=== PATIENT | female | born 1970 ===

== ENCOUNTER 2016-08-22 07:06 | Day surgery (SDC) | payer MEDICARE, MEDICAID ==
[2016-06-08 20:20] VITALS: BMI 19.5
[2016-08-22] MEDS ORDERED: Lactated Ringer's 500 ML IV ONE (07:55)
[2016-08-22] MEDS ORDERED: Propofol 10 mg/ml Inj (20 ML) ONE (09:42)
[2016-08-22] MEDS ORDERED: Midazolam 2 MG/2 ML VIAL ONE (09:42)
[2016-08-22] MEDS ORDERED: ePHEDrine 50 mg/ml Inj ONE (09:48)
[2016-08-22 10:17] VITALS: RESP 20
[2016-08-22 10:43] VITALS: BP 103/78; PULSE 90; TEMP 96.5; O2SAT 98
== END 2016-08-22 11:26 | disposition home or self-care (01) ==
LOC: H.ENDO 07:06
PROVIDERS: ATTEND Internal Medicine Gastroenterology
DX: Z12.11 Encounter for screening for malignant neoplasm of colon (principal); J45.909 Unspecified asthma, uncomplicated; D64.9 Anemia, unspecified; K64.9 Unspecified hemorrhoids; K74.60 Unspecified cirrhosis of liver; K31.9 Disease of stomach and duodenum, unspecified; K31.89 Other diseases of stomach and duodenum; K76.6 Portal hypertension; K20.9 Esophagitis, unspecified; K29.50 Unspecified chronic gastritis without bleeding
CPT/HCPCS: 43239; 45378; 88305; J2001; J2250; J2704; J7120

== ENCOUNTER 2016-12-06 05:25 | Observation (INO) | payer OTHER, MEDICAID ==
[2016-12-06 05:26] VITALS: BMI 19.5
--- NOTE | 2016-12-06 06:09 | ED PDOC ---
HPI: Abdomen Time Seen by Provider: 12/06/16 05:43 Chief Complaint (Nursing): Abdominal Pain Chief Complaint (Provider): Abdominal Pain History Per: Patient History/Exam Limitations: no limitations Onset/Duration Of Symptoms: Days (Two ) Outside of [place] travel?: No Current Symptoms Are (Timing): Still Present Severity: Mild Associated Symptoms: denies: Fever, Nausea, Vomiting, Diarrhea, Chest Pain Additional Complaint(s): 46 y/o female patient presenting to the ED with abdominal distention for two days. Patients past medical history includes alcohol related liver cirrhosis, GI bleed and compliant with diuretic. Patient came to the ED after referral from PMD Dr. Aguirre for an ED paracentesis. Patient reports abdominal distention with discomfort and mild shortness of breath and reports she had similar symptoms April this year and benefitted from paracentesis. Patient reports being a current smoker and former drinker. Past Medical History Reviewed: Historical Data, Nursing Documentation, Vital Signs Vital Signs: Last Vital Signs Temp 98.7 F 12/06/16 05:36 Pulse 74 12/06/16 05:36 Resp 18 12/06/16 05:36 BP 99/64 L 12/06/16 05:36 Pulse Ox 98 12/06/16 06:34 - Medical History PMH: Anemia, Asthma (LAST ATTACK 1 MONTH AGO), HTN Denies: Bronchitis, Cardia Arrhythmia, CHF, COPD, Emphysema, HIV, Hypercholesterolemia, Mitral Valve Prolapse, Peripheral Edema, Pneumonia, Pulmonary Embolism, Chronic Kidney Disease, Sickle Cell Disease, Sleep Apnea - Surgical History Surgical History: Endoscopy Denies: Appendectomy, CABG, Carotid Endarterectomy, Cholecystectomy, Coronary Stent, Pacemaker, Tonsillectomy - Family History Family History: States: No Known Family Hx - Social History Current smoker - smoking cessation education provided: Yes Alcohol: None Drugs: Denies - Home Medications Home Medications: Ambulatory Orders Medication Instructions Recorded Albuterol Sulfate 1 puff INH PRN PRN 08/16/15 rifAXIMin [Xifaxan] 550 mg PO BID 08/16/15 Spironolactone [Aldactone] 25 mg PO TID #90 tab 08/17/15 Ferrous Sulfate 325 mg PO DAILY #0 tablet 02/09/16 Carvedilol [Coreg] 3.125 mg PO DAILY 08/22/16 Furosemide [Lasix] 40 mg PO DAILY 08/22/16 - Allergies Allergies/Adverse Reactions: Allergies Allergy/AdvReac Type Severity Reaction Status Date / Time iodine Allergy SHORTNESS Verified 12/06/16 05:36 OF BREATH Review of Systems ROS Statement: Except As Marked, All Systems Reviewed And Found Negative Respiratory: Positive for: Shortness of Breath ((+)Mild ) Gastrointestinal: Positive for: Abdominal Pain ((+)Distention ) Physical Exam - Reviewed Nursing Documentation Reviewed: Yes Vital Signs Reviewed: Yes - Physical Exam Appears: Positive for: Non-toxic, No Acute Distress Head Exam: Positive for: ATRAUMATIC, NORMAL INSPECTION, NORMOCEPHALIC Skin: Positive for: Normal Color, Warm, Dry Neck: Positive for: Normal, Painless ROM, Supple Cardiovascular/Chest: Positive for: Regular Rate, Rhythm. Negative for: Murmur Respiratory: Positive for: Normal Breath Sounds. Negative for: Respiratory Distress Gastrointestinal/Abdominal: Positive for: Distended ((+)Distention of the abdomen with fluid wave, inciting known liver cirrhosis.) Extremity: Positive for: Normal ROM Neurologic/Psych: Positive for: Alert, Oriented. Negative for: Motor/Sensory Deficits - Laboratory Results Result Diagrams: 12/06/16 06:27 - ECG O2 Sat by Pulse Oximetry: 98 (RA) Pulse Ox Interpretation: Normal Medical Decision Making Medical Decision Making: Time: 542 Initial impression: Initial plan: --EKG --CMP --ED URINE DIPSTICK --URINE --EKG-ED --CBC --PTT --PROTHROMBIN TIME --BLOOD CULTURE --HEPLOCK INSERTION IV --ADMIT --URINALYSIS Consultations: --Patient will be on admit observation for same day Paracentesis as was discussed with Dr. Nel MD the resident behavioral health consultant who will communicate with the incoming day team for further treatment. Scribe Attestation: Documented by Erica Pickering, acting as a scribe for Yaniv Valle MD. Scribe Attestation: All medical record entries made by the Scribe were at my direction and personally dictated by me. I have reviewed the chart and agree that the record accurately reflects my personal performance of the history, physical exam, medical decision making, and the department course for this patient. I have also personally directed, reviewed, and agree with the discharge instructions and disposition. Disposition - Clinical Impression Clinical Impression: Cirrhosis of liver, Ascites - Patient ED Disposition Is Patient to be Admitted: Yes Discussed With : Prema Neumann - Disposition Referrals: Seamus Aguirre MD [Primary Care Provider] - Disposition Time: 05:48 Condition: FAIR - Pt Status Changed To: Hospital Disposition Of: Observation - POA Present On Arrival: None
[2016-12-06 06:32] LABS: EOS % 0.6 % (0.0-4.0); LYMPH # 0.8 K/uL (1.0-4.3); LYMPH % 17.1 % (20.0-40.0); MEAN CELL VOLUME 90.6 fl (81.0-99.0); MEAN CORPUSCULAR HEMOGLOBIN 29.8 pg (27.0-31.0); MEAN CORPUSCULAR HGB CONC 32.9 g/dL (33.0-37.0); MEAN PLATELET VOLUME 9.2 fl (7.2-11.7); MONO # 0.6 K/uL (0.0-0.8); MONO % 14.1 % (0.0-10.0); NEUT # 2.9 K/uL (1.8-7.0); NEUT % 67.2 % (50.0-75.0); NRBC % 0.1 % (0.0-0.0); RBC 3.34 Mil/uL (3.80-5.20); WHITE BLOOD COUNT 4.4 K/uL (4.8-10.8)
[2016-12-06 06:34] LABS: SQUAMOUS EPITHIAL < 1 /hpf (0-5); URINE AMORPHOUS SEDIMENT RARE /ul (<OCC); URINE BACTERIA RARE (<OCC); URINE BILIRUBIN NEGATIVE (NEGATIVE); URINE BLOOD NEGATIVE (NEGATIVE); URINE CLARITY SLIGHTY-CLOUDY (Clear); URINE COLOR YELLOW (YELLOW); URINE GLUCOSE (UA) NEG (Normal); URINE LEUKOCYTE ESTERASE NEG Leu/uL (Negative); URINE NITRATE NEGATIVE (NEGATIVE); URINE PROTEIN NEGATIVE (NEGATIVE)
[2016-12-06 06:39] LABS: ALB/GLOB RATIO 0.8 (1.0-2.1); ALBUMIN 3.6 g/dL (3.5-5.0); CALCIUM 8.8 mg/dL (8.4-10.2)
[2016-12-06 08:27] LABS: INR 1.6 (0.9-1.2); PARTIAL THROMBOPLASTIN TIME 34.6 Seconds (25.6-37.1); PROTHROMBIN TIME 16.4 Seconds (9.8-13.1)
[2016-12-06] MEDS ORDERED: Albuterol HFA 90 mcg/actuation (8 g) INH PRN (09:33)
--- NOTE | 2016-12-06 09:38 | CARD ---
APPROVED REPORT EKG Measurement Heart [id number] <Conclusion> Normal sinus rhythm Septal infarct, age undetermined Abnormal ECG
[2016-12-06 12:36] VITALS: RESP 18
[2016-12-06] MEDS ORDERED: Lidocaine 1% Inj (20ml) ONE (12:54)
--- NOTE | 2016-12-06 13:44 | CP.PCM.CON ---
<Sanjana Murray - Last Filed: 12/06/16 14:06> History of Present Illness - History of Present Illness History of Present Illness: GI Fellow PGY4 Consult Note This is a 46yF with pmhx of cirrhosis 2/2 EtOH abuse, asthma, renal insufficiency. Pt pw co of abdominal pain, nausea, vomiting and decreased appetite for weeks. Pt denies prior paracentesis and reports compliance with medications except lactulose. Pt was admitted at [facility] in May with hepatic encephalopathy and decompensated cirrhosis. Pt followed up as an outpt and had screening EGD in July which showed esophagitis, portal hypertensive gastropathy , negative H.pyloi and no varices. Pt has a colonoscopy at the time which had poor prep and was rescheduled for November 28, 2016 which pt didn't show up to because was not unable to take prep. Pt was to followup at a liver transplant but did not due to compliance and possible alcohol use at that time, pt currently denies drinking. ROS: A 12pt ROS was obtained and was negative except as above PMHx: See HPI PSHx: None documented FHx: None reported SHx: Prior heavy EtOH use denies current drinking, no tobacco use, does use marijuana Past Patient History - Past Medical History & Family History Past Medical History?: Yes - Past Social History Smoking Status: Current Some Days Smoker - CARDIAC Hx Cardiac Disorders: No Hx Hypertension: Yes - PULMONARY Hx Respiratory Disorders: No Hx Asthma: Yes - NEUROLOGICAL Hx Neurological Disorder: No - HEENT Hx HEENT Problems: No - RENAL Hx Chronic Kidney Disease: No - ENDOCRINE/METABOLIC Hx Endocrine Disorders: No - HEMATOLOGICAL/ONCOLOGICAL Hx Blood Disorders: No - INTEGUMENTARY Hx Dermatological Problems: No - MUSCULOSKELETAL/RHEUMATOLOGICAL Hx Musculoskeletal Disorders: No Hx Falls: No - GASTROINTESTINAL Hx Gastrointestinal Disorders: No - GENITOURINARY/GYNECOLOGICAL Hx Genitourinary Disorders: No - PSYCHIATRIC Hx Psychophysiologic Disorder: No Hx Substance Use: No (medicinal marijuana) - SURGICAL HISTORY Hx Appendectomy: No Hx Carotid Endarterectomy: No Hx Section: Yes (3X) Hx Cholecystectomy: No Hx Coronary Artery Bypass Graft: No Hx Coronary Stent: No Hx Tonsillectomy: No - ANESTHESIA Hx Anesthesia: Yes Hx Anesthesia Reactions: No Hx Malignant Hyperthermia: No Meds Allergies/Adverse Reactions: Allergies Allergy/AdvReac Type Severity Reaction Status Date / Time iodine Allergy SHORTNESS Verified 12/06/16 05:36 OF BREATH - Medications Medications: Current Medications Albuterol (Ventolin Hfa 90 Mcg/Actuation (8 G)) 1 puff INH RQ6 PRN PRN Reason: Shortness of Breath Carvedilol (Coreg) 3.125 mg PO DAILY BARBARA Furosemide (Lasix) 40 mg PO DAILY BARBARA Lactulose (Enulose) 20 gm PO BID BARBARA Spironolactone (Aldactone) 100 mg PO DAILY BARBARA Physical Exam - Constitutional Appears: Non-toxic, No Acute Distress - Head Exam Head Exam: ATRAUMATIC, NORMAL INSPECTION, NORMOCEPHALIC - Eye Exam Eye Exam: EOMI, PERRL Pupil Exam: PERRL - ENT Exam ENT Exam: Mucous Membranes Moist, Normal Exam - Respiratory Exam Respiratory Exam: Clear to Auscultation Bilateral, NORMAL BREATHING PATTERN - Cardiovascular Exam Cardiovascular Exam: RRR, +S1, +S2 - GI/Abdominal Exam GI & Abdominal Exam: Distended, Normal Bowel Sounds, Soft, Tenderness - Rectal Exam Rectal Exam: Deferred - Extremities Exam Extremities exam: Positive for: normal inspection - Back Exam Back exam: NORMAL INSPECTION - Neurological Exam Neurological exam: Alert, Oriented x3 - Psychiatric Exam Psychiatric exam: Anxious - Skin Skin Exam: Dry, Intact, Normal Color, Warm Results - Vital Signs Recent Vital Signs: Last Vital Signs Temp 98.2 F 12/06/16 09:00 Pulse 76 12/06/16 12:23 Resp 18 12/06/16 12:23 BP 100/68 12/06/16 09:30 Pulse Ox 98 12/06/16 09:30 - Labs Result Diagrams: 12/06/16 06:27 12/06/16 06:27 Labs: Laboratory Results - last 24 hr 12/06/16 12/06/16 12/06/16 06:27 06:27 06:27 WBC 4.4 L RBC 3.34 L Hgb 10.0 L Hct 30.3 L MCV 90.6 D MCH 29.8 MCHC 32.9 L RDW 18.0 H Plt Count 105 L D MPV 9.2 Neut % (Auto) 67.2 Lymph % (Auto) 17.1 L [place] % (Auto) 14.1 H Eos % (Auto) 0.6 Baso % (Auto) 1.0 Neut # 2.9 Lymph # 0.8 L [place] # 0.6 Eos # 0.0 Baso # 0.0 PT 16.4 H INR 1.6 H APTT 34.6 Sodium 137 Potassium 4.0 Chloride 101 Carbon Dioxide 27 Anion Gap 13 BUN 14 Creatinine 1.2 Est GFR ( Amer) 58 Est GFR (Non-Af Amer) 48 Random Glucose 118 H Calcium 8.8 Total Bilirubin 2.3 H AST 59 H ALT 26 Alkaline Phosphatase 191 H D Total Protein 8.4 H Albumin 3.6 Globulin 4.8 H Albumin/Globulin Ratio 0.8 L Urine Color Urine Clarity Urine pH Ur Specific [place] Urine Protein Urine Glucose (UA) Urine Ketones Urine Blood Urine Nitrate Urine Bilirubin Urine Urobilinogen Ur Leukocyte Esterase Urine RBC (Auto) Urine Microscopic WBC Ur Squamous Epith Cells Amorphous Sediment Urine Bacteria 12/06/16 06:27 WBC RBC Hgb Hct MCV MCH MCHC RDW Plt Count MPV Neut % (Auto) Lymph % (Auto) [place] % (Auto) Eos % (Auto) Baso % (Auto) Neut # Lymph # [place] # Eos # Baso # PT INR APTT Sodium Potassium Chloride Carbon Dioxide Anion Gap BUN Creatinine Est GFR ( Amer) Est GFR (Non-Af Amer) Random Glucose Calcium Total Bilirubin AST ALT Alkaline Phosphatase Total Protein Albumin Globulin Albumin/Globulin Ratio Urine Color Yellow Urine Clarity Slighty-cloudy Urine pH 7.0 Ur Specific [place] 1.010 Urine Protein Negative Urine Glucose (UA) Neg Urine Ketones Negative Urine Blood Negative Urine Nitrate Negative Urine Bilirubin Negative Urine Urobilinogen 2.0 H Ur Leukocyte Esterase Neg Urine RBC (Auto) 3 Urine Microscopic WBC 1 Ur Squamous Epith Cells < 1 Amorphous Sediment Rare H Urine Bacteria Rare Assessment & Plan - Assessment and Plan (Free Text) Assessment: This is a 46yF with hx of alcoholic cirrhosis pw with abdominal pain, nausea and decreased appetite. 1. Alcoholic Cirrhosis MELD 17 2. Hx Hepatic Encephalopathy 3. Ascites 4. Pancytopenia 5. Transaminitis/Hyperbilirubinemia Plan: -Order IR guided paracentesis to r/o SBP and lab work with peritoneal total protein, albumin, cell count and cx -Order stool H.Pylori antigen with given hx of abdominal pain, nausea and decreased appetite -Continue lactulose bid to titrate for 2BM daily with hx of HE -Needs outpt colonoscopy -Pancytopenia likely from chronic alcohol abuse and bone marrow suppression -Continue spironolactone, furosemide, and rifaximin -Low Sodium diet -Will continue to follow pt closely <Nestor Tabares MD - Last Filed: 12/06/16 19:29> Results - Vital Signs Recent Vital Signs: Last Vital Signs Temp 98 F 12/06/16 16:30 Pulse 60 12/06/16 16:30 Resp 18 12/06/16 16:30 BP 93/61 L 12/06/16 16:30 Pulse Ox 98 12/06/16 16:30 - Labs Result Diagrams: 12/06/16 06:27 12/06/16 06:27 Labs: Laboratory Results - last 24 hr 12/06/16 12/06/16 12/06/16 06:27 06:27 06:27 WBC 4.4 L RBC 3.34 L Hgb 10.0 L Hct 30.3 L MCV 90.6 D MCH 29.8 MCHC 32.9 L RDW 18.0 H Plt Count 105 L D MPV 9.2 Neut % (Auto) 67.2 Lymph % (Auto) 17.1 L [place] % (Auto) 14.1 H Eos % (Auto) 0.6 Baso % (Auto) 1.0 Neut # 2.9 Lymph # 0.8 L [place] # 0.6 Eos # 0.0 Baso # 0.0 PT 16.4 H INR 1.6 H APTT 34.6 Sodium 137 Potassium 4.0 Chloride 101 Carbon Dioxide 27 Anion Gap 13 BUN 14 Creatinine 1.2 Est GFR ( Amer) 58 Est GFR (Non-Af Amer) 48 Random Glucose 118 H Calcium 8.8 Total Bilirubin 2.3 H AST 59 H ALT 26 Alkaline Phosphatase 191 H D Total Protein 8.4 H Albumin 3.6 Globulin 4.8 H Albumin/Globulin Ratio 0.8 L Urine Color Urine Clarity Urine pH Ur Specific [place] Urine Protein Urine Glucose (UA) Urine Ketones Urine Blood Urine Nitrate Urine Bilirubin Urine Urobilinogen Ur Leukocyte Esterase Urine RBC (Auto) Urine Microscopic WBC Ur Squamous Epith Cells Amorphous Sediment Urine Bacteria Fluid Source Fluid Appearance Fluid WBC Fluid RBC Fluid Tot Cell Count Fluid Neutrophils Fluid Lymphocytes Fld Monocyte/Macrophag Fluid Total Protein Fluid Comment 12/06/16 12/06/16 06:27 15:27 WBC RBC Hgb Hct MCV MCH MCHC RDW Plt Count MPV Neut % (Auto) Lymph % (Auto) [place] % (Auto) Eos % (Auto) Baso % (Auto) Neut # Lymph # [place] # Eos # Baso # PT INR APTT Sodium Potassium Chloride Carbon Dioxide Anion Gap BUN Creatinine Est GFR ( Amer) Est GFR (Non-Af Amer) Random Glucose Calcium Total Bilirubin AST ALT Alkaline Phosphatase Total Protein Albumin Globulin Albumin/Globulin Ratio Urine Color Yellow Urine Clarity Slighty-cloudy Urine pH 7.0 Ur Specific [place] 1.010 Urine Protein Negative Urine Glucose (UA) Neg Urine Ketones Negative Urine Blood Negative Urine Nitrate Negative Urine Bilirubin Negative Urine Urobilinogen 2.0 H Ur Leukocyte Esterase Neg Urine RBC (Auto) 3 Urine Microscopic WBC 1 Ur Squamous Epith Cells < 1 Amorphous Sediment Rare H Urine Bacteria Rare Fluid Source Peritoneal/ascites Fluid Appearance Cloudy Fluid WBC 110.0 Fluid RBC 432.0 H Fluid Tot Cell Count 100 H Fluid Neutrophils 18.0 H Fluid Lymphocytes 29.0 H Fld Monocyte/Macrophag 53 H Fluid Total Protein 2.6 Fluid Comment Yellow Attending/Attestation - Attestation I have personally seen and examined this patient.: Yes I have fully participated in the care of the patient.: Yes I have reviewed all pertinent clinical information: Yes Notes (Text): 12/06/16 19:26 Patient seen and examined with GI fellow on rounds. This is a 46 year old F with hx of alcoholic cirrhosis presented with decompensated disease in setting of worsening ascites. IR guided therapeutic and diagnostic tap done with removal of 1.4 lts of ascitic fluid. No s/s of SBP. Can be discharged on lasix/ aldactone and lactulose with outpatient follow up with me. Low sodium, high protein diet.
--- NOTE | 2016-12-06 13:49 | PCM.SURG1 ---
Surgeon's Initial Post Op Note - Surgeon's Notes Surgeon: Mack Avendaño MD Driller And Reamer: None Type of Anesthesia: Local Pre-Operative Diagnosis: Ascites Operative Findings: Pt with moderate ascites on ultrasound. Post-Operative Diagnosis: Ascites Operation Performed: US guided paracentesis. Specimen/Specimens Removed: 1400 cc of slightly cloudy yellow fluid Estimated Blood Loss: EBL {In ML}: 0 Blood Products Given: N/A Drains Used: No Drains Post-Op Condition: Fair Date of Surgery/Procedure: 12/06/16 Time of Surgery/Procedure: 13:45
[2016-12-06 14:00] VITALS: O2SAT 98
--- NOTE | 2016-12-06 15:11 | CP.PCM.HP ---
History of Present Illness - History of Present Illness History of Present Illness: CC/HPI: Patient is a 46 yo F with a PMH significant for asthma, HTN, and liver failure who presented to the ED after being sent from the clinic yesterday as she was thought to need abdominal paracentesis. The patient noted that at first she went to another doctor office after her visit to the clinic, but the doctor was not in. She then went home for a while before presenting to the ED. The patient reports that she has had abdominal pain and shortness of breath for over a month now. She was initially able to deal with the pain until the past week when it became an 8/10. The patient describes the pain as a sharp off-and- on pain. The pain is better with sitting down and also with smoking marijuana. The pain is worse when the patient lies on her side. The pain does not radiate anywhere, but it is located on both sides of her abdomen. In addition to the pain the patient complains of experiencing shortness of breath, fatigue, decreased appetite, and nausea. The patient denied any diarrhea, vomiting, constipation, headache, or fever and noted that her last bowel movement was yesterday. The patients primary care doctor is Dr. Zarco. Patient denied any history of recent sick contacts. PMHx: Asthma, HTN, Liver Cirrhosis, HLD, Hx of ETOH abuse PSHx: C-Sections x 3 Allergies: NKDA. Medications: See Med List FHx: Hypertension (Sister). Colon Cancer ([id number] 40s). OBGYN: LMP 3 years ago. No abnormal bleeding. Social History: Lives with a friend. The patient works as a administrative director. She is currently single. Patient is not sexually active. She has never used any tobacco products. Her last ETOH use was in January of last year. She uses Marijuana occasionally to relieve her stomach pain. ROS: General: Denied Fever. Positive for Fatigue. HEENT: No vision change. CV: No chest pain or palpitations. Pulmonary: Positive for SOB. GI: Positive for abdominal pain as well as nausea. Patient denied any constipation, vomiting, and diarrhea. E.D. Course --EKG --CMP --ED URINE DIPSTICK --URINE --EKG-ED --CBC --PTT --PROTHROMBIN TIME --BLOOD CULTURE --HEPLOCK INSERTION IV --ADMIT --URINALYSIS Present on Admission - Present on Admission Any Indicators Present on Admission: No History of DVT/PE: No History of Uncontrolled Diabetes: No Urinary Catheter: No Decubitus Ulcer Present: No History Surgical Site Infection Following: None Review of Systems - Review of Systems Review of Systems: See HPI Past Patient History - Past Medical History & Family History Past Medical History?: Yes - Past Social History Smoking Status: Current Some Days Smoker - CARDIAC Hx Cardiac Disorders: No Hx Hypertension: Yes - PULMONARY Hx Respiratory Disorders: No Hx Asthma: Yes - NEUROLOGICAL Hx Neurological Disorder: No - HEENT Hx HEENT Problems: No - RENAL Hx Chronic Kidney Disease: No - ENDOCRINE/METABOLIC Hx Endocrine Disorders: No - HEMATOLOGICAL/ONCOLOGICAL Hx Blood Disorders: No - INTEGUMENTARY Hx Dermatological Problems: No - MUSCULOSKELETAL/RHEUMATOLOGICAL Hx Musculoskeletal Disorders: No Hx Falls: No - GASTROINTESTINAL Hx Gastrointestinal Disorders: No - GENITOURINARY/GYNECOLOGICAL Hx Genitourinary Disorders: No - PSYCHIATRIC Hx Psychophysiologic Disorder: No Hx Substance Use: No (medicinal marijuana) - SURGICAL HISTORY Hx Appendectomy: No Hx Carotid Endarterectomy: No Hx Section: Yes (3X) Hx Cholecystectomy: No Hx Coronary Artery Bypass Graft: No Hx Coronary Stent: No Hx Tonsillectomy: No - ANESTHESIA Hx Anesthesia: Yes Hx Anesthesia Reactions: No Hx Malignant Hyperthermia: No Meds Allergies/Adverse Reactions: Allergies Allergy/AdvReac Type Severity Reaction Status Date / Time iodine Allergy SHORTNESS Verified 12/06/16 05:36 OF BREATH Physical Exam - Constitutional Appears: Non-toxic, No Acute Distress - Eye Exam Eye Exam: Scleral icterus (Mild ) - ENT Exam ENT Exam: Mucous Membranes Moist - Neck Exam Neck exam: Positive for: Full Rom, Normal Inspection - Respiratory Exam Respiratory Exam: Clear to Auscultation Bilateral, NORMAL BREATHING PATTERN - Cardiovascular Exam Cardiovascular Exam: REGULAR RHYTHM, +S1, +S2 - GI/Abdominal Exam GI & Abdominal Exam: Distended, Hyperactive Bowel Sounds, Tenderness - Extremities Exam Extremities exam: Positive for: normal inspection, pedal pulses present - Neurological Exam Neurological exam: Alert, Oriented x3 - Psychiatric Exam Psychiatric exam: Normal Affect, Normal Mood Results - Vital Signs Recent Vital Signs: Last Vital Signs Temp 97.4 F L 12/06/16 13:59 Pulse 59 L 12/06/16 13:59 Resp 18 12/06/16 13:59 BP 96/57 L 12/06/16 13:59 Pulse Ox 98 12/06/16 13:59 - Labs Result Diagrams: 12/06/16 06:27 12/06/16 06:27 Labs: Laboratory Results - last 24 hr 12/06/16 12/06/16 12/06/16 06:27 06:27 06:27 WBC 4.4 L RBC 3.34 L Hgb 10.0 L Hct 30.3 L MCV 90.6 D MCH 29.8 MCHC 32.9 L RDW 18.0 H Plt Count 105 L D MPV 9.2 Neut % (Auto) 67.2 Lymph % (Auto) 17.[address] [place] % (Auto) 14.1 H Eos % (Auto) 0.6 Baso % (Auto) 1.0 Neut # 2.9 Lymph # 0.[address] [place] # 0.6 Eos # 0.0 Baso # 0.0 PT 16.4 H INR 1.6 H APTT 34.6 Sodium 137 Potassium 4.0 Chloride 101 Carbon Dioxide 27 Anion Gap 13 BUN 14 Creatinine 1.2 Est GFR ( Amer) 58 Est GFR (Non-Af Amer) 48 Random Glucose 118 H Calcium 8.8 Total Bilirubin 2.3 H AST 59 H ALT 26 Alkaline Phosphatase 191 H D Total Protein 8.4 H Albumin 3.6 Globulin 4.8 H Albumin/Globulin Ratio 0.8 L Urine Color Urine Clarity Urine pH Ur Specific [place] Urine Protein Urine Glucose (UA) Urine Ketones Urine Blood Urine Nitrate Urine Bilirubin Urine Urobilinogen Ur Leukocyte Esterase Urine RBC (Auto) Urine Microscopic WBC Ur Squamous Epith Cells Amorphous Sediment Urine Bacteria 12/06/16 06:27 WBC RBC Hgb Hct MCV MCH MCHC RDW Plt Count MPV Neut % (Auto) Lymph % (Auto) [place] % (Auto) Eos % (Auto) Baso % (Auto) Neut # Lymph # [place] # Eos # Baso # PT INR APTT Sodium Potassium Chloride Carbon Dioxide Anion Gap BUN Creatinine Est GFR ( Amer) Est GFR (Non-Af Amer) Random Glucose Calcium Total Bilirubin AST ALT Alkaline Phosphatase Total Protein Albumin Globulin Albumin/Globulin Ratio Urine Color Yellow Urine Clarity Slighty-cloudy Urine pH 7.0 Ur Specific [place] 1.010 Urine Protein Negative Urine Glucose (UA) Neg Urine Ketones Negative Urine Blood Negative Urine Nitrate Negative Urine Bilirubin Negative Urine Urobilinogen 2.0 H Ur Leukocyte Esterase Neg Urine RBC (Auto) 3 Urine Microscopic WBC 1 Ur Squamous Epith Cells < 1 Amorphous Sediment Rare H Urine Bacteria Rare Assessment & Plan - Assessment and Plan (Free Text) Assessment: 46 year old female with PMHx of of Liver cirrhosis secondary to ETOH abuse admitted for abdominal ascities Ascities/Abdominal pain 1- Paracentecis with IR 2- Fluid analysis-gram stain, albumin, fluid analysis, cultures 3- BCx 4- UCx Liver cirrhosis 1- GI evaluation- Dr. Tabares consult Input appreciated 2- Lasix 40mg 3- Spironolactone 50mg 4- Lactulose 20gram BID 5- Rifaxamine 550mg PO BID Portal Hypertension 1- Nadolol 20mg 2- Carvedilol 3.125mg q12 Mild intermittent asthma 1- Albuterol Inhaler PRN DVT prophylaxis 1- SCD for now Diet 1- GI/Hepatic diet
[2016-12-06 15:28] LABS: BODY FLUID TYPE PERITONEAL/ASCITES
[2016-12-06 15:47] LABS: TOTAL PROTEIN,BODY FLUID 2.6 g/dL (NONE ESTABLISHED)
[2016-12-06 16:30] VITALS: BP 93/61; PULSE 60; TEMP 98
[2016-12-06 17:23] LABS: BF GROSS APPEARANCE CLOUDY (CLEAR)
[2016-12-06 17:41] LABS: BODY FLUID MONO/MACROPHAGE 53 % (0-0); BODY FLUID TOTAL COUNT 100 (0-0)
--- NOTE | 2016-12-07 06:48 | CP.PCM.PCO ---
Physician Communication Note - Physician Communication Note Physician Communication Note: Patient left AMA overnight before being evaluated.
--- NOTE | 2016-12-07 09:15 | US ---
Date of Procedure: 12/06/2016 PROCEDURE: Ultrasound-guided paracentesis, CPT 52801 Medications: 7 cc 1% Lidocaine HISTORY: Ascites, abdominal pain TECHNIQUE: Following informed consent , the patient was placed supine on the stretcher and the site was marked. A limited abdominal ultrasound was performed that showed a small amount of intra-abdominal fluid. Procedural time out was called and the Pt's abdomen was marked and prepped and draped in the usual sterile fashion. Ultrasound-guided paracentesis performed. A total of 1.4 liters of slightly cloudy yellow colored fluid was removed without complication. IMPRESSION: Ultrasound-guided paracentesis.
== END 2016-12-06 19:02 | disposition left against medical advice (07) ==
LOC: H.ER 05:25 → H.ERHOLD 05:48 → H.MEDSURG1 09:43
PROVIDERS: ADMIT Family Medicine Geriatric Medicine; ATTEND Family Medicine Geriatric Medicine
DX: K70.31 Alcoholic cirrhosis of liver with ascites (principal); D61.818 Other pancytopenia; I10 Essential (primary) hypertension; K76.6 Portal hypertension; J45.20 Mild intermittent asthma, uncomplicated; F17.200 Nicotine dependence, unspecified, uncomplicated; Z91.041 Radiographic dye allergy status
CPT/HCPCS: 49083; 80053; 81003; 81025; 82042; 82945; 85025; 85610; 85730; 87040; 87070; 89051; 93005; 99284; C1729; G0378

== ENCOUNTER 2017-03-12 07:34 | Inpatient (IN) | payer OTHER, MEDICAID ==
[2017-03-12 07:34] VITALS: BMI 19.5
--- NOTE | 2017-03-12 08:11 | ED PDOC ---
HPI: Abdomen Time Seen by Provider: 03/12/17 07:49 Chief Complaint (Nursing): Trauma Chief Complaint (Provider): Trauma History Per: Patient History/Exam Limitations: no limitations Onset/Duration Of Symptoms: Days (x 3) Current Symptoms Are (Timing): Still Present Additional Complaint(s): Joy is a 46 year old female with a past medical history of Paracentesis ( June 2016) who presents to the Emergency Department complaining of right sided abdominal pain since last Sunday. Patient states she slip and fell 3 days ago ( Sunday, Mar 09) and hit her right side of her abdominal on a chair. Patient states she called an ambulance, but did not come to the hospital. Patient admits taking Motrin, but without relief. Denies fever, vomiting and diarrhea. PMD: No Family Provider Past Medical History Reviewed: Historical Data, Nursing Documentation, Vital Signs Vital Signs: Last Vital Signs Temp 98.4 F 03/13/17 13:53 Pulse 64 03/13/17 13:53 Resp 16 03/13/17 13:53 BP 101/66 03/13/17 13:53 Pulse Ox 98 03/13/17 13:53 - Medical History PMH: Anemia, Asthma, HTN Denies: Bronchitis, Cardia Arrhythmia, CHF, COPD, Emphysema, HIV, Hypercholesterolemia, Mitral Valve Prolapse, Peripheral Edema, Pneumonia, Pulmonary Embolism, Chronic Kidney Disease, Sickle Cell Disease, Sleep Apnea - Surgical History Surgical History: Endoscopy Denies: Appendectomy, CABG, Carotid Endarterectomy, Cholecystectomy, Coronary Stent, Pacemaker, Tonsillectomy - Family History Family History: States: Unknown Family Hx - Home Medications Home Medications: Ambulatory Orders Medication Instructions Recorded rifAXIMin [Xifaxan] 550 mg PO BID 08/16/15 Carvedilol [Coreg] 3.125 mg PO Q12H 08/22/16 Furosemide [Lasix] 40 mg PO DAILY 08/22/16 Albuterol Sulfate [Proair Hfa] 2 puff IH Q4H PRN 03/12/17 Calcium Carbonate [Calcium 1,250 mg PO DAILY 03/12/17 Carbonate] Ferrous Sulfate 325 mg PO BID 03/12/17 Folic Acid [Folic Acid] 1 mg PO DAILY 03/12/17 Lactulose [Generlac] 15 ml PO BID PRN 03/12/17 Pantoprazole Sodium [Protonix] 40 mg PO DAILY 03/12/17 Spironolactone [Aldactone] 50 mg PO BID 03/12/17 Ursodiol [Actigall] 300 mg PO BID 03/12/17 - Allergies Allergies/Adverse Reactions: Allergies Allergy/AdvReac Type Severity Reaction Status Date / Time iodine Allergy SHORTNESS Verified 03/12/17 07:46 OF BREATH Review of Systems ROS Statement: Except As Marked, All Systems Reviewed And Found Negative Constitutional: Negative for: Fever Gastrointestinal: Negative for: Vomiting, Diarrhea Physical Exam - Reviewed Nursing Documentation Reviewed: Yes Vital Signs Reviewed: Yes - Physical Exam Appears: Positive for: In Acute Distress (Minimal) Cardiovascular/Chest: Positive for: Regular Rate, Rhythm Respiratory: Positive for: Normal Breath Sounds. Negative for: Respiratory Distress Gastrointestinal/Abdominal: Positive for: Soft, Tenderness (Right-side abdominal ), Distended (Right side abdominal). Negative for: Other (Ecchymosis) Neurologic/Psych: Positive for: Alert - Laboratory Results Result Diagrams: 03/13/17 05:50 03/13/17 05:50 - ECG O2 Sat by Pulse Oximetry: 98 (RA) Pulse Ox Interpretation: Normal Medical Decision Making Medical Decision Making: Time: 08:01 Initial Impression: Abdominal Trauma Initial Plan: - CT Abdominal and Pelvis without PO or IV Contrast - CMP - CBC Time: 11:03 CT Abdominal and Pelvis without PO or IV Contrast LOWER THORAX: Unremarkable. LIVER: Cirrhotic appearing liver. GALLBLADDER AND BILE DUCTS: Cholelithiasis without CT evidence of acute cholecystitis. PANCREAS: Unremarkable. No gross lesion or ductal dilatation. SPLEEN: Unremarkable. ADRENALS: Unremarkable. No mass. KIDNEYS AND URETERS: Unremarkable. No hydronephrosis. No solid mass. VASCULATURE: Unremarkable. No aortic aneurysm. BOWEL: Unremarkable. No obstruction. No gross mural thickening. APPENDIX: Unremarkable. Normal appendix. PERITONEUM: Large volume intra-abdominal pelvic ascites. Qualitative this has increased compared to the prior study LYMPH NODES: Unremarkable. No enlarged lymph nodes. BLADDER: Unremarkable. REPRODUCTIVE: Unremarkable. BONES: No acute fracture. OTHER FINDINGS: None. IMPRESSION: No acute findings related to/accounting for the clinical presentation. Post Increasing volume of intraorbital and pelvic ascites. Cholelithiasis without CT evidence of acute cholecystitis. Scribe Attestation: Documented by Jamison Fontana, acting as a scribe for Radha Kaminski MD Provider Scribe Attestation: All medical record entries made by the Scribe were at my direction and personally dictated by me. I have reviewed the chart and agree that the record accurately reflects my personal performance of the history, physical exam, medical decision making, and the department course for this patient. I have also personally directed, reviewed, and agree with the discharge instructions and disposition. Disposition - Clinical Impression Clinical Impression: Acute renal insufficiency, Ascites - Patient ED Disposition Is Patient to be Admitted: Yes - Disposition Disposition Time: 11:30 Condition: STABLE - Pt Status Changed To: Hospital Disposition Of: Observation - POA Present On Arrival: None
[2017-03-12] MEDS ORDERED: HYDROmorphone 0.5 mg/0.5 ml ISec ONE ×2 (08:22→14:47)
[2017-03-12] MEDS ORDERED: HYDROmorphone 0.5 mg/0.5 ml ISec IVP STA (08:23)
[2017-03-12 08:51] LABS: BASO % 0.6 % (0.0-2.0); EOS # 0.1 K/uL (0.0-0.7); EOS % 1.7 % (0.0-4.0); HEMATOCRIT 32.1 % (34.0-47.0); LYMPH # 0.6 K/uL (1.0-4.3); LYMPH % 14.2 % (20.0-40.0); MEAN CELL VOLUME 93.2 fl (81.0-99.0); MEAN CORPUSCULAR HEMOGLOBIN 30.1 pg (27.0-31.0); MEAN CORPUSCULAR HGB CONC 32.3 g/dL (33.0-37.0); MEAN PLATELET VOLUME 9.8 fl (7.2-11.7); MONO # 0.8 K/uL (0.0-0.8); MONO % 19.1 % (0.0-10.0); NEUT # 2.7 K/uL (1.8-7.0); NEUT % 64.4 % (50.0-75.0); NRBC % 0.1 % (0.0-0.0); WHITE BLOOD COUNT 4.2 K/uL (4.8-10.8)
[2017-03-12 09:06] LABS: ALB/GLOB RATIO 0.7 (1.0-2.1); BILIRUBIN,TOTAL 3.9 mg/dl (0.2-1.3); CALCIUM 9.3 mg/dL (8.4-10.2); POTASSIUM 3.5 MMOL/L (3.6-5.0)
[2017-03-12] MEDS ORDERED: Potassium Chloride 20 mEq ER Tab PO STA (09:14)
--- NOTE | 2017-03-12 11:04 | CT ---
PROCEDURE: CT Abdomen and Pelvis without intravenous contrast HISTORY: Posttraumatic right-sided abdominal pain. COMPARISON: 02/07/2016 CT abdomen and pelvis. 08/10/2016 MRI abdomen TECHNIQUE: Unenhanced study. Neither oral nor intravenous contrast administered. Sensitivity and specificity for acute inflammatory processes limited by the absence of oral and intravenous contrast. Radiation dose: Total exam DLP = 302.27 mGy-cm. This CT exam was performed using one or more of the following dose reduction techniques: Automated exposure control, adjustment of the mA and/or kV according to patient size, and/or use of iterative reconstruction technique. FINDINGS: LOWER THORAX: Unremarkable. LIVER: Cirrhotic appearing liver. GALLBLADDER AND BILE DUCTS: Cholelithiasis without CT evidence of acute cholecystitis. PANCREAS: Unremarkable. No gross lesion or ductal dilatation. SPLEEN: Unremarkable. ADRENALS: Unremarkable. No mass. KIDNEYS AND URETERS: Unremarkable. No hydronephrosis. No solid mass. VASCULATURE: Unremarkable. No aortic aneurysm. BOWEL: Unremarkable. No obstruction. No gross mural thickening. APPENDIX: Unremarkable. Normal appendix. PERITONEUM: Large volume intra-abdominal pelvic ascites. Qualitative this has increased compared to the prior study LYMPH NODES: Unremarkable. No enlarged lymph nodes. BLADDER: Unremarkable. REPRODUCTIVE: Unremarkable. BONES: No acute fracture. OTHER FINDINGS: None. IMPRESSION: No acute findings related to/accounting for the clinical presentation. Post Increasing volume of intraorbital and pelvic ascites. Cholelithiasis without CT evidence of acute cholecystitis.
--- NOTE | 2017-03-12 14:38 | CP.PCM.HP ---
History of Present Illness - History of Present Illness History of Present Illness: Full code Hx taken from patient and previous records PMD: Dr Jose G Zarco Patient designates her mother Mariza Zuniga([phone]) as a person to make decisions for her in case she is not able to. 46 y/o F with PMhx of alcoholic liver cirrhosis, HTN and Asthma presents to ED c /o RUQ/Lower right chest wall pain after a fall 3 days ago. Patient "slipped" and hit her r/side abd/chest with a small chair. Pain at the beginning was severe and she couldnt even move. 911 arrived but she refused to go to hosp after their assessment. There were no skin changes but pain was worsening with deep inspiration and position changes. No syncope, head trauma, dizziness, melena, vomiting, hematochezia, constipations, diarrhea, fever, cough or SOB. Patient states that pain did not improved since then and that is why she decided to come today. She used marijuana on Sunday to see if helped her with the pain, but didn't. Denies drinking ETOH since the summer. Denies other drugs. Patient states she has been taking all her meds as prescribed and carries the list of her meds with her. ED course: CT abd and pelvis shows increased ascitis level from previous study and gallstones without cholecystitis.(Please see full report) S/P Dilaudid 0.5 mg once CBC: Pancytopenia CMP: Elevated BUN/creat, Potassium 3.5, Bili and AP elevated, albumin WNL PMHx: Asthma, HTN, Liver Cirrhosis, HLD, Hx of ETOH abuse PSHx: C-Sections x 3 Allergies: NKDA. FHx: Hypertension (Sister). Liver failure,ETOH abuse(Father) OBGYN: LMP 3 years ago. No abnormal bleeding. Social History: Lives with a friend but wants a place to live. She has never used any tobacco products. Her last ETOH use was in the summer. She uses Marijuana occasionally to relieve her stomach pain. Present on Admission - Present on Admission Any Indicators Present on Admission: No Review of Systems - Review of Systems All systems: reviewed and no additional remarkable complaints except Review of Systems: Pain R/chest wall - Gastrointestinal Gastrointestinal: Other (ascitis) Past Patient History - Past Medical History & Family History Past Medical History?: Yes - Past Social History Smoking Status: Current Some Days Smoker - CARDIAC Hx Cardia Arrhythmia: No Hx Congestive Heart Failure: No Hx Hypercholesterolemia: No Hx Hypertension: Yes Hx Mitral Valve Prolapse: No Hx Pacemaker: No Hx Peripheral Edema: No - PULMONARY Hx Asthma: Yes Hx Bronchitis: No Hx Chronic Obstructive Pulmonary Disease (COPD): No Hx Emphysema: No Hx Pneumonia: No Hx Pulmonary Embolism: No Hx Sleep Apnea: No - NEUROLOGICAL Hx Neurological Disorder: No - HEENT Hx HEENT Problems: No - RENAL Hx Chronic Kidney Disease: No - ENDOCRINE/METABOLIC Hx Endocrine Disorders: No - HEMATOLOGICAL/ONCOLOGICAL Hx Anemia: Yes Hx Human Immunodeficiency Virus (HIV): No Hx Sickle Cell Disease: No - INTEGUMENTARY Hx Dermatological Problems: No - MUSCULOSKELETAL/RHEUMATOLOGICAL Hx Musculoskeletal Disorders: No Hx Falls: No - GASTROINTESTINAL Hx Gastrointestinal Disorders: No Hx Liver Failure: Yes - GENITOURINARY/GYNECOLOGICAL Hx Genitourinary Disorders: No - PSYCHIATRIC Hx Psychophysiologic Disorder: No Hx Substance Use: No (medicinal marijuana) - SURGICAL HISTORY Hx Appendectomy: No Hx Carotid Endarterectomy: No Hx Cholecystectomy: No Hx Coronary Artery Bypass Graft: No Hx Coronary Stent: No Hx Tonsillectomy: No - ANESTHESIA Hx Anesthesia: Yes Hx Anesthesia Reactions: No Hx Malignant Hyperthermia: No Meds Allergies/Adverse Reactions: Allergies Allergy/AdvReac Type Severity Reaction Status Date / Time iodine Allergy SHORTNESS Verified 03/12/17 07:46 OF BREATH Physical Exam - Constitutional Appears: Non-toxic, Chronically Ill - Head Exam Head Exam: ATRAUMATIC - Eye Exam Eye Exam: PERRL - ENT Exam ENT Exam: Mucous Membranes Moist - Neck Exam Neck exam: Positive for: Full Rom - Respiratory Exam Respiratory Exam: Chest Wall Tenderness (R/traci-lateral chest wall), Clear to Auscultation Bilateral, NORMAL BREATHING PATTERN. absent: Rales, Wheezes - Cardiovascular Exam Cardiovascular Exam: REGULAR RHYTHM, +S1, +S2. absent: Gallop - GI/Abdominal Exam GI & Abdominal Exam: Guarding (R/abd), Hyperactive Bowel Sounds, Soft, Tenderness (R/hemiabdomen). absent: Distended, Rebound Additional comments: Increased abd girth. Increased collateral circulation. Ascitis - Extremities Exam Extremities exam: Negative for: calf tenderness, pedal edema - Back Exam Back exam: absent: CVA tenderness (L), CVA tenderness (R) - Neurological Exam Neurological exam: Alert, Oriented x3 - Psychiatric Exam Psychiatric exam: Normal Affect, Normal Mood - Skin Skin Exam: Warm Additional comments: Spider angioma chest, neck, abd, extremities. Scleral icterus Results - Vital Signs Recent Vital Signs: Last Vital Signs Temp Pulse Resp BP Pulse Ox 98 03/12/17 13:19 - Labs Result Diagrams: 03/12/17 08:43 03/12/17 08:43 Labs: Laboratory Results - last 24 hr 03/12/17 03/12/17 08:43 08:43 WBC 4.2 L RBC 3.44 L Hgb 10.4 L Hct 32.1 L MCV 93.2 D MCH 30.1 MCHC 32.3 L RDW 17.0 H Plt Count 83 L D MPV 9.8 Neut % (Auto) 64.4 Lymph % (Auto) 14.2 L [place] % (Auto) 19.1 H Eos % (Auto) 1.7 Baso % (Auto) 0.6 Neut # 2.7 Lymph # 0.6 L [place] # 0.8 Eos # 0.1 Baso # 0.0 Sodium 139 Potassium 3.5 L Chloride 99 Carbon Dioxide 28 Anion Gap 16 BUN 25 H Creatinine 2.1 H Est GFR ( Amer) 30 Est GFR (Non-Af Amer) 25 Random Glucose 109 H Calcium 9.3 Total Bilirubin 3.9 H AST 85 H ALT 42 Alkaline Phosphatase 143 H Total Protein 9.0 H Albumin 3.6 Globulin 5.3 H Albumin/Globulin Ratio 0.7 L Assessment & Plan - Assessment and Plan (Free Text) Assessment: 46 year old female with PMHx of Liver cirrhosis secondary to ETOH abuse admitted for ascitis and abd/chest wall pain. Ascitis/Abd pain -Admits to med-surg -Not likely SBP at this time(Will monitor) -Likely to liver cirrhosis decompensation -CT shows increased ascitis from previous study(please see full report) -GI consulted Dr Castro. Will F/U recs -C/W home meds(Lasix, Aldactone, Lactulose, Rifaximin) -Tylenol 650 mg(max 2g/day) Q8h PRN for moderate pain -Dilaudid 0.25 mg PRN q6h for severe pain -Will consider IR consults for paracentesis pending GI recs. Alcoholic Liver Cirrhosis -C/W home meds -Hepatic modified diet (2g Na) -F/U GI recs Chest wall pain -Acute -S/P fall -R/O Rib Fx -F/U CXR Acute Kidney injury -Creatinine 2.1 -CT: Kidney and bladder unremarkable -R/O HRS -F/U UA and repeat BMP AM -No recent Hx of nephrotoxic drugs use Pancytopenia -Chronic -Possible due to bone marrow suppression due to ETOH abuse -Stable -Will monitor: F/U CBC AM HTN, chronic -Controlled -C/W Carvedilol 3.125mg q12h Mild intermittent asthma -Controlled -Albuterol Inhaler PRN DVT prophylaxis -SCD for now
[2017-03-12] MEDS ORDERED: Potassium Chloride 20 mEq ER Tab PO ONE (14:45)
[2017-03-12] MEDS: HYDROmorphone 0.5 mg/0.5 ml ISec IVP PRN (14:52)
[2017-03-12 17:51] LABS: RBC URINE 1 /hpf (0-3); URINE BILIRUBIN NEGATIVE (NEGATIVE); URINE BLOOD NEGATIVE (NEGATIVE); URINE COLOR YELLOW (YELLOW); URINE GLUCOSE (UA) NEG (Normal); URINE KETONE NEGATIVE (NEGATIVE); URINE LEUKOCYTE ESTERASE NEG Leu/uL (Negative); URINE PROTEIN NEGATIVE (NEGATIVE); URINE UROBILINOGEN 0.2-1.0 mg/dL (0.2-1.0); WBC URINE 1 /hpf (0-5)
[2017-03-12] MEDS ORDERED: Influenza Vaccine 18yr & older 0.5 ML/45 MCG SYR IM ONE (19:14)
[2017-03-13] MEDS: Potassium Chloride 40 MEQ in Sodium Chloride 0.9% 500 ML IV SCH ×2 (00:19→04:21)
[2017-03-13] MEDS: HYDROmorphone 0.5 mg/0.5 ml ISec IVP PRN ×3 (00:23→17:12)
[2017-03-13 06:39] LABS: ALB/GLOB RATIO 0.7 (1.0-2.1); BILIRUBIN,TOTAL 4.1 mg/dl (0.2-1.3); CALCIUM 8.7 mg/dL (8.4-10.2); POTASSIUM 4.2 MMOL/L (3.6-5.0); TOTAL PROTEIN 8.4 G/DL (6.3-8.2)
[2017-03-13 06:54] LABS: BASO # 0.1 K/uL (0.0-0.2); BASO % 1.1 % (0.0-2.0); EOS # 0.1 K/uL (0.0-0.7); EOS % 1.8 % (0.0-4.0); HEMATOCRIT 30.6 % (34.0-47.0); LYMPH % 21.5 % (20.0-40.0); MEAN CELL VOLUME 92.3 fl (81.0-99.0); MEAN CORPUSCULAR HEMOGLOBIN 30.6 pg (27.0-31.0); MEAN CORPUSCULAR HGB CONC 33.1 g/dL (33.0-37.0); MEAN PLATELET VOLUME 9.9 fl (7.2-11.7); MONO % 22.1 % (0.0-10.0); NEUT # 2.4 K/uL (1.8-7.0); NEUT % 53.5 % (50.0-75.0); NRBC % 0.1 % (0.0-0.0); PLATELET COUNT 92 K/uL (130-400); RED CELL DISTRIBUTION WIDTH 17.2 % (11.5-14.5); WHITE BLOOD COUNT 4.6 K/uL (4.8-10.8)
[2017-03-13 07:28] LABS: PARTIAL THROMBOPLASTIN TIME 36.8 Seconds (25.6-37.1)
--- NOTE | 2017-03-13 08:48 | CP.PCM.PN ---
Subjective - Date & Time of Evaluation Date of Evaluation: 03/13/17 Time of Evaluation: 08:10 - Subjective Subjective: 46 y/o seen at bedside this morning. No acute events overnight. Still c/o R/ side abd and Chest wall pain. Denies vomiting, nausea, constipation, melena, hematochezia, dizziness. Afebrile. Patient had nausea last night and 2 episodes of vomiting after dinner, NBNB. She is not nauseated this morning but states she has lack of appetite. Objective - Vital Signs/Intake and Output Vital Signs (last 24 hours): Temp Pulse Resp BP Pulse Ox 97.8 F 66 18 97/60 L 98 03/13/17 08:35 03/13/17 08:35 03/13/17 08:35 03/13/17 08:35 03/13/17 08:35 - Medications Medications: Current Medications Acetaminophen (Tylenol 325mg Tab) 650 mg PO Q8H PRN PRN Reason: Pain, moderate (4-7) Last Admin: 03/12/17 19:18 Dose: 650 mg Carvedilol (Coreg) 3.125 mg PO Q12H [facility] Last Admin: 03/13/17 02:20 Dose: Not Given Ferrous Sulfate (Feosol) 325 mg PO BID [facility] Last Admin: 03/12/17 23:15 Dose: 325 mg Folic Acid (Folic Acid) 1 mg PO DAILY [facility] Furosemide (Lasix) 40 mg PO DAILY [facility] Hydromorphone HCl (Dilaudid) 0.5 mg IVP Q6H PRN PRN Reason: Pain, severe (8-10) Pantoprazole Sodium (Protonix Ec Tab) 40 mg PO DAILY [facility] Rifaximin (Xifaxan) 550 mg PO BID [facility] PRN Reason: Protocol Last Admin: 03/12/17 23:15 Dose: 550 mg Spironolactone (Aldactone) 50 mg PO BID [facility] Last Admin: 03/12/17 23:15 Dose: 50 mg Ursodiol (Actigall) 300 mg PO BID [facility] Last Admin: 03/12/17 23:15 Dose: 300 mg - Labs Labs: 03/13/17 05:50 03/13/17 05:50 PT 17.1 Seconds (9.8-13.1) H 03/13/17 05:50 INR 1.5 (0.9-1.2) H 03/13/17 05:50 APTT 36.8 Seconds (25.6-37.1) 03/13/17 05:50 - Constitutional Appears: Non-toxic - Eye Exam Eye Exam: EOMI - ENT Exam ENT Exam: Mucous Membranes Moist - Respiratory Exam Respiratory Exam: Clear to Ausculation Bilateral, NORMAL BREATHING PATTERN. absent: Rales, Wheezes - Cardiovascular Exam Cardiovascular Exam: REGULAR RHYTHM, +S1, +S2. absent: Gallop - GI/Abdominal Exam GI & Abdominal Exam: Guarding, Soft, Tenderness (R/hemiabdomen), Normal Bowel Sounds. absent: Distended, Rebound Additional comments: Collateral circulation, ascitis - Extremities Exam Extremities Exam: Normal Capillary Refill. absent: Calf Tenderness, Joint Swelling - Neurological Exam Neurological Exam: Alert, Awake, Oriented x3 - Skin Skin Exam: Warm - Additional Findings Additional findings: Multiple spider angioma lesions spread out through out her body. Assessment and Plan - Assessment and Plan (Free Text) Assessment: 46 year old female with PMHx of Liver cirrhosis secondary to ETOH abuse admitted for ascitis and abd/chest wall pain. Ascitis/Abd pain -Likely to liver cirrhosis decompensation vs Trauma -CT shows increased ascitis from previous study(please see full report) -GI consult Dr Castro appreciated -C/W home meds(Lasix, Aldactone, Lactulose, Rifaximin) -Tylenol 650 mg(max 2g/day) Q8h PRN for moderate pain -Dilaudid 0.25 mg PRN q6h for severe pain -For diagnostic paracentesis today as per GI recs. Alcoholic Liver Cirrhosis -Chronic, worsening?(elevated bili, INR) -MELD Score 22 points (19.6% Estimated 3-Month Mortality) -C/W home meds -Hepatic modified diet (2g Na) -F/U peritoneal fluid analysis Chest wall pain -Stable -S/P fall -R/O Rib Fx -F/U CXR and ribs Xray Acute Kidney injury -Creatinine 2.1---> 1.8 Today -CT: Kidney and bladder unremarkable -R/O HRS -F/U Urine toxicologic panel -No recent Hx of nephrotoxic drugs use -UA unremarkable Pancytopenia -Chronic -Possible due to bone marrow suppression due to ETOH abuse -Stable HTN, chronic -Controlled -C/W Carvedilol 3.125mg q12h Mild intermittent asthma -Controlled -Albuterol Inhaler PRN DVT prophylaxis -SCD for now
[2017-03-13] MEDS: Pantoprazole 40 mg EC Tab PO SCH (09:13)
[2017-03-13] MEDS ORDERED: Albuterol 0.083% Inhal Sol (2.5 mg/3 mL) UD INH PRN (10:05)
[2017-03-13 11:17] LABS: NEUTROPHIL 64 % (42-75); TOTAL CELLS COUNTED 100
[2017-03-13 11:18] LABS: LARGE PLATELETS PRESENT
--- NOTE | 2017-03-13 11:29 | RAD ---
HISTORY: COMPARISON: 2106 TECHNIQUE: Chest PA and lateral FINDINGS: LINES AND TUBES: None. LUNG AND PLEURA: The lungs are well inflated and clear. HEART AND MEDIASTINUM: The heart is not enlarged. The hilar and mediastinal contours are within normal limits. SKELETAL STRUCTURES: The bony structures are within normal limits for the patient's age. VISUALIZED UPPER ABDOMEN: Normal. OTHER FINDINGS: None. IMPRESSION: No acute findings.
--- NOTE | 2017-03-13 11:50 | RAD ---
PROCEDURE: Radiographs of the chest and bilateral ribs HISTORY: Ribs pain s/p fall COMPARISON: Chest radiograph 06/09/2016. TECHNIQUE: Frontal radiograph of the chest and multiple oblique radiographs of the bilateral ribs were obtained. FINDINGS: RIGHT RIBS: No fracture or focal lesion visualized. LEFT RIBS: No fracture or focal lesion visualized. LUNGS: Clear. PLEURA: No pneumothorax or pleural fluid. CARDIOVASCULAR: Normal sized heart. No pulmonary vascular congestion. OTHER FINDINGS: Prior right center venous catheter is been removed. Calcifications at the right upper quadrant suggest cholelithiasis. IMPRESSION: Unremarkable radiographs of the chest and bilateral ribs. No rib fracture.
[2017-03-13 14:00] LABS: BODY FLUID TYPE PERITONEAL/ASCITES
--- NOTE | 2017-03-13 14:20 | PCM.SURG1 ---
Surgeon's Initial Post Op Note - Surgeon's Notes Surgeon: Clark Hernandez MD Call Center Professional: None Type of Anesthesia: Local Pre-Operative Diagnosis: ascites Operative Findings: moderate volume ascites Post-Operative Diagnosis: same Operation Performed: US guided paracentesis Specimen/Specimens Removed: 3.1 L straw colored fluid removed. 60 cc sample submitted. Estimated Blood Loss: EBL {In ML}: 0 Post-Op Condition: Good Date of Surgery/Procedure: 03/13/17 Time of Surgery/Procedure: 13:30
--- NOTE | 2017-03-13 14:43 | US ---
PROCEDURE: ULTRASOUND-GUIDED PARACENTESIS CLINICAL HISTORY: 46-year-old female with recurrent symptomatic ascites is referred to Interventional Radiology for ultrasound-guided paracentesis. COMPARISON: Ultrasound-guided paracentesis performed 12/06/2016. PROCEDURE: 1. Ultrasound-guided paracentesis. PRE-PROCEDURE FINDINGS: 1. Moderate volume ascites. POST-PROCEDURE FINDINGS: 1. No evidence of post-procedural complication. INTERVENTIONAL RADIOLOGIST: Clark Hernandez M.D. (the attending was present for the entire procedure.) ANESTHESIA: None. MEDICATION: Lidocaine 1% for local subcutaneous analgesia. COMPLICATIONS: None. PROCEDURE DESCRIPTION AND FINDINGS: The risks, benefits, alternatives and possible complications of the procedure were fully discussed; all questions were answered and informed consent was obtained. The patient was brought into the interventional suite and a pre-procedure 'time-out' was performed. The patient was placed on the fluoroscopy table in the supine position. Preliminary ultrasound images of the right lower quadrant demonstrate a moderate amount of ascites. The right lower quadrant was prepped and draped in the usual sterile fashion. Maximum sterile barrier precautions were maintained throughout the entire procedure. Following subcutaneous infiltration of lidocaine 1% for local analgesia, under real-time ultrasound guidance, a 6 [place] centesis catheter was advanced into the right lower quadrant with real-time visualization of needle entry. The ultrasound images were permanently recorded and submitted to the PACS. The inner stylet was removed and the catheter was attached to gentle vacuum suction. A total of 3.1 liters of straw-colored fluid were aspirated. A sample was sent to the laboratory for analysis. The drainage catheter was then removed. A sterile adhesive bandage was placed over the puncture site. The patient tolerated the procedure well without immediate post-procedure complications and was transferred back to the floor in stable condition. IMPRESSION: SUCCESSFUL ULTRASOUND-GUIDED DIAGNOSTIC AND THERAPEUTIC PARACENTESIS.
[2017-03-13 15:14] LABS: BF GROSS APPEARANCE CLEAR (CLEAR)
--- NOTE | 2017-03-13 16:26 | CP.PCM.PN ---
Subjective - Date & Time of Evaluation Date of Evaluation: 03/13/17 Time of Evaluation: 13:05 - Subjective Subjective: pain still there Objective - Vital Signs/Intake and Output Vital Signs (last 24 hours): Temp Pulse Resp BP Pulse Ox 98.4 F 70 18 91/59 L 96 03/13/17 16:04 03/13/17 16:04 03/13/17 16:04 03/13/17 16:04 03/13/17 16:04 - Medications Medications: Current Medications Acetaminophen (Tylenol 325mg Tab) 650 mg PO Q8H PRN PRN Reason: Pain, moderate (4-7) Last Admin: 03/12/17 19:18 Dose: 650 mg Albuterol Sulfate (Albuterol 0.083% Inhal [place] (2.5 Mg/3 Ml) Ud) 2.5 mg INH RQ6 PRN PRN Reason: Shortness of Breath Carvedilol (Coreg) 3.125 mg PO Q12H [facility] Last Admin: 03/13/17 02:20 Dose: Not Given Ferrous Sulfate (Feosol) 325 mg PO BID [facility] Last Admin: 03/13/17 09:13 Dose: 325 mg Folic Acid (Folic Acid) 1 mg PO DAILY [facility] Last Admin: 03/13/17 09:13 Dose: 1 mg Furosemide (Lasix) 40 mg PO DAILY [facility] Hydromorphone HCl (Dilaudid) 0.5 mg IVP Q6H PRN PRN Reason: Pain, severe (8-10) Last Admin: 03/13/17 09:36 Dose: 0.5 mg Pantoprazole Sodium (Protonix Ec Tab) 40 mg PO DAILY [facility] Last Admin: 03/13/17 09:13 Dose: 40 mg Rifaximin (Xifaxan) 550 mg PO BID [facility] PRN Reason: Protocol Last Admin: 03/13/17 09:14 Dose: 550 mg Spironolactone (Aldactone) 50 mg PO BID [facility] Last Admin: 03/13/17 09:12 Dose: 50 mg Ursodiol (Actigall) 300 mg PO BID [facility] Last Admin: 03/13/17 09:12 Dose: 300 mg - Labs Labs: 03/13/17 05:50 03/13/17 05:50 PT 17.1 Seconds (9.8-13.1) H 03/13/17 05:50 INR 1.5 (0.9-1.2) H 03/13/17 05:50 APTT 36.8 Seconds (25.6-37.1) 03/13/17 05:50 - Neck Exam Neck Exam: Normal Inspection - Respiratory Exam Respiratory Exam: NORMAL BREATHING PATTERN Assessment and Plan - Assessment and Plan (Free Text) Assessment: 46 yo female with decompensated cirrhosis for paracentesis today
[2017-03-14 06:42] LABS: BASO % 0.5 % (0.0-2.0); EOS # 0.1 K/uL (0.0-0.7); EOS % 1.8 % (0.0-4.0); HEMATOCRIT 29.9 % (34.0-47.0); LYMPH # 0.5 K/uL (1.0-4.3); LYMPH % 14.5 % (20.0-40.0); MEAN CELL VOLUME 91.7 fl (81.0-99.0); MEAN CORPUSCULAR HEMOGLOBIN 30.7 pg (27.0-31.0); MEAN CORPUSCULAR HGB CONC 33.5 g/dL (33.0-37.0); MEAN PLATELET VOLUME 9.6 fl (7.2-11.7); MONO # 0.8 K/uL (0.0-0.8); MONO % 22.1 % (0.0-10.0); NEUT # 2.3 K/uL (1.8-7.0); NEUT % 61.1 % (50.0-75.0); NRBC % 0.3 % (0.0-0.0); RED CELL DISTRIBUTION WIDTH 16.9 % (11.5-14.5); WHITE BLOOD COUNT 3.7 K/uL (4.8-10.8)
[2017-03-14 07:28] LABS: ALB/GLOB RATIO 0.7 (1.0-2.1); ALKALINE PHOSPHATASE 114 U/L (38-126); ALT/SGPT 36 U/L (9-52); AST/SGOT 72 U/L (14-36); BILIRUBIN,TOTAL 3.4 mg/dl (0.2-1.3); BLOOD UREA NITROGEN 25 mg/dl (7-17); CALCIUM 8.4 mg/dL (8.4-10.2); CARBON DIOXIDE 27 mmol/L (22-30); CHLORIDE 102 mmol/L (98-107); GFR AFRICAN-AMERICAN > 60; GLUCOSE,RANDOM 96 mg/dL (65-105); POTASSIUM 4.6 MMOL/L (3.6-5.0); SODIUM 138 mmol/l (132-148)
[2017-03-14 07:51] VITALS: RESP 18; O2SAT 99
[2017-03-14] MEDS: Pantoprazole 40 mg EC Tab PO SCH (09:18)
[2017-03-14] MEDS ORDERED: Lidocaine 5% Patch TD SCH (10:45)
--- NOTE | 2017-03-14 13:48 | CP.PCM.PN ---
Subjective - Date & Time of Evaluation Date of Evaluation: 03/14/17 Time of Evaluation: 08:50 - Subjective Subjective: 46 y/o F seen at bedside in not acute distress. Still c/o r/side chest wall pain. Abd pain resolved. Denies vomiting, nausea but admits lack of appetite. Denies CP, palpitations, SOB, melena or hematochezia. Afebrile Objective - Vital Signs/Intake and Output Vital Signs (last 24 hours): Temp Pulse Resp BP Pulse Ox 98.4 F 71 18 107/67 99 03/14/17 07:50 03/14/17 07:50 03/14/17 07:50 03/14/17 09:17 03/14/17 07:50 - Medications Medications: Current Medications Acetaminophen (Tylenol 325mg Tab) 650 mg PO Q8H PRN PRN Reason: Pain, moderate (4-7) Last Admin: 03/12/17 19:18 Dose: 650 mg Albuterol Sulfate (Albuterol 0.083% Inhal Salena (2.5 Mg/3 Ml) Ud) 2.5 mg INH RQ6 PRN PRN Reason: Shortness of Breath Carvedilol (Coreg) 3.125 mg PO Q12H ON LICENSE OF [facility] Last Admin: 03/14/17 02:12 Dose: Not Given Ferrous Sulfate (Feosol) 325 mg PO BID ON LICENSE OF [facility] Last Admin: 03/14/17 09:16 Dose: 325 mg Folic Acid (Folic Acid) 1 mg PO DAILY ON LICENSE OF [facility] Last Admin: 03/14/17 09:17 Dose: 1 mg Furosemide (Lasix) 40 mg PO DAILY ON LICENSE OF [facility] Last Admin: 03/14/17 09:17 Dose: 40 mg Hydromorphone HCl (Dilaudid) 0.5 mg IVP Q6H PRN PRN Reason: Pain, severe (8-10) Last Admin: 03/14/17 00:18 Dose: 0.5 mg Lidocaine (Lidoderm) 1 ea TD DAILY ON LICENSE OF [facility] Pantoprazole Sodium (Protonix Ec Tab) 40 mg PO DAILY ON LICENSE OF [facility] Last Admin: 03/14/17 09:18 Dose: 40 mg Rifaximin (Xifaxan) 550 mg PO BID BARBARA PRN Reason: Protocol Last Admin: 03/14/17 09:18 Dose: 550 mg Spironolactone (Aldactone) 50 mg PO BID ON LICENSE OF [facility] Last Admin: 03/14/17 09:16 Dose: 50 mg Ursodiol (Actigall) 300 mg PO BID BARBARA Last Admin: 03/14/17 09:15 Dose: 300 mg - Labs Labs: 03/14/17 06:20 03/14/17 06:20 PT 17.1 Seconds (9.8-13.1) H 03/13/17 05:50 INR 1.5 (0.9-1.2) H 03/13/17 05:50 APTT 36.8 Seconds (25.6-37.1) 03/13/17 05:50 - Constitutional Appears: Non-toxic, Chronically Ill - Head Exam Head Exam: ATRAUMATIC - Eye Exam Eye Exam: EOMI, PERRL - ENT Exam ENT Exam: Mucous Membranes Moist - Respiratory Exam Respiratory Exam: Chest Wall Tenderness, Clear to Ausculation Bilateral, NORMAL BREATHING PATTERN. absent: Rales, Wheezes - Cardiovascular Exam Cardiovascular Exam: REGULAR RHYTHM, +S1, +S2. absent: Gallop - GI/Abdominal Exam GI & Abdominal Exam: Soft, Normal Bowel Sounds. absent: Guarding, Tenderness, Rebound - Extremities Exam Extremities Exam: Normal Capillary Refill. absent: Calf Tenderness, Pedal Edema - Neurological Exam Neurological Exam: Alert, Awake, Oriented x3 - Psychiatric Exam Psychiatric exam: Normal Affect, Normal Mood - Skin Skin Exam: Normal Color, Warm Assessment and Plan - Assessment and Plan (Free Text) Assessment: 46 year old female with PMHx of Liver cirrhosis secondary to ETOH abuse admitted for ascitis and abd/chest wall pain. Alcoholic liver cirrhosis decompensation -Abd pain resolved -S/P Paracentesis Yesterday -GI consult Dr Castro appreciated -C/W home meds(Lasix, Aldactone, Lactulose, Rifaximin) -Chronic, worsening?(elevated bili, INR) -MELD Score 22 points (19.6% Estimated 3-Month Mortality) -Hepatic modified diet (2g Na) -F/U peritoneal fluid analysis Chest wall pain -Stable -S/P fall -CXR and ribs Xray WNL -Tylenol 650 mg(max 2g/day) Q8h PRN for moderate pain -Dilaudid 0.25 mg PRN q6h for severe pain -Lidoderm patch TD Acute Kidney injury -Resolved -CT: Kidney and bladder unremarkable -F/U Urine toxicologic panel -No recent Hx of nephrotoxic drugs use -UA unremarkable Pancytopenia -Chronic -Possible due to bone marrow suppression due to ETOH abuse -Stable HTN, chronic -Controlled -C/W Carvedilol 3.125mg q12h Mild intermittent asthma -Controlled -Albuterol Inhaler PRN DVT prophylaxis -SCD for now
--- NOTE | 2017-03-14 15:38 | CP.PCM.DIS ---
Provider - Provider Date of Admission: 03/13/17 15:34 Attending physician: Lisbeth Orozco MD Primary care physician: Dr Jose G Zarco Consults: GI Dr Castro Time Spent in preparation of Discharge (in minutes): 30 Diagnosis - Discharge Diagnosis (1) Ascites Status: Chronic Comment: Improved after paracentesis. abd pain resolved (2) Cirrhosis of liver Status: Chronic Comment: Decompensated. Stable at the time of DC. Needs f/u as outpatient (3) Acute renal insufficiency Status: Resolved Comment: Resolved while admitted. Likely due to cirrhosis decompensation Hospital Course - Lab Results Lab Results: Micro Results 03/13/17 13:30 Ascitic Fluid Gram Stain - Final 03/13/17 13:30 Ascitic Fluid Body Fluid Culture - Preliminary NO GROWTH AFTER 24 HOURS Most Recent Lab Values WBC 3.7 K/uL (4.8-10.8) L 03/14/17 06:20 RBC 3.26 Mil/uL (3.80-5.20) L 03/14/17 06:20 Hgb 10.0 g/dL (12.0-16.0) L 03/14/17 06:20 Hct 29.9 % (34.0-47.0) L 03/14/17 06:20 MCV 91.7 fl (81.0-99.0) 03/14/17 06:20 MCH 30.7 pg (27.0-31.0) 03/14/17 06:20 MCHC 33.5 g/dL (33.0-37.0) 03/14/17 06:20 RDW 16.9 % (11.5-14.5) H 03/14/17 06:20 Plt Count 85 K/uL (130-400) L 03/14/17 06:20 MPV 9.6 fl (7.2-11.7) 03/14/17 06:20 Neut % (Auto) 61.1 % (50.0-75.0) 03/14/17 06:20 Lymph % (Auto) 14.5 % (20.0-40.0) L 03/14/17 06:20 [place] % (Auto) 22.1 % (0.0-10.0) H 03/14/17 06:20 Eos % (Auto) 1.8 % (0.0-4.0) 03/14/17 06:20 Baso % (Auto) 0.5 % (0.0-2.0) 03/14/17 06:20 Neut # 2.3 K/uL (1.8-7.0) 03/14/17 06:20 Lymph # 0.5 K/uL (1.0-4.3) L 03/14/17 06:20 [place] # 0.8 K/uL (0.0-0.8) 03/14/17 06:20 Eos # 0.1 K/uL (0.0-0.7) 03/14/17 06:20 Baso # 0.0 K/uL (0.0-0.2) 03/14/17 06:20 Neutrophils % (Manual) 64 % (42-75) 03/13/17 05:50 Lymphocytes % (Manual) 14 % (20-50) L 03/13/17 05:50 Monocytes % (Manual) 22 % (0-10) H 03/13/17 05:50 Platelet Estimate Decreased (NORMAL) L 03/13/17 05:50 Large Platelets Present 03/13/17 05:50 Hypochromasia (manual) Slight 03/13/17 05:50 Anisocytosis (manual) Slight 03/13/17 05:50 PT 17.1 Seconds (9.8-13.1) H 03/13/17 05:50 INR 1.5 (0.9-1.2) H 03/13/17 05:50 APTT 36.8 Seconds (25.6-37.1) 03/13/17 05:50 Sodium 138 mmol/l (132-148) 03/14/17 06:20 Potassium 4.6 MMOL/L (3.6-5.0) 03/14/17 06:20 Chloride 102 mmol/L (98-107) 03/14/17 06:20 Carbon Dioxide 27 mmol/L (22-30) 03/14/17 06:20 Anion Gap 14 (10-20) 03/14/17 06:20 BUN 25 mg/dl (7-17) H 03/14/17 06:20 Creatinine 1.1 mg/dl (0.7-1.2) 03/14/17 06:20 Est GFR ( Amer) > 60 03/14/17 06:20 Est GFR (Non-Af Amer) 53 03/14/17 06:20 Random Glucose 96 mg/dL (65-105) 03/14/17 06:20 Calcium 8.4 mg/dL (8.4-10.2) 03/14/17 06:20 Total Bilirubin 3.4 mg/dl (0.2-1.3) H 03/14/17 06:20 AST 72 U/L (14-36) H 03/14/17 06:20 ALT 36 U/L (9-52) 03/14/17 06:20 Alkaline Phosphatase 114 U/L (38-126) 03/14/17 06:20 Total Protein 8.0 G/DL (6.3-8.2) 03/14/17 06:20 Albumin 3.2 g/dL (3.5-5.0) L 03/14/17 06:20 Globulin 4.8 gm/dL (2.2-3.9) H 03/14/17 06:20 Albumin/Globulin Ratio 0.7 (1.0-2.1) L 03/14/17 06:20 Urine Color Yellow (YELLOW) 03/12/17 17:33 Urine Clarity Clear (Clear) 03/12/17 17:33 Urine pH 7.0 (5.0-8.0) 03/12/17 17:33 Ur Specific [place] 1.008 (1.003-1.030) 03/12/17 17:33 Urine Protein Negative mg/dL (NEGATIVE) 03/12/17 17:33 Urine Glucose (UA) Neg mg/dL (Normal) 03/12/17 17:33 Urine Ketones Negative mg/dL (NEGATIVE) 03/12/17 17:33 Urine Blood Negative (NEGATIVE) 03/12/17 17:33 Urine Nitrate Negative (NEGATIVE) 03/12/17 17:33 Urine Bilirubin Negative (NEGATIVE) 03/12/17 17: Urine Urobilinogen 0.2-1.0 mg/dL (0.2-1.0) 03/12/17 17:33 Ur Leukocyte Esterase Neg Fredy/uL (Negative) 03/12/17 17:33 Urine RBC (Auto) 1 /hpf (0-3) 03/12/17 17:33 Urine Microscopic WBC 1 /hpf (0-5) 03/12/17 17:33 Hyaline Casts 3-5 /hpf (0-2) H 03/12/17 17:33 U Random Total Protein 15 mg/L 03/12/17 17:33 Fluid Source Peritoneal/ascites 03/13/17 13:30 Fluid Appearance Clear (CLEAR) 03/13/17 13:30 Fluid WBC 24.0 /mm3 (0.0-300.0) 03/13/17 13:30 Fluid RBC 12.0 /mm3 (0.0-0.0) H 03/13/17 13:30 Fluid Tot Cell Count TEST NOT PERFORMED 03/13/17 13:30 Fluid Neutrophils 4.0 % (0-0) H 03/13/17 13:30 Fluid Lymphocytes 28.0 % (0-0) H 03/13/17 13:30 Fld Monocyte/Macrophag 18 % (0-0) H 03/13/17 13:30 Fluid Comment Yellow 03/13/17 13:30 - Hospital Course Hospital Course: 46 y/o F with Hx of alcoholic liver cirrhosis presented to ED c/o abd and chest wall pain after falling. CXR, Ribs XR ruled out Fx. CT of the abd showed increased ascitis from previous study. Patient underwent paracentesis, which cellularity was unremarkable for patient status and Cx of peritoneal fluid were neg after 24h. INNA at the time of admission resolved Today and she is decided to be DC home after evalauted by GI and clinical improvement. Patient states she will go to a friends house. Home meds: rifAXIMin [Xifaxan] 550 mg PO BID Carvedilol [Coreg] 3.125 mg PO Q12H Furosemide [Lasix] 40 mg PO DAILY Albuterol Sulfate [Proair Hfa] 2 puff IH Q4H PRN Calcium Carbonate [Calcium 1,250 mg PO DAILY Carbonate] Ferrous Sulfate 325 mg PO BID Folic Acid [Folic Acid] 1 mg PO DAILY Lactulose [Generlac] 15 ml PO BID PRN Pantoprazole Sodium [Protonix] 40 mg PO DAILY Spironolactone [Aldactone] 50 mg PO BID Ursodiol [Actigall] 300 mg PO BID Discharge Exam - Head Exam Head Exam: ATRAUMATIC - Eye Exam Eye Exam: EOMI, PERRL, Scleral icterus - Respiratory Exam Respiratory Exam: Chest Wall Tenderness, Clear to PA & Lateral, NORMAL BREATHING PATTERN, UNREMARKABLE - Cardiovascular Exam Cardiovascular Exam: REGULAR RHYTHM, +S1, +S2. absent: Gallop - GI/Abdominal Exam GI & Abdominal Exam: Normal Bowel Sounds, Soft. absent: Guarding, Tenderness - Extremities Exam Extremities exam: normal capillary refill - Neurological Exam Neurological exam: Alert, Oriented x3 - Psychiatric Exam Psychiatric exam: Normal Affect, Normal Mood - Skin Skin Exam: Warm Discharge Plan - Follow Up Plan Condition: STABLE Disposition: HOME/ ROUTINE Instructions: Ascites (DC), Fall Prevention (DC) Additional Instructions: F/U with Dr Castro as outpatient in 1-2 weeks Do not drink ETOH Do not take any meds not prescribed by Physician F/U with PMD(Dr Zarco) in 1-2 weeks Referrals: [facility] [Outside] Glenn Castro MD, PhD [Staff Provider] -
[2017-03-14 16:19] VITALS: TEMP 98.3
[2017-03-14 16:54] VITALS: BP 108/72; PULSE 68
[2017-03-18 18:21] LABS: ACETONE None Detected; ETHANOL None Detected; METHANOL None Detected
== END 2017-03-14 19:30 | disposition home or self-care (01) | DRG 433 ==
LOC: H.ER 07:34 → H.ERHOLD 11:30 → H.MEDSURG1 17:25 → OBSVTOIN 03-13 15:34
PROVIDERS: ADMIT Family Medicine Geriatric Medicine; ATTEND Family Medicine Geriatric Medicine
PROC: 0W9G3ZZ Drainage of Peritoneal Cavity, Percutaneous Approach (ICD-10-PCS; principal; 2017-03-13)
PROC: 3E0234Z Introduction of Serum, Toxoid and Vaccine into Muscle, Percutaneous Approach (ICD-10-PCS; 2017-03-13)
DX: K70.31 Alcoholic cirrhosis of liver with ascites (principal); N17.9 Acute kidney failure, unspecified; D61.818 Other pancytopenia; J45.20 Mild intermittent asthma, uncomplicated; E78.5 Hyperlipidemia, unspecified; F17.200 Nicotine dependence, unspecified, uncomplicated; I10 Essential (primary) hypertension; K80.20 Calculus of gallbladder without cholecystitis without obstruction; R07.89 Other chest pain; F10.10 Alcohol abuse, uncomplicated; Y90.0 Blood alcohol level of less than 20 mg/100 ml; Z91.041 Radiographic dye allergy status; Z23 Encounter for immunization; D64.9 Anemia, unspecified

== ENCOUNTER 2017-08-28 09:12 | Inpatient (IN) | payer MEDICARE, MEDICAID ==
[2017-08-28 09:23] VITALS: BMI 18.5
[2017-08-28] MEDS ORDERED: Sodium Chloride 0.9% 1,000 ML IV STA ×2 (09:23→11:43)
[2017-08-28 09:47] LABS: BASO % 0.4 % (0.0-2.0); EOS # 0.4 K/uL (0.0-0.7); EOS % 7.2 % (0.0-4.0); HEMOGLOBIN 10.9 g/dL (12.0-16.0); LYMPH # 0.8 K/uL (1.0-4.3); LYMPH % 16.4 % (20.0-40.0); MEAN CELL VOLUME 93.6 fl (81.0-99.0); MEAN CORPUSCULAR HGB CONC 33.1 g/dL (33.0-37.0); MEAN PLATELET VOLUME 11.2 fl (7.2-11.7); MONO # 0.5 K/uL (0.0-0.8); MONO % 10.9 % (0.0-10.0); NEUT # 3.3 K/uL (1.8-7.0); NEUT % 65.1 % (50.0-75.0); NRBC % 0.2 % (0.0-0.0); RBC 3.53 Mil/uL (3.80-5.20); RED CELL DISTRIBUTION WIDTH 17.4 % (11.5-14.5)
[2017-08-28] MEDS ORDERED: Pantoprazole 40 MG in Sodium Chloride 0.9% 100 ML IVPB STA (09:54)
--- NOTE | 2017-08-28 09:58 | ED PDOC ---
HPI: Abdomen Time Seen by Provider: 08/28/17 09:17 Chief Complaint (Nursing): Abdominal Pain Chief Complaint (Provider): Vomiting blood History Per: Patient, Family History/Exam Limitations: no limitations Additional Complaint(s): Pt reports multiple episodes of vomiting bright red blood since yesterday associated with abdominal pain, h/o cirrhosis, no alcohol use. Denies fever, CP , SOB. Past Medical History Reviewed: Nursing Documentation, Vital Signs Vital Signs: Last Vital Signs Temp Pulse Resp BP Pulse Ox 98 08/28/17 11:21 - Medical History PMH: Anemia, Asthma, HTN Denies: Chronic Kidney Disease, Sickle Cell Disease, Sleep Apnea - Surgical History Surgical History: Endoscopy, - Family History Family History: States: Unknown Family Hx - Social History Current smoker - smoking cessation education provided: No Alcohol: None - Home Medications Home Medications: Ambulatory Orders Medication Instructions Recorded rifAXIMin [Xifaxan] 550 mg PO BID 08/16/15 Carvedilol [Coreg] 3.125 mg PO Q12H 08/22/16 Furosemide [Lasix] 40 mg PO DAILY 08/22/16 Albuterol Sulfate [Proair Hfa] 2 puff IH Q4H PRN 03/12/17 Calcium Carbonate 1,250 mg PO DAILY 03/12/17 Ferrous Sulfate 325 mg PO BID 03/12/17 Folic Acid 1 mg PO DAILY 03/12/17 Lactulose [Generlac] 15 ml PO BID PRN 03/12/17 Pantoprazole Sodium [Protonix] 40 mg PO DAILY 03/12/17 Spironolactone [Aldactone] 50 mg PO BID 03/12/17 Ursodiol [Actigall] 300 mg PO BID 03/12/17 - Allergies Allergies/Adverse Reactions: Allergies Allergy/AdvReac Type Severity Reaction Status Date / Time iodine Allergy SHORTNESS Verified 08/28/17 09:24 OF BREATH Review of Systems Constitutional: Negative for: Fever, Chills Cardiovascular: Negative for: Chest Pain, Palpitations Respiratory: Negative for: Cough, Shortness of Breath Gastrointestinal: Positive for: Nausea, Vomiting, Abdominal Pain, Hematemesis. Negative for: Diarrhea, Hematochezia Skin: Negative for: Rash, Lesions Neurological: Negative for: Headache Physical Exam - Reviewed Nursing Documentation Reviewed: Yes Vital Signs Reviewed: Yes - Physical Exam Appears: Positive for: Uncomfortable Head Exam: Positive for: ATRAUMATIC, NORMAL INSPECTION Skin: Positive for: Jaundice Eye Exam: Positive for: Normal appearance, EOMI, PERRL, Scleral icterus Cardiovascular/Chest: Positive for: Tachycardia. Negative for: Irregularly Irregular Respiratory: Positive for: Normal Breath Sounds Gastrointestinal/Abdominal: Positive for: Bowel Sounds, Soft, Distended, Asicites. Negative for: Tenderness, Guarding, Rebound Extremity: Positive for: Normal ROM Neurologic/Psych: Positive for: Alert, Oriented - Laboratory Results Result Diagrams: 08/28/17 09:35 08/28/17 09:35 - ECG O2 Sat by Pulse Oximetry: 98 Pulse Ox Interpretation: Normal - Physician Consult Information Time Consulting Physican Contacted: 09:52 Physician Contacted: Jose G Bautista Outcome Of Conversation: Recommends Octreotide 50 mcg bolus then 50 mcg/hr and Protonix 8 mg/hr, admit to ICU. - Critical Care Total Time (In Min): 60 Documented Critical Care: Time excludes all time spent performint seperately billable procedures Medical Decision Making Medical Decision Makin yo female with h/o cirrhosis presents with hematemesis. - labs - EKG - CXR - IVF - Protonix - Octreotide 11:15 -Spoke to Dr. Houston after patient had x2 more episodes of hematemesis. He will send secretary to the vice president to evaluate patient now. Disposition - Disposition Condition: FAIR
[2017-08-28 10:02] LABS: INR 1.6 (0.9-1.2); PARTIAL THROMBOPLASTIN TIME 30.7 Seconds (25.6-37.1); PROTHROMBIN TIME 18.1 Seconds (9.8-13.1)
--- NOTE | 2017-08-28 10:13 | RAD ---
HISTORY: Hematemesis COMPARISON: Chest radiograph dated 03/12/2017. FINDINGS: LUNGS: No active pulmonary disease. PLEURA: No significant pleural effusion identified, no pneumothorax apparent. CARDIOVASCULAR: Normal. OSSEOUS STRUCTURES: No significant abnormalities. VISUALIZED UPPER ABDOMEN: Spine cholelithiasis. OTHER FINDINGS: None. IMPRESSION: No active disease.
[2017-08-28 10:32] LABS: ALB/GLOB RATIO 0.6 (1.0-2.1); ALBUMIN 3.1 g/dL (3.5-5.0); ALT/SGPT 30 U/L (9-52); AST/SGOT 79 U/L (14-36); BLOOD UREA NITROGEN 27 mg/dl (7-17); CALCIUM 8.3 mg/dL (8.4-10.2); GFR AFRICAN-AMERICAN 58; GFR NON-AFRICAN AMERICAN 48; LIPASE 120 U/L (23-300)
--- NOTE | 2017-08-28 11:59 | CP.PCM.CON ---
History of Present Illness - History of Present Illness History of Present Illness: GI Consult note for Dr. Tabares 46F with PMH of cirrhosis 2/2 EtOH abuse, asthma, renal insufficiency. Patient presents with hematemesis, abdominal pain, nausea, vomiting and decreased appetite for the past 6 days. She states the pain has been getting worse and nothing has helped her. She states she has not been able to eat since last Sunday. She admits to heart burn, chest pain, and body pain. She admits to feeling fevers and also admits to chills. She denies any change in bowel function. While in the ED, patient has vomited approximately 900cc of dark blood. She states she does not remember the last time she consumed alcohol, but denies recent use. Patient has had screening EGD in July which showed esophagitis, portal hypertensive gastropathy, negative H.pyloi and no varices. PMH: cirrhosis 2/2 EtOH abuse, asthma, renal insufficiency PSH: *3 Social: prior heavy alcohol use, denies current use, denies illicit drug use Allergies: Iodine Past Patient History - Past Medical History & Family History Past Medical History?: Yes - Past Social History Alcohol: None - CARDIAC Hx Hypertension: Yes - PULMONARY Hx Asthma: Yes Hx Sleep Apnea: No - NEUROLOGICAL Hx Neurological Disorder: No - HEENT Hx HEENT Problems: No - RENAL Hx Chronic Kidney Disease: No - ENDOCRINE/METABOLIC Hx Endocrine Disorders: No - HEMATOLOGICAL/ONCOLOGICAL Hx Anemia: Yes Hx Sickle Cell Disease: No - INTEGUMENTARY Hx Dermatological Problems: No - MUSCULOSKELETAL/RHEUMATOLOGICAL Hx Musculoskeletal Disorders: No Hx Falls: Yes - GASTROINTESTINAL Hx Gastrointestinal Disorders: Yes Hx Liver Failure: Yes - GENITOURINARY/GYNECOLOGICAL Hx Genitourinary Disorders: No - PSYCHIATRIC Hx Psychophysiologic Disorder: No Hx Substance Use: Yes (marijuana) - SURGICAL HISTORY Hx Section: Yes Hx Tubal Ligation: Yes Other/Comment: endoscopy, - ANESTHESIA Hx Anesthesia: Yes Hx Anesthesia Reactions: No Hx Malignant Hyperthermia: No Meds Allergies/Adverse Reactions: Allergies Allergy/AdvReac Type Severity Reaction Status Date / Time iodine Allergy SHORTNESS Verified 08/28/17 09:24 OF BREATH - Medications Medications: Current Medications Octreotide Acetate 1,250 mcg/ (Sodium Chloride) 252.5 mls @ 10.1 mls/hr IV .Q24H BARBARA; 50 MCG/HR PRN Reason: Protocol Last Admin: 08/28/17 11:18 Dose: 10.1 mls/hr Pantoprazole Sodium 40 mg/ (Sodium Chloride) 100 mls @ 20 mls/hr IVPB STAT STA PRN Reason: 8 MG/HR Stop: 08/28/17 14:53 Last Admin: 08/28/17 11:00 Dose: 20 mls/hr Sodium Chloride (Sodium Chloride 0.9%) 1,000 mls @ 1,000 mls/hr IV .Q1H STA Stop: 08/28/17 12:42 Physical Exam - Constitutional Appears: In Acute Distress, Unkempt, Other (very uncomfortable due to nausea) - Head Exam Head Exam: ATRAUMATIC - Eye Exam Eye Exam: EOMI, PERRL, Scleral icterus - ENT Exam ENT Exam: Mucous Membranes Dry - Respiratory Exam Respiratory Exam: Clear to Auscultation Bilateral, NORMAL BREATHING PATTERN - Cardiovascular Exam Cardiovascular Exam: REGULAR RHYTHM, +S1, +S2 - GI/Abdominal Exam GI & Abdominal Exam: Soft, Tenderness. absent: Distended, Firm, Guarding, Rebound, Rigid - Extremities Exam Extremities exam: Negative for: pedal edema, tenderness - Neurological Exam Neurological exam: Alert, Oriented x3 - Psychiatric Exam Psychiatric exam: Normal Affect, Normal Mood - Skin Skin Exam: Dry, Intact, Warm Additional comments: Jaundice Results - Vital Signs Recent Vital Signs: Last Vital Signs Temp Pulse 114 H 08/28/17 11:40 Resp 20 08/28/17 11:40 BP 113/77 08/28/17 11:40 Pulse Ox 100 08/28/17 11:40 - Labs Result Diagrams: 08/28/17 09:35 08/28/17 09:35 Labs: Laboratory Results - last 24 hr 08/28/17 08/28/17 08/28/17 09:35 09:35 09:35 WBC 5.0 RBC 3.53 L Hgb 10.9 L Hct 33.0 L MCV 93.6 MCH 31.0 MCHC 33.1 RDW 17.4 H Plt Count 116 L D MPV 11.2 Neut % (Auto) 65.1 Lymph % (Auto) 16.4 L Day % (Auto) 10.9 H Eos % (Auto) 7.2 H Baso % (Auto) 0.4 Neut # (Auto) 3.3 Lymph # (Auto) 0.8 L Day # (Auto) 0.5 Eos # (Auto) 0.4 Baso # (Auto) 0.0 PT INR APTT Sodium 140 Potassium 4.3 Chloride 103 Carbon Dioxide 23 Anion Gap 18 BUN 27 H Creatinine 1.2 Est GFR ( Amer) 58 Est GFR (Non-Af Amer) 48 Random Glucose 138 H Calcium 8.3 L Total Bilirubin 4.6 H AST 79 H ALT 30 Alkaline Phosphatase 133 H Ammonia Total Protein 8.0 Albumin 3.1 L Globulin 4.9 H Albumin/Globulin Ratio 0.6 L Lipase 120 Blood Type Cancelled Antibody Screen Cancelled BBK History Checked Cancelled 08/28/17 08/28/17 08/28/17 09:35 09:35 10:10 WBC RBC Hgb Hct MCV MCH MCHC RDW Plt Count MPV Neut % (Auto) Lymph % (Auto) Day % (Auto) Eos % (Auto) Baso % (Auto) Neut # (Auto) Lymph # (Auto) Day # (Auto) Eos # (Auto) Baso # (Auto) PT 18.1 H INR 1.6 H APTT 30.7 Sodium Potassium Chloride Carbon Dioxide Anion Gap BUN Creatinine Est GFR ( Amer) Est GFR (Non-Af Amer) Random Glucose Calcium Total Bilirubin AST ALT Alkaline Phosphatase Ammonia 63 H D Total Protein Albumin Globulin Albumin/Globulin Ratio Lipase Blood Type Cancelled Antibody Screen Cancelled BBK History Checked Cancelled 08/28/17 10:51 WBC RBC Hgb Hct MCV MCH MCHC RDW Plt Count MPV Neut % (Auto) Lymph % (Auto) Day % (Auto) Eos % (Auto) Baso % (Auto) Neut # (Auto) Lymph # (Auto) Day # (Auto) Eos # (Auto) Baso # (Auto) PT INR APTT Sodium Potassium Chloride Carbon Dioxide Anion Gap BUN Creatinine Est GFR ( Amer) Est GFR (Non-Af Amer) Random Glucose Calcium Total Bilirubin AST ALT Alkaline Phosphatase Ammonia Total Protein Albumin Globulin Albumin/Globulin Ratio Lipase Blood Type A POSITIVE Antibody Screen Negative BBK History Checked Patient has bt Assessment & Plan - Assessment and Plan (Free Text) Assessment: 47F with hx of alcohol induced liver cirrhosis, presents with hematemesis Plan: - NPO, IVF - Pain control, Nausea control, PPI - Patient to be admitted to ICU - Patient to undergo emergent EGD Further rec as per Dr. Rayshawn Dumont, PGY2
[2017-08-28] MEDS ORDERED: Sodium Chloride 0.9% 1,000 ML IV SCH ×2 (12:00→21:30)
--- NOTE | 2017-08-28 12:01 | CP.PCM.CON ---
<Brien Cabello - Last Filed: 08/28/17 14:04> History of Present Illness - History of Present Illness History of Present Illness: PGY5 GI Fellow Consult Note Patient is a 47yo female with PMHx significant for decompensated EtOH cirrhosis c/b ascites and hepatic encephalopathy, asthma who presented to the ED with abdominal pain and hematemesis. At bedside, patient is actively vomiting with multiple episodes of bright red hematemesis and blood clots. She states that Sunday evening she developed crushing epigastric abdominal pain which continued in to morning. When she went to take her morning medications she became nauseated and vomited multiple times, initially with bilious emesis. After multiple days with pain, vomiting she began developing specks of blood and now is uncontrollably vomiting multiple episodes of bright red blood. She admit to dizziness, lightheadedness, chest and abdominal pain at the moment. Admits to dark black stool for the last two days. Denies any recent EtOH intake. Patient underwent EGD/Colonoscopy in July 2016 which showed LA Class B esophagitis, erosive gastropathy and portal hypertensive gastropathy. She did not have esophageal varices previously. Per outpatient documentation, patient stopped drinking EtOh in September 2015 and was being evaluated for transplant at [facility] but was nonadherent with follow up due to difficulty getting to the hospital. 12 system ROS performed and negative except where stated. PMHx: See HPI PSHx: x3 FHx: Discussed with patient and no prior family history Social: Prior heavy EtOH use, no tobacco or illicit drug use Past Patient History - Past Medical History & Family History Past Medical History?: Yes - Past Social History Alcohol: None - CARDIAC Hx Hypertension: Yes - PULMONARY Hx Asthma: Yes Hx Sleep Apnea: No - NEUROLOGICAL Hx Neurological Disorder: No - HEENT Hx HEENT Problems: No - RENAL Hx Chronic Kidney Disease: No - ENDOCRINE/METABOLIC Hx Endocrine Disorders: No - HEMATOLOGICAL/ONCOLOGICAL Hx Anemia: Yes Hx Sickle Cell Disease: No - INTEGUMENTARY Hx Dermatological Problems: No - MUSCULOSKELETAL/RHEUMATOLOGICAL Hx Musculoskeletal Disorders: No Hx Falls: Yes - GASTROINTESTINAL Hx Gastrointestinal Disorders: Yes Hx Liver Failure: Yes - GENITOURINARY/GYNECOLOGICAL Hx Genitourinary Disorders: No - PSYCHIATRIC Hx Psychophysiologic Disorder: No Hx Substance Use: Yes (marijuana) - SURGICAL HISTORY Hx Section: Yes Hx Tubal Ligation: Yes Other/Comment: endoscopy, - ANESTHESIA Hx Anesthesia: Yes Hx Anesthesia Reactions: No Hx Malignant Hyperthermia: No Meds Allergies/Adverse Reactions: Allergies Allergy/AdvReac Type Severity Reaction Status Date / Time iodine Allergy SHORTNESS Verified 08/28/17 09:24 OF BREATH - Medications Medications: Current Medications Octreotide Acetate 1,250 mcg/ (Sodium Chloride) 252.5 mls @ 10.1 mls/hr IV .Q24H BARBARA; 50 MCG/HR PRN Reason: Protocol Last Admin: 08/28/17 11:18 Dose: 10.1 mls/hr Pantoprazole Sodium 40 mg/ (Sodium Chloride) 100 mls @ 20 mls/hr IVPB STAT STA PRN Reason: 8 MG/HR Stop: 08/28/17 14:53 Last Admin: 08/28/17 11:00 Dose: 20 mls/hr Sodium Chloride (Sodium Chloride 0.9%) 1,000 mls @ 1,000 mls/hr IV .Q1H STA Stop: 08/28/17 12:42 Sodium Chloride (Sodium Chloride 0.9%) 1,000 mls @ 1,000 mls/hr IV .Q1H BARBARA Stop: 08/29/17 11:53 Physical Exam - Constitutional Appears: In Acute Distress Additional comments: actively vomiting - Eye Exam Eye Exam: EOMI, PERRL, Scleral icterus - ENT Exam ENT Exam: Mucous Membranes Dry - Respiratory Exam Respiratory Exam: Clear to Auscultation Bilateral. absent: Rales, Rhonchi, Wheezes - Cardiovascular Exam Cardiovascular Exam: Tachycardia, REGULAR RHYTHM, +S1, +S2 - GI/Abdominal Exam GI & Abdominal Exam: Normal Bowel Sounds, Soft, Tenderness (epigastric, RUQ). absent: Distended, Firm, Guarding, Organomegaly, Rigid - Extremities Exam Extremities exam: Positive for: normal inspection. Negative for: pedal edema - Neurological Exam Neurological exam: Alert, Oriented x3 - Psychiatric Exam Psychiatric exam: Normal Affect, Normal Mood - Skin Skin Exam: Dry, Warm Additional comments: jaundice Results - Vital Signs Recent Vital Signs: Last Vital Signs Temp Pulse 114 H 08/28/17 11:40 Resp 20 08/28/17 11:40 BP 113/77 08/28/17 11:40 Pulse Ox 100 08/28/17 11:40 - Labs Result Diagrams: 08/28/17 09:35 08/28/17 09:35 Labs: Laboratory Results - last 24 hr 08/28/17 08/28/17 08/28/17 09:35 09:35 09:35 WBC 5.0 RBC 3.53 L Hgb 10.9 L Hct 33.0 L MCV 93.6 MCH 31.0 MCHC 33.1 RDW 17.4 H Plt Count 116 L D MPV 11.2 Neut % (Auto) 65.1 Lymph % (Auto) 16.4 L [place] % (Auto) 10.9 H Eos % (Auto) 7.2 H Baso % (Auto) 0.4 Neut # (Auto) 3.3 Lymph # (Auto) 0.8 L [place] # (Auto) 0.5 Eos # (Auto) 0.4 Baso # (Auto) 0.0 PT INR APTT Sodium 140 Potassium 4.3 Chloride 103 Carbon Dioxide 23 Anion Gap 18 BUN 27 H Creatinine 1.2 Est GFR ( Amer) 58 Est GFR (Non-Af Amer) 48 Random Glucose 138 H Calcium 8.3 L Total Bilirubin 4.6 H AST 79 H ALT 30 Alkaline Phosphatase 133 H Ammonia Total Protein 8.0 Albumin 3.1 L Globulin 4.9 H Albumin/Globulin Ratio 0.6 L Lipase 120 Blood Type Cancelled Antibody Screen Cancelled BBK History Checked Cancelled 08/28/17 08/28/17 08/28/17 09:35 09:35 10:10 WBC RBC Hgb Hct MCV MCH MCHC RDW Plt Count MPV Neut % (Auto) Lymph % (Auto) [place] % (Auto) Eos % (Auto) Baso % (Auto) Neut # (Auto) Lymph # (Auto) [place] # (Auto) Eos # (Auto) Baso # (Auto) PT 18.1 H INR 1.6 H APTT 30.7 Sodium Potassium Chloride Carbon Dioxide Anion Gap BUN Creatinine Est GFR ( Amer) Est GFR (Non-Af Amer) Random Glucose Calcium Total Bilirubin AST ALT Alkaline Phosphatase Ammonia 63 H D Total Protein Albumin Globulin Albumin/Globulin Ratio Lipase Blood Type Cancelled Antibody Screen Cancelled BBK History Checked Cancelled 08/28/17 10:51 WBC RBC Hgb Hct MCV MCH MCHC RDW Plt Count MPV Neut % (Auto) Lymph % (Auto) [place] % (Auto) Eos % (Auto) Baso % (Auto) Neut # (Auto) Lymph # (Auto) [place] # (Auto) Eos # (Auto) Baso # (Auto) PT INR APTT Sodium Potassium Chloride Carbon Dioxide Anion Gap BUN Creatinine Est GFR ( Amer) Est GFR (Non-Af Amer) Random Glucose Calcium Total Bilirubin AST ALT Alkaline Phosphatase Ammonia Total Protein Albumin Globulin Albumin/Globulin Ratio Lipase Blood Type A POSITIVE Antibody Screen Negative BBK History Checked Patient has bt Assessment & Plan - Assessment and Plan (Free Text) Assessment: Patient is a 47yo female with PMHx significant for decompensated EtOH cirrhosis c/b ascites and hepatic encephalopathy, asthma who presented to the ED with abdominal pain and hematemesis -Hematemesis -Decompensated EtOH cirrhosis with history of ascites/HE Plan: -Patient has two IV lines -IVF NS@1000cc/hr running -Stat blood transfusion, 1 unit PRBC given ongoing blood losses -In cirrhotic patient with known portal HTN: goal HBG 7-8, will avoid overtransfusion which can potentiate bleeding -NPO -Emergent endoscopy planned -On Octreotide and protonix gtt -Stat Reglan 10mg IVP now -Plan per findings *MELD-Na: 19 *MDF (if patient actively drinking): 32.9 - consider steroid use if patient EtOH level elevated and/or admits to recent EtOH use - Date & Time Date: 08/28/17 Time: 12:00 <Jose G Bautista - Last Filed: 08/28/17 20:11> Meds - Medications Medications: Current Medications Albuterol/Ipratropium (Duoneb 3 Mg/0.5 Mg (3 Ml) Ud) 3 ml INH RQ6 PRN PRN Reason: Shortness of Breath Last Admin: 08/28/17 18:13 Dose: 3 ml Sodium Chloride (Sodium Chloride 0.9%) 1,000 mls @ 1,000 mls/hr IV .Q1H BARBARA Stop: 08/29/17 11:53 Ceftriaxone Sodium 1 gm/ (Sodium Chloride) 100 mls @ 100 mls/hr IVPB DAILY BARBARA PRN Reason: Protocol Last Admin: 08/28/17 18:00 Dose: 100 mls/hr Results - Vital Signs Recent Vital Signs: Last Vital Signs Temp Pulse 80 08/28/17 18:13 Resp 22 08/28/17 16:24 BP 133/89 08/28/17 16:24 Pulse Ox 100 08/28/17 12:22 - Labs Result Diagrams: 08/28/17 09:35 08/28/17 09:35 Labs: Laboratory Results - last 24 hr 08/28/17 08/28/17 08/28/17 09:35 09:35 09:35 WBC 5.0 RBC 3.53 L Hgb 10.9 L Hct 33.0 L MCV 93.6 MCH 31.0 MCHC 33.1 RDW 17.4 H Plt Count 116 L D MPV 11.2 Neut % (Auto) 65.1 Lymph % (Auto) 16.4 L [place] % (Auto) 10.9 H Eos % (Auto) 7.2 H Baso % (Auto) 0.4 Neut # (Auto) 3.3 Lymph # (Auto) 0.8 L [place] # (Auto) 0.5 Eos # (Auto) 0.4 Baso # (Auto) 0.0 PT INR APTT Sodium 140 Potassium 4.3 Chloride 103 Carbon Dioxide 23 Anion Gap 18 BUN 27 H Creatinine 1.2 Est GFR ( Amer) 58 Est GFR (Non-Af Amer) 48 Random Glucose 138 H Calcium 8.3 L Total Bilirubin 4.6 H AST 79 H ALT 30 Alkaline Phosphatase 133 H Ammonia Troponin I < 0.0120 Total Protein 8.0 Albumin 3.1 L Globulin 4.9 H Albumin/Globulin Ratio 0.6 L Lipase 120 Blood Type Cancelled Antibody Screen Cancelled Crossmatch BBK History Checked Cancelled 08/28/17 08/28/17 08/28/17 09:35 09:35 10:10 WBC RBC Hgb Hct MCV MCH MCHC RDW Plt Count MPV Neut % (Auto) Lymph % (Auto) [place] % (Auto) Eos % (Auto) Baso % (Auto) Neut # (Auto) Lymph # (Auto) [place] # (Auto) Eos # (Auto) Baso # (Auto) PT 18.1 H INR 1.6 H APTT 30.7 Sodium Potassium Chloride Carbon Dioxide Anion Gap BUN Creatinine Est GFR ( Amer) Est GFR (Non-Af Amer) Random Glucose Calcium Total Bilirubin AST ALT Alkaline Phosphatase Ammonia 63 H D Troponin I Total Protein Albumin Globulin Albumin/Globulin Ratio Lipase Blood Type Cancelled Antibody Screen Cancelled Crossmatch BBK History Checked Cancelled 08/28/17 10:51 WBC RBC Hgb Hct MCV MCH MCHC RDW Plt Count MPV Neut % (Auto) Lymph % (Auto) [place] % (Auto) Eos % (Auto) Baso % (Auto) Neut # (Auto) Lymph # (Auto) [place] # (Auto) Eos # (Auto) Baso # (Auto) PT INR APTT Sodium Potassium Chloride Carbon Dioxide Anion Gap BUN Creatinine Est GFR ( Amer) Est GFR (Non-Af Amer) Random Glucose Calcium Total Bilirubin AST ALT Alkaline Phosphatase Ammonia Troponin I Total Protein Albumin Globulin Albumin/Globulin Ratio Lipase Blood Type A POSITIVE Antibody Screen Negative Crossmatch See Detail BBK History Checked Patient has bt Assessment & Plan - Assessment and Plan (Free Text) Plan: Agree with above plan. Patient seen and examined by me.
[2017-08-28] MEDS ORDERED: EPINEPHrine 1 mg/ml (1:1000) Inj ONE (12:15)
[2017-08-28] MEDS ORDERED: Etomidate 20 mg/10ml Inj IV ONE (13:03)
[2017-08-28] MEDS ORDERED: Succinylcholine 200 mg/10 ml Inj IV ONE (13:04)
[2017-08-28] MEDS ORDERED: ePHEDrine 50 mg/ml Inj ONE (13:08)
[2017-08-28] MEDS ORDERED: Phytonadione 10 mg/ml Inj (Adult) IVPB ONE (13:30)
[2017-08-28] MEDS ORDERED: Phytonadione 5 MG in Sodium Chloride 0.9% 50 ML IV ONE (13:45)
[2017-08-28] MEDS ORDERED: Esmolol 100 mg/10ml Inj IV ONE (14:07)
--- NOTE | 2017-08-28 14:53 | CP.PCM.HP ---
History of Present Illness - History of Present Illness History of Present Illness: Full code Hx taken from patient and previous records PMD: Dr Jose G Zarco Patient designates her mother Mariza Zuniga([phone]) as a person to make decisions for her in case she is not able to. 47 y/o F with PMhx of decompensated alcoholic liver cirrhosis,ascites, HTN and asthma presents to ED c/o abdminal pain and vomiting for 6 days. Pt reports she started to vomit along with epigastric pain since last Sunday. Pt reports her abdominal pain and non-bloody vomiting continues with some bile in vomiting until yesterday when she started to have blood in vomit, sometimes with clots of blood. Today, pt has had multiple episodes of bright red blood in her emesis. Associated symptoms are dizziness, lightheadedness, abdominal pain and melena x 2 days. Denies any recent EtOH intake. Patient underwent Upper GI series in July 2016 which did not show any esophageal varices. She has hx of multiple admissions for hepatic encephalopathy Denies other drugs. Patient states she has been taking all her meds as prescribed. PMHx: Asthma, HTN, Liver Cirrhosis, ascites, HLD, Hx of ETOH use disorder PSHx: C-Sections x 3 Medications: unable to recall names. Allergies: iodine FHx: Hypertension (Sister). Liver failure,ETOH abuse(Father) OBGYN: LMP 3 years ago. No abnormal bleeding. Social History: She has never used any tobacco products. Her last ETOH use was in 09/2015. She uses Marijuana occasionally to relieve her stomach pain. ED COURSE: Initial VS: BP 113/77, HR 114, RR 20, pulse ox 98% on RA Labs: CBC: 5>10.9/33<116 CMP: 140/4.3, 103/23, 27/1.2<138, AST 79, ALT 30, ALP 133 AMMONIA 63, TROPONIN: WNL, lipase 120, PT18.1, INR 1.6, APTT 30.7 CXR: no active disease EKG: nsr @78 GI was consulted: Dr. Bautista, recommended octreotide 50 mcg bolus then 50 mcg /hr and protonix 8 mg/hr, admit to ICU. Present on Admission - Present on Admission Any Indicators Present on Admission: Yes Review of Systems - Constitutional Constitutional: Chills, Weakness. absent: Fever - EENT Eyes: absent: Change in Vision - Cardiovascular Cardiovascular: absent: Edema, Palpitations - Respiratory Respiratory: absent: Cough, Hemoptysis - Gastrointestinal Gastrointestinal: Abdominal Pain, Melena, Nausea, Vomiting - Genitourinary Genitourinary: absent: Dysuria, Hematuria - Musculoskeletal Musculoskeletal: absent: Numbness, Tingling - Integumentary Integumentary: absent: Rash - Neurological Neurological: Dizziness, Headaches Past Patient History - Past Medical History & Family History Past Medical History?: Yes - Past Social History Alcohol: None - CARDIAC Hx Hypertension: Yes - PULMONARY Hx Asthma: Yes Hx Sleep Apnea: No - NEUROLOGICAL Hx Neurological Disorder: No - HEENT Hx HEENT Problems: No - RENAL Hx Chronic Kidney Disease: No - ENDOCRINE/METABOLIC Hx Endocrine Disorders: No - HEMATOLOGICAL/ONCOLOGICAL Hx Anemia: Yes Hx Sickle Cell Disease: No - INTEGUMENTARY Hx Dermatological Problems: No - MUSCULOSKELETAL/RHEUMATOLOGICAL Hx Musculoskeletal Disorders: No Hx Falls: Yes - GASTROINTESTINAL Hx Gastrointestinal Disorders: Yes Hx Liver Failure: Yes - GENITOURINARY/GYNECOLOGICAL Hx Genitourinary Disorders: No - PSYCHIATRIC Hx Psychophysiologic Disorder: No Hx Substance Use: Yes (marijuana) - SURGICAL HISTORY Hx Section: Yes Hx Tubal Ligation: Yes Other/Comment: endoscopy, - ANESTHESIA Hx Anesthesia: Yes Hx Anesthesia Reactions: No Hx Malignant Hyperthermia: No Meds Allergies/Adverse Reactions: Allergies Allergy/AdvReac Type Severity Reaction Status Date / Time iodine Allergy SHORTNESS Verified 08/28/17 09:24 OF BREATH Physical Exam - Constitutional Appears: Non-toxic Additional comments: Thin appearing - Head Exam Head Exam: NORMAL INSPECTION - Eye Exam Eye Exam: EOMI, Scleral icterus - ENT Exam ENT Exam: Mucous Membranes Moist - Neck Exam Neck exam: Positive for: Normal Inspection - Respiratory Exam Respiratory Exam: Wheezes, NORMAL BREATHING PATTERN. absent: Respiratory Distress Additional comments: Mild expiratory wheezing B/L - Cardiovascular Exam Cardiovascular Exam: REGULAR RHYTHM, RRR, +S1, +S2 - GI/Abdominal Exam GI & Abdominal Exam: Normal Bowel Sounds, Soft. absent: Distended, Guarding, Rebound Additional comments: Mild epigastric tenderness. - Extremities Exam Extremities exam: Positive for: normal inspection, pedal pulses present. Negative for: calf tenderness, pedal edema - Neurological Exam Neurological exam: Alert, Oriented x3 - Psychiatric Exam Psychiatric exam: Anxious Results - Vital Signs Recent Vital Signs: Last Vital Signs Temp Pulse 115 H 08/28/17 12:22 Resp 22 08/28/17 12:22 BP 133/89 08/28/17 12:22 Pulse Ox 100 08/28/17 12:22 - Labs Result Diagrams: 08/28/17 09:35 08/28/17 09:35 Labs: Laboratory Results - last 24 hr 08/28/17 08/28/17 08/28/17 09:35 09:35 09:35 WBC 5.0 RBC 3.53 L Hgb 10.9 L Hct 33.0 L MCV 93.6 MCH 31.0 MCHC 33.1 RDW 17.4 H Plt Count 116 L D MPV 11.2 Neut % (Auto) 65.1 Lymph % (Auto) 16.4 L [place] % (Auto) 10.9 H Eos % (Auto) 7.2 H Baso % (Auto) 0.4 Neut # (Auto) 3.3 Lymph # (Auto) 0.8 L [place] # (Auto) 0.5 Eos # (Auto) 0.4 Baso # (Auto) 0.0 PT INR APTT Sodium 140 Potassium 4.3 Chloride 103 Carbon Dioxide 23 Anion Gap 18 BUN 27 H Creatinine 1.2 Est GFR ( Amer) 58 Est GFR (Non-Af Amer) 48 Random Glucose 138 H Calcium 8.3 L Total Bilirubin 4.6 H AST 79 H ALT 30 Alkaline Phosphatase 133 H Ammonia Troponin I < 0.0120 Total Protein 8.0 Albumin 3.1 L Globulin 4.9 H Albumin/Globulin Ratio 0.6 L Lipase 120 Blood Type Cancelled Antibody Screen Cancelled Crossmatch BBK History Checked Cancelled 08/28/17 08/28/17 08/28/17 09:35 09:35 10:10 WBC RBC Hgb Hct MCV MCH MCHC RDW Plt Count MPV Neut % (Auto) Lymph % (Auto) [place] % (Auto) Eos % (Auto) Baso % (Auto) Neut # (Auto) Lymph # (Auto) [place] # (Auto) Eos # (Auto) Baso # (Auto) PT 18.1 H INR 1.6 H APTT 30.7 Sodium Potassium Chloride Carbon Dioxide Anion Gap BUN Creatinine Est GFR ( Amer) Est GFR (Non-Af Amer) Random Glucose Calcium Total Bilirubin AST ALT Alkaline Phosphatase Ammonia 63 H D Troponin I Total Protein Albumin Globulin Albumin/Globulin Ratio Lipase Blood Type Cancelled Antibody Screen Cancelled Crossmatch BBK History Checked Cancelled 08/28/17 10:51 WBC RBC Hgb Hct MCV MCH MCHC RDW Plt Count MPV Neut % (Auto) Lymph % (Auto) [place] % (Auto) Eos % (Auto) Baso % (Auto) Neut # (Auto) Lymph # (Auto) [place] # (Auto) Eos # (Auto) Baso # (Auto) PT INR APTT Sodium Potassium Chloride Carbon Dioxide Anion Gap BUN Creatinine Est GFR ( Amer) Est GFR (Non-Af Amer) Random Glucose Calcium Total Bilirubin AST ALT Alkaline Phosphatase Ammonia Troponin I Total Protein Albumin Globulin Albumin/Globulin Ratio Lipase Blood Type A POSITIVE Antibody Screen Negative Crossmatch See Detail BBK History Checked Patient has bt Assessment & Plan - Assessment and Plan (Free Text) Assessment: 47 year old female with PMHx of of decompensated iver cirrhosis secondary to ETOH use disorder admitted for upper GI bleeding. Upper GI bleeding: -Pt admitted to ICU -GI evaluation appreciated- Dr. Bautista and GI Fellow Dr. Cabello on the case. -Received 1 unit of PRBC. -Emergency endoscopy to be done today. -Will manage per GI recommendation. Asthma unspecified severity -DuoNeb q6hr prn DVT prophylaxis -SCD for now Diet -Clear liquid diet
[2017-08-28] MEDS ORDERED: Lactated Ringer's 500 ML IV ONE (14:54)
--- NOTE | 2017-08-28 15:59 | CP.PCM.CON ---
<Lloyd Greenberg - Last Filed: 08/28/17 16:16> History of Present Illness - History of Present Illness History of Present Illness: Critical Care Consult Note 47 yo female with PMHx significant for decompensated alcoholic liver cirrhosis, ascites, asthma (unspecified severity) who presented to the ED with abdominal pain and vomiting for 4 days and now hemataemesis for 1 day. She states that Sunday of last week she started feeling epigastric abdominal pain which continued in to morning. When she went to take her morning medications on , she became nauseated and vomited multiple times, initially NB but bilious. After multiple days with pain and NBB vomiting she began developing scant amounts of blood. Today she has had multiple episodes of bright red blood in her emesis. Associated symptoms are dizziness, lightheadedness, chest and abdominal pain, melena x 2 days. Denies any recent EtOH intake. Patient underwent Upper GI series in July 2016 which did not show any esophageal varices. She has hx of multiple admissions for hepatic encephalopathy, ROS: 12 systems reviewed, as stated in HPI, all other systems negative. PMD: NHC PMHx: Alcoholic Liver Cirrhosis PSHx: x3 FHx: denies family hx Social: Prior heavy EtOH use, no tobacco or illicit drug use LMP: >3 years ago PE: GEN: Uncomfortable Neck: FROM, no cervical adenopathy, normal carotid pulse LUNGS: good air entry b/l, scant wheezing, No RR CVS: Tachycardic, RRR, S1S2+, no MRG ABD:+BS, soft, epigastric tenderness, nondistended/no guarding rigidity. SKIN: jaundice EXT: no pedal edema Pulses: 2+ radial Neuro: AAOX4 Assessment: 47 y/o female, with history of alcoholic liver cirrhosis, ascites, hepatic encephalopathy and asthma admitted for acute upper GI bleed. Plan: 1) Acute Upper GI Bleed -uncertain source, pt had upper GI series done in July, showing esophagitis, erosive gastropathy and portal hypertensive gastropathy. She did not have esophageal varices. -GI on board, emergent Upper GI series -2 units PRBCs -FFP -Trend H/H Q6Hx3 -Reglan 10mg IV -Zofran for nausea -Hemoglobin 10.9 (suspected hemoconcentration) -BUN/Cr: 27/1.2 -Lipase: WNL -fluid rescucitation, s/p NS x3L -Octreotide 50mcg -Protonix Drip -Vitamin K IVP 5mg -NPO status -monitor vitals 2) Liver Failure secondary to Alcoholic Liver Cirrhosis -GI on board -MELD score: 19 -AFP pending 3) Ascites -1gm Rocephin -monitor for SBP 4) Hyperammoniemia: -63 -AAOX4 -monitor -f/u, consider lactulose/enema if AMS develops 5) Transaminemia -AST/ALT: 79/30 -monitor with daily CMPs 6) Asthma (unspecified severity) -Duo-Nebs Q6H PRN -monitor vitals/POX 7) Diet -NPO 8) Prophylaxis -active hemorrhage -SCDs 9) Code Status -Full Code Past Patient History - Past Medical History & Family History Past Medical History?: Yes - Past Social History Alcohol: None - CARDIAC Hx Hypertension: Yes - PULMONARY Hx Asthma: Yes Hx Sleep Apnea: No - NEUROLOGICAL Hx Neurological Disorder: No - HEENT Hx HEENT Problems: No - RENAL Hx Chronic Kidney Disease: No - ENDOCRINE/METABOLIC Hx Endocrine Disorders: No - HEMATOLOGICAL/ONCOLOGICAL Hx Anemia: Yes Hx Sickle Cell Disease: No - INTEGUMENTARY Hx Dermatological Problems: No - MUSCULOSKELETAL/RHEUMATOLOGICAL Hx Musculoskeletal Disorders: No Hx Falls: Yes - GASTROINTESTINAL Hx Gastrointestinal Disorders: Yes Hx Liver Failure: Yes - GENITOURINARY/GYNECOLOGICAL Hx Genitourinary Disorders: No - PSYCHIATRIC Hx Psychophysiologic Disorder: No Hx Substance Use: Yes (marijuana) - SURGICAL HISTORY Hx Section: Yes Hx Tubal Ligation: Yes Other/Comment: endoscopy, - ANESTHESIA Hx Anesthesia: Yes Hx Anesthesia Reactions: No Hx Malignant Hyperthermia: No Meds Allergies/Adverse Reactions: Allergies Allergy/AdvReac Type Severity Reaction Status Date / Time iodine Allergy SHORTNESS Verified 08/28/17 09:24 OF BREATH - Medications Medications: Current Medications Albuterol/Ipratropium (Duoneb 3 Mg/0.5 Mg (3 Ml) Ud) 3 ml INH RQ6 PRN PRN Reason: Shortness of Breath Octreotide Acetate 1,250 mcg/ (Sodium Chloride) 252.5 mls @ 10.1 mls/hr IV .Q24H BARBARA; 50 MCG/HR PRN Reason: Protocol Last Admin: 08/28/17 11:18 Dose: 10.1 mls/hr Sodium Chloride (Sodium Chloride 0.9%) 1,000 mls @ 1,000 mls/hr IV .Q1H BARBARA Stop: 08/29/17 11:53 Ceftriaxone Sodium 1 gm/ (Sodium Chloride) 100 mls @ 100 mls/hr IVPB DAILY BARBARA PRN Reason: Protocol Results - Vital Signs Recent Vital Signs: Last Vital Signs Temp Pulse 115 H 08/28/17 12:22 Resp 22 08/28/17 12:22 BP 133/89 08/28/17 12:22 Pulse Ox 100 08/28/17 12:22 - Labs Result Diagrams: 08/28/17 09:35 08/28/17 09:35 Labs: Laboratory Results - last 24 hr 08/28/17 08/28/17 08/28/17 09:35 09:35 09:35 WBC 5.0 RBC 3.53 L Hgb 10.9 L Hct 33.0 L MCV 93.6 MCH 31.0 MCHC 33.1 RDW 17.4 H Plt Count 116 L D MPV 11.2 Neut % (Auto) 65.1 Lymph % (Auto) 16.4 L [place] % (Auto) 10.9 H Eos % (Auto) 7.2 H Baso % (Auto) 0.4 Neut # (Auto) 3.3 Lymph # (Auto) 0.8 L [place] # (Auto) 0.5 Eos # (Auto) 0.4 Baso # (Auto) 0.0 PT INR APTT Sodium 140 Potassium 4.3 Chloride 103 Carbon Dioxide 23 Anion Gap 18 BUN 27 H Creatinine 1.2 Est GFR ( Amer) 58 Est GFR (Non-Af Amer) 48 Random Glucose 138 H Calcium 8.3 L Total Bilirubin 4.6 H AST 79 H ALT 30 Alkaline Phosphatase 133 H Ammonia Troponin I < 0.0120 Total Protein 8.0 Albumin 3.1 L Globulin 4.9 H Albumin/Globulin Ratio 0.6 L Lipase 120 Blood Type Cancelled Antibody Screen Cancelled Crossmatch BBK History Checked Cancelled 08/28/17 08/28/17 08/28/17 09:35 09:35 10:10 WBC RBC Hgb Hct MCV MCH MCHC RDW Plt Count MPV Neut % (Auto) Lymph % (Auto) [place] % (Auto) Eos % (Auto) Baso % (Auto) Neut # (Auto) Lymph # (Auto) [place] # (Auto) Eos # (Auto) Baso # (Auto) PT 18.1 H INR 1.6 H APTT 30.7 Sodium Potassium Chloride Carbon Dioxide Anion Gap BUN Creatinine Est GFR ( Amer) Est GFR (Non-Af Amer) Random Glucose Calcium Total Bilirubin AST ALT Alkaline Phosphatase Ammonia 63 H D Troponin I Total Protein Albumin Globulin Albumin/Globulin Ratio Lipase Blood Type Cancelled Antibody Screen Cancelled Crossmatch BBK History Checked Cancelled 08/28/17 10:51 WBC RBC Hgb Hct MCV MCH MCHC RDW Plt Count MPV Neut % (Auto) Lymph % (Auto) [place] % (Auto) Eos % (Auto) Baso % (Auto) Neut # (Auto) Lymph # (Auto) [place] # (Auto) Eos # (Auto) Baso # (Auto) PT INR APTT Sodium Potassium Chloride Carbon Dioxide Anion Gap BUN Creatinine Est GFR ( Amer) Est GFR (Non-Af Amer) Random Glucose Calcium Total Bilirubin AST ALT Alkaline Phosphatase Ammonia Troponin I Total Protein Albumin Globulin Albumin/Globulin Ratio Lipase Blood Type A POSITIVE Antibody Screen Negative Crossmatch See Detail BBK History Checked Patient has bt <Brain Gonzalez M - Last Filed: 08/28/17 17:49> Meds - Medications Medications: Current Medications Albuterol/Ipratropium (Duoneb 3 Mg/0.5 Mg (3 Ml) Ud) 3 ml INH RQ6 PRN PRN Reason: Shortness of Breath Sodium Chloride (Sodium Chloride 0.9%) 1,000 mls @ 1,000 mls/hr IV .Q1H BARBARA Stop: 08/29/17 11:53 Ceftriaxone Sodium 1 gm/ (Sodium Chloride) 100 mls @ 100 mls/hr IVPB DAILY BARBARA PRN Reason: Protocol Results - Vital Signs Recent Vital Signs: Last Vital Signs Temp Pulse 115 H 08/28/17 16:24 Resp 22 08/28/17 16:24 BP 133/89 08/28/17 16:24 Pulse Ox 100 08/28/17 12:22 - Labs Result Diagrams: 08/28/17 09:35 08/28/17 09:35 Labs: Laboratory Results - last 24 hr 05/01/18 05/01/18 05/01/18 09:35 09:35 09:35 WBC 5.0 RBC 3.53 L Hgb 10.9 L Hct 33.0 L MCV 93.6 MCH 31.0 MCHC 33.1 RDW 17.4 H Plt Count 116 L D MPV 11.2 Neut % (Auto) 65.1 Lymph % (Auto) 16.4 L [place] % (Auto) 10.9 H Eos % (Auto) 7.2 H Baso % (Auto) 0.4 Neut # (Auto) 3.3 Lymph # (Auto) 0.8 L [place] # (Auto) 0.5 Eos # (Auto) 0.4 Baso # (Auto) 0.0 PT INR APTT Sodium 140 Potassium 4.3 Chloride 103 Carbon Dioxide 23 Anion Gap 18 BUN 27 H Creatinine 1.2 Est GFR ( Amer) 58 Est GFR (Non-Af Amer) 48 Random Glucose 138 H Calcium 8.3 L Total Bilirubin 4.6 H AST 79 H ALT 30 Alkaline Phosphatase 133 H Ammonia Troponin I < 0.0120 Total Protein 8.0 Albumin 3.1 L Globulin 4.9 H Albumin/Globulin Ratio 0.6 L Lipase 120 Blood Type Cancelled Antibody Screen Cancelled Crossmatch BBK History Checked Cancelled 08/28/17 08/28/17 08/28/17 09:35 09:35 10:10 WBC RBC Hgb Hct MCV MCH MCHC RDW Plt Count MPV Neut % (Auto) Lymph % (Auto) [place] % (Auto) Eos % (Auto) Baso % (Auto) Neut # (Auto) Lymph # (Auto) [place] # (Auto) Eos # (Auto) Baso # (Auto) PT 18.1 H INR 1.6 H APTT 30.7 Sodium Potassium Chloride Carbon Dioxide Anion Gap BUN Creatinine Est GFR ( Amer) Est GFR (Non-Af Amer) Random Glucose Calcium Total Bilirubin AST ALT Alkaline Phosphatase Ammonia 63 H D Troponin I Total Protein Albumin Globulin Albumin/Globulin Ratio Lipase Blood Type Cancelled Antibody Screen Cancelled Crossmatch BBK History Checked Cancelled 08/28/17 10:51 WBC RBC Hgb Hct MCV MCH MCHC RDW Plt Count MPV Neut % (Auto) Lymph % (Auto) [place] % (Auto) Eos % (Auto) Baso % (Auto) Neut # (Auto) Lymph # (Auto) [place] # (Auto) Eos # (Auto) Baso # (Auto) PT INR APTT Sodium Potassium Chloride Carbon Dioxide Anion Gap BUN Creatinine Est GFR ( Amer) Est GFR (Non-Af Amer) Random Glucose Calcium Total Bilirubin AST ALT Alkaline Phosphatase Ammonia Troponin I Total Protein Albumin Globulin Albumin/Globulin Ratio Lipase Blood Type A POSITIVE Antibody Screen Negative Crossmatch See Detail BBK History Checked Patient has bt Attending/Attestation - Attestation I have personally seen and examined this patient.: Yes I have fully participated in the care of the patient.: Yes I have reviewed all pertinent clinical information: Yes Notes (Text): 08/28/17 17:49 Today: Monday, August 28, 2017 The patient was Seen/interviewed and examined by me at the bedside, Medical records reviewed and Management issues were discussed and formulated with the house staff. Events reviewed I have reviewed all the relevant clinical, laboratory, hemodynamic, radiographic data and medications Pain issues, skin care, head of the bed elevation, glycemic control were addressed. I concur with resident's assessment and plan of care as transcribed in Dr. Greenberg note.
[2017-08-28] MEDS: Albuterol-Ipratrop 3 mg / 0.5 (3 ml) UD INH PRN (18:13)
--- NOTE | 2017-08-28 18:38 | CARD ---
APPROVED REPORT EKG Measurement Heart [id number] <Conclusion> Normal sinus rhythm Normal ECG
[2017-08-28] MEDS ORDERED: Sodium Chloride 0.9% 500 ML IV SCH (21:45)
[2017-08-28] MEDS: Pantoprazole 40 MG in Sodium Chloride 0.9% 100 ML IVPB SCH (22:33)
[2017-08-29] MEDS: Pantoprazole 40 MG in Sodium Chloride 0.9% 100 ML IVPB SCH ×2 (04:24→09:58)
[2017-08-29] MEDS ORDERED: Sodium Chloride 0.9% 500 ML IV ONE (04:51)
[2017-08-29] MEDS ORDERED: Sodium Chloride 0.9% 1,000 ML IV SCH ×2 (05:00→10:29)
[2017-08-29 05:52] LABS: INR 1.8 (0.9-1.2); PROTHROMBIN TIME 20.1 Seconds (9.8-13.1)
[2017-08-29 06:15] LABS: ALB/GLOB RATIO 0.6 (1.0-2.1); ALBUMIN 2.3 g/dL (3.5-5.0); CALCIUM 6.9 mg/dL (8.4-10.2)
--- NOTE | 2017-08-29 07:22 | CP.PCM.PN ---
Subjective - Date & Time of Evaluation Date of Evaluation: 08/29/17 Time of Evaluation: 07:21 - Subjective Subjective: 47 y/o F evaluated and examined by bedside. Pt reports feeling OK, afebrile, reports NO nausea or vomiting last night and today. No bowel movement yesterday. Pt had endoscopy yesterday. Pt tolerating clear liquid diet. Pt denies CP, SOB, calf pain or rash. Objective - Vital Signs/Intake and Output Vital Signs (last 24 hours): Temp Pulse Resp BP Pulse Ox 98.5 F 93 H 16 110/63 98 08/29/17 04:00 08/29/17 06:19 08/29/17 06:19 08/29/17 06:19 08/29/17 06:19 Intake and Output: 08/29/17 08/29/17 06:59 18:59 Intake Total 1950 Balance 1950 - Medications Medications: Current Medications Albuterol/Ipratropium (Duoneb 3 Mg/0.5 Mg (3 Ml) Ud) 3 ml INH RQ6 PRN PRN Reason: Shortness of Breath Last Admin: 08/28/17 18:13 Dose: 3 ml Sodium Chloride (Sodium Chloride 0.9%) 1,000 mls @ 1,000 mls/hr IV .Q1H BARBARA Stop: 08/29/17 11:53 Ceftriaxone Sodium 1 gm/ (Sodium Chloride) 100 mls @ 100 mls/hr IVPB DAILY BARBARA PRN Reason: Protocol Last Admin: 08/28/17 18:00 Dose: 100 mls/hr Pantoprazole Sodium 40 mg/ (Sodium Chloride) 100 mls @ 20 mls/hr IVPB Q5H BARBARA PRN Reason: 8 MG/HR Stop: 08/29/17 21:31 Last Admin: 08/29/17 04:24 Dose: 20 mls/hr Sodium Chloride (Sodium Chloride 0.9%) 1,000 mls @ 125 mls/hr IV .Q8H BARBARA Stop: 08/30/17 04:54 Last Admin: 08/29/17 07:03 Dose: 125 mls/hr - Labs Labs: 08/28/17 09:35 08/29/17 04:30 PT 20.1 Seconds (9.8-13.1) H 08/29/17 04:30 INR 1.8 (0.9-1.2) H 08/29/17 04:30 APTT 30.7 Seconds (25.6-37.1) 08/28/17 09:35 - Constitutional Appears: No Acute Distress - Head Exam Head Exam: ATRAUMATIC - Eye Exam Eye Exam: EOMI - ENT Exam ENT Exam: Mucous Membranes Dry - Neck Exam Neck Exam: Full ROM - Respiratory Exam Respiratory Exam: Clear to Ausculation Bilateral, NORMAL BREATHING PATTERN - Cardiovascular Exam Cardiovascular Exam: REGULAR RHYTHM, +S1, +S2 - GI/Abdominal Exam GI & Abdominal Exam: Soft, Tenderness (over epigastric area.), Normal Bowel Sounds. absent: Guarding, Rigid - Neurological Exam Neurological Exam: Alert, Awake, Oriented x3 Assessment and Plan - Assessment and Plan (Free Text) Assessment: 47 year old female with PMHx of of decompensated liver cirrhosis secondary to ETOH use disorder admitted for upper GI bleeding. Plan: Upper GI bleeding 2/2 liver cirrhosis complication -Endoscopy showed non-hemorrhaging Nupur Chiu Tear, nonbleeding Grade I Esophageal varices. No banding/sclertherapy performed. -Gastroenterology, Dr Bautista, on board. Recommendations appreciated. Pt will ultimately benefit from Liver transplant. -Has received 1 unit of PRBC. -Will transfuse 2 unit of PRBC's and platelets today. -PO Protonix as per GI. -US abdomen as per GI Liver failure 2/2 Alcoholic Cirrhosis -MELD score: 23 -AFP 1.5 WNL on 08/29 -AST/ALT: 72/33 -Vitamin K administered Asthma unspecified severity -DuoNeb q6hr prn DVT prophylaxis -SCD for now Diet -Clear liquid diet Health Maintenance -Pneumo vaccine administered today.
[2017-08-29 08:23] LABS: HEMOGLOBIN 7.7 g/dL (12.0-16.0); MEAN CELL VOLUME 93.9 fl (81.0-99.0); MEAN CORPUSCULAR HEMOGLOBIN 31.5 pg (27.0-31.0); MEAN CORPUSCULAR HGB CONC 33.5 g/dL (33.0-37.0); RBC 2.46 Mil/uL (3.80-5.20); RED CELL DISTRIBUTION WIDTH 17.3 % (11.5-14.5); WHITE BLOOD COUNT 5.3 K/uL (4.8-10.8)
[2017-08-29] MEDS ORDERED: Phytonadione 10 mg/ml Inj (Adult) IVPB ONE (08:43)
[2017-08-29] MEDS ORDERED: Phytonadione 10 MG in Sodium Chloride 0.9% 50 ML IV ONE (09:00)
--- NOTE | 2017-08-29 09:44 | CP.CCUPN ---
<Lloyd Greenberg - Last Filed: 08/29/17 11:55> CCU Subjective - Physician Review Subjective (Free Text): 08/29/17 09:40 pt seen and examined at bedside this morning. Labs/nursing notes/overnight events reviewed. S/P emergent endoscopy on 08/28. Pt tolerated procedure well w/ o complications. Pt sitting up at bedside, comfortable, NAD. Jaundice remains. Tolerated CLD. Afebrile overnight. Remains on NS @ 125mls/hr and protonix drip. No complaints. CCU Objective - Vital Signs / Intake & Output Vital Signs (Last 4 hours): Vital Signs Temp Pulse Resp BP Pulse Ox 08/29/17 08:00 98.3 F 94 H 13 95/62 L 98 08/29/17 06:19 93 H 16 110/63 98 Intake and Output (Last 8hrs): Intake & Output 08/28/17 08/29/17 08/29/17 22:59 06:59 14:59 Intake Total 1950 Balance 1950 Intake: IV 1750 Intake, Piggyback 200 Other: # Voids Urine, Voided 1 - Physical Exam Head: Positive for: Atraumatic, Normocephalic, Ecchymosis Pupils: Positive for: PERRL Extroacular Muscles: Positive for: EOMI Conjunctiva: Positive for: Normal Mouth: Positive for: Moist Mucous Membranes Neck: Positive for: Normal Range of Motion Respiratory/Chest: Positive for: Clear to Auscultation, Good Air Exchange. Negative for: Respiratory Distress, Accessory Muscle Use, Wheezes, Retracting, Rhonchi Cardiovascular: Positive for: Regular Rate and Rhythm, Normal S1, S2, Peripheal Pulses Present. Negative for: Murmurs, Tachycardic, Bradycardic Abdomen: Positive for: Tenderness (mild epigastric ), Normal Bowel Sounds. Negative for: Distention, Peritoneal Signs, Guarding, Feeding Tubes, Ostomy Tubes Back: Positive for: Paraspinal Tenderness Upper Extremity: Positive for: Capillary Refill < 2s. Negative for: Cyanosis, Edema Lower Extremity: Positive for: Normal Inspection, Capillary Refill < 2 s. Negative for: Edema, CALF TENDERNESS Neurological: Positive for: GCS=15, CN II-XII Intact, Speech Normal, Motor Func Grossly Intact Skin: Positive for: Warm, Dry, Other (jaundice ). Negative for: Rashes, Normal Color Psychiatric: Positive for: Alert, Oriented x 3, Normal Insight, Normal Concentration - Medications Active Medications: Active Medications Generic Name Dose Route Start Last Admin Trade Name Freq PRN Reason Stop Dose Admin Albuterol/Ipratropium 3 ml 08/28/17 15:48 08/28/17 18:13 Duoneb 3 Mg/0.5 Mg (3 Ml) Ud INH 3 ml RQ6 PRN Administration Shortness of Breath Sodium Chloride 1,000 mls @ 1,000 mls/hr 08/28/17 12:00 Sodium Chloride 0.9% IV 08/29/17 11:53 .Q1H BARBARA Ceftriaxone Sodium 1 gm/ 100 mls @ 100 mls/hr 08/28/17 13:30 08/28/17 18:00 Sodium Chloride IVPB 100 mls/hr DAILY BARBARA Administration Protocol Pantoprazole Sodium 40 mg/ 100 mls @ 20 mls/hr 08/28/17 21:30 08/29/17 04:24 Sodium Chloride IVPB 08/29/17 21:31 20 mls/hr Q5H BARBARA Administration 8 MG/HR Sodium Chloride 1,000 mls @ 125 mls/hr 08/29/17 05:00 08/29/17 07:03 Sodium Chloride 0.9% IV 08/30/17 04:54 125 mls/hr .Q8H BARBARA Administration - Patient Studies Lab Studies: Lab Studies 08/29/17 08/29/17 08/29/17 Range/Units 07:00 04:30 04:30 WBC 5.3 (4.8-10.8) K/uL RBC 2.46 L (3.80-5.20) Mil/uL Hgb 7.7 L D (12.0-16.0) g/dL Hct 23.1 L (34.0-47.0) % MCV 93.9 (81.0-99.0) fl MCH 31.5 H (27.0-31.0) pg MCHC 33.5 (33.0-37.0) g/dL RDW 17.3 H (11.5-14.5) % Plt Count 50 L D (130-400) K/uL MPV (7.2-11.7) fl Neut % (Auto) (50.0-75.0) % Lymph % (Auto) (20.0-40.0) % [place] % (Auto) (0.0-10.0) % Eos % (Auto) (0.0-4.0) % Baso % (Auto) (0.0-2.0) % Neut # (Auto) (1.8-7.0) K/uL Lymph # (Auto) (1.0-4.3) K/uL [place] # (Auto) (0.0-0.8) K/uL Eos # (Auto) (0.0-0.7) K/uL Baso # (Auto) (0.0-0.2) K/uL PT (9.8-13.1) Seconds INR (0.9-1.2) APTT (25.6-37.1) Seconds Sodium 136 (132-148) mmol/l Potassium 4.3 (3.6-5.0) MMOL/L Chloride 104 (98-107) mmol/L Carbon Dioxide 21 L (22-30) mmol/L Anion Gap 15 (10-20) BUN 31 H (7-17) mg/dl Creatinine 1.2 (0.7-1.2) mg/dl Est GFR ( Amer) 58 Est GFR (Non-Af Amer) 48 Random Glucose 106 H (65-105) mg/dL Calcium 6.9 L (8.4-10.2) mg/dL Total Bilirubin 5.0 H (0.2-1.3) mg/dl AST 72 H (14-36) U/L ALT 33 (9-52) U/L Alkaline Phosphatase 93 (38-126) U/L Ammonia (11-51) umo/L Troponin I (0.00-0.120) ng/mL Total Protein 6.1 L (6.3-8.2) G/DL Albumin 2.3 L D (3.5-5.0) g/dL Globulin 3.8 (2.2-3.9) gm/dL Albumin/Globulin Ratio 0.6 L (1.0-2.1) Lipase (23-300) U/L Alpha Fetoprotein 1.5 (0.0-7.22) IU/mL Blood Type Antibody Screen Crossmatch BBK History Checked 08/29/17 08/28/1708/28/18 Range/Units 04:30 10:51 10:10 WBC (4.8-10.8) K/uL RBC (3.80-5.20) Mil/uL Hgb (12.0-16.0) g/dL Hct (34.0-47.0) % MCV (81.0-99.0) fl MCH (27.0-31.0) pg MCHC (33.0-37.0) g/dL RDW (11.5-14.5) % Plt Count (130-400) K/uL MPV (7.2-11.7) fl Neut % (Auto) (50.0-75.0) % Lymph % (Auto) (20.0-40.0) % [place] % (Auto) (0.0-10.0) % Eos % (Auto) (0.0-4.0) % Baso % (Auto) (0.0-2.0) % Neut # (Auto) (1.8-7.0) K/uL Lymph # (Auto) (1.0-4.3) K/uL [place] # (Auto) (0.0-0.8) K/uL Eos # (Auto) (0.0-0.7) K/uL Baso # (Auto) (0.0-0.2) K/uL PT 20.1 H (9.8-13.1) Seconds INR 1.8 H (0.9-1.2) APTT (25.6-37.1) Seconds Sodium (132-148) mmol/l Potassium (3.6-5.0) MMOL/L Chloride (98-107) mmol/L Carbon Dioxide (22-30) mmol/L Anion Gap (10-20) BUN (7-17) mg/dl Creatinine (0.7-1.2) mg/dl Est GFR ( Amer) Est GFR (Non-Af Amer) Random Glucose (65-105) mg/dL Calcium (8.4-10.2) mg/dL Total Bilirubin (0.2-1.3) mg/dl AST (14-36) U/L ALT (9-52) U/L Alkaline Phosphatase (38-126) U/L Ammonia (11-51) umo/L Troponin I (0.00-0.120) ng/mL Total Protein (6.3-8.2) G/DL Albumin (3.5-5.0) g/dL Globulin (2.2-3.9) gm/dL Albumin/Globulin Ratio (1.0-2.1) Lipase (23-300) U/L Alpha Fetoprotein (0.0-7.22) IU/mL Blood Type A POSITIVE Cancelled Antibody Screen Negative Cancelled Crossmatch See Detail BBK History Checked Patient has bt Cancelled 08/28/17 08/28/17 08/28/17 Range/Units 09:35 09:35 09:35 WBC (4.8-10.8) K/uL RBC (3.80-5.20) Mil/uL Hgb (12.0-16.0) g/dL Hct (34.0-47.0) % MCV (81.0-99.0) fl MCH (27.0-31.0) pg MCHC (33.0-37.0) g/dL RDW (11.5-14.5) % Plt Count (130-400) K/uL MPV (7.2-11.7) fl Neut % (Auto) (50.0-75.0) % Lymph % (Auto) (20.0-40.0) % [place] % (Auto) (0.0-10.0) % Eos % (Auto) (0.0-4.0) % Baso % (Auto) (0.0-2.0) % Neut # (Auto) (1.8-7.0) K/uL Lymph # (Auto) (1.0-4.3) K/uL [place] # (Auto) (0.0-0.8) K/uL Eos # (Auto) (0.0-0.7) K/uL Baso # (Auto) (0.0-0.2) K/uL PT 18.1 H (9.8-13.1) Seconds INR 1.6 H (0.9-1.2) APTT 30.7 (25.6-37.1) Seconds Sodium 140 (132-148) mmol/l Potassium 4.3 (3.6-5.0) MMOL/L Chloride 103 (98-107) mmol/L Carbon Dioxide 23 (22-30) mmol/L Anion Gap 18 (10-20) BUN 27 H (7-17) mg/dl Creatinine 1.2 (0.7-1.2) mg/dl Est GFR ( Amer) 58 Est GFR (Non-Af Amer) 48 Random Glucose 138 H (65-105) mg/dL Calcium 8.3 L (8.4-10.2) mg/dL Total Bilirubin 4.6 H (0.2-1.3) mg/dl AST 79 H (14-36) U/L ALT 30 (9-52) U/L Alkaline Phosphatase 133 H (38-126) U/L Ammonia 63 H D (11-51) umo/L Troponin I < 0.0120 (0.00-0.120) ng/mL Total Protein 8.0 (6.3-8.2) G/DL Albumin 3.1 L (3.5-5.0) g/dL Globulin 4.9 H (2.2-3.9) gm/dL Albumin/Globulin Ratio 0.6 L (1.0-2.1) Lipase 120 (23-300) U/L Alpha Fetoprotein (0.0-7.22) IU/mL Blood Type Antibody Screen Crossmatch BBK History Checked 08/28/17 08/28/17 Range/Units 09:35 09:35 WBC 5.0 (4.8-10.8) K/uL RBC 3.53 L (3.80-5.20) Mil/uL Hgb 10.9 L (12.0-16.0) g/dL Hct 33.0 L (34.0-47.0) % MCV 93.6 (81.0-99.0) fl MCH 31.0 (27.0-31.0) pg MCHC 33.1 (33.0-37.0) g/dL RDW 17.4 H (11.5-14.5) % Plt Count 116 L D (130-400) K/uL MPV 11.2 (7.2-11.7) fl Neut % (Auto) 65.1 (50.0-75.0) % Lymph % (Auto) 16.4 L (20.0-40.0) % [place] % (Auto) 10.9 H (0.0-10.0) % Eos % (Auto) 7.2 H (0.0-4.0) % Baso % (Auto) 0.4 (0.0-2.0) % Neut # (Auto) 3.3 (1.8-7.0) K/uL Lymph # (Auto) 0.8 L (1.0-4.3) K/uL [place] # (Auto) 0.5 (0.0-0.8) K/uL Eos # (Auto) 0.4 (0.0-0.7) K/uL Baso # (Auto) 0.0 (0.0-0.2) K/uL PT (9.8-13.1) Seconds INR (0.9-1.2) APTT (25.6-37.1) Seconds Sodium (132-148) mmol/l Potassium (3.6-5.0) MMOL/L Chloride (98-107) mmol/L Carbon Dioxide (22-30) mmol/L Anion Gap (10-20) BUN (7-17) mg/dl Creatinine (0.7-1.2) mg/dl Est GFR ( Amer) Est GFR (Non-Af Amer) Random Glucose (65-105) mg/dL Calcium (8.4-10.2) mg/dL Total Bilirubin (0.2-1.3) mg/dl AST (14-36) U/L ALT (9-52) U/L Alkaline Phosphatase (38-126) U/L Ammonia (11-51) umo/L Troponin I (0.00-0.120) ng/mL Total Protein (6.3-8.2) G/DL Albumin (3.5-5.0) g/dL Globulin (2.2-3.9) gm/dL Albumin/Globulin Ratio (1.0-2.1) Lipase (23-300) U/L Alpha Fetoprotein (0.0-7.22) IU/mL Blood Type Cancelled Antibody Screen Cancelled Crossmatch BBK History Checked Cancelled Laboratory Results - last 24 hr 08/28/17 08/28/17 08/28/17 09:35 09:35 09:35 WBC 5.0 RBC 3.53 L Hgb 10.9 L Hct 33.0 L MCV 93.6 MCH 31.0 MCHC 33.1 RDW 17.4 H Plt Count 116 L D MPV 11.2 Neut % (Auto) 65.1 Lymph % (Auto) 16.4 L [place] % (Auto) 10.9 H Eos % (Auto) 7.2 H Baso % (Auto) 0.4 Neut # (Auto) 3.3 Lymph # (Auto) 0.8 L [place] # (Auto) 0.5 Eos # (Auto) 0.4 Baso # (Auto) 0.0 PT INR APTT Sodium 140 Potassium 4.3 Chloride 103 Carbon Dioxide 23 Anion Gap 18 BUN 27 H Creatinine 1.2 Est GFR ( Amer) 58 Est GFR (Non-Af Amer) 48 Random Glucose 138 H Calcium 8.3 L Total Bilirubin 4.6 H AST 79 H ALT 30 Alkaline Phosphatase 133 H Ammonia Troponin I < 0.0120 Total Protein 8.0 Albumin 3.1 L Globulin 4.9 H Albumin/Globulin Ratio 0.6 L Lipase 120 Alpha Fetoprotein Blood Type Cancelled Antibody Screen Cancelled Crossmatch BBK History Checked Cancelled 08/28/17 08/28/17 08/28/17 09:35 09:35 10:10 WBC RBC Hgb Hct MCV MCH MCHC RDW Plt Count MPV Neut % (Auto) Lymph % (Auto) [place] % (Auto) Eos % (Auto) Baso % (Auto) Neut # (Auto) Lymph # (Auto) [place] # (Auto) Eos # (Auto) Baso # (Auto) PT 18.1 H INR 1.6 H APTT 30.7 Sodium Potassium Chloride Carbon Dioxide Anion Gap BUN Creatinine Est GFR ( Amer) Est GFR (Non-Af Amer) Random Glucose Calcium Total Bilirubin AST ALT Alkaline Phosphatase Ammonia 63 H D Troponin I Total Protein Albumin Globulin Albumin/Globulin Ratio Lipase Alpha Fetoprotein Blood Type Cancelled Antibody Screen Cancelled Crossmatch BBK History Checked Cancelled 08/28/17 08/29/17 08/29/17 10:51 04:30 04:30 WBC RBC Hgb Hct MCV MCH MCHC RDW Plt Count MPV Neut % (Auto) Lymph % (Auto) [place] % (Auto) Eos % (Auto) Baso % (Auto) Neut # (Auto) Lymph # (Auto) [place] # (Auto) Eos # (Auto) Baso # (Auto) PT 20.1 H INR 1.8 H APTT Sodium 136 Potassium 4.3 Chloride 104 Carbon Dioxide 21 L Anion Gap 15 BUN 31 H Creatinine 1.2 Est GFR ( Amer) 58 Est GFR (Non-Af Amer) 48 Random Glucose 106 H Calcium 6.9 L Total Bilirubin 5.0 H AST 72 H ALT 33 Alkaline Phosphatase 93 Ammonia Troponin I Total Protein 6.1 L Albumin 2.3 L D Globulin 3.8 Albumin/Globulin Ratio 0.6 L Lipase Alpha Fetoprotein Blood Type A POSITIVE Antibody Screen Negative Crossmatch See Detail BBK History Checked Patient has bt 08/29/17 08/29/17 04:30 07:00 WBC 5.3 RBC 2.46 L Hgb 7.7 L D Hct 23.1 L MCV 93.9 MCH 31.5 H MCHC 33.5 RDW 17.3 H Plt Count 50 L D MPV Neut % (Auto) Lymph % (Auto) [place] % (Auto) Eos % (Auto) Baso % (Auto) Neut # (Auto) Lymph # (Auto) [place] # (Auto) Eos # (Auto) Baso # (Auto) PT INR APTT Sodium Potassium Chloride Carbon Dioxide Anion Gap BUN Creatinine Est GFR ( Amer) Est GFR (Non-Af Amer) Random Glucose Calcium Total Bilirubin AST ALT Alkaline Phosphatase Ammonia Troponin I Total Protein Albumin Globulin Albumin/Globulin Ratio Lipase Alpha Fetoprotein 1.5 Blood Type Antibody Screen Crossmatch BBK History Checked EKG/Cardiology Studies: Cardiology / EKG Studies 08/28/17 09:23 EKG [ELECTROCARDIOGRAM] Stat Comment: Mode Of Transportation: PORTABLE Reason For Exam: SOB Review of Systems - EENT Eyes: UNREMARKABLE Ears: UNREMARKABLE Nose/Mouth/Throat: UNREMARKABLE - Breasts Breasts: UNREMARKABLE - Cardiovascular Cardiovascular: UNREMARKABLE - Respiratory Respiratory: UNREMARKABLE - Gastrointestinal Gastrointestinal: Abdominal Pain, Melena. absent: Diarrhea, Hematemesis, Hematochezia - Genitourinary Genitourinary: UNREMARKABLE Critical Care Progress Note - Ventilator Checklist Head of Bed 30 Degrees: Yes Daily Sedation Vacation: No Daily Assessment of Readiness to Wean: No Daily Spontaneous Breathing Trial: No PUD Prophalyxis: Yes (PPI drip) DVT Prophylaxis: No (active hemorrhage/thrombocytopenia ) - Extremities/Vascular Does the Patient have a Central Venous Catheter?: No Does the Patient have a Tang Catheter?: No Does the Patient need a Tang Catheter?: No - Prophylaxis GI Prophylaxis GI: PPI - Prophylaxis DVT Prophylaxis DVT: Not Indicated - Nutrition Nutrition: Nutrition Category Date Time Status Liquid Diet [DIET] Diets 08/28/17 Dinner Active Assessment/Plan - Assessment and Plan (Free Text) Assessment: 47 y/o female, with history of alcoholic liver cirrhosis, ascites, hepatic encephalopathy and asthma admitted for acute upper GI bleed secondary to Nupur Chiu Tear. Plan: 1) Nupur Chiu Tear with Upper GI Bleed -s/p emergent endoscopy. Imaging revealed Nupur Chiu Tear, likely cause of hemorrhage. Tear was no longer hemorrhaging during examination. Pt also had nonbleeding Grade I Esophageal varices identified. No banding/sclertherapy performed. -s/p 1 unit PRBCs -Zofran for nausea -H/H: 7.7/23.1 -BUN/Cr: 31/1.2 -NS @ 125mls/hr -Protonix 40mg BID -Vitamin K IVP 10mg -1 more unit PRBCs -f/u H/H s/p transfusion -monitor vitals -f/u GI for further recommendations 2) Liver Failure secondary to Alcoholic Liver Cirrhosis -GI on board -MELD score: 23 -AFP: 1.5 -as per GI 3) Acute Post Hemorrhagic Anemia -H/H: 7.7/23.1 today -2 units PRBCs -f/u CBC 4) Mod-Severe Thrombocytopenia -Platelets ~50 today, drop from 116 -Vitamin K 10mg IVP -platelet transfusion -monitor for bleeding 5) Ascites -1gm Rocephin Q24H -GI recommends abd u/s -monitor for SBP 6) Hyperammoniemia: -63 -AAOX4 -monitor -f/u, consider lactulose/enema if AMS develops 7) Transaminemia -stable -AST/ALT: 72/33 -monitor with daily CMPs 8) Asthma (unspecified severity) -stable -Duo-Nebs Q6H PRN -monitor vitals/POX 9) Diet -CLD 10) Prophylaxis -thrombocytopenia (50) -SCDs 11) Code Status -Full Code <PowellHugh Hanane - Last Filed: 08/30/17 15:17> CCU Subjective - Physician Review Subjective (Free Text): Attestation: Patient seen and examined at the bedside with Resident Dr. Linnette Greenberg; and I agree with his outline of plans and management documented below as discussed on AM rounds reflecting my review of all applicable clinical data, and participation in the care of the patient throughout the day in ICU; today, August. Critical Care Progress Note - Nutrition Nutrition: Nutrition Category Date Time Status Liquid Diet [DIET] Diets 08/28/17 Dinner Active
--- NOTE | 2017-08-29 10:26 | CP.PCM.PN ---
Subjective - Date & Time of Evaluation Date of Evaluation: 08/29/17 Time of Evaluation: 09:30 - Subjective Subjective: PGY5 GI Fellow Progress Note Patient seen and examined bedside this morning. The patient states she is feeling much better today. No episodes of nausea, vomiting, hematemesis overnight. No episodes of melena, hematochezia per patient. She was dizzy/ lightheaded overnight and had hypotension per vitals. This morning, symptoms are improved. No other events overnight. 12 system ROS performed and negative except where stated. Objective - Vital Signs/Intake and Output Vital Signs (last 24 hours): Temp Pulse Resp BP Pulse Ox 98.3 F 94 H 13 95/62 L 98 08/29/17 08:00 08/29/17 08:00 08/29/17 08:00 08/29/17 08:00 08/29/17 08:00 Intake and Output: 08/29/17 08/29/17 06:59 18:59 Intake Total 1950 Balance 1950 - Medications Medications: Current Medications Albuterol/Ipratropium (Duoneb 3 Mg/0.5 Mg (3 Ml) Ud) 3 ml INH RQ6 PRN PRN Reason: Shortness of Breath Last Admin: 08/28/17 18:13 Dose: 3 ml Sodium Chloride (Sodium Chloride 0.9%) 1,000 mls @ 1,000 mls/hr IV .Q1H BARBARA Stop: 08/29/17 11:53 Ceftriaxone Sodium 1 gm/ (Sodium Chloride) 100 mls @ 100 mls/hr IVPB DAILY BARBARA PRN Reason: Protocol Last Admin: 08/29/17 10:14 Dose: 100 mls/hr Pantoprazole Sodium 40 mg/ (Sodium Chloride) 100 mls @ 20 mls/hr IVPB Q5H BARBARA PRN Reason: 8 MG/HR Stop: 08/29/17 21:31 Last Admin: 08/29/17 09:58 Dose: 20 mls/hr Sodium Chloride (Sodium Chloride 0.9%) 1,000 mls @ 125 mls/hr IV .Q8H BARBARA Stop: 08/30/17 04:54 Last Admin: 08/29/17 07:03 Dose: 125 mls/hr - Labs Labs: 08/29/17 07:00 08/29/17 04:30 PT 20.1 Seconds (9.8-13.1) H 08/29/17 04:30 INR 1.8 (0.9-1.2) H 08/29/17 04:30 APTT 30.7 Seconds (25.6-37.1) 08/28/17 09:35 - Constitutional Appears: No Acute Distress, Chronically Ill - Eye Exam Eye Exam: EOMI, PERRL, Scleral icterus - ENT Exam ENT Exam: Mucous Membranes Moist - Respiratory Exam Respiratory Exam: Clear to Ausculation Bilateral. absent: Rales, Rhonchi, Wheezes - Cardiovascular Exam Cardiovascular Exam: Tachycardia, REGULAR RHYTHM, +S1, +S2 - GI/Abdominal Exam GI & Abdominal Exam: Distended, Soft, Normal Bowel Sounds. absent: Firm, Guarding, Rigid, Tenderness, Organomegaly - Extremities Exam Extremities Exam: Normal Inspection. absent: Pedal Edema - Neurological Exam Neurological Exam: Alert, Awake, Oriented x3 - Psychiatric Exam Psychiatric exam: Normal Affect, Normal Mood - Skin Skin Exam: Dry, Warm Assessment and Plan - Assessment and Plan (Free Text) Assessment: Patient is a 47yo female with PMHx significant for decompensated EtOH cirrhosis c/b ascites and hepatic encephalopathy, asthma who presented to the ED with abdominal pain and hematemesis -Hematemesis -Decompensated EtOH cirrhosis with history of ascites/HE Plan: -Patient to receive another unit of PRBCs this morning -In cirrhotic patient with known portal HTN: goal HBG 7-8, will avoid overtransfusion which can potentiate bleeding -Switch IV protonix gtt to 40mg PO BID -Increase IVF to 200cc/hr per discussion with Dr Bautista -Consider U/S abdomen given distention, to evaluate for presence of ascites -Patient will ultimately benefit from liver transplant evaluation - recommended outpatient follow up at [facility] -Patient vehemently denies any EtOH intake - level not drawn on admission -Recommend UDS -AFP WNL *MELD-Na: [address] Bautista
[2017-08-29] MEDS ORDERED: Pneumococcal 23-Valent Vaccine IM ONE (10:49)
[2017-08-29] MEDS: Pantoprazole 40 mg EC Tab PO SCH ×2 (16:12→16:14)
[2017-08-30] MEDS: Albuterol-Ipratrop 3 mg / 0.5 (3 ml) UD INH PRN (05:17)
[2017-08-30 05:31] LABS: HEMOGLOBIN 10.2 g/dL (12.0-16.0); MEAN CELL VOLUME 91.1 fl (81.0-99.0); RBC 3.29 Mil/uL (3.80-5.20); RED CELL DISTRIBUTION WIDTH 17.1 % (11.5-14.5); WHITE BLOOD COUNT 5.6 K/uL (4.8-10.8)
[2017-08-30 05:38] LABS: ALB/GLOB RATIO 0.6 (1.0-2.1); ALBUMIN 2.6 g/dL (3.5-5.0); ALT/SGPT 45 U/L (9-52); AST/SGOT 100 U/L (14-36); BLOOD UREA NITROGEN 20 mg/dl (7-17); CALCIUM 7.4 mg/dL (8.4-10.2); GFR AFRICAN-AMERICAN > 60; GFR NON-AFRICAN AMERICAN > 60
[2017-08-30 05:55] LABS: INR 1.6 (0.9-1.2); PROTHROMBIN TIME 17.4 Seconds (9.8-13.1)
--- NOTE | 2017-08-30 07:02 | CP.PCM.PN ---
Subjective - Date & Time of Evaluation Date of Evaluation: 08/30/17 Time of Evaluation: 07:00 - Subjective Subjective: PGY5 GI Fellow Progress Note Patient seen and examined bedside this morning. She refused PPI therapy last night as she was nervous she would vomit. Tray of liquids at bedside is empty, tolerated by patient without issue. No events overnight. No further episodes of hematemesis. No BM since admission. 12 system ROS performed and negative except where stated. Objective - Vital Signs/Intake and Output Vital Signs (last 24 hours): Temp Pulse Resp BP Pulse Ox 98.3 F 78 98 H 109/60 96 08/30/17 06:00 08/30/17 04:00 08/30/17 06:00 08/30/17 06:00 08/30/17 06:00 Intake and Output: 08/30/17 08/30/17 06:59 18:59 Output Total 625 Balance -625 - Medications Medications: Current Medications Albuterol/Ipratropium (Duoneb 3 Mg/0.5 Mg (3 Ml) Ud) 3 ml INH RQ6 PRN PRN Reason: Shortness of Breath Last Admin: 08/30/17 05:17 Dose: 3 ml Pantoprazole Sodium (Protonix Ec Tab) 40 mg PO BID BARBARA Last Admin: 08/29/17 16:14 Dose: Not Given - Labs Labs: 08/30/17 04:40 08/30/17 04:40 PT 17.4 Seconds (9.8-13.1) H 08/30/17 04:40 INR 1.6 (0.9-1.2) H 08/30/17 04:40 APTT 30.7 Seconds (25.6-37.1) 08/28/17 09:35 Assessment and Plan - Assessment and Plan (Free Text) Assessment: Patient is a 47yo female with PMHx significant for decompensated EtOH cirrhosis c/b ascites and hepatic encephalopathy, asthma who presented to the ED with abdominal pain and hematemesis -Hematemesis, resolved -Acute blood loss anemia 2/2 above, improved -Nupur-Chiu tear in distal esophagus -Decompensated EtOH cirrhosis with history of ascites/HE Plan: -S/P 2 units PRBCs, HGB now 10.2 - would avoid further transfusion at this point in the absence of ongoing overt blood loss -Patient refused PPI therapy last night, recommend 40mg PO BID -Recommend abd flat plate -Consider U/S, R/O ascites -Patient will ultimately benefit from liver transplant evaluation - recommended outpatient follow up at [facility] -AFP WNL *MELD-Na: [address] Bautista
[2017-08-30] MEDS: Pantoprazole 40 mg EC Tab PO SCH ×2 (08:57→16:04)
--- NOTE | 2017-08-30 09:39 | CP.CCUPN ---
<MagdisrikanthLloyd - Last Filed: 08/30/17 11:05> CCU Subjective - Physician Review Subjective (Free Text): pt seen and examined at bedside this morning. Labs/nursing notes/overnight events reviewed. Mild abdominal discomfort today. No nausea/vomiting overnight. Tolerating CLD without any difficulty. No BM yet. Afebrile. Refused PPI last night due to fear of "throwing up". No other complaints/concerns. CCU Objective - Vital Signs / Intake & Output Vital Signs (Last 4 hours): Vital Signs Temp Resp BP Pulse Ox 08/30/17 08:00 97.9 F 08/30/17 06:00 98.3 F 98 H 109/60 96 Intake and Output (Last 8hrs): Intake & Output 08/29/17 08/30/17 08/30/17 22:59 06:59 14:59 Intake Total 740 Output Total 625 Balance 115 Intake: Oral 240 Blood Product 500 Output: Urine 625 Urine, Voided 625 Stool 0 - Physical Exam Head: Positive for: Atraumatic, Normocephalic, Ecchymosis Pupils: Positive for: PERRL Extroacular Muscles: Positive for: EOMI Conjunctiva: Positive for: Normal Mouth: Positive for: Moist Mucous Membranes Neck: Positive for: Normal Range of Motion Respiratory/Chest: Positive for: Clear to Auscultation, Good Air Exchange. Negative for: Respiratory Distress, Accessory Muscle Use, Wheezes, Retracting, Rhonchi Cardiovascular: Positive for: Regular Rate and Rhythm, Normal S1, S2, Peripheal Pulses Present. Negative for: Murmurs, Tachycardic, Bradycardic Abdomen: Positive for: Tenderness (mild epigastric ), Normal Bowel Sounds. Negative for: Distention, Peritoneal Signs, Guarding, Feeding Tubes, Ostomy Tubes Back: Positive for: Paraspinal Tenderness Upper Extremity: Positive for: Capillary Refill < 2s. Negative for: Cyanosis, Edema Lower Extremity: Positive for: Normal Inspection, Capillary Refill < 2 s. Negative for: Edema, CALF TENDERNESS Neurological: Positive for: GCS=15, CN II-XII Intact, Speech Normal, Motor Func Grossly Intact Skin: Positive for: Warm, Dry, Other (jaundice ). Negative for: Rashes, Normal Color Psychiatric: Positive for: Alert, Oriented x 3, Normal Insight, Normal Concentration - Medications Active Medications: Active Medications Generic Name Dose Route Start Last Admin Trade Name Freq PRN Reason Stop Dose Admin Albuterol/Ipratropium 3 ml 08/28/17 15:48 08/30/17 05:17 Duoneb 3 Mg/0.5 Mg (3 Ml) Ud INH 3 ml RQ6 PRN Administration Shortness of Breath Pantoprazole Sodium 40 mg 08/29/17 17:00 08/30/17 08:57 Protonix Ec Tab PO 40 mg BID BARBARA Administration - Patient Studies Lab Studies: Lab Studies 08/30/17 08/30/17 08/30/17 Range/Units 04:40 04:40 04:40 WBC 5.6 (4.8-10.8) K/uL RBC 3.29 L (3.80-5.20) Mil/uL Hgb 10.2 L D (12.0-16.0) g/dL Hct 30.0 L (34.0-47.0) % MCV 91.1 D (81.0-99.0) fl MCH 31.0 (27.0-31.0) pg MCHC 34.0 (33.0-37.0) g/dL RDW 17.1 H (11.5-14.5) % Plt Count 73 L D (130-400) K/uL PT 17.4 H (9.8-13.1) Seconds INR 1.6 H (0.9-1.2) Sodium 140 (132-148) mmol/l Potassium 3.6 (3.6-5.0) MMOL/L Chloride 108 H (98-107) mmol/L Carbon Dioxide 20 L (22-30) mmol/L Anion Gap 16 (10-20) BUN 20 H (7-17) mg/dl Creatinine 0.8 (0.7-1.2) mg/dl Est GFR ( Amer) > 60 Est GFR (Non-Af Amer) > 60 Random Glucose 82 (65-105) mg/dL Calcium 7.4 L (8.4-10.2) mg/dL Total Bilirubin 4.2 H (0.2-1.3) mg/dl AST 100 H D (14-36) U/L ALT 45 (9-52) U/L Alkaline Phosphatase 99 (38-126) U/L Total Protein 6.8 (6.3-8.2) G/DL Albumin 2.6 L (3.5-5.0) g/dL Globulin 4.2 H (2.2-3.9) gm/dL Albumin/Globulin Ratio 0.6 L (1.0-2.1) Blood Type Antibody Screen Crossmatch BBK History Checked 08/28/17 Range/Units 10:51 WBC (4.8-10.8) K/uL RBC (3.80-5.20) Mil/uL Hgb (12.0-16.0) g/dL Hct (34.0-47.0) % MCV (81.0-99.0) fl MCH (27.0-31.0) pg MCHC (33.0-37.0) g/dL RDW (11.5-14.5) % Plt Count (130-400) K/uL PT (9.8-13.1) Seconds INR (0.9-1.2) Sodium (132-148) mmol/l Potassium (3.6-5.0) MMOL/L Chloride (98-107) mmol/L Carbon Dioxide (22-30) mmol/L Anion Gap (10-20) BUN (7-17) mg/dl Creatinine (0.7-1.2) mg/dl Est GFR ( Amer) Est GFR (Non-Af Amer) Random Glucose (65-105) mg/dL Calcium (8.4-10.2) mg/dL Total Bilirubin (0.2-1.3) mg/dl AST (14-36) U/L ALT (9-52) U/L Alkaline Phosphatase (38-126) U/L Total Protein (6.3-8.2) G/DL Albumin (3.5-5.0) g/dL Globulin (2.2-3.9) gm/dL Albumin/Globulin Ratio (1.0-2.1) Blood Type A POSITIVE Antibody Screen Negative Crossmatch See Detail BBK History Checked Patient has bt Laboratory Results - last 24 hr 08/28/17 08/30/17 08/30/17 10:51 04:40 04:40 WBC 5.6 RBC 3.29 L Hgb 10.2 L D Hct 30.0 L MCV 91.1 D MCH 31.0 MCHC 34.0 RDW 17.1 H Plt Count 73 L D PT INR Sodium 140 Potassium 3.6 Chloride 108 H Carbon Dioxide 20 L Anion Gap 16 BUN 20 H Creatinine 0.8 Est GFR ( Amer) > 60 Est GFR (Non-Af Amer) > 60 Random Glucose 82 Calcium 7.4 L Total Bilirubin 4.2 H AST 100 H D ALT 45 Alkaline Phosphatase 99 Total Protein 6.8 Albumin 2.6 L Globulin 4.2 H Albumin/Globulin Ratio 0.6 L Blood Type A POSITIVE Antibody Screen Negative Crossmatch See Detail BBK History Checked Patient has bt 08/30/17 04:40 WBC RBC Hgb Hct MCV MCH MCHC RDW Plt Count PT 17.4 H INR 1.6 H Sodium Potassium Chloride Carbon Dioxide Anion Gap BUN Creatinine Est GFR ( Amer) Est GFR (Non-Af Amer) Random Glucose Calcium Total Bilirubin AST ALT Alkaline Phosphatase Total Protein Albumin Globulin Albumin/Globulin Ratio Blood Type Antibody Screen Crossmatch BBK History Checked Review of Systems - EENT Eyes: UNREMARKABLE Ears: UNREMARKABLE Nose/Mouth/Throat: UNREMARKABLE - Breasts Breasts: UNREMARKABLE - Cardiovascular Cardiovascular: UNREMARKABLE - Respiratory Respiratory: UNREMARKABLE - Gastrointestinal Gastrointestinal: Abdominal Pain. absent: Belching, Bloating, Diarrhea, Early Satiety, Excessive Flatus, Hematemesis, Hematochezia, Melena, Nausea, Vomiting - Genitourinary Genitourinary: UNREMARKABLE Critical Care Progress Note - Nutrition Nutrition: Nutrition Category Date Time Status Liquid Diet [DIET] Diets 08/28/17 Dinner Active Assessment/Plan - Assessment and Plan (Free Text) Assessment: 47 y/o female with hx of decompensated Liver failure secondary to ETOH abuse admitted for acute GI bleed secondary to nupur chiu tear. Plan: 1) Nupur Chiu Tear with Upper GI Bleed -s/p emergent endoscopy. Imaging revealed Nupur Chiu Tear, likely cause of hemorrhage. Tear was no longer hemorrhaging during examination. Pt also had nonbleeding Grade I Esophageal varices identified. No banding/sclertherapy performed. 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 -improved -s/p 3 units PRBCs todal, 1 unit platelets -H/H: 10.2/30.0 4) Mod-Severe Thrombocytopenia -Platelets ~73 -s/p 1 platelet transfusion 5) Ascites -1gm Rocephin Q24H -large ascites on abd flat plae -u/s completed, results pending -monitor for SBP 6) Hyperammoniemia: -63 -AAOX4 -monitor -f/u, consider lactulose/enema if AMS develops 7) Transaminemia -stable -AST/ALT: 100/45 -monitor with daily CMPs 8) Asthma (unspecified severity) -stable -Duo-Nebs Q6H PRN -monitor vitals/POX 9) Diet -CLD 10) Prophylaxis -thrombocytopenia (73) -SCDs 11) Code Status -Full Code <Hugh Powell - Last Filed: 08/30/17 15:18> CCU Subjective - Physician Review Subjective (Free Text): Attestation: Patient seen and examined at the bedside with Resident Dr. Linnette Greenberg; and I agree with his outline of plans and management documented below as discussed on AM rounds reflecting my review of all applicable clinical data, and participation in the care of the patient throughout the day in ICU; today, August.
[2017-08-30] MEDS ORDERED: Lidocaine 5% Patch TD SCH (10:15)
--- NOTE | 2017-08-30 10:58 | RAD ---
HISTORY: Abdominal distention COMPARISON: No prior. FINDINGS: BOWEL: Diffuse hazy appearance of the abdomen consistent with a large amount of ascites with secondary centralization of loops of small bowel. No evidence of acute mechanical bowel obstruction BONES: Normal. OTHER FINDINGS: Several small calcifications right upper quadrant of the abdomen consistent cholelithiasis. IMPRESSION: Findings consistent with large amount of abdominal ascites. . Cholelithiasis.
[2017-08-30 11:24] LABS: SQUAMOUS EPITHIAL 12 /hpf (0-5); URINE BACTERIA RARE (<OCC); URINE BILIRUBIN NEGATIVE (NEGATIVE); URINE BLOOD NEGATIVE (NEGATIVE); URINE CLARITY SLIGHTY-CLOUDY (Clear); URINE COLOR YELLOW (YELLOW); URINE GLUCOSE (UA) NEG (Normal); URINE LEUKOCYTE ESTERASE TRACE Leu/uL (Negative); URINE PROTEIN NEGATIVE (NEGATIVE)
--- NOTE | 2017-08-30 11:50 | US ---
HISTORY: Ascites COMPARISON: Comparison made with prior CT scan abdomen pelvis 11/09/2016 and abdominal ultrasound 06/09/2016. TECHNIQUE: Sonographic evaluation of the abdomen. FINDINGS: LIVER: Liver measures approximately 12.7 cm in CC dimension. Liver demonstrates nodular contour and increased echogenicity consistent with this patient's history of cirrhosis. . . No obvious masses or collections seen on images presented. No significant intrahepatic bile duct dilatation. Small calcification right lobe liver not appreciated on this exam. Large amount of abdominal ascites present No flow seen in the portal vein. GALLBLADDER: Multiple intraluminal gallbladder calculi. COMMON BILE DUCT: Measures 6.1 mm. Cholelithiasis. No sonographic Muñoz sign elicited during exam as per technologist notation PANCREAS: Pancreas incompletely visualized due to body habitus bowel gas and ascites. RIGHT KIDNEY: Measures 8.8 x 5.0 x 4.8cm. Normal echogenicity. No calculus, mass, or hydronephrosis. LEFT KIDNEY: Measures 9.4 x 5.7 x this exam 3 .8cm. Normal echogenicity. No calculus, mass, or hydronephrosis. SPLEEN: Normal in size and contour. No mass. AORTA: No aneurysmal dilatation. IVC: Unremarkable. OTHER FINDINGS: None. IMPRESSION: Cirrhotic appearing liver. No flow seen in the portal vein. Ascites. . Cholelithiasis.
--- NOTE | 2017-08-30 13:18 | CP.PCM.PN ---
Subjective - Date & Time of Evaluation Date of Evaluation: 08/30/17 Time of Evaluation: 07:25 - Subjective Subjective: 47 y/o F evaluated and examined by bedside. Pt reports abdominal pain that is intermittent and predominantly affects upper regions of abdomen. Pain not present at moment of examination. Pt reports declinig taking her PO medications last night as she felt very nauseous and most likely would have vomited medications. Pt afebrile, tolerating PO liquid diet. Pt able to ambulate, denies chest pain, SOB, nausea, calf tenderness or dysuria. -Pt able to take PO Pepcid this morning. Objective - Vital Signs/Intake and Output Vital Signs (last 24 hours): Temp Pulse Resp BP Pulse Ox 97.8 F 65 11 L 151/86 H 97 08/30/17 12:00 08/30/17 12:00 08/30/17 12:00 08/30/17 12:00 08/30/17 12:00 Intake and Output: 08/30/17 08/30/17 06:59 18:59 Output Total 625 Balance -625 - Medications Medications: Current Medications Albuterol/Ipratropium (Duoneb 3 Mg/0.5 Mg (3 Ml) Ud) 3 ml INH RQ6 PRN PRN Reason: Shortness of Breath Last Admin: 08/30/17 05:17 Dose: 3 ml Pantoprazole Sodium (Protonix Ec Tab) 40 mg PO BID [facility] Last Admin: 08/30/17 08:57 Dose: 40 mg - Labs Labs: 08/30/17 04:40 08/30/17 04:40 PT 17.4 Seconds (9.8-13.1) H 08/30/17 04:40 INR 1.6 (0.9-1.2) H 08/30/17 04:40 APTT 30.7 Seconds (25.6-37.1) 08/28/17 09:35 - Constitutional Appears: Well, Non-toxic - Head Exam Head Exam: ATRAUMATIC - Eye Exam Eye Exam: EOMI, Normal appearance - ENT Exam ENT Exam: Mucous Membranes Moist - Neck Exam Neck Exam: Full ROM, Normal Inspection - Respiratory Exam Respiratory Exam: Clear to Ausculation Bilateral, NORMAL BREATHING PATTERN - Cardiovascular Exam Cardiovascular Exam: REGULAR RHYTHM, +S1, +S2 - GI/Abdominal Exam GI & Abdominal Exam: Distended, Soft, Tenderness (On epigastric, RUQ and LUQ.), Normal Bowel Sounds. absent: Guarding, Pulsatile Mass - Extremities Exam Extremities Exam: Full ROM. absent: Calf Tenderness - Neurological Exam Neurological Exam: Alert, Awake, Oriented x3 Assessment and Plan - Assessment and Plan (Free Text) Assessment: 47 year old female with PMHx of of decompensated liver cirrhosis secondary to ETOH use disorder admitted for upper GI bleeding. Plan: Upper GI bleeding 2/2 liver cirrhosis complication -Endoscopy showed non-hemorrhaging Nupur Chiu Tear, nonbleeding Grade I Esophageal varices. No banding/sclertherapy performed. -Gastroenterology, Dr Bautista, on board. -As per GI, recommend outpatient follow up at [facility] liver clinic. Pt will ultimately benefit from Liver transplant. -Has received 1 unit of PRBC 2 days ago, and 2 units of PRBC's and platelets yesterday. -PO Protonix as per GI. -US abdomen and XR Abdomen showed large aamount of ascites. -Considering Abdominal paracentesis and evaluation for SBP. -Will transfer pt to Telemetry. -Ceftriaxone 1gr daily for SBP prophylaxis -Awaiting GI further recommendations. Liver failure 2/2 Alcoholic Cirrhosis -MELD score: 19 -AFP 1.5 WNL on 08/29 -AST/ALT: 100/45. AST elevating -Vitamin K administered Asthma unspecified severity -DuoNeb q6hr prn DVT prophylaxis -SCD for now Diet -Clear liquid diet Health Maintenance -Pneumo vaccine administered yesterday.
[2017-08-30 16:43] VITALS: O2SAT 97
[2017-08-31 07:00] LABS: BASO % 0.5 % (0.0-2.0); EOS # 0.1 K/uL (0.0-0.7); HEMOGLOBIN 10.3 g/dL (12.0-16.0); LYMPH # 0.8 K/uL (1.0-4.3); MEAN CELL VOLUME 91.8 fl (81.0-99.0); MEAN CORPUSCULAR HEMOGLOBIN 31.3 pg (27.0-31.0); MEAN CORPUSCULAR HGB CONC 34.1 g/dL (33.0-37.0); MONO # 0.7 K/uL (0.0-0.8); MONO % 15.7 % (0.0-10.0); NEUT # 2.9 K/uL (1.8-7.0); NEUT % 63.8 % (50.0-75.0); RBC 3.31 Mil/uL (3.80-5.20); RED CELL DISTRIBUTION WIDTH 17.2 % (11.5-14.5); WHITE BLOOD COUNT 4.5 K/uL (4.8-10.8)
[2017-08-31 07:01] LABS: ALB/GLOB RATIO 0.6 (1.0-2.1); ALBUMIN 2.6 g/dL (3.5-5.0); ALT/SGPT 45 U/L (9-52); AST/SGOT 102 U/L (14-36); BLOOD UREA NITROGEN 11 mg/dl (7-17); CALCIUM 7.8 mg/dL (8.4-10.2); GFR AFRICAN-AMERICAN > 60; GFR NON-AFRICAN AMERICAN > 60
[2017-08-31 07:59] VITALS: RESP 18
--- NOTE | 2017-08-31 09:06 | CP.PCM.PN ---
Subjective - Date & Time of Evaluation Date of Evaluation: 08/31/17 Time of Evaluation: 09:06 Objective - Vital Signs/Intake and Output Vital Signs (last 24 hours): Temp Pulse Resp BP Pulse Ox 98.1 F 77 18 106/70 97 08/31/17 07:58 08/31/17 07:58 08/31/17 07:58 08/31/17 07:58 08/31/17 07:58 - Medications Medications: Current Medications Albuterol/Ipratropium (Duoneb 3 Mg/0.5 Mg (3 Ml) Ud) 3 ml INH RQ6 PRN PRN Reason: Shortness of Breath Last Admin: 08/30/17 05:17 Dose: 3 ml Ceftriaxone Sodium 1 gm/ (Sodium Chloride) 100 mls @ 100 mls/hr IVPB DAILY BARBARA PRN Reason: Protocol Last Admin: 08/30/17 15:27 Dose: 100 mls/hr Pantoprazole Sodium (Protonix Ec Tab) 40 mg PO BID BARBARA Last Admin: 08/30/17 16:04 Dose: 40 mg - Labs Labs: 08/31/17 05:38 08/31/17 05:38 PT 17.4 Seconds (9.8-13.1) H 08/30/17 04:40 INR 1.6 (0.9-1.2) H 08/30/17 04:40 APTT 30.7 Seconds (25.6-37.1) 08/28/17 09:35 Assessment and Plan - Assessment and Plan (Free Text) Assessment: 47 year old female with PMHx of of decompensated liver cirrhosis secondary to ETOH use disorder admitted for upper GI bleeding. Plan: Upper GI bleeding 2/2 liver cirrhosis complication -Endoscopy showed non-hemorrhaging Nupur Chiu Tear, nonbleeding Grade I Esophageal varices. No banding/sclertherapy performed. -Gastroenterology, Dr Bautista, on board. -As per GI, recommend outpatient follow up at [facility] liver clinic. Pt will ultimately benefit from Liver transplant. -Has received 1 unit of PRBC 2 days ago, and 2 units of PRBC's and platelets yesterday. -PO Protonix as per GI. -US abdomen and XR Abdomen showed large aamount of ascites. -Considering Abdominal paracentesis and evaluation for SBP. -Will transfer pt to Telemetry. -Ceftriaxone 1gr daily for SBP prophylaxis -Awaiting GI further recommendations. Liver failure 2/2 Alcoholic Cirrhosis -MELD score: 19 -AFP 1.5 WNL on 08/29 -AST/ALT: 100/45. AST elevating -Vitamin K administered Asthma unspecified severity -DuoNeb q6hr prn DVT prophylaxis -SCD for now Diet -Clear liquid diet Health Maintenance -Pneumo vaccine administered yesterday.
[2017-08-31] MEDS: Pantoprazole 40 mg EC Tab PO SCH ×2 (09:30→16:31)
--- NOTE | 2017-08-31 14:00 | CP.PCM.DIS ---
Provider - Provider Date of Admission: 08/28/17 10:58 Attending physician: Lisbeth Orozco MD Primary care physician: Dr Jose G Zarco Consults: GI: Dr Bautista Critical Care: Dr Powell Time Spent in preparation of Discharge (in minutes): 25 Diagnosis - Discharge Diagnosis (1) UGIB (upper gastrointestinal bleed) Status: Acute Comment: -Asymptomatic now. -Pt instructed to follow a healthy diet. (2) Cirrhosis of liver Status: Chronic Comment: -Continue with home med except for Lasix which should be taken 3x week. -Ciprofloxacin 500mg BID for 7 days. Hospital Course - Lab Results Lab Results: Most Recent Lab Values WBC 4.5 K/uL (4.8-10.8) L 08/31/17 05:38 RBC 3.31 Mil/uL (3.80-5.20) L 08/31/17 05:38 Hgb 10.3 g/dL (12.0-16.0) L 08/31/17 05:38 Hct 30.4 % (34.0-47.0) L 08/31/17 05:38 MCV 91.8 fl (81.0-99.0) 08/31/17 05:38 MCH 31.3 pg (27.0-31.0) H 08/31/17 05:38 MCHC 34.1 g/dL (33.0-37.0) 08/31/17 05:38 RDW 17.2 % (11.5-14.5) H 08/31/17 05:38 Plt Count 73 K/uL (130-400) L 08/31/17 05:38 MPV 9.0 fl (7.2-11.7) 08/31/17 05:38 Neut % (Auto) 63.8 % (50.0-75.0) 08/31/17 05:38 Lymph % (Auto) 18.0 % (20.0-40.0) L 08/31/17 05:38 Brown % (Auto) 15.7 % (0.0-10.0) H 08/31/17 05:38 Eos % (Auto) 2.0 % (0.0-4.0) 08/31/17 05:38 Baso % (Auto) 0.5 % (0.0-2.0) 08/31/17 05:38 Neut # (Auto) 2.9 K/uL (1.8-7.0) 08/31/17 05:38 Lymph # (Auto) 0.8 K/uL (1.0-4.3) L 08/31/17 05:38 Brown # (Auto) 0.7 K/uL (0.0-0.8) 08/31/17 05:38 Eos # (Auto) 0.1 K/uL (0.0-0.7) 08/31/17 05:38 Baso # (Auto) 0.0 K/uL (0.0-0.2) 08/31/17 05:38 PT 17.4 Seconds (9.8-13.1) H 08/30/17 04:40 INR 1.6 (0.9-1.2) H 08/30/17 04:40 APTT 30.7 Seconds (25.6-37.1) 08/28/17 09:35 Sodium 140 mmol/l (132-148) 08/31/17 05:38 Potassium 3.9 MMOL/L (3.6-5.0) 08/31/17 05:38 Chloride 107 mmol/L (98-107) 08/31/17 05:38 Carbon Dioxide 23 mmol/L (22-30) 08/31/17 05:38 Anion Gap 14 (10-20) 08/31/17 05:38 BUN 11 mg/dl (7-17) 08/31/17 05:38 Creatinine 0.7 mg/dl (0.7-1.2) 08/31/17 05:38 Est GFR ( Amer) > 60 08/31/17 05:38 Est GFR (Non-Af Amer) > 60 08/31/17 05:38 Random Glucose 81 mg/dL (65-105) 08/31/17 05:38 Calcium 7.8 mg/dL (8.4-10.2) L 08/31/17 05:38 Total Bilirubin 3.3 mg/dl (0.2-1.3) H 08/31/17 05:38 AST 102 U/L (14-36) H 08/31/17 05:38 ALT 45 U/L (9-52) 08/31/17 05:38 Alkaline Phosphatase 108 U/L (38-126) 08/31/17 05:38 Ammonia 63 umo/L (11-51) H D 08/28/17 09:35 Troponin I < 0.0120 ng/mL (0.00-0.120) 08/28/17 09:35 Total Protein 6.8 G/DL (6.3-8.2) 08/31/17 05:38 Albumin 2.6 g/dL (3.5-5.0) L 08/31/17 05:38 Globulin 4.2 gm/dL (2.2-3.9) H 08/31/17 05:38 Albumin/Globulin Ratio 0.6 (1.0-2.1) L 08/31/17 05:38 Lipase 120 U/L (23-300) 08/28/17 09:35 Alpha Fetoprotein 1.5 IU/mL (0.0-7.22) 08/29/17 04:30 Urine Color Yellow (YELLOW) 08/30/17 11:18 Urine Clarity Slighty-cloudy (Clear) 08/30/17 11:18 Urine pH 7.0 (5.0-8.0) 08/30/17 11:18 Ur Specific [place] 1.015 (1.003-1.030) 08/30/17 11:18 Urine Protein Negative mg/dL (NEGATIVE) 08/30/17 11:18 Urine Glucose (UA) Neg mg/dL (Normal) 08/30/17 11:18 Urine Ketones Trace mg/dL (NEGATIVE) 08/30/17 11:18 Urine Blood Negative (NEGATIVE) 08/30/17 11:18 Urine Nitrate Negative (NEGATIVE) 08/30/17 11:18 Urine Bilirubin Negative (NEGATIVE) 08/30/17 11:18 Urine Urobilinogen 4.0 mg/dL (0.2-1.0) H 08/30/17 11:18 Ur Leukocyte Esterase Trace Fredy/uL (Negative) 08/30/17 11:18 Urine RBC (Auto) < 1 /hpf (0-3) 08/30/17 11:18 Urine Microscopic WBC 4 /hpf (0-5) 08/30/17 11:18 Ur Squamous Epith Cells 12 /hpf (0-5) H 08/30/17 11:18 Urine Bacteria Rare (<OCC) 08/30/17 11:18 Blood Type A POSITIVE 08/28/17 10:51 Antibody Screen Negative 08/28/17 10:51 Crossmatch See Detail 08/28/17 10:51 BBK History Checked Patient has bt 08/28/17 10:51 - Hospital Course Hospital Course: 47 y/o F with a PMHx of alcoholic liver cirrhosis,ascites, HTN and asthma was admitted for evaluation and management of upper GI bleeding. Endoscopy performed showing a Nupur Chiu Tear no longer hemorrhaging. No banding or sclerotherapy was needed. Abdominal X-ray and US showed ascitic fluid and cholelithiasis. NO paracentesis was recommended by GI specialist. Pt remained stable, afebrile, tolerated PO. Pt will be discharged on Ciprofloxacin 500mg PO BID x 7 days as per SBP prophylaxis and Protonix 40mg PO daily. Pt was also instructed to take Lasix 3 times per week. - Date & Time of H&P Date of H&P: 08/28/17 Time of H&P: 14:52 Discharge Exam - Head Exam Head Exam: ATRAUMATIC - Eye Exam Eye Exam: EOMI - ENT Exam ENT Exam: Mucous Membranes Moist - Neck Exam Neck exam: Full Rom - Respiratory Exam Respiratory Exam: Clear to PA & Lateral, UNREMARKABLE - Cardiovascular Exam Cardiovascular Exam: REGULAR RHYTHM, +S1, +S2 - GI/Abdominal Exam GI & Abdominal Exam: Normal Bowel Sounds, Soft, Unremarkable - Neurological Exam Neurological exam: Alert, Oriented x3 Discharge Plan - Discharge Medications Prescriptions: Ciprofloxacin [Cipro] 500 mg PO Q12 7 Days #14 tab Pantoprazole [Protonix EC Tab] 40 mg PO DAILY #14 ect - Follow Up Plan Condition: FAIR Disposition: HOME/ ROUTINE Instructions: Gastrointestinal Bleeding (DC), Cirrhosis (DC) Additional Instructions: -F/U on 09/17/17 with PMD, Jose G Guillory. -Keep a healthy low fat diet, avoid caffeine, spicy food and alcoholic drinks.
[2017-08-31 15:53] VITALS: BP 108/71; PULSE 82; TEMP 97.9
== END 2017-08-31 17:48 | disposition home or self-care (01) | DRG 369 ==
LOC: H.ER 09:12 → H.ERHOLD 10:58 → H.ICU/CCU 13:13 → H.MEDSURG1 08-30 16:20
PROVIDERS: ADMIT Family Medicine Geriatric Medicine; ATTEND Family Medicine Geriatric Medicine
PROC: 0DB38ZX Excision of Lower Esophagus, Via Natural or Artificial Opening Endoscopic, Diagnostic (ICD-10-PCS; 2017-08-28)
PROC: 0DB48ZX Excision of Esophagogastric Junction, Via Natural or Artificial Opening Endoscopic, Diagnostic (ICD-10-PCS; 2017-08-28)
PROC: 30233N1 Transfusion of Nonautologous Red Blood Cells into Peripheral Vein, Percutaneous Approach (ICD-10-PCS; 2017-08-28)
PROC: 0DB98ZX Excision of Duodenum, Via Natural or Artificial Opening Endoscopic, Diagnostic (ICD-10-PCS; principal; 2017-08-28 15:30)
DX: K22.6 Gastro-esophageal laceration-hemorrhage syndrome (principal); K76.6 Portal hypertension; D62 Acute posthemorrhagic anemia; E72.20 Disorder of urea cycle metabolism, unspecified; I85.10 Secondary esophageal varices without bleeding; K70.31 Alcoholic cirrhosis of liver with ascites; K70.40 Alcoholic hepatic failure without coma; F10.10 Alcohol abuse, uncomplicated; D69.59 Other secondary thrombocytopenia; K20.8 Other esophagitis; K31.89 Other diseases of stomach and duodenum; F12.90 Cannabis use, unspecified, uncomplicated; I10 Essential (primary) hypertension; J45.909 Unspecified asthma, uncomplicated; E78.5 Hyperlipidemia, unspecified; Z91.041 Radiographic dye allergy status; Z87.19 Personal history of other diseases of the digestive system

== ENCOUNTER 2017-11-01 16:50 | Inpatient (IN) | payer MEDICARE, MEDICAID ==
[2017-11-01 16:50] VITALS: BMI 18.5
--- NOTE | 2017-11-01 17:49 | ED PDOC ---
HPI: Abdomen History Per: Patient Onset/Duration Of Symptoms: Days, Worse Since Outside of [place] travel?: No Current Symptoms Are (Timing): Still Present Severity: Moderate Location Of Pain/Discomfort: Diffuse Associated Symptoms: Other (dyspnea) Alleviating Factors: None Last Bowel Movement: Today <Isabel Villanueva - Last Filed: 11/01/17 18:17> <Say Tarango - Last Filed: 11/01/17 18:59> Time Seen by Provider: 11/01/17 17:31 Chief Complaint (Nursing): Abdominal Pain Additional Complaint(s): CC: abdominal pain HPI: 47 YO Female with PMH of HTN, cirrhosis, ascites, HLD presents to [facility] ED for abdominal pain. Pt was seen in [facility] for a follow up and was sent to ER from clinic for worsening abdominal and dyspnea. Pt states that the pain started about 2 weeks ago, diffuse all over the abdomen and has worsened since onset. Additionally, pt has noticed that for the past few days she has become more short of breath. Pt denies any fever, chills, changes in BM, nausea, diarrhea, no symptoms. Last BM this AM, normal. PMD: Dr. Zarco, [facility] PMHx: Asthma, HTN, Liver Cirrhosis, ascites, HLD PSHx: C-Sections x 3 FHx: HTN sibling and Liver failure father Social History: Denies smoking, hx of ETOH use quit; Marijuana oil use occasionally to relieve her stomach pain. Allergies: iodine--dyspnea Meds: namadol, carvidilol, furosoomide, ursodiol, spirnalactone, rifaximin, metroproclopamide (Isabel Villanueva) Supervising Attending Note <Isabel Villanueva - Last Filed: 11/01/17 18:17> - Supervising Attending Note The Documented history was done by the: Physician Teletype Clerk The documented physical exam was done by the: Physician Teletype Clerk The documented procedures were done by the: Physician Teletype Clerk - Attestation: I have personally seen and examined this patient.: Yes I have fully participated in the care of the patient.: Yes I have reviewed all pertinent clinical information: Yes <Say Tarango - Last Filed: 11/01/17 18:59> - Notes: Notes:: Pt. with abd pain and ascites that is worsening. Sent from clinic for admit and further eval for it. Feels mild dyspnea from increased abd ascites, similar to previous when increased fluids in abd. (Say Tarango) Past Medical History - Medical History PMH: Anemia, Asthma, HTN Denies: Chronic Kidney Disease, Sickle Cell Disease, Sleep Apnea - Surgical History Surgical History: Endoscopy, - Family History Family History: States: Unknown Family Hx <RichIsabel henriquez - Last Filed: 11/01/17 18:17> <Say Tarango - Last Filed: 11/01/17 18:59> Vital Signs: Last Vital Signs Temp 97.9 F 11/01/17 17:02 Pulse 58 L 11/01/17 17:02 Resp 20 11/01/17 17:02 BP Pulse Ox 98 11/01/17 18:25 - Home Medications Home Medications: Ambulatory Orders Medication Instructions Recorded Albuterol Sulfate [Proair Hfa] 2 puff IH Q6 PRN 11/01/17 Calcium Carbonate [Calcium 1 tab PO DAILY 11/01/17 Carbonate] Carvedilol [Coreg] 3.125 mg PO Q12 11/01/17 Ferrous Sulfate [Feosol] 325 mg PO BID 11/01/17 Folic Acid [Folic Acid] 1 mg PO DAILY 11/01/17 Lactulose [Generlac] 15 ml PO BID PRN 11/01/17 Metoclopramide [Reglan] 10 mg PO Q8 PRN 11/01/17 Pantoprazole Sodium [Protonix] 40 mg PO DAILY 11/01/17 Spironolactone [Aldactone] 50 mg PO BID 11/01/17 Ursodiol [Actigall] 300 mg PO Q12 11/01/17 rifAXIMin [Xifaxan] 550 mg PO Q12 11/01/17 - Allergies Allergies/Adverse Reactions: Allergies Allergy/AdvReac Type Severity Reaction Status Date / Time iodine Allergy SHORTNESS Verified 11/01/17 17:02 OF BREATH Review of Systems Constitutional: Negative for: Fever, Chills, Sweats Cardiovascular: Negative for: Chest Pain, Palpitations Respiratory: Positive for: Shortness of Breath. Negative for: Cough Gastrointestinal: Positive for: Abdominal Pain (diffuse). Negative for: Nausea , Vomiting, Diarrhea, Constipation Genitourinary Female: Negative for: Dysuria, Frequency, Hematuria Neurological: Negative for: Weakness, Numbness <Isabel Villanueva - Last Filed: 11/01/17 18:17> Physical Exam - Physical Exam Appears: Positive for: No Acute Distress Skin: Positive for: Jaundice (throughout ) Eye Exam: Positive for: EOMI, Scleral icterus Neck: Positive for: Painless ROM Cardiovascular/Chest: Positive for: Regular Rate, Rhythm. Negative for: Murmur Respiratory: Positive for: Normal Breath Sounds. Negative for: Crackles, Rales Gastrointestinal/Abdominal: Positive for: Bowel Sounds, Soft, Tenderness ( diffuse tenderness ), Distended, Guarding, Asicites Back: Positive for: Normal Inspection. Negative for: L CVA Tenderness, R CVA Tenderness Extremity: Positive for: Normal ROM. Negative for: Tenderness, Pedal Edema Neurologic/Psych: Positive for: Alert, Oriented <Isabel Villanueva - Last Filed: 11/01/17 18:17> - Physical Exam Cardiovascular/Chest: Positive for: Regular Rate, Rhythm Respiratory: Positive for: Normal Breath Sounds Gastrointestinal/Abdominal: Positive for: Tenderness (mild), Distended <Say Tarango - Last Filed: 11/01/17 18:59> - ECG O2 Sat by Pulse Oximetry: 98 <RichIsabel - Last Filed: 11/01/17 18:17> - Laboratory Results Result Diagrams: 11/01/17 18:18 <Say Tarango - Last Filed: 11/01/17 18:59> - Progress ED Course And Treament: 46 YO female with cirrhosis and ascites with abdominal pain and worsening ascites. VS stable with mild bradycardia, asymptomatic, afebrile -cbc, cmp, coags, trops -EKG -GI consult Pt endorsed to admitting resident, Dr. Coronado, GI fellow Dr. Rendon aware. ( Isabel Villanueva) 1830: [facility] resident aware. Will admit. Aware to fu with labs and manage further as needed. (Say Tarango) Disposition - Patient ED Disposition Is Patient to be Admitted: Yes - Disposition Disposition Time: 18:23 <Isabel Villanueva - Last Filed: 11/01/17 18:17> - Patient ED Disposition Is Patient to be Admitted: Yes Counseled Patient/Family Regarding: Studies Performed, Diagnosis - Pt Status Changed To: Hospital Disposition Of: Observation - POA Present On Arrival: None <Say Tarango - Last Filed: 11/01/17 18:59> - Clinical Impression Clinical Impression: Abdominal pain, Ascites - Disposition Condition: FAIR
[2017-11-01 18:27] LABS: BASO % 0.3 % (0.0-2.0); EOS % 0.1 % (0.0-4.0); HEMOGLOBIN 10.8 g/dL (12.0-16.0); LYMPH # 0.5 K/uL (1.0-4.3); MEAN CELL VOLUME 99.3 fl (81.0-99.0); MEAN CORPUSCULAR HEMOGLOBIN 33.3 pg (27.0-31.0); MEAN CORPUSCULAR HGB CONC 33.6 g/dL (33.0-37.0); MEAN PLATELET VOLUME 11.8 fl (7.2-11.7); MONO # 0.9 K/uL (0.0-0.8); MONO % 14.5 % (0.0-10.0); NEUT # 4.8 K/uL (1.8-7.0); NEUT % 77.1 % (50.0-75.0); NRBC % 0.1 % (0.0-0.0); PLATELET COUNT 75 K/uL (130-400); RBC 3.25 Mil/uL (3.80-5.20); RED CELL DISTRIBUTION WIDTH 17.5 % (11.5-14.5); WHITE BLOOD COUNT 6.3 K/uL (4.8-10.8)
[2017-11-01 18:42] LABS: INR 1.9 (0.9-1.2); PARTIAL THROMBOPLASTIN TIME 35.4 Seconds (25.6-37.1)
[2017-11-01 19:07] LABS: ALB/GLOB RATIO 0.6 (1.0-2.1); ALBUMIN 3.7 g/dL (3.5-5.0); ALT/SGPT 46 U/L (9-52); AST/SGOT 135 U/L (14-36); BLOOD UREA NITROGEN 41 mg/dl (7-17); CALCIUM 9.3 mg/dL (8.4-10.2); GFR AFRICAN-AMERICAN 41; GFR NON-AFRICAN AMERICAN 34; LIPASE 167 U/L (23-300)
[2017-11-01 19:54] LABS: LYMPHOCYTE 8 % (20-50); MONOCYTE 9 % (0-10); NEUTROPHIL 83 % (42-75); PLATELET ESTIMATE DECREASED (NORMAL); TOTAL CELLS COUNTED 100
[2017-11-01 19:55] LABS: ANISOCYTOSIS SLIGHT; HYPOCHROMIC SLIGHT; OVALOCYTES MODERATE
[2017-11-01 19:56] LABS: LARGE PLATELETS PRESENT; TEARDROP CELLS SLIGHT
[2017-11-01] MEDS ORDERED: Lactulose 10 gm/15 ml Syrup PO PRN (20:36)
[2017-11-01] MEDS ORDERED: Albuterol HFA 90 mcg/actuation (8 g) IH PRN (20:36)
--- NOTE | 2017-11-01 21:06 | CP.PCM.HP ---
History of Present Illness - History of Present Illness History of Present Illness: 47 y/o F with PMHx of HTN, Asthma, Alcoholic Liver cirrhosis with Ascites, Portal Hypertensive gastropathy presents to ED sent by PMD due to increase in abdominal girth, associated with pain, and dyspnea. Patient states that for the last 2 weeks her abdominal girth has been increasing in size, associated with diffuse abdominal pain, however she states her pain is mainly located in her abdomen sides ( right and left), denies any desiree-umbilical/epigastric pain, no radiating, no alleviating factors, worsening with self-touch, associated with nausea, had one NBNB vomit yesterday poor appetite, and feeling SOB ( similar symptoms that she has had before due to increase in ascites fluid). Denies fevers, chills, cough, wheezing, dizziness, diarrheas, hematemesis, melena, hematochezia or other complains. Last BM today and normal (light-yellow). PMD: Dr. Zarco PMHx: HTN, Asthma, Alcoholic Liver cirrhosis with Ascites, Portal Hypertensive gastropathy PSHx: C-Sections x 3 FHx: Hypertensions, sibling and Liver failure father Social History: Denies smoking, hx of ETOH use/stooped 10 years ago, Marijuana oil use occasionally to relieve her stomach pain. Allergies: iodine--dyspnea Meds: namadol, carvidilol, furosemide, ursodiol, spirnalactone, rifaximin, metroproclopamide Next of kin: Mother: Mariza Zuniga: [phone], Daughter: Loli: ED course: VS: significant x BP: 98/17 Alert , awake, and oriented x 3 PE: CV: RRR, normal S1, S2 resp: No respiratory distress noted. CTA bilateral , no wheezes, rales or rhonchi abd: Decreased BS, distended, diffuse tender to palpation, no guarding or rigidity noted. Noted fluid wave on exam. ext: no edema Labs: CBC, CMP, coag panel, lipase done in ER and reviewed GI consulted Present on Admission - Present on Admission Any Indicators Present on Admission: No History of DVT/PE: No History of Uncontrolled Diabetes: No Urinary Catheter: No Decubitus Ulcer Present: No Review of Systems - Review of Systems All systems: reviewed and no additional remarkable complaints except (as per HPI ) Past Patient History - Past Medical History & Family History Past Medical History?: Yes - Past Social History Smoking Status: Never Smoked - CARDIAC Hx Hypertension: Yes - PULMONARY Hx Asthma: Yes Hx Sleep Apnea: No - NEUROLOGICAL Hx Neurological Disorder: No - HEENT Hx HEENT Problems: No - RENAL Hx Chronic Kidney Disease: No - ENDOCRINE/METABOLIC Hx Endocrine Disorders: No - HEMATOLOGICAL/ONCOLOGICAL Hx Anemia: Yes Hx Sickle Cell Disease: No - INTEGUMENTARY Hx Dermatological Problems: No - MUSCULOSKELETAL/RHEUMATOLOGICAL Hx Musculoskeletal Disorders: No Hx Falls: Yes - GASTROINTESTINAL Hx Gastrointestinal Disorders: Yes Hx Liver Failure: Yes - GENITOURINARY/GYNECOLOGICAL Hx Genitourinary Disorders: No - PSYCHIATRIC Hx Psychophysiologic Disorder: No Hx Substance Use: Yes (marijuana) - ANESTHESIA Hx Anesthesia: Yes Hx Anesthesia Reactions: No Hx Malignant Hyperthermia: No Meds Allergies/Adverse Reactions: Allergies Allergy/AdvReac Type Severity Reaction Status Date / Time iodine Allergy SHORTNESS Verified 11/01/17 17:02 OF BREATH Physical Exam - Constitutional Appears: Non-toxic, No Acute Distress - Head Exam Head Exam: ATRAUMATIC, NORMOCEPHALIC - Eye Exam Eye Exam: EOMI, PERRL, Scleral icterus - ENT Exam ENT Exam: Mucous Membranes Dry - Respiratory Exam Respiratory Exam: Clear to Auscultation Bilateral, NORMAL BREATHING PATTERN. absent: Accessory Muscle Use, Decreased Breath Sounds, Prolonged Expiratory Phase, Rales, Rhonchi, Wheezes, Respiratory Distress, Stridor - Cardiovascular Exam Cardiovascular Exam: REGULAR RHYTHM, +S1, +S2 - GI/Abdominal Exam GI & Abdominal Exam: Diminished Bowel Sounds, Soft, Tenderness (diffuse, mainly in left and right abdomen). absent: Guarding, Rebound, Rigid - Extremities Exam Extremities exam: Positive for: normal inspection. Negative for: calf tenderness, pedal edema - Back Exam Back exam: NORMAL INSPECTION. absent: CVA tenderness (L), CVA tenderness (R) - Neurological Exam Neurological exam: Alert, Oriented x3 - Psychiatric Exam Psychiatric exam: Normal Affect, Normal Mood - Skin Skin Exam: Dry, Intact, Warm Additional comments: mild icteric skin Results - Vital Signs Recent Vital Signs: Last Vital Signs Temp 97.9 F 11/01/17 17:02 Pulse 58 L 11/01/17 17:02 Resp 20 07/05/18 17:02 BP Pulse Ox 98 11/01/17 18:25 - Labs Result Diagrams: 11/01/17 18:18 11/01/17 18:18 Labs: Laboratory Results - last 24 hr 11/01/17 11/01/17 11/01/17 18:18 18:18 18:18 WBC 6.3 RBC 3.25 L Hgb 10.8 L Hct 32.3 L MCV 99.3 H D MCH 33.3 H MCHC 33.6 RDW 17.5 H Plt Count 75 L MPV 11.8 H Neut % (Auto) 77.1 H Lymph % (Auto) 8.0 L Bowie % (Auto) 14.5 H Eos % (Auto) 0.1 Baso % (Auto) 0.3 Neut # (Auto) 4.8 Lymph # (Auto) 0.5 L Bowie # (Auto) 0.9 H Eos # (Auto) 0.0 Baso # (Auto) 0.0 Neutrophils % (Manual) 83 H Lymphocytes % (Manual) 8 L Monocytes % (Manual) 9 Platelet Estimate Decreased L Large Platelets Present Hypochromasia (manual) Slight Anisocytosis (manual) Slight Macrocytosis (manual) Slight Tear Drop Cells Slight Ovalocytes Moderate PT 21.0 H INR 1.9 H APTT 35.4 Sodium 135 Potassium 5.0 Chloride 94 L Carbon Dioxide 26 Anion Gap 20 BUN 41 H Creatinine 1.6 H Est GFR ( Amer) 41 Est GFR (Non-Af Amer) 34 Random Glucose 164 H Calcium 9.3 Total Bilirubin 6.1 H AST 135 H D ALT 46 Alkaline Phosphatase 167 H D Troponin I < 0.0120 Total Protein 9.6 H Albumin 3.7 Globulin 5.9 H Albumin/Globulin Ratio 0.6 L Lipase 167 Assessment & Plan - Assessment and Plan (Free Text) Assessment: 47 y/o F with PMHx of HTN, Asthma, Alcoholic Liver cirrhosis with Ascites, Portal Hypertensive gastropathy admitted with abdominal pain, worsening ascites , and acute renal injury. Plan: Abdominal Pain -MedSurg unit -possible 2/2 worsening ascites 2/2 H/O Liver cirrhosis with end stage liver disease -afebrile -Start Albumin 12.5 gm (5 bags) as per GI recommendations to improve renal blood flow -start Ceftriaxone 1 gm IV daily for SBP prophylaxis -Hold Diuretics : Furosemide and spirinolactone for now due to worsening Creatinine and concern for HRS at this time -PT/PTT -platelets level -f/u CBC, BMP in AM -IR consult for paracentesis ( therapeutic, and diagnostic) -GI on consult, Recommendations are appreciated. Spoke and discussed case with Dr. Rendon, GI fellow covering for Dr. Tabares Liver Cirrhosis with ascites -h/o alcohol abuse -Start Albumin 12.5 gm (5 bags) as per GI recommendations to improve renal blood flow -will start Ceftriaxone 1 gm IV daily for SBP prophylaxis, even though patient is afebrile, and no leukocytosis, but reports abd pain/tender at PExam. -IR consult for possible paracentesis -Abdominal CT w/o contrast done on 03/12/17 reported Cirrhotic appearing liver , and Large volume of intra-abdominal pelvic ascites. -EGD done on 08/28/17 reported Portal Hypertensive gastropathy. With recs of repeat upper endoscopy in 1 month for band ligation. -GI on consult, Recommendations are appreciated Acute Kidney Injury -most likely 2/2 suspected HRS and Poor PO intake -Start Albumin 12.5 gm (5 bags) as per GI recommendations to improve renal blood flow -Hold Diuretics : Furosemide and spirinolactone for now due to worsening Creatinine and concern for HRS at this time -BUN/Cr on admission : 41/1.6 -normal GFR, and BUN/Cr on prior test Thrombocytopenia -most likely 2/2 Liver Cirrhosis, h/o etoh abuse -no evidence of active bleeding at this time -H/H stable compared with prior test -consider platelets transfusion prior to paracentesis as per IR recs -f/u CBC in am Elevated INR -1.9 on admission -2/2 liver failure -consider 2 units of FFP transfusion prior to Paracentesis HTN -hold home med Coreg for now -BP low levels -f/u BP Asthma -controlled -albuterol inh PRN DVT prophylaxis -SCDs -thrombocytopenia 75 on admission Diet Hepatic diet NPO after midnight for possible Paracentesis tomorrow by IR - Date & Time Date: 11/01/17 Time: 18:30
[2017-11-01] MEDS ORDERED: Albumin Human 25% (12.5 gm/50 ml) IV ONE (22:00)
[2017-11-02 06:37] LABS: BASO % 0.3 % (0.0-2.0); EOS % 0.1 % (0.0-4.0); HEMOGLOBIN 8.3 g/dL (12.0-16.0); LYMPH # 0.4 K/uL (1.0-4.3); LYMPH % 10.1 % (20.0-40.0); MEAN CELL VOLUME 98.6 fl (81.0-99.0); MEAN CORPUSCULAR HEMOGLOBIN 33.7 pg (27.0-31.0); MEAN CORPUSCULAR HGB CONC 34.2 g/dL (33.0-37.0); MEAN PLATELET VOLUME 11.2 fl (7.2-11.7); MONO # 0.8 K/uL (0.0-0.8); MONO % 19.1 % (0.0-10.0); NEUT # 3.1 K/uL (1.8-7.0); NEUT % 70.4 % (50.0-75.0); RBC 2.48 Mil/uL (3.80-5.20); RED CELL DISTRIBUTION WIDTH 17.4 % (11.5-14.5); WHITE BLOOD COUNT 4.4 K/uL (4.8-10.8)
[2017-11-02 08:00] LABS: CALCIUM 8.7 mg/dL (8.4-10.2)
[2017-11-02 08:44] LABS: ALB/GLOB RATIO 0.9 (1.0-2.1); ALBUMIN 3.8 g/dL (3.5-5.0)
[2017-11-02] MEDS: Pantoprazole 40 mg EC Tab PO SCH (09:04)
[2017-11-02] MEDS: Lactulose 10 gm/15 ml Syrup PO SCH (09:04)
--- NOTE | 2017-11-02 09:06 | CP.PCM.CON ---
<Gamal Rendon - Last Filed: 11/02/17 14:54> History of Present Illness - History of Present Illness History of Present Illness: PGY5 GI Fellow Consult Note Joy Ta is a 47yo female with PMHx significant for decompensated EtOH cirrhosis c/b ascites and hepatic encephalopathy, asthma who was refered to the ED by [facility] for abd pain, increased girth, and rise in creatinine. She notes that she has been complaint on all meds prescribed including spironolactone, lasix. She went to the Clinic for a routine follow-up. She noted that she has been having abd pain for the past 3-4 days. She states that the pain is located in the lower quadrants B/L and radiating to the back. She also noticed increased girth of abd. She notes that she often gets abd pain when she has a tense abdomen. Denies any fever, chills or diaphoresis. She does have a increase in her baseline cr from 0.7 to 1.6. She was recently admitted to [facility] for hematemsis. Am EGD did not reveal an obvious source of bleeding and she was found to have non-bandable grade 1 varices. Denies any recent EtOH intake. Patient underwent EGD/Colonoscopy in July 2016 which showed LA Class B esophagitis, erosive gastropathy and portal hypertensive gastropathy. She did not have esophageal varices previously. Per outpatient documentation, patient stopped drinking EtOh in September 2015 and was being evaluated for transplant at [facility] but was nonadherent with follow up due to difficulty getting to the hospital. 12 system ROS performed and negative except where stated. PMHx: See HPI PSHx: x3 FHx: Discussed with patient and no prior family history Social: Prior heavy EtOH use, no tobacco or illicit drug use Past Patient History - Past Medical History & Family History Past Medical History?: Yes - Past Social History Smoking Status: Never Smoked - CARDIAC Hx Hypertension: Yes - PULMONARY Hx Asthma: Yes Hx Sleep Apnea: No - NEUROLOGICAL Hx Neurological Disorder: No - HEENT Hx HEENT Problems: No - RENAL Hx Chronic Kidney Disease: No - ENDOCRINE/METABOLIC Hx Endocrine Disorders: No - HEMATOLOGICAL/ONCOLOGICAL Hx Anemia: Yes Hx Sickle Cell Disease: No - INTEGUMENTARY Hx Dermatological Problems: No - MUSCULOSKELETAL/RHEUMATOLOGICAL Hx Musculoskeletal Disorders: No Hx Falls: Yes - GASTROINTESTINAL Hx Gastrointestinal Disorders: Yes Hx Liver Failure: Yes - GENITOURINARY/GYNECOLOGICAL Hx Genitourinary Disorders: No - PSYCHIATRIC Hx Psychophysiologic Disorder: No Hx Substance Use: Yes (marijuana) - ANESTHESIA Hx Anesthesia: Yes Hx Anesthesia Reactions: No Hx Malignant Hyperthermia: No Meds Allergies/Adverse Reactions: Allergies Allergy/AdvReac Type Severity Reaction Status Date / Time iodine Allergy SHORTNESS Verified 11/01/17 17:02 OF BREATH - Medications Medications: Current Medications Acetaminophen (Tylenol 325mg Tab) 650 mg PO Q6 PRN PRN Reason: Pain, moderate (4-7) Last Admin: 11/02/17 00:43 Dose: 650 mg Albuterol (Ventolin Hfa 90 Mcg/Actuation (8 G)) 2 puff IH Q6 PRN PRN Reason: Shortness of Breath Ceftriaxone Sodium 1 gm/ (Sodium Chloride) 100 mls @ 100 mls/hr IVPB DAILY [facility] PRN Reason: Protocol Lactulose (Enulose) 10 gm PO BID [facility] Ondansetron HCl (Zofran Inj) 4 mg IVP Q6 PRN PRN Reason: Nausea/Vomiting Pantoprazole Sodium (Protonix Ec Tab) 40 mg PO DAILY [facility] Rifaximin (Xifaxan) 550 mg PO Q12 [facility] PRN Reason: Protocol Last Admin: 11/01/17 21:18 Dose: 550 mg Physical Exam - Constitutional Appears: Well, No Acute Distress - Head Exam Head Exam: ATRAUMATIC, NORMOCEPHALIC - Eye Exam Eye Exam: Normal appearance - ENT Exam ENT Exam: Mucous Membranes Moist, Normal Exam - Neck Exam Neck exam: Positive for: Normal Inspection - Respiratory Exam Respiratory Exam: Clear to Auscultation Bilateral, NORMAL BREATHING PATTERN. absent: Rales, Rhonchi, Wheezes, Respiratory Distress - Cardiovascular Exam Cardiovascular Exam: REGULAR RHYTHM, +S1, +S2 - GI/Abdominal Exam GI & Abdominal Exam: Distended, Normal Bowel Sounds, Soft, Tenderness (diffuse) . absent: Diminished Bowel Sounds, Firm, Guarding, Hernia, Organomegaly, Rebound, Rigid Additional comments: shifting dullness - Extremities Exam Extremities exam: Negative for: joint swelling, pedal edema - Neurological Exam Neurological exam: Alert, Oriented x3 - Psychiatric Exam Psychiatric exam: Normal Affect, Normal Mood - Skin Skin Exam: Dry, Intact, Normal Color, Warm Results - Vital Signs Recent Vital Signs: Last Vital Signs Temp 98.1 F 11/02/17 08:03 Pulse 64 11/02/17 08:55 Resp 20 11/02/17 08:03 BP 91/51 L 11/02/17 08:55 Pulse Ox 98 11/02/17 08:03 - Labs Result Diagrams: 11/02/17 06:10 11/02/17 06:10 Labs: Laboratory Results - last 24 hr 11/01/17 11/01/17 11/01/17 18:18 18:18 18:18 WBC 6.3 RBC 3.25 L Hgb 10.8 L Hct 32.3 L MCV 99.3 H D MCH 33.3 H MCHC 33.6 RDW 17.5 H Plt Count 75 L MPV 11.8 H Neut % (Auto) 77.1 H Lymph % (Auto) 8.0 L Smith % (Auto) 14.5 H Eos % (Auto) 0.1 Baso % (Auto) 0.3 Neut # (Auto) 4.8 Lymph # (Auto) 0.5 L Smith # (Auto) 0.9 H Eos # (Auto) 0.0 Baso # (Auto) 0.0 Neutrophils % (Manual) 83 H Lymphocytes % (Manual) 8 L Monocytes % (Manual) 9 Platelet Estimate Decreased L Large Platelets Present Hypochromasia (manual) Slight Anisocytosis (manual) Slight Macrocytosis (manual) Slight Tear Drop Cells Slight Ovalocytes Moderate PT 21.0 H INR 1.9 H APTT 35.4 Sodium 135 Potassium 5.0 Chloride 94 L Carbon Dioxide 26 Anion Gap 20 BUN 41 H Creatinine 1.6 H Est GFR ( Amer) 41 Est GFR (Non-Af Amer) 34 Random Glucose 164 H Calcium 9.3 Total Bilirubin 6.1 H AST 135 H D ALT 46 Alkaline Phosphatase 167 H D Troponin I < 0.0120 Total Protein 9.6 H Albumin 3.7 Globulin 5.9 H Albumin/Globulin Ratio 0.6 L Lipase 167 11/02/17 11/02/17 06:10 06:10 WBC 4.4 L RBC 2.48 L Hgb 8.3 L D Hct 24.4 L MCV 98.6 MCH 33.7 H MCHC 34.2 RDW 17.4 H Plt Count 59 L MPV 11.2 Neut % (Auto) 70.4 Lymph % (Auto) 10.1 L Smith % (Auto) 19.1 H Eos % (Auto) 0.1 Baso % (Auto) 0.3 Neut # (Auto) 3.1 Lymph # (Auto) 0.4 L Smith # (Auto) 0.8 Eos # (Auto) 0.0 Baso # (Auto) 0.0 Neutrophils % (Manual) Lymphocytes % (Manual) Monocytes % (Manual) Platelet Estimate Large Platelets Hypochromasia (manual) Anisocytosis (manual) Macrocytosis (manual) Tear Drop Cells Ovalocytes PT INR APTT Sodium 139 Potassium 3.9 Chloride 96 L Carbon Dioxide 27 Anion Gap 20 BUN 40 H Creatinine 1.7 H Est GFR ( Amer) 39 Est GFR (Non-Af Amer) 32 Random Glucose 95 Calcium 8.7 Total Bilirubin 4.8 H AST 96 H D ALT 36 Alkaline Phosphatase 89 Troponin I Total Protein 8.0 Albumin 3.8 Globulin 4.2 H Albumin/Globulin Ratio 0.9 L Lipase Assessment & Plan - Assessment and Plan (Free Text) Assessment: Patient is a 47yo female with PMHx significant for decompensated EtOH cirrhosis c/b ascites and hepatic encephalopathy, asthma who presented to the ED with abdominal pain -Abd Ascities -Abd pain, r/o SBP -renal dysfunction 2/2 SBP? vs Pre-renal? vs HRS? -Decompensated EtOH cirrhosis with history of ascites/HE Plan: -Patient has two IV lines -started ceftriaxone for empiric SBP coverage -will go for INR today for possible abd paracentesis -recommend fluid analysis for SAAG. cell diff, total protein, and gram stain. -s/p albumun 62.5g -will reeval Cr in the AM -if improvement in renal function, recommend Albumin 50g day 3 -if no improvement in renal function, consider starting HRS protocol of albumin , octreotide and midodrine -needs GI follow-up -continue lactulose -hold diuretics -blood cultures -will eventually need Liver triple phase as an oupt -alcohol avoidance -MELD: 26 Will D/w Dr. Tabares <Nestor Tabares - Last Filed: 11/02/17 15:52> Meds - Medications Medications: Current Medications Acetaminophen (Tylenol 325mg Tab) 650 mg PO Q6 PRN PRN Reason: Pain, moderate (4-7) Last Admin: 11/02/17 00:43 Dose: 650 mg Albuterol (Ventolin Hfa 90 Mcg/Actuation (8 G)) 2 puff IH Q6 PRN PRN Reason: Shortness of Breath Ceftriaxone Sodium 1 gm/ (Sodium Chloride) 100 mls @ 100 mls/hr IVPB DAILY [facility] PRN Reason: Protocol Octreotide Acetate 1,250 mcg/ (Sodium Chloride) 252.5 mls @ 10 mls/hr IV .Q24H [facility] PRN Reason: Protocol Lactulose (Enulose) 10 gm PO BID [facility] Last Admin: 11/02/17 09:04 Dose: 10 gm Midodrine (Proamatine) 10 mg PO TID [facility] Last Admin: 11/02/17 13:07 Dose: 10 mg Ondansetron HCl (Zofran Inj) 4 mg IVP Q6 PRN PRN Reason: Nausea/Vomiting Pantoprazole Sodium (Protonix Ec Tab) 40 mg PO DAILY [facility] Last Admin: 11/02/17 09:04 Dose: 40 mg Rifaximin (Xifaxan) 550 mg PO Q12 [facility] PRN Reason: Protocol Last Admin: 11/02/17 09:04 Dose: 550 mg Results - Vital Signs Recent Vital Signs: Last Vital Signs Temp 97.6 F 11/02/17 14:53 Pulse 59 L 11/02/17 14:53 Resp 18 11/02/17 14:53 BP 113/69 11/02/17 14:53 Pulse Ox 98 11/02/17 14:53 - Labs Result Diagrams: 11/02/17 06:10 11/02/17 06:10 Labs: Laboratory Results - last 24 hr 11/01/17 11/01/17 11/01/17 18:18 18:18 18:18 WBC 6.3 RBC 3.25 L Hgb 10.8 L Hct 32.3 L MCV 99.3 H D MCH 33.3 H MCHC 33.6 RDW 17.5 H Plt Count 75 L MPV 11.8 H Neut % (Auto) 77.1 H Lymph % (Auto) 8.0 L Smith % (Auto) 14.5 H Eos % (Auto) 0.1 Baso % (Auto) 0.3 Neut # (Auto) 4.8 Lymph # (Auto) 0.5 L Smith # (Auto) 0.9 H Eos # (Auto) 0.0 Baso # (Auto) 0.0 Neutrophils % (Manual) 83 H Lymphocytes % (Manual) 8 L Monocytes % (Manual) 9 Platelet Estimate Decreased L Large Platelets Present Hypochromasia (manual) Slight Anisocytosis (manual) Slight Macrocytosis (manual) Slight Tear Drop Cells Slight Ovalocytes Moderate PT 21.0 H INR 1.9 H APTT 35.4 Sodium 135 Potassium 5.0 Chloride 94 L Carbon Dioxide 26 Anion Gap 20 BUN 41 H Creatinine 1.6 H Est GFR ( Amer) 41 Est GFR (Non-Af Amer) 34 Random Glucose 164 H Calcium 9.3 Total Bilirubin 6.1 H AST 135 H D ALT 46 Alkaline Phosphatase 167 H D Troponin I < 0.0120 Total Protein 9.6 H Albumin 3.7 Globulin 5.9 H Albumin/Globulin Ratio 0.6 L Lipase 167 Blood Type Antibody Screen Crossmatch BBK History Checked 11/02/17 11/02/17 11/02/17 06:10 06:10 09:48 WBC 4.4 L RBC 2.48 L Hgb 8.3 L D Hct 24.4 L MCV 98.6 MCH 33.7 H MCHC 34.2 RDW 17.4 H Plt Count 59 L MPV 11.2 Neut % (Auto) 70.4 Lymph % (Auto) 10.1 L Smith % (Auto) 19.1 H Eos % (Auto) 0.1 Baso % (Auto) 0.3 Neut # (Auto) 3.1 Lymph # (Auto) 0.4 L Smith # (Auto) 0.8 Eos # (Auto) 0.0 Baso # (Auto) 0.0 Neutrophils % (Manual) Lymphocytes % (Manual) Monocytes % (Manual) Platelet Estimate Large Platelets Hypochromasia (manual) Anisocytosis (manual) Macrocytosis (manual) Tear Drop Cells Ovalocytes PT INR APTT Sodium 139 Potassium 3.9 Chloride 96 L Carbon Dioxide 27 Anion Gap 20 BUN 40 H Creatinine 1.7 H Est GFR ( Amer) 39 Est GFR (Non-Af Amer) 32 Random Glucose 95 Calcium 8.7 Total Bilirubin 4.8 H AST 96 H D ALT 36 Alkaline Phosphatase 89 Troponin I Total Protein 8.0 Albumin 3.8 Globulin 4.2 H Albumin/Globulin Ratio 0.9 L Lipase Blood Type A POSITIVE Antibody Screen Negative Crossmatch See Detail BBK History Checked Patient has bt Attending/Attestation - Attestation I have personally seen and examined this patient.: Yes I have fully participated in the care of the patient.: Yes I have reviewed all pertinent clinical information: Yes Notes (Text): 11/02/17 15:50 Patient seen this am on GI rounds. This is a 47 year old female with PMHx significant for decompensated EtOH cirrhosis c/b ascites and hepatic encephalopathy, asthma who presented to the ED with abdominal pain and increasing girth. She is s/p abdominal paracentesis of 2.2 lts with uptrending Cr and pending cytology for SBP. Azotemia could be due to SBP or diuretics from pre renal effect. Will start albumin at 1 gm/kg for 72 hours. Strict I/O. No IV fluids necessary with albumin infusion. MELD 26. Needs triple phase CT to rule out HCC and abdominal doppler to rule out portal vein thrombosis.
[2017-11-02] MEDS ORDERED: Lidocaine 1% Inj (20ml) ONE (14:13)
--- NOTE | 2017-11-02 14:48 | PCM.SURG1 ---
Surgeon's Initial Post Op Note - Surgeon's Notes Surgeon: Mack Toro MD Technical Associate: NONE Type of Anesthesia: Local Pre-Operative Diagnosis: Ascites Operative Findings: US showed moderate ascites Post-Operative Diagnosis: Ascites Operation Performed: US guided paracentesis Specimen/Specimens Removed: 2.4 liters of straw colored fluid Estimated Blood Loss: EBL {In ML}: 0 Blood Products Given: N/A Drains Used: No Drains Post-Op Condition: Fair Date of Surgery/Procedure: 11/02/17 Time of Surgery/Procedure: 13:45
--- NOTE | 2017-11-02 15:41 | CP.PCM.PN ---
Subjective - Date & Time of Evaluation Date of Evaluation: 11/02/17 Time of Evaluation: 08:25 - Subjective Subjective: Patient seen and examined today, in NAD, c/o abdominal pain mostly when her abdomen is distended, states that today she only feels pain when she tries to get OOB, denies N/V/D, chills, fever, SERRATO or SOB. Objective - Vital Signs/Intake and Output Vital Signs (last 24 hours): Temp Pulse Resp BP Pulse Ox 97.6 F 59 L 18 113/69 98 11/02/17 14:53 11/02/17 14:53 11/02/17 14:53 11/02/17 14:53 11/02/17 14:53 - Medications Medications: Current Medications Acetaminophen (Tylenol 325mg Tab) 650 mg PO Q6 PRN PRN Reason: Pain, moderate (4-7) Last Admin: 11/02/17 00:43 Dose: 650 mg Albuterol (Ventolin Hfa 90 Mcg/Actuation (8 G)) 2 puff IH Q6 PRN PRN Reason: Shortness of Breath Ceftriaxone Sodium 1 gm/ (Sodium Chloride) 100 mls @ 100 mls/hr IVPB DAILY [facility] PRN Reason: Protocol Octreotide Acetate 1,250 mcg/ (Sodium Chloride) 252.5 mls @ 10 mls/hr IV .Q24H [facility] PRN Reason: Protocol Lactulose (Enulose) 10 gm PO BID [facility] Last Admin: 11/02/17 09:04 Dose: 10 gm Midodrine (Proamatine) 10 mg PO TID [facility] Last Admin: 11/02/17 13:07 Dose: 10 mg Ondansetron HCl (Zofran Inj) 4 mg IVP Q6 PRN PRN Reason: Nausea/Vomiting Pantoprazole Sodium (Protonix Ec Tab) 40 mg PO DAILY [facility] Last Admin: 11/02/17 09:04 Dose: 40 mg Rifaximin (Xifaxan) 550 mg PO Q12 [facility] PRN Reason: Protocol Last Admin: 11/02/17 09:04 Dose: 550 mg - Labs Labs: 11/02/17 06:10 11/02/17 06:10 PT 21.0 Seconds (9.8-13.1) H 11/01/17 18:18 INR 1.9 (0.9-1.2) H 11/01/17 18:18 APTT 35.4 Seconds (25.6-37.1) 11/01/17 18:18 - Constitutional Appears: No Acute Distress - Head Exam Head Exam: ATRAUMATIC, NORMOCEPHALIC - Eye Exam Eye Exam: EOMI, PERRL - ENT Exam ENT Exam: Mucous Membranes Moist - Neck Exam Neck Exam: Full ROM - Respiratory Exam Respiratory Exam: Clear to Ausculation Bilateral. absent: Rales, Rhonchi, Wheezes - Cardiovascular Exam Cardiovascular Exam: REGULAR RHYTHM, +S1, +S2 - GI/Abdominal Exam GI & Abdominal Exam: Distended, Tenderness (diffuse tenderness to palpation), Hypoactive Bowel Sounds - Extremities Exam Extremities Exam: absent: Pedal Edema - Neurological Exam Neurological Exam: Alert, Awake, Oriented x3 - Psychiatric Exam Psychiatric exam: Normal Affect, Normal Mood - Skin Skin Exam: Pallor, Warm Assessment and Plan - Assessment and Plan (Free Text) Assessment: 47 y/o Female with PMHx of HTN, Asthma, Alcoholic Liver cirrhosis with Ascites, Portal Hypertensive admitted yesterday with abdominal pain, worsening ascites, and acute renal injury Plan: Abdominal Pain -MedSurg unit -Likekly 2/2 worsening ascites 2/2 H/O Liver cirrhosis with end stage liver disease -Afebrile -Ceftriaxone 1 gm IV daily for SBP prophylaxis -Hold Diuretics : Furosemide and spirinolactone for now due to worsening Creatinine and concern for HRS at this time -Paracentesis done(therapeutic, and diagnostic), obtained 2.4 L of ascitic fluid -GI consult on board. Liver Cirrhosis with ascites -Avoid Alcohol, patient instructed to avoid alcohol -Albumin 62.5.5 gm given -Ceftriaxone 1 gm IV daily for SBP prophylaxis. -Paracentesis done (therapeutic, and diagnostic), obtained 2.4 L of ascitic fluid -EGD done on 08/28/17 reported Portal Hypertensive gastropathy. -GI consult on board -Ascitic fluid workup: protein, WBC, albumin, SAAG Acute Kidney Injury -most likely 2/2 suspected HRS vs Pre-renal vs SBP? -Albumin 62.5gm given to improve third space ascites and improve renal function -Hold Diuretics for now: Furosemide and spirinolactone due to worsening Creatinine and concern for HRS at this time -Cr 1.7 BUN 40 today Thrombocytopenia -most likely 2/2 Liver Cirrhosis -no evidence of active bleeding at this time -2 U FFP given prior to paracentesis -f/u CBC in am Elevated INR -1.9 on admission -2/2 liver failure -f/u PT/PTT -2 units of FFP transfusion given prior to Paracentesis HTN -hold home med Coreg for now -BP low levels -f/u BP Asthma -controlled -albuterol inh PRN DVT prophylaxis -SCDs -thrombocytopenia 75 on admission -will f/u plt, today 59 Diet -Advence to Hepatic diet
--- NOTE | 2017-11-02 15:54 | CT ---
PROCEDURE: CT Abdomen and Pelvis without intravenous contrast HISTORY: ascities COMPARISON: CT scan of the abdomen pelvis dated 03/12/2017. TECHNIQUE: Contiguous images were obtained from the domes of the diaphragms to the upper thighs without the administration of intravenous contrast. Oral contrast was not administered. Radiation dose: Total exam DLP = 207.5 mGy-cm. This CT exam was performed using one or more of the following dose reduction techniques: Automated exposure control, adjustment of the mA and/or kV according to patient size, and/or use of iterative reconstruction technique. FINDINGS: LOWER THORAX: Unremarkable. LIVER: Nodular contour. No gross lesion or ductal dilatation. GALLBLADDER AND BILE DUCTS: Calcified cholelithiasis. PANCREAS: Unremarkable. No gross lesion or ductal dilatation. SPLEEN: Mild splenomegaly. ADRENALS: Unremarkable. No mass. KIDNEYS AND URETERS: Unremarkable. No hydronephrosis. No solid mass. VASCULATURE: Unremarkable. No aortic aneurysm. BOWEL: Unremarkable. No obstruction. No gross mural thickening. APPENDIX: No findings to suggest acute appendicitis. PERITONEUM: Unremarkable. Small volume ascites. Trace tiny foci of air in the region the falciform ligament, likely iatrogenic. LYMPH NODES: Unremarkable. No enlarged lymph nodes. BLADDER: Unremarkable. REPRODUCTIVE: Unremarkable. BONES: Old right 8th and 9th rib fractures. No acute fracture. OTHER FINDINGS: None. IMPRESSION: Small volume residual ascites post paracentesis. . Cholelithiasis without CT evidence for acute cholecystitis. Additional stable findings as above.
--- NOTE | 2017-11-02 16:52 | US ---
HISTORY: r/p portal, hepatic, renal thrombosis COMPARISON: None. TECHNIQUE: Sonographic evaluation of the abdomen. FINDINGS: LIVER: Measures 12.3 cm. Increased echogenicity of the liver parenchyma. Nodular contour. No mass. No intrahepatic bile duct dilatation. Hepatofugal flow of the portal venous system. Hepatic veins and hepatic arteries patent with normal directional flow. GALLBLADDER: Calcified cholelithiasis, relatively contracted gallbladder. COMMON BILE DUCT: Measures 3 mm. No stones. No dilatation. PANCREAS: Unremarkable as visualized. No mass. No ductal dilatation. RIGHT KIDNEY: Measures 9.9 x 4.2 x 4.3cm. Normal echogenicity. No calculus, mass, or hydronephrosis. LEFT KIDNEY: Measures 9.6 x 3.4 x 5.0cm. Normal echogenicity. No calculus, mass, or hydronephrosis. SPLEEN: Normal in size and contour. No mass. AORTA: No aneurysmal dilatation. IVC: Unremarkable. OTHER FINDINGS: Small volume ascites. IMPRESSION: Hepatic cirrhosis with reversal of portal venous flow and small volume ascites. Cholelithiasis without sonographic evidence for acute cholecystitis.
[2017-11-02 17:04] LABS: BODY FLUID TYPE PERITONEAL/ASCITES
[2017-11-02 17:45] LABS: TOTAL PROTEIN,BODY FLUID 2.5 g/dL (NONE ESTABLISHED)
[2017-11-02 21:10] LABS: BF GROSS APPEARANCE CLOUDY (CLEAR)
[2017-11-02 21:12] LABS: BODY FLUID MONO/MACROPHAGE 20 % (0-0); BODY FLUID TOTAL COUNT 100 (0-0)
--- NOTE | 2017-11-03 07:33 | CP.PCM.PN ---
Subjective - Date & Time of Evaluation Date of Evaluation: 11/03/17 Time of Evaluation: 07:33 - Subjective Subjective: pt seen and examined at bedside this morning. S/P paracentesis on 11/02 with 2.4 L removed. Tolerated procedure well. Pt reports noticable improvement in abdominal pain and SOB symptoms. Tolerated diet yesterday but still reports less than normal appetite. OOB/ambulating w/o dizziness. No other complaints. Afebrile. Objective - Vital Signs/Intake and Output Vital Signs (last 24 hours): Temp Pulse Resp BP Pulse Ox 98.2 F 58 L 19 93/41 L 97 11/03/17 00:10 11/03/17 00:10 11/03/17 00:10 11/03/17 00:10 11/03/17 00:10 - Medications Medications: Current Medications Acetaminophen (Tylenol 325mg Tab) 650 mg PO Q6 PRN PRN Reason: Pain, moderate (4-7) Last Admin: 11/02/17 21:36 Dose: 650 mg Albuterol (Ventolin Hfa 90 Mcg/Actuation (8 G)) 2 puff IH Q6 PRN PRN Reason: Shortness of Breath Ceftriaxone Sodium 1 gm/ (Sodium Chloride) 100 mls @ 100 mls/hr IVPB DAILY [facility] PRN Reason: Protocol Last Admin: 11/02/17 16:35 Dose: 100 mls/hr Octreotide Acetate 1,250 mcg/ (Sodium Chloride) 252.5 mls @ 10 mls/hr IV .Q24H [facility] PRN Reason: Protocol Last Admin: 11/02/17 16:43 Dose: 10 mls/hr Lactulose (Enulose) 10 gm PO BID [facility] Last Admin: 11/02/17 09:04 Dose: 10 gm Midodrine (Proamatine) 10 mg PO TID [facility] Last Admin: 11/02/17 16:40 Dose: 10 mg Ondansetron HCl (Zofran Inj) 4 mg IVP Q6 PRN PRN Reason: Nausea/Vomiting Last Admin: 11/02/17 20:52 Dose: 4 mg Pantoprazole Sodium (Protonix Ec Tab) 40 mg PO DAILY [facility] Last Admin: 11/02/17 09:04 Dose: 40 mg - Labs Labs: 11/02/17 06:10 11/02/17 06:10 PT 21.0 Seconds (9.8-13.1) H 11/01/17 18:18 INR 1.9 (0.9-1.2) H 11/01/17 18:18 APTT 35.4 Seconds (25.6-37.1) 11/01/17 18:18 - Constitutional Appears: Non-toxic, No Acute Distress, Chronically Ill - Eye Exam Eye Exam: EOMI, Scleral icterus Pupil Exam: PERRL - ENT Exam ENT Exam: Mucous Membranes Moist - Neck Exam Neck Exam: Full ROM - Respiratory Exam Respiratory Exam: Clear to Ausculation Bilateral, NORMAL BREATHING PATTERN. absent: Accessory Muscle Use, Rales, Rhonchi, Wheezes - Cardiovascular Exam Cardiovascular Exam: REGULAR RHYTHM, RRR, +S1, +S2. absent: Tachycardia, JVD, Rubs, Murmur - GI/Abdominal Exam GI & Abdominal Exam: Distended (mild distention 2/2 to ascites, improved compared to 11/02), Soft, Tenderness (diffuse mild tenderness), Normal Bowel Sounds. absent: Firm, Guarding, Rigid Additional comments: incision site in RLQ, bandage C/D/I - Neurological Exam Neurological Exam: Alert, Awake, Normal Gait, Oriented x3 - Psychiatric Exam Psychiatric exam: Normal Affect, Normal Mood - Skin Additional comments: jaundice, various telengactasias. Assessment and Plan - Assessment and Plan (Free Text) Assessment: 47 y/o female with PMHx remarkable for asthma, decompensated Liver failure secondary to ETOH abuse admitted for worsening abdominal pain/SOB secondary to increase in ascitic fluid as well as worsening renal function. Plan: Abdominal Pain -rule out SBP -Albumin 62.5.5 gm given -Ceftriaxone 1 gm IV daily for SBP prophylaxis. -Paracentesis done (therapeutic, and diagnostic), obtained 2.4 L of ascitic fluid -GI consult on board -Ascitic fluid workup: within normal limits Acute Kidney Injury -suspect HRS -HRS protocol as per GI -Albumin 62.5gm given to improve third space ascites and improve renal function -Hold Diuretics for now: Furosemide and spirinolactone due to worsening Creatinine and concern for HRS at this time -BUN/Cr: 36/1.3 Thrombocytopenia -2/2 ETOH abuse/liver dysfunction -no evidence of active bleeding at this time Elevated INR -1.9 on admission -2/2 liver failure -2 units of FFP transfusion given prior to Paracentesis Essential Hypertension -BP has been running in the 90s/50s, but asymptomatic -hold home med Coreg for now -monitor vitals Asthma (unspecified severity) -controlled -albuterol inh PRN DVT prophylaxis -SCDs -thrombocytopenia 75 on admission Diet -Advence to Hepatic diet Code Status -full code
[2017-11-03 07:40] LABS: HEMOGLOBIN 9.7 g/dL (12.0-16.0); MEAN CELL VOLUME 98.9 fl (81.0-99.0); MEAN CORPUSCULAR HGB CONC 34.3 g/dL (33.0-37.0); RBC 2.86 Mil/uL (3.80-5.20); RED CELL DISTRIBUTION WIDTH 17.3 % (11.5-14.5); WHITE BLOOD COUNT 4.8 K/uL (4.8-10.8)
[2017-11-03 07:48] LABS: ALB/GLOB RATIO 0.8 (1.0-2.1); ALBUMIN 3.6 g/dL (3.5-5.0); CALCIUM 8.9 mg/dL (8.4-10.2)
[2017-11-03 08:21] LABS: INR 1.9 (0.9-1.2)
[2017-11-03] MEDS: Lactulose 10 gm/15 ml Syrup PO SCH ×3 (09:46→16:52)
[2017-11-03] MEDS: Pantoprazole 40 mg EC Tab PO SCH (09:47)
--- NOTE | 2017-11-03 11:37 | RAD ---
HISTORY: cough COMPARISON: Chest radiograph dated 08/28/2017 FINDINGS: LUNGS: No active pulmonary disease. PLEURA: No significant pleural effusion identified, no pneumothorax apparent. CARDIOVASCULAR: Normal. OSSEOUS STRUCTURES: No significant abnormalities. VISUALIZED UPPER ABDOMEN: Calcified cholelithiasis. OTHER FINDINGS: None. IMPRESSION: No active disease.
[2017-11-03] MEDS ORDERED: Albumin Human 25% (12.5 gm/50 ml) IV ONE (13:24)
--- NOTE | 2017-11-03 15:06 | CP.PCM.DIS ---
Provider - Provider Date of Admission: 11/02/17 14:51 Attending physician: Lisbeth Orozco MD Time Spent in preparation of Discharge (in minutes): 35 Diagnosis - Discharge Diagnosis (1) Ascites Status: Chronic Hospital Course - Lab Results Lab Results: Micro Results 11/02/17 14:20 Peritoneal Fluid Gram Stain - Final Most Recent Lab Values WBC 4.8 K/uL (4.8-10.8) 11/03/17 06:30 RBC 2.86 Mil/uL (3.80-5.20) L 11/03/17 06:30 Hgb 9.7 g/dL (12.0-16.0) L 11/03/17 06:30 Hct 28.3 % (34.0-47.0) L 11/03/17 06:30 MCV 98.9 fl (81.0-99.0) 11/03/17 06:30 MCH 34.0 pg (27.0-31.0) H 11/03/17 06:30 MCHC 34.3 g/dL (33.0-37.0) 11/03/17 06:30 RDW 17.3 % (11.5-14.5) H 11/03/17 06:30 Plt Count 60 K/uL (130-400) L 11/03/17 06:30 MPV 11.2 fl (7.2-11.7) 11/02/17 06:10 Neut % (Auto) 70.4 % (50.0-75.0) 11/02/17 06:10 Lymph % (Auto) 10.1 % (20.0-40.0) L 11/02/17 06:10 [place] % (Auto) 19.1 % (0.0-10.0) H 11/02/17 06:10 Eos % (Auto) 0.1 % (0.0-4.0) 11/02/17 06:10 Baso % (Auto) 0.3 % (0.0-2.0) 11/02/17 06:10 Neut # (Auto) 3.1 K/uL (1.8-7.0) 11/02/17 06:10 Lymph # (Auto) 0.4 K/uL (1.0-4.3) L 11/02/17 06:10 [place] # (Auto) 0.8 K/uL (0.0-0.8) 11/02/17 06:10 Eos # (Auto) 0.0 K/uL (0.0-0.7) 11/02/17 06:10 Baso # (Auto) 0.0 K/uL (0.0-0.2) 11/02/17 06:10 Neutrophils % (Manual) 83 % (42-75) H 11/01/17 18:18 Lymphocytes % (Manual) 8 % (20-50) L 11/01/17 18:18 Monocytes % (Manual) 9 % (0-10) 11/01/17 18:18 Platelet Estimate Decreased (NORMAL) L 11/01/17 18:18 Large Platelets Present 11/01/17 18:18 Hypochromasia (manual) Slight 11/01/17 18:18 Anisocytosis (manual) Slight 11/01/17 18:18 Macrocytosis (manual) Slight 11/01/17 18:18 Tear Drop Cells Slight 11/01/17 18:18 Ovalocytes Moderate 11/01/17 18:18 PT 21.0 Seconds (9.8-13.1) H 11/03/17 06:30 INR 1.9 (0.9-1.2) H 11/03/17 06:30 APTT 35.4 Seconds (25.6-37.1) 11/01/17 18:18 Sodium 139 mmol/l (132-148) 11/03/17 06:30 Potassium 4.5 MMOL/L (3.6-5.0) 11/03/17 06:30 Chloride 96 mmol/L (98-107) L 11/03/17 06:30 Carbon Dioxide 30 mmol/L (22-30) 11/03/17 06:30 Anion Gap 18 (10-20) 11/03/17 06:30 BUN 36 mg/dl (7-17) H 11/03/17 06:30 Creatinine 1.3 mg/dl (0.7-1.2) H 11/03/17 06:30 Est GFR ( Amer) 53 11/03/17 06:30 Est GFR (Non-Af Amer) 44 11/03/17 06:30 Random Glucose 112 mg/dL (65-105) H 11/03/17 06:30 Calcium 8.9 mg/dL (8.4-10.2) 11/03/17 06:30 Total Bilirubin 6.5 mg/dl (0.2-1.3) H 11/03/17 06:30 AST 132 U/L (14-36) H D 11/03/17 06:30 ALT 51 U/L (9-52) 11/03/17 06:30 Alkaline Phosphatase 73 U/L (38-126) 11/03/17 06:30 Troponin I < 0.0120 ng/mL (0.00-0.120) 11/01/17 18:18 Total Protein 8.1 G/DL (6.3-8.2) 11/03/17 06:30 Albumin 3.6 g/dL (3.5-5.0) 11/03/17 06:30 Globulin 4.5 gm/dL (2.2-3.9) H 11/03/17 06:30 Albumin/Globulin Ratio 0.8 (1.0-2.1) L 11/03/17 06:30 Lipase 167 U/L (23-300) 11/01/17 18:18 Ur Random Creatinine 114.1 mg/dL 11/02/17 14:04 Ur Random Sodium 59 meq/L 11/02/17 14:04 Ur Random Potassium 25.1 mmol/L 11/02/17 14:04 Fluid Source Peritoneal/ascites 11/02/17 14:20 Fluid Appearance Cloudy (CLEAR) 11/02/17 14:20 Fluid WBC 38.0 /mm3 (0.0-300.0) 11/02/17 14:20 Fluid RBC 26.0 /mm3 (0.0-0.0) H 11/02/17 14:20 Fluid Tot Cell Count 100 (0-0) H 11/02/17 14:20 Fluid Neutrophils 0.0 % (0-0) 11/02/17 14:20 Fluid Lymphocytes 80.0 % (0-0) H 11/02/17 14:20 Fld Monocyte/Macrophag 20 % (0-0) H 11/02/17 14:20 Fluid Total Protein 2.5 g/dL (NONE ESTABLISHED) 11/02/17 14:20 Fluid Comment Yellow 11/02/17 14:20 Blood Type A POSITIVE 11/02/17 09:48 Antibody Screen Negative 11/02/17 09:48 Crossmatch See Detail 11/02/17 09:48 BBK History Checked Patient has bt 11/02/17 09:48 - Hospital Course Hospital Course: Patient is a 47yo female with PMHx significant for decompensated EtOH cirrhosis c/b ascites and hepatic encephalopathy was admitted for evaluation of worsening abdominal pain/SOB secondary to increased ascitic fluid and worsening renal function. During her stay, she was found to have an elevated INR, she was treated with 2 units FFP and 62gm of albumin. She was started on SBP ppx as well. Paracentesis withdrew approx 2.4L of abdominal fluid. Symptoms improved. Diuretics have been discontinued. Renal function improved after HRS protocol. Lab studies of ascitic fluid were otherwise unremarkable. After an uneventful hospital stay, the patient was discharged in stable condition. Plan: stopped all diuretics (lasix/aldactone) c/w lactulose daily Ciprofloxacin 500mg for 5 more days held BP meds due to hypotension alcohol abstinence follow up with GI clinic in 2 weeks Discharge Exam - Head Exam Head Exam: ATRAUMATIC, NORMOCEPHALIC - Eye Exam Eye Exam: EOMI, PERRL, Scleral icterus. absent: Normal appearance - ENT Exam ENT Exam: Mucous Membranes Moist - Respiratory Exam Respiratory Exam: Clear to PA & Lateral, NORMAL BREATHING PATTERN, UNREMARKABLE - Cardiovascular Exam Cardiovascular Exam: REGULAR RHYTHM, RRR, +S1, +S2. absent: JVD - GI/Abdominal Exam GI & Abdominal Exam: Normal Bowel Sounds, Soft. absent: Distended, Firm, Guarding, Mass, Pulsatile Mass, Rebound, Rigid, Tenderness Additional comments: decreased distention s/p paracentiesis - Extremities Exam Extremities exam: normal capillary refill, pedal pulses present - Neurological Exam Neurological exam: Alert, CN II-XII Intact, Normal Gait, Oriented x3, Reflexes Normal - Psychiatric Exam Psychiatric exam: Normal Affect, Normal Mood - Skin Skin Exam: Dry, Warm Additional comments: jaundiced Discharge Plan - Follow Up Plan Condition: FAIR Disposition: HOME/ ROUTINE Instructions: Abdominal Paracentesis, Fluid in the Belly (Ascites) Additional Instructions: follow up with primary doctor in 2-3 days do not drink alcohol take medications as prescibed follow up with Dr. Tabares Referrals: [facility] [Outside] Nestor Tabares MD [Medical Doctor] -
--- NOTE | 2017-11-03 15:27 | CP.PCM.PN ---
<Gamal Rendon - Last Filed: 11/03/17 15:28> Subjective - Date & Time of Evaluation Date of Evaluation: 11/03/17 Time of Evaluation: 08:00 - Subjective Subjective: PGY5 GI Follow-up Pt seen and examined bedside Denies any abd pain s/p IR paracentesis Denies any fever, chills or diaphoresis ROS: 12 point ROS conducted, neg other than above Objective - Vital Signs/Intake and Output Vital Signs (last 24 hours): Temp Pulse Resp BP Pulse Ox 97.8 F 55 L 18 94/57 L 98 11/03/17 08:06 11/03/17 08:06 11/03/17 08:06 11/03/17 08:06 11/03/17 08:06 - Medications Medications: Current Medications Acetaminophen (Tylenol 325mg Tab) 650 mg PO Q6 PRN PRN Reason: Pain, moderate (4-7) Last Admin: 11/02/17 21:36 Dose: 650 mg Albuterol (Ventolin Hfa 90 Mcg/Actuation (8 G)) 2 puff IH Q6 PRN PRN Reason: Shortness of Breath Ceftriaxone Sodium 1 gm/ (Sodium Chloride) 100 mls @ 100 mls/hr IVPB DAILY BARBARA PRN Reason: Protocol Last Admin: 11/03/17 09:47 Dose: 100 mls/hr Octreotide Acetate 1,250 mcg/ (Sodium Chloride) 252.5 mls @ 10 mls/hr IV .Q24H BARBARA PRN Reason: Protocol Last Admin: 11/02/17 16:43 Dose: 10 mls/hr Lactulose (Enulose) 10 gm PO BID [facility] Last Admin: 11/03/17 09:47 Dose: 10 gm Midodrine (Proamatine) 10 mg PO TID [facility] Last Admin: 11/03/17 13:41 Dose: 10 mg Ondansetron HCl (Zofran Inj) 4 mg IVP Q6 PRN PRN Reason: Nausea/Vomiting Last Admin: 11/03/17 09:51 Dose: 4 mg Pantoprazole Sodium (Protonix Ec Tab) 40 mg PO DAILY [facility] Last Admin: 11/03/17 09:47 Dose: 40 mg - Labs Labs: 11/03/17 06:30 11/03/17 06:30 PT 21.0 Seconds (9.8-13.1) H 11/03/17 06:30 INR 1.9 (0.9-1.2) H 11/03/17 06:30 APTT 35.4 Seconds (25.6-37.1) 11/01/17 18:18 - Constitutional Appears: Well, No Acute Distress - Head Exam Head Exam: ATRAUMATIC, NORMOCEPHALIC - Eye Exam Eye Exam: Scleral icterus - ENT Exam ENT Exam: Mucous Membranes Moist, Normal Exam - Neck Exam Neck Exam: Normal Inspection - Respiratory Exam Respiratory Exam: Clear to Ausculation Bilateral, NORMAL BREATHING PATTERN. absent: Prolonged Expiratory Phase, Rales, Rhonchi, Wheezes, Respiratory Distress - Cardiovascular Exam Cardiovascular Exam: REGULAR RHYTHM, +S1, +S2 - GI/Abdominal Exam GI & Abdominal Exam: Soft, Normal Bowel Sounds. absent: Firm, Guarding, Rigid, Tenderness, Organomegaly, Rebound Additional comments: decreased abd girth - Extremities Exam Extremities Exam: absent: Joint Swelling, Pedal Edema - Neurological Exam Neurological Exam: Alert, Awake, Oriented x3 - Psychiatric Exam Psychiatric exam: Normal Affect, Normal Mood - Skin Skin Exam: Dry, Intact, Normal Color, Warm Assessment and Plan - Assessment and Plan (Free Text) Assessment: Patient is a 47yo female with PMHx significant for decompensated EtOH cirrhosis c/b ascites and hepatic encephalopathy, asthma who presented to the ED with abdominal pain -Abd Ascities, s/p paracentesis 2.5L -Abd pain -renal dysfunction 2/2 SBP? vs Pre-renal? vs HRS? -Decompensated EtOH cirrhosis with history of ascites/HE Plan: MELD continue Lactulose hold diuretics as an oupt give an additional 1g/kg albumn before discharge Cr improving abd paracentesis <250 pmn, unlikely SBP nonetheless, finish a 5 day course of ciprofloxacon 500mg BID for 5 days can s/d home as per GI, follow-up in GI clinic within 2-4 weeks advised alcohol abstinence D/W Dr. Tabares <Nestor Tabares - Last Filed: 11/03/17 16:38> Objective - Vital Signs/Intake and Output Vital Signs (last 24 hours): Temp Pulse Resp BP Pulse Ox 97.9 F 56 L 19 125/74 99 11/03/17 15:45 11/03/17 15:45 11/03/17 15:45 11/03/17 15:45 11/03/17 15:45 - Medications Medications: Current Medications Acetaminophen (Tylenol 325mg Tab) 650 mg PO Q6 PRN PRN Reason: Pain, moderate (4-7) Last Admin: 11/02/17 21:36 Dose: 650 mg Albuterol (Ventolin Hfa 90 Mcg/Actuation (8 G)) 2 puff IH Q6 PRN PRN Reason: Shortness of Breath Ceftriaxone Sodium 1 gm/ (Sodium Chloride) 100 mls @ 100 mls/hr IVPB DAILY BARBARA PRN Reason: Protocol Last Admin: 11/03/17 09:47 Dose: 100 mls/hr Octreotide Acetate 1,250 mcg/ (Sodium Chloride) 252.5 mls @ 10 mls/hr IV .Q24H BARBARA PRN Reason: Protocol Last Admin: 11/02/17 16:43 Dose: 10 mls/hr Lactulose (Enulose) 10 gm PO BID [facility] Last Admin: 11/03/17 09:47 Dose: 10 gm Midodrine (Proamatine) 10 mg PO TID [facility] Last Admin: 11/03/17 13:41 Dose: 10 mg Ondansetron HCl (Zofran Inj) 4 mg IVP Q6 PRN PRN Reason: Nausea/Vomiting Last Admin: 11/03/17 09:51 Dose: 4 mg Pantoprazole Sodium (Protonix Ec Tab) 40 mg PO DAILY [facility] Last Admin: 11/03/17 09:47 Dose: 40 mg - Labs Labs: 11/03/17 06:30 11/03/17 06:30 PT 21.0 Seconds (9.8-13.1) H 11/03/17 06:30 INR 1.9 (0.9-1.2) H 11/03/17 06:30 APTT 35.4 Seconds (25.6-37.1) 11/01/17 18:18 Attending/Attestation - Attestation I have personally seen and examined this patient.: Yes I have fully participated in the care of the patient.: Yes I have reviewed all pertinent clinical information, including history, physical exam and plan: Yes Notes (Text): 11/03/17 16:36 Patient seen this am on GI rounds. This is a 47 year old female with PMHx significant for decompensated EtOH cirrhosis c/b ascites and hepatic encephalopathy, asthma who presented to the ED with abdominal pain and increasing girth. She is s/p abdominal paracentesis of 2.2 lts with uptrending Cr. Azotemia resolved with albumin. Abdominal doppler with no portal vein thrombosis. Low salt diet. Follow [facility].
[2017-11-03 15:46] VITALS: BP 125/74; PULSE 56; RESP 19; TEMP 97.9; O2SAT 99
--- NOTE | 2017-11-05 21:30 | CARD ---
APPROVED REPORT EKG Measurement Heart [id number] <Conclusion> Sinus bradycardia Otherwise normal ECG
== END 2017-11-03 17:55 | disposition home or self-care (01) | DRG 433 ==
LOC: H.ER 16:50 → H.ERHOLD 17:57 → H.MEDSURG1 22:45 → OBSVTOIN 11-02 14:51
PROVIDERS: ADMIT Family Medicine Geriatric Medicine; ATTEND Family Medicine Geriatric Medicine
PROC: 0W9G3ZZ Drainage of Peritoneal Cavity, Percutaneous Approach (ICD-10-PCS; principal; 2017-11-01)
PROC: 30233K1 Transfusion of Nonautologous Frozen Plasma into Peripheral Vein, Percutaneous Approach (ICD-10-PCS; 2017-11-02)
DX: K70.31 Alcoholic cirrhosis of liver with ascites (principal); K76.6 Portal hypertension; N17.9 Acute kidney failure, unspecified; K70.40 Alcoholic hepatic failure without coma; D69.59 Other secondary thrombocytopenia; R79.1 Abnormal coagulation profile; K20.8 Other esophagitis; I10 Essential (primary) hypertension; E78.5 Hyperlipidemia, unspecified; D63.8 Anemia in other chronic diseases classified elsewhere; K31.89 Other diseases of stomach and duodenum; J45.909 Unspecified asthma, uncomplicated; F12.90 Cannabis use, unspecified, uncomplicated; Z91.041 Radiographic dye allergy status

== ENCOUNTER 2018-01-06 18:25 | Inpatient (IN) | payer MEDICARE, MEDICAID ==
[2018-01-06] MEDS ORDERED: Sodium Chloride 0.9% 1,000 ML IV STA ×2 (18:43→23:18)
--- NOTE | 2018-01-06 18:46 | ED PDOC ---
HPI: Abdomen Time Seen by Provider: 01/06/18 18:32 Chief Complaint (Nursing): Abdominal Pain Chief Complaint (Provider): Back pain History Per: Patient History/Exam Limitations: no limitations Onset/Duration Of Symptoms: Days (1 month) Outside of [place] travel?: No Additional Complaint(s): Pt. with back pain R and abd pain diffuse for 1 month. Also nausea, vomit, nonbloody. No diarrhea. No weakness, numbness, tingles, incontinence, constipation. No chest pain, dyspnea. No fever, cough. No injury. Seen by Dr. Zarco Sunday and advised to go to the ER. Has liver cirrhosis. Past Medical History Reviewed: Nursing Documentation, Vital Signs Vital Signs: Last Vital Signs Temp 98.5 F 01/06/18 18:34 Pulse 83 01/06/18 18:34 Resp 18 01/06/18 18:34 BP 92/60 L 01/06/18 18:34 Pulse Ox 100 01/06/18 21:34 - Medical History PMH: Anemia, Asthma, HTN Denies: Chronic Kidney Disease, Sickle Cell Disease, Sleep Apnea Other PMH: Liver failure - Surgical History Surgical History: Endoscopy, - Family History Family History: States: Unknown Family Hx - Living Arrangements Living Arrangements: With Family - Home Medications Home Medications: Ambulatory Orders Medication Instructions Recorded Albuterol Sulfate [Proair Hfa] 2 puff IH Q6 PRN 11/01/17 Ferrous Sulfate [Feosol] 325 mg PO BID 11/01/17 Folic Acid 1 mg PO DAILY 11/01/17 Lactulose [Generlac] 15 ml PO BID PRN 11/01/17 Ursodiol [Actigall] 300 mg PO Q12 11/01/17 rifAXIMin [Xifaxan] 550 mg PO Q12 11/01/17 - Allergies Allergies/Adverse Reactions: Allergies Allergy/AdvReac Type Severity Reaction Status Date / Time iodine Allergy SHORTNESS Verified 11/01/17 17:02 OF BREATH Review of Systems ROS Statement: Except As Marked, All Systems Reviewed And Found Negative Gastrointestinal: Positive for: Nausea, Vomiting, Abdominal Pain Musculoskeletal: Positive for: Back Pain Physical Exam - Reviewed Nursing Documentation Reviewed: Yes Vital Signs Reviewed: Yes - Physical Exam Appears: Positive for: Uncomfortable Head Exam: Positive for: ATRAUMATIC, NORMAL INSPECTION, NORMOCEPHALIC Skin: Positive for: Normal Color, Warm, DRY Eye Exam: Positive for: EOMI, Normal appearance, PERRL ENT: Positive for: Normal ENT Inspection Neck: Positive for: Normal, Painless ROM Cardiovascular/Chest: Positive for: Regular Rate, Rhythm Respiratory: Positive for: CNT, Normal Breath Sounds Gastrointestinal/Abdominal: Positive for: Normal Exam, Soft, Tenderness (diffuse ). Negative for: Distended Back: Positive for: R CVA Tenderness. Negative for: L CVA Tenderness Extremity: Positive for: Normal ROM. Negative for: Tenderness Neurologic/Psych: Positive for: Alert, Oriented - Laboratory Results Result Diagrams: 01/06/18 19:11 01/06/18 19:11 Interpretation Of Abn Labs: 6.7 hg; 5.3 k, bun/cr elevation; urine wbc - ECG ECG: Positive for: Interpreted By Me, Viewed By Me ECG Rhythm: Positive for: Normal QRS, Normal ST Segment, Sinus Rhythm O2 Sat by Pulse Oximetry: 100 Pulse Ox Interpretation: Normal - Progress ED Course And Treament: 800pm: Stable. Continue fluids. 900pm: Spoke with [facility] resident who will admit. 1000pm: Continue blood transfusion. Per notes, pt. bp usually low in 80-90 systolic. - Critical Care Total Time (In Min): 30 Documented Critical Care: Time excludes all time spent performint seperately billable procedures Disposition - Clinical Impression Clinical Impression: Hyperkalemia, Anemia, UTI (urinary tract infection), Abdominal pain - Patient ED Disposition Is Patient to be Admitted: No Counseled Patient/Family Regarding: Studies Performed, Diagnosis - Disposition Disposition Time: 23:26 Condition: FAIR - Pt Status Changed To: Hospital Disposition Of: Inpatient - Admit Certification Admit to Inpatient:: After my assessment, the patient will require hospitalization for at least two midnights. This is because of the severity of symptoms shown, intensity of services needed, and/or the medical risk in this patient being treated as an outpatient. - POA Present On Arrival: None
[2018-01-06 19:21] LABS: INR 1.9; PROTHROMBIN TIME 21.2 Seconds (9.8-13.1)
[2018-01-06 19:23] LABS: PARTIAL THROMBOPLASTIN TIME 33.7 Seconds (25.6-37.1)
[2018-01-06 19:26] LABS: ALB/GLOB RATIO 0.6 (1.0-2.1); ALBUMIN 2.7 g/dL (3.5-5.0); CALCIUM 8.3 mg/dL (8.4-10.2)
[2018-01-06] MEDS ORDERED: Sod Polystyrene Sulf 15 gm/60 ml Susp PO STA (19:35)
[2018-01-06 19:36] LABS: BASO % 0.7 % (0.0-2.0); EOS % 0.2 % (0.0-4.0); LYMPH # 0.8 K/uL (1.0-4.3); LYMPH % 18.9 % (20.0-40.0); MEAN CELL VOLUME 106.3 fl (81.0-99.0); MEAN CORPUSCULAR HEMOGLOBIN 36.5 pg (27.0-31.0); MEAN CORPUSCULAR HGB CONC 34.3 g/dL (33.0-37.0); MEAN PLATELET VOLUME 9.2 fl (7.2-11.7); MONO # 0.9 K/uL (0.0-0.8); MONO % 22.1 % (0.0-10.0); NEUT # 2.5 K/uL (1.8-7.0); NEUT % 58.1 % (50.0-75.0); NRBC % 0.3 % (0.0-0.0); PLATELET COUNT 81 K/uL (130-400); RBC 1.85 Mil/uL (3.80-5.20); RED CELL DISTRIBUTION WIDTH 15.4 % (11.5-14.5); WHITE BLOOD COUNT 4.2 K/uL (4.8-10.8)
[2018-01-06] MEDS ORDERED: Sod Polystyrene Sulf 15 gm/60 ml Susp ONE (19:43)
[2018-01-06 19:49] LABS: HEMOGLOBIN 6.7 g/dL (12.0-16.0)
[2018-01-06 19:52] LABS: URINE COLOR YELLOW (YELLOW)
[2018-01-06 19:54] LABS: URINE CLARITY CLOUDY (Clear); URINE GLUCOSE (UA) NEGATIVE (Normal)
[2018-01-06 19:55] LABS: URINE BILIRUBIN NEGATIVE (NEGATIVE); URINE BLOOD NEGATIVE (NEGATIVE); URINE PROTEIN 30 mg/dL (NEGATIVE)
[2018-01-06 19:56] LABS: SQUAMOUS EPITHIAL 1 /hpf (0-5); URINE LEUKOCYTE ESTERASE LARGE Leu/uL (Negative); URINE UROBILINOGEN 0.2-1.0 mg/dL (0.2-1.0)
[2018-01-06 19:57] LABS: URINE BACTERIA MANY (<OCC)
[2018-01-06 21:07] LABS: ANISOCYTOSIS SLIGHT; LYMPHOCYTE 19 % (20-50); MONOCYTE 19 % (0-10); NEUTROPHIL 62 % (42-75); PLATELET ESTIMATE DECREASED (NORMAL); POIKILOCYTOSIS SLIGHT; TOTAL CELLS COUNTED 100
[2018-01-06] MEDS ORDERED: cefTRIAXone (Rocephin) 1 gm Inj IV ONE (21:31)
[2018-01-06] MEDS ORDERED: cefTRIAXone (Rocephin) 1 gm Inj ONE (21:44)
--- NOTE | 2018-01-06 22:57 | CP.PCM.HP ---
Addendum entered and electronically signed by Isabel Villanueva MD 01/07/18 02:58: BP remains low after 2L of IVF Will start PRBC transfusion, pt AAOx 3, NAD Manual BP systolic 78 Will admit pt to ICU Original Note: <Isabel Villanueva - Last Filed: 01/07/18 00:25> History of Present Illness - History of Present Illness History of Present Illness: CC: abdominal pain HPI: 47 YO female with PMHx of Cirrhosis, HTN and asthma presents to [facility] ED for abdominal pain. Pt states that her abdominal pain started about 2 wks ago, with worsening pain. Pain located all over the abdomen worse in the R side ( upper and lower), associated with nausea and vomiting. Last emesis was two days ago, normal food (previously had 1x of blood in her vomit). Emesis and nausea resolved after pt was prescribed reglan (Sunday). Last BM yesterday evening, normal BM, brownish/greenish in color, no blood noted. Additionally, pt states that she has been experiencing R sided weakness for the past two weeks, endorsing balance problems and having trouble ambulating. Pt was last seen in clinic on Sunday. Last paracentesis was , 2.4L PMD: Dr. Zarco PMHx: HTN, Asthma, Alcoholic Liver cirrhosis with Ascites, hx of Anemia (with blood transfusion in the past) PSHx: C-Sections x 3 FHx: Hypertensions in sibling and Liver failure in father Social History: Denies smoking, hx of ETOH use last use was 1+ yr ago, and denies illicit use Allergies: iodine--dyspnea Meds: namadol, carvidilol, furosemide, ursodiol, spirnalactone, rifaximin, metroproclopamide Next of kin: Daughter: Loli: [phone] ED course: VS: Stable, afebrile with BP of 92/60 Blood work: 4.2>6.7/19.6<81, INR 1.9 131/5.3, 99/24, 25/1.7, 109 T ilir 3.7, Alk phos 136, Lipase 572 UA +large leukes Meds: kayaxlate, Rocephin, Protonix, toradol, morphine, IVF x 2, Zofran Present on Admission - Present on Admission Any Indicators Present on Admission: No Review of Systems - Constitutional Constitutional: Fatigue, Malaise. absent: Chills, Fever - Cardiovascular Cardiovascular: absent: Chest Pain, Dyspnea, Palpitations - Respiratory Respiratory: absent: Cough, Dyspnea - Gastrointestinal Gastrointestinal: Abdominal Pain. absent: Constipation, Diarrhea, Nausea, Vomiting - Genitourinary Genitourinary: absent: Difficulty Urinating, Dysuria, Hematuria - Musculoskeletal Musculoskeletal: Other (R sided weakness) - Neurological Neurological: Dizziness, Focal Weakness (R sided ) Past Patient History - Past Medical History & Family History Past Medical History?: Yes - Past Social History Smoking Status: Never Smoked Alcohol: None Drugs: Denies Home Situation {Lives}: Friends - CARDIAC Hx Hypertension: Yes - PULMONARY Hx Asthma: Yes Hx Sleep Apnea: No - NEUROLOGICAL Hx Neurological Disorder: No - HEENT Hx HEENT Problems: No - RENAL Hx Chronic Kidney Disease: No - ENDOCRINE/METABOLIC Hx Endocrine Disorders: No - HEMATOLOGICAL/ONCOLOGICAL Hx Anemia: Yes Hx Sickle Cell Disease: No - INTEGUMENTARY Hx Dermatological Problems: No - MUSCULOSKELETAL/RHEUMATOLOGICAL Hx Musculoskeletal Disorders: No Hx Falls: Yes - GASTROINTESTINAL Hx Gastrointestinal Disorders: Yes Hx Liver Failure: Yes - GENITOURINARY/GYNECOLOGICAL Hx Genitourinary Disorders: No - PSYCHIATRIC Hx Psychophysiologic Disorder: No Hx Substance Use: Yes (marijuana) - ANESTHESIA Hx Anesthesia: Yes Hx Anesthesia Reactions: No Hx Malignant Hyperthermia: No Meds Allergies/Adverse Reactions: Allergies Allergy/AdvReac Type Severity Reaction Status Date / Time iodine Allergy SHORTNESS Verified 11/01/17 17:02 OF BREATH Physical Exam - Constitutional Appears: No Acute Distress, Cachectic, Other (mild jaundice ) - Eye Exam Eye Exam: EOMI, Scleral icterus - ENT Exam ENT Exam: Mucous Membranes Moist - Respiratory Exam Respiratory Exam: Clear to Auscultation Bilateral, NORMAL BREATHING PATTERN. absent: Wheezes - Cardiovascular Exam Cardiovascular Exam: REGULAR RHYTHM, +S1, +S2 - GI/Abdominal Exam GI & Abdominal Exam: Distended (mild), Hyperactive Bowel Sounds, Normal Bowel Sounds, Tenderness (generalized ). absent: Rebound - Extremities Exam Extremities exam: Positive for: normal inspection. Negative for: calf tenderness, pedal edema - Back Exam Back exam: NORMAL INSPECTION. absent: CVA tenderness (L), CVA tenderness (R) - Neurological Exam Neurological exam: Alert, Motor Sensory Deficit (decrease sensation in the R side upper and low ext), Oriented x3 Additional comments: + pronator drift Decrease strength in the R (when compared to L) - Skin Skin Exam: Pallor Additional comments: Spider Angioma in the chest Results - Vital Signs Recent Vital Signs: Last Vital Signs Temp 98.5 F 01/06/18 18:34 Pulse 83 01/06/18 18:34 Resp 18 01/06/18 18:34 BP 92/60 L 01/06/18 18:34 Pulse Ox 100 01/06/18 21:34 - Labs Result Diagrams: 01/06/18 19:11 01/06/18 19:11 Labs: Laboratory Results - last 24 hr 01/06/18 01/06/18 01/06/18 19:11 19:11 19:11 WBC 4.2 L RBC 1.85 L Hgb 6.7 L D Hct 19.6 L MCV 106.3 H D MCH 36.5 H MCHC 34.3 RDW 15.4 H Plt Count 81 L D MPV 9.2 Neut % (Auto) 58.1 Lymph % (Auto) 18.9 L [place] % (Auto) 22.1 H Eos % (Auto) 0.2 Baso % (Auto) 0.7 Neut # (Auto) 2.5 Lymph # (Auto) 0.8 L [place] # (Auto) 0.9 H Eos # (Auto) 0.0 Baso # (Auto) 0.0 Neutrophils % (Manual) 62 Lymphocytes % (Manual) 19 L Monocytes % (Manual) 19 H Platelet Estimate Decreased L Poikilocytosis (manual Slight Anisocytosis (manual) Slight Macrocytosis (manual) Moderate PT 21.2 H INR 1.9 APTT 33.7 Sodium 131 L Potassium 5.3 H Chloride 99 Carbon Dioxide 24 Anion Gap 13 BUN 25 H Creatinine 1.7 H Est GFR ( Amer) 39 Est GFR (Non-Af Amer) 32 Random Glucose 109 H Calcium 8.3 L Total Bilirubin 3.7 H AST 35 ALT 31 Alkaline Phosphatase 136 H D Total Protein 7.1 Albumin 2.7 L D Globulin 4.3 H Albumin/Globulin Ratio 0.6 L Lipase 572 H Urine Color Urine Clarity Urine pH Ur Specific [place] Urine Protein Urine Glucose (UA) Urine Ketones Urine Blood Urine Nitrate Urine Bilirubin Urine Urobilinogen Ur Leukocyte Esterase Urine RBC (Auto) Urine Microscopic WBC Ur Squamous Epith Cells Urine Bacteria 01/06/18 19:18 WBC RBC Hgb Hct MCV MCH MCHC RDW Plt Count MPV Neut % (Auto) Lymph % (Auto) [place] % (Auto) Eos % (Auto) Baso % (Auto) Neut # (Auto) Lymph # (Auto) [place] # (Auto) Eos # (Auto) Baso # (Auto) Neutrophils % (Manual) Lymphocytes % (Manual) Monocytes % (Manual) Platelet Estimate Poikilocytosis (manual Anisocytosis (manual) Macrocytosis (manual) PT INR APTT Sodium Potassium Chloride Carbon Dioxide Anion Gap BUN Creatinine Est GFR ( Amer) Est GFR (Non-Af Amer) Random Glucose Calcium Total Bilirubin AST ALT Alkaline Phosphatase Total Protein Albumin Globulin Albumin/Globulin Ratio Lipase Urine Color Yellow Urine Clarity Cloudy Urine pH 6.0 Ur Specific [place] 1.014 Urine Protein 30 Urine Glucose (UA) Negative Urine Ketones Negative Urine Blood Negative Urine Nitrate Negative Urine Bilirubin Negative Urine Urobilinogen 0.2-1.0 Ur Leukocyte Esterase Large Urine RBC (Auto) 3 Urine Microscopic WBC 145 H Ur Squamous Epith Cells 1 Urine Bacteria Many H - Impressions Impression: EXAM: CT Abdomen and Pelvis Without Intravenous Contrast IMPRESSION: 1. Large volume of ascites in the abdomen or pelvis. 2. Cholelithiasis. 3. Peritoneal thickening and some nodularity anteriorly may represent lymph nodes versus vessels Assessment & Plan - Assessment and Plan (Free Text) Assessment: Assessment/Plan: 47 YO female with PMHx of Cirrhosis, HTN and asthma is admitted for symptomatic anemia, hyperkalemia, UTI and right sided weakness. Symptomatic Macrocytic Anemia -hb/hct 6.7/19.6 -2 units of PRBC ordered -f/u post transfusion h/h -B12 and folate ordered -FOBT pending -follow up Generalize/Focal weakness -generalized fatigue with prominent R sided weakness x 2 wks -2/2 to anemia, r/o CVA -CT head w/o contrast ordered -follow up -neuro if needed -follow up blood work Abd pain -acute on chronic -elevated lipase, with cholelithiasis on CT -r/o pancreatitis, vs acute cholecystitis -abd u/s pending -NPO for now, IVFs -surgery consulted; follow up recs -follow up repeat lipase in AM -PRN Pain meds Ascites -CT abd and pelvis sig for large ascites -likely 2/2 to cirrhosis -cont SBP prophylaxis -likely need paracentesis by IR in AM -fluid analysis and cultures -consult GI if needed, follow by Dr. Bautista, Per clinic note -c/w protonix -follow up ammonia level, start lactulose as needed UTI -asymptomatic -+leukes on UA -Ucx pending -c/w abx Hyperkalemia -K 5.3 -EKG No acute ST and T waves changes noted, rate of 71. -s/p Katexalate 30mg -Repeat AM labs Cirrhosis -Chronic -cont home meds -Child-burch 12pts, class C -MELD score 27; 19.6% 3 month mortality Pancytopenia -likely 2/2 to cirrhosis -cont to monitor -replace as needed Hepatorenal syndrome/CKD -GFR 32, CKD stage 3B -IV fluids -follow up AM labs -cont to monitor HTN -BP low -will hold home meds for now -IVF and PRBC transfusion -cont to monitor Asthma -controlled -will cont home meds DVT pphx -SCDs for now -low h/h with thrombocytopenia, INR 1.9 -likely IR intervention in AM <Stevie Childress - Last Filed: 01/07/18 20:41> Results - Vital Signs Recent Vital Signs: Last Vital Signs Temp 97.8 F 01/07/18 20:00 Pulse 77 01/07/18 20:00 Resp 12 01/07/18 20:00 BP 84/55 L 01/07/18 20:00 Pulse Ox 97 01/07/18 20:00 - Labs Result Diagrams: 01/07/18 19:35 01/07/18 05:40 Labs: Laboratory Results - last 24 hr 01/06/18 01/06/18 01/07/18 19:11 22:30 02:23 WBC RBC Hgb Hct MCV MCH MCHC RDW Plt Count MPV Neut % (Auto) Lymph % (Auto) [place] % (Auto) Eos % (Auto) Baso % (Auto) Neut # (Auto) Lymph # (Auto) [place] # (Auto) Eos # (Auto) Baso # (Auto) Neutrophils % (Manual) 62 Lymphocytes % (Manual) 19 L Monocytes % (Manual) 19 H Platelet Estimate Decreased L Poikilocytosis (manual Slight Anisocytosis (manual) Slight Macrocytosis (manual) Moderate Sodium Potassium Chloride Carbon Dioxide Anion Gap BUN Creatinine Est GFR ( Amer) Est GFR (Non-Af Amer) Random Glucose Calcium Phosphorus Magnesium Total Bilirubin AST ALT Alkaline Phosphatase Ammonia Total Protein Albumin Globulin Albumin/Globulin Ratio Lipase Vitamin B12 Stool Occult Blood Negative Blood Type A POSITIVE Antibody Screen Negative Crossmatch See Detail BBK History Checked Patient has bt 01/07/18 01/07/18 01/07/18 05:40 05:40 11:21 WBC 3.3 L RBC 2.40 L Hgb 8.4 L Hct 23.3 L MCV 97.2 D MCH 34.8 H MCHC 35.8 RDW 17.7 H Plt Count 55 L D MPV 9.1 Neut % (Auto) 60.8 Lymph % (Auto) 21.2 [place] % (Auto) 17.2 H Eos % (Auto) 0.1 Baso % (Auto) 0.7 Neut # (Auto) 2.0 Lymph # (Auto) 0.7 L [place] # (Auto) 0.6 Eos # (Auto) 0.0 Baso # (Auto) 0.0 Neutrophils % (Manual) Lymphocytes % (Manual) Monocytes % (Manual) Platelet Estimate Poikilocytosis (manual Anisocytosis (manual) Macrocytosis (manual) Sodium 134 Potassium 4.6 Chloride 104 Carbon Dioxide 23 Anion Gap 12 BUN 26 H Creatinine 1.7 H Est GFR ( Amer) 39 Est GFR (Non-Af Amer) 32 Random Glucose 111 H Calcium 7.6 L Phosphorus 4.3 Magnesium 1.8 Total Bilirubin 3.2 H AST 31 ALT 29 Alkaline Phosphatase 118 Ammonia 90 H* D Total Protein 6.3 Albumin 2.3 L Globulin 4.0 H Albumin/Globulin Ratio 0.6 L Lipase 289 Vitamin B12 926 Stool Occult Blood Blood Type Antibody Screen Crossmatch BBK History Checked 01/07/18 01/07/18 14:12 19:35 WBC 3.2 L RBC 2.23 L Hgb 7.6 L Hct 21.9 L MCV 97.9 MCH 33.9 H MCHC 34.6 RDW 18.3 H Plt Count 45 L MPV Neut % (Auto) Lymph % (Auto) [place] % (Auto) Eos % (Auto) Baso % (Auto) Neut # (Auto) Lymph # (Auto) [place] # (Auto) Eos # (Auto) Baso # (Auto) Neutrophils % (Manual) Lymphocytes % (Manual) Monocytes % (Manual) Platelet Estimate Poikilocytosis (manual Anisocytosis (manual) Macrocytosis (manual) Sodium Potassium Chloride Carbon Dioxide Anion Gap BUN Creatinine Est GFR ( Amer) Est GFR (Non-Af Amer) Random Glucose Calcium Phosphorus Magnesium Total Bilirubin AST ALT Alkaline Phosphatase Ammonia 104 H* Total Protein Albumin Globulin Albumin/Globulin Ratio Lipase Vitamin B12 Stool Occult Blood Blood Type Antibody Screen Crossmatch BBK History Checked Assessment & Plan - Assessment and Plan (Free Text) Plan: Pt is seen and examined alongside the resident who saw patient for symptomatic anemia and abdominal pain. Pt was upgraded to ICU after she persisted to have hypotension and UTI. Pt in essence had septic shock and possible SBP and/or UTI and despite 2 units PRBC continued to be hypotensive. PT also with hyperammonemia at 90 and possible hepatorenal syndrome. High MELD and child burch score. Agree with assessment as per resident and treatment plan.
[2018-01-07] MEDS ORDERED: Albuterol-Ipratrop 3 mg / 0.5 (3 ml) UD INH PRN (00:16)
[2018-01-07] MEDS ORDERED: Hydrogen Peroxide 3% Soln (480ml) TP ONE ×2 (01:29→01:30)
[2018-01-07 06:05] LABS: ALB/GLOB RATIO 0.6 (1.0-2.1); ALBUMIN 2.3 g/dL (3.5-5.0); ALT/SGPT 29 U/L (9-52); AST/SGOT 31 U/L (14-36); BLOOD UREA NITROGEN 26 mg/dl (7-17); CALCIUM 7.6 mg/dL (8.4-10.2); GFR NON-AFRICAN AMERICAN 32; LIPASE 289 U/L (23-300)
[2018-01-07] MEDS ORDERED: Chlorhexidine Gluconate 1 APPL/PKT TP ONE (06:20)
--- NOTE | 2018-01-07 07:03 | CARD ---
APPROVED REPORT Date of service: 01/06/2018 EKG Measurement Heart [id number] <Conclusion> Normal sinus rhythm Normal ECG
[2018-01-07] MEDS ORDERED: Albumin Human 25% (12.5 gm/50 ml) IV STA (07:45)
[2018-01-07] MEDS ORDERED: Phytonadione 10 mg/ml Inj (Adult) SC ONE (08:00)
--- NOTE | 2018-01-07 08:03 | CP.CCUPN ---
CCU Subjective - Physician Review Events Since Last Encounter (Free Text): 01/07/18 17:24 The patient was Seen/interviewed and examined by me at the bedside during ICU round, Medical records reviewed and Management issues were discussed and formulated with the house staff. Events reviewed 47 Years old Female with PMHx of HTN, Asthma, Ascites and Alcoholic Liver cirrhosis Who presented to Emergency department with abdominal pain of 2 weeks duration associated with nausea and vomiting. + Coffee ground vomiting Today she more Awake, Alert, follow commands BP boarderline, Started on dopamine drip Comfortable, NAD Complaint of weakness, denies any chest pain or SOB Abd pain better. CCU Objective - Vital Signs / Intake & Output Vital Signs (Last 4 hours): Vital Signs Temp Pulse Resp BP 01/07/18 07:30 97.6 F 56 L 12 70/44 L 01/07/18 06:45 95 F L 53 L 10 L 68/34 L 01/07/18 06:28 92.9 F L 57 L 14 62/40 L Intake and Output (Last 8hrs): Intake & Output 01/06/18 01/07/18 01/07/18 22:59 06:59 14:59 Intake Total 1000 0 Output Total 250 Balance 1000 -250 Weight 85 lb 85 lb Intake: IV 1000 0 Intravenous #1 1000 Blood Product 0 Red Blood Cells Cpd As1 0 Lr Unit [id number] Red Blood Cells Cpd As1 0 Lr Unit [id number] Output: Urine 250 Urine, Voided 250 - Physical Exam Physical Exam Limitations: Positive for: Altered Mental Status Head: Positive for: Atraumatic, Normocephalic Pupils: Positive for: PERRL Extroacular Muscles: Positive for: EOMI Conjunctiva: Positive for: Icteric. Negative for: Injected Ears: Positive for: Normal Pharnyx: Positive for: Normal. Negative for: ERYTHEMA Neck: Positive for: Normal Range of Motion, Trachea Midline. Negative for: Meningeal Signs, MIDLINE TENDERNESS, Paraspinal Tenderness, JVD, Lymphadenopathy , Bruit, Other Respiratory/Chest: Positive for: Good Air Exchange, Decreased Breath Sounds. Negative for: Respiratory Distress, Accessory Muscle Use, Rhonchi Cardiovascular: Positive for: Regular Rate and Rhythm, Normal S1, S2, Peripheal Pulses Present. Negative for: Murmurs Abdomen: Positive for: Distention, Normal Bowel Sounds. Negative for: Tenderness, Rebound Upper Extremity: Positive for: Normal Inspection. Negative for: Cyanosis, Edema Lower Extremity: Positive for: Normal Inspection. Negative for: Edema, CALF TENDERNESS Neurological: Positive for: GCS=15, CN II-XII Intact, Speech Normal Psychiatric: Positive for: Alert, Oriented x 3. Negative for: Anxious, Agitated - Medications Active Medications: Active Medications Generic Name Dose Route Start Last Admin Trade Name Freq PRN Reason Stop Dose Admin Acetaminophen 650 mg 01/07/18 00:22 Tylenol 325mg Tab PO Q6 PRN Pain, Mild (1-3) Albuterol/Ipratropium 3 ml 01/07/18 00:16 Duoneb 3 Mg/0.5 Mg (3 Ml) Ud INH RQ6 PRN Shortness of Breath Piperacillin Sod/Tazobactam 100 mls @ 100 mls/hr 01/07/18 09:00 Sod 2.25 gm/ Sodium Chloride IVPB Q8 BARBARA Protocol Vancomycin HCl 1 gm/ Sodium 250 mls @ 166.667 mls/hr 01/07/18 09:00 Chloride IVPB Q12 BARBARA Protocol Lactulose 20 gm 01/07/18 09:00 Enulose PO TID BARBARA Morphine Sulfate 1 mg 01/07/18 00:23 Morphine IVP Q6 PRN Pain, moderate (4-7) Morphine Sulfate 2 mg 01/07/18 00:23 01/07/18 04:29 Morphine IVP 2 mg Q6 PRN Administration Pain, severe (8-10) Pantoprazole Sodium 40 mg 01/07/18 09:00 Protonix Inj IVP DAILY BARBARA - Patient Studies Lab Studies: Lab Studies 01/07/18 01/07/18 01/07/18 Range/Units 05:40 05:40 02:23 WBC (4.8-10.8) K/uL RBC (3.80-5.20) Mil/uL Hgb (12.0-16.0) g/dL Hct (34.0-47.0) % MCV (81.0-99.0) fl MCH (27.0-31.0) pg MCHC (33.0-37.0) g/dL RDW (11.5-14.5) % Plt Count (130-400) K/uL MPV (7.2-11.7) fl Neut % (Auto) (50.0-75.0) % Lymph % (Auto) (20.0-40.0) % Bennett % (Auto) (0.0-10.0) % Eos % (Auto) (0.0-4.0) % Baso % (Auto) (0.0-2.0) % Neut # (Auto) (1.8-7.0) K/uL Lymph # (Auto) (1.0-4.3) K/uL Bennett # (Auto) (0.0-0.8) K/uL Eos # (Auto) (0.0-0.7) K/uL Baso # (Auto) (0.0-0.2) K/uL Neutrophils % (Manual) (42-75) % Lymphocytes % (Manual) (20-50) % Monocytes % (Manual) (0-10) % Platelet Estimate (NORMAL) Poikilocytosis (manual Anisocytosis (manual) Macrocytosis (manual) PT (9.8-13.1) Seconds INR APTT (25.6-37.1) Seconds Sodium 134 (132-148) mmol/l Potassium 4.6 (3.6-5.0) MMOL/L Chloride 104 (98-107) mmol/L Carbon Dioxide 23 (22-30) mmol/L Anion Gap 12 (10-20) BUN 26 H (7-17) mg/dl Creatinine 1.7 H (0.7-1.2) mg/dl Est GFR ( Amer) 39 Est GFR (Non-Af Amer) 32 Random Glucose 111 H (65-105) mg/dL Calcium 7.6 L (8.4-10.2) mg/dL Phosphorus 4.3 (2.5-4.5) mg/dl Magnesium 1.8 (1.6-2.3) MG/DL Total Bilirubin 3.2 H (0.2-1.3) mg/dl AST 31 (14-36) U/L ALT 29 (9-52) U/L Alkaline Phosphatase 118 (38-126) U/L Ammonia 90 H* D (11-51) umo/L Total Protein 6.3 (6.3-8.2) G/DL Albumin 2.3 L (3.5-5.0) g/dL Globulin 4.0 H (2.2-3.9) gm/dL Albumin/Globulin Ratio 0.6 L (1.0-2.1) Lipase 289 (23-300) U/L Vitamin B12 926 (239-931) pg/mL Urine Color (YELLOW) Urine Clarity (Clear) Urine pH (5.0-8.0) Ur Specific [place] (1.003-1.030) Urine Protein (NEGATIVE) mg/dL Urine Glucose (UA) (Normal) mg/dL Urine Ketones (NEGATIVE) mg/dL Urine Blood (NEGATIVE) Urine Nitrate (NEGATIVE) Urine Bilirubin (NEGATIVE) Urine Urobilinogen (0.2-1.0) mg/dL Ur Leukocyte Esterase (Negative) Fredy/uL Urine RBC (Auto) (0-3) /hpf Urine Microscopic WBC (0-5) /hpf Ur Squamous Epith Cells (0-5) /hpf Urine Bacteria (<OCC) Stool Occult Blood Negative (NEGATIVE) Blood Type Antibody Screen Crossmatch BBK History Checked 01/06/18 01/06/18 01/06/18 Range/Units 22:30 19:18 19:11 WBC (4.8-10.8) K/uL RBC (3.80-5.20) Mil/uL Hgb (12.0-16.0) g/dL Hct (34.0-47.0) % MCV (81.0-99.0) fl MCH (27.0-31.0) pg MCHC (33.0-37.0) g/dL RDW (11.5-14.5) % Plt Count (130-400) K/uL MPV (7.2-11.7) fl Neut % (Auto) (50.0-75.0) % Lymph % (Auto) (20.0-40.0) % Bennett % (Auto) (0.0-10.0) % Eos % (Auto) (0.0-4.0) % Baso % (Auto) (0.0-2.0) % Neut # (Auto) (1.8-7.0) K/uL Lymph # (Auto) (1.0-4.3) K/uL Bennett # (Auto) (0.0-0.8) K/uL Eos # (Auto) (0.0-0.7) K/uL Baso # (Auto) (0.0-0.2) K/uL Neutrophils % (Manual) (42-75) % Lymphocytes % (Manual) (20-50) % Monocytes % (Manual) (0-10) % Platelet Estimate (NORMAL) Poikilocytosis (manual Anisocytosis (manual) Macrocytosis (manual) PT 21.2 H (9.8-13.1) Seconds INR 1.9 APTT 33.7 (25.6-37.1) Seconds Sodium (132-148) mmol/l Potassium (3.6-5.0) MMOL/L Chloride (98-107) mmol/L Carbon Dioxide (22-30) mmol/L Anion Gap (10-20) BUN (7-17) mg/dl Creatinine (0.7-1.2) mg/dl Est GFR ( Amer) Est GFR (Non-Af Amer) Random Glucose (65-105) mg/dL Calcium (8.4-10.2) mg/dL Phosphorus (2.5-4.5) mg/dl Magnesium (1.6-2.3) MG/DL Total Bilirubin (0.2-1.3) mg/dl AST (14-36) U/L ALT (9-52) U/L Alkaline Phosphatase (38-126) U/L Ammonia (11-51) umo/L Total Protein (6.3-8.2) G/DL Albumin (3.5-5.0) g/dL Globulin (2.2-3.9) gm/dL Albumin/Globulin Ratio (1.0-2.1) Lipase (23-300) U/L Vitamin B12 (239-931) pg/mL Urine Color Yellow (YELLOW) Urine Clarity Cloudy (Clear) Urine pH 6.0 (5.0-8.0) Ur Specific [place] 1.014 (1.003-1.030) Urine Protein 30 (NEGATIVE) mg/dL Urine Glucose (UA) Negative (Normal) mg/dL Urine Ketones Negative (NEGATIVE) mg/dL Urine Blood Negative (NEGATIVE) Urine Nitrate Negative (NEGATIVE) Urine Bilirubin Negative (NEGATIVE) Urine Urobilinogen 0.2-1.0 (0.2-1.0) mg/dL Ur Leukocyte Esterase Large (Negative) Fredy/uL Urine RBC (Auto) 3 (0-3) /hpf Urine Microscopic WBC 145 H (0-5) /hpf Ur Squamous Epith Cells 1 (0-5) /hpf Urine Bacteria Many H (<OCC) Stool Occult Blood (NEGATIVE) Blood Type A POSITIVE Antibody Screen Negative Crossmatch See Detail BBK History Checked Patient has bt 01/06/18 01/06/18 Range/Units 19:11 19:11 WBC 4.2 L (4.8-10.8) K/uL RBC 1.85 L (3.80-5.20) Mil/uL Hgb 6.7 L D (12.0-16.0) g/dL Hct 19.6 L (34.0-47.0) % MCV 106.3 H D (81.0-99.0) fl MCH 36.5 H (27.0-31.0) pg MCHC 34.3 (33.0-37.0) g/dL RDW 15.4 H (11.5-14.5) % Plt Count 81 L D (130-400) K/uL MPV 9.2 (7.2-11.7) fl Neut % (Auto) 58.1 (50.0-75.0) % Lymph % (Auto) 18.9 L (20.0-40.0) % Bennett % (Auto) 22.1 H (0.0-10.0) % Eos % (Auto) 0.2 (0.0-4.0) % Baso % (Auto) 0.7 (0.0-2.0) % Neut # (Auto) 2.5 (1.8-7.0) K/uL Lymph # (Auto) 0.8 L (1.0-4.3) K/uL Bennett # (Auto) 0.9 H (0.0-0.8) K/uL Eos # (Auto) 0.0 (0.0-0.7) K/uL Baso # (Auto) 0.0 (0.0-0.2) K/uL Neutrophils % (Manual) 62 (42-75) % Lymphocytes % (Manual) 19 L (20-50) % Monocytes % (Manual) 19 H (0-10) % Platelet Estimate Decreased L (NORMAL) Poikilocytosis (manual Slight Anisocytosis (manual) Slight Macrocytosis (manual) Moderate PT (9.8-13.1) Seconds INR APTT (25.6-37.1) Seconds Sodium 131 L (132-148) mmol/l Potassium 5.3 H (3.6-5.0) MMOL/L Chloride 99 (98-107) mmol/L Carbon Dioxide 24 (22-30) mmol/L Anion Gap 13 (10-20) BUN 25 H (7-17) mg/dl Creatinine 1.7 H (0.7-1.2) mg/dl Est GFR ( Amer) 39 Est GFR (Non-Af Amer) 32 Random Glucose 109 H (65-105) mg/dL Calcium 8.3 L (8.4-10.2) mg/dL Phosphorus (2.5-4.5) mg/dl Magnesium (1.6-2.3) MG/DL Total Bilirubin 3.7 H (0.2-1.3) mg/dl AST 35 (14-36) U/L ALT 31 (9-52) U/L Alkaline Phosphatase 136 H D (38-126) U/L Ammonia (11-51) umo/L Total Protein 7.1 (6.3-8.2) G/DL Albumin 2.7 L D (3.5-5.0) g/dL Globulin 4.3 H (2.2-3.9) gm/dL Albumin/Globulin Ratio 0.6 L (1.0-2.1) Lipase 572 H (23-300) U/L Vitamin B12 (239-931) pg/mL Urine Color (YELLOW) Urine Clarity (Clear) Urine pH (5.0-8.0) Ur Specific [place] (1.003-1.030) Urine Protein (NEGATIVE) mg/dL Urine Glucose (UA) (Normal) mg/dL Urine Ketones (NEGATIVE) mg/dL Urine Blood (NEGATIVE) Urine Nitrate (NEGATIVE) Urine Bilirubin (NEGATIVE) Urine Urobilinogen (0.2-1.0) mg/dL Ur Leukocyte Esterase (Negative) Fredy/uL Urine RBC (Auto) (0-3) /hpf Urine Microscopic WBC (0-5) /hpf Ur Squamous Epith Cells (0-5) /hpf Urine Bacteria (<OCC) Stool Occult Blood (NEGATIVE) Blood Type Antibody Screen Crossmatch BBK History Checked Laboratory Results - last 24 hr 01/06/18 01/06/18 01/06/18 19:11 19:11 19:11 WBC 4.2 L RBC 1.85 L Hgb 6.7 L D Hct 19.6 L MCV 106.3 H D MCH 36.5 H MCHC 34.3 RDW 15.4 H Plt Count 81 L D MPV 9.2 Neut % (Auto) 58.1 Lymph % (Auto) 18.9 L Bennett % (Auto) 22.1 H Eos % (Auto) 0.2 Baso % (Auto) 0.7 Neut # (Auto) 2.5 Lymph # (Auto) 0.8 L Bennett # (Auto) 0.9 H Eos # (Auto) 0.0 Baso # (Auto) 0.0 Neutrophils % (Manual) 62 Lymphocytes % (Manual) 19 L Monocytes % (Manual) 19 H Platelet Estimate Decreased L Poikilocytosis (manual Slight Anisocytosis (manual) Slight Macrocytosis (manual) Moderate PT 21.2 H INR 1.9 APTT 33.7 Sodium 131 L Potassium 5.3 H Chloride 99 Carbon Dioxide 24 Anion Gap 13 BUN 25 H Creatinine 1.7 H Est GFR ( Amer) 39 Est GFR (Non-Af Amer) 32 Random Glucose 109 H Calcium 8.3 L Phosphorus Magnesium Total Bilirubin 3.7 H AST 35 ALT 31 Alkaline Phosphatase 136 H D Ammonia Total Protein 7.1 Albumin 2.7 L D Globulin 4.3 H Albumin/Globulin Ratio 0.6 L Lipase 572 H Vitamin B12 Urine Color Urine Clarity Urine pH Ur Specific [place] Urine Protein Urine Glucose (UA) Urine Ketones Urine Blood Urine Nitrate Urine Bilirubin Urine Urobilinogen Ur Leukocyte Esterase Urine RBC (Auto) Urine Microscopic WBC Ur Squamous Epith Cells Urine Bacteria Stool Occult Blood Blood Type Antibody Screen Crossmatch BBK History Checked 01/06/18 01/06/18 01/07/18 19:18 22:30 02:23 WBC RBC Hgb Hct MCV MCH MCHC RDW Plt Count MPV Neut % (Auto) Lymph % (Auto) Bennett % (Auto) Eos % (Auto) Baso % (Auto) Neut # (Auto) Lymph # (Auto) Bennett # (Auto) Eos # (Auto) Baso # (Auto) Neutrophils % (Manual) Lymphocytes % (Manual) Monocytes % (Manual) Platelet Estimate Poikilocytosis (manual Anisocytosis (manual) Macrocytosis (manual) PT INR APTT Sodium Potassium Chloride Carbon Dioxide Anion Gap BUN Creatinine Est GFR ( Amer) Est GFR (Non-Af Amer) Random Glucose Calcium Phosphorus Magnesium Total Bilirubin AST ALT Alkaline Phosphatase Ammonia Total Protein Albumin Globulin Albumin/Globulin Ratio Lipase Vitamin B12 Urine Color Yellow Urine Clarity Cloudy Urine pH 6.0 Ur Specific [place] 1.014 Urine Protein 30 Urine Glucose (UA) Negative Urine Ketones Negative Urine Blood Negative Urine Nitrate Negative Urine Bilirubin Negative Urine Urobilinogen 0.2-1.0 Ur Leukocyte Esterase Large Urine RBC (Auto) 3 Urine Microscopic WBC 145 H Ur Squamous Epith Cells 1 Urine Bacteria Many H Stool Occult Blood Negative Blood Type A POSITIVE Antibody Screen Negative Crossmatch See Detail BBK History Checked Patient has bt 01/07/18 01/07/18 05:40 05:40 WBC RBC Hgb Hct MCV MCH MCHC RDW Plt Count MPV Neut % (Auto) Lymph % (Auto) Bennett % (Auto) Eos % (Auto) Baso % (Auto) Neut # (Auto) Lymph # (Auto) Bennett # (Auto) Eos # (Auto) Baso # (Auto) Neutrophils % (Manual) Lymphocytes % (Manual) Monocytes % (Manual) Platelet Estimate Poikilocytosis (manual Anisocytosis (manual) Macrocytosis (manual) PT INR APTT Sodium 134 Potassium 4.6 Chloride 104 Carbon Dioxide 23 Anion Gap 12 BUN 26 H Creatinine 1.7 H Est GFR ( Amer) 39 Est GFR (Non-Af Amer) 32 Random Glucose 111 H Calcium 7.6 L Phosphorus 4.3 Magnesium 1.8 Total Bilirubin 3.2 H AST 31 ALT 29 Alkaline Phosphatase 118 Ammonia 90 H* D Total Protein 6.3 Albumin 2.3 L Globulin 4.0 H Albumin/Globulin Ratio 0.6 L Lipase 289 Vitamin B12 926 Urine Color Urine Clarity Urine pH Ur Specific [place] Urine Protein Urine Glucose (UA) Urine Ketones Urine Blood Urine Nitrate Urine Bilirubin Urine Urobilinogen Ur Leukocyte Esterase Urine RBC (Auto) Urine Microscopic WBC Ur Squamous Epith Cells Urine Bacteria Stool Occult Blood Blood Type Antibody Screen Crossmatch BBK History Checked EKG/Cardiology Studies: Cardiology / EKG Studies 01/06/18 18:43 ELECTROCARDIOGRAM Stat Comment: Mode Of Transportation: Reason For Exam: needed Review of Systems - Constitutional Constitutional: Weakness, Malaise. absent: Fever, Chills, Sweats - Cardiovascular Cardiovascular: absent: Acrocyanosis, Chest Pain, Chest Pain at Rest, Chest Pain with Activity, Claudication, Diaphoresis - Respiratory Respiratory: absent: Cough, Dyspnea, Hemoptysis, Dyspnea on Exertion, Wheezing, Snoring - Gastrointestinal Gastrointestinal: Abdominal Pain Critical Care Progress Note - Extremities/Vascular Does the Patient have a Central Venous Catheter?: No Does the Patient need a Central Venous Catheter?: No Does the Patient have a Tang Catheter?: No Does the Patient need a Tang Catheter?: No - Nutrition Nutrition: Nutrition Category Date Time Status NPO Diet [DIET] Diets 01/07/18 Breakfast Active Assessment/Plan (1) Severe sepsis Current Visit: Yes Status: Acute Priority: High Comment: Likely sec to UTI, R/O SBP IV Vanco, and Zosyn Follow up cultures, abdominal US to R/O acute cholecystitis (2) Hepatic encephalopathy Current Visit: No Status: Acute Comment: Improved mental Status. Continue Lactulose Consider adding Rifaximin (3) Altered mental status Current Visit: No Status: Acute Comment: Secondary to hypoglycemia, Uremenia and Hepatic encephalopathy Improved Frequent neuro check Neuro consult Head CT scan w/o contrast no evidence of acute findings (4) Abdominal pain Current Visit: Yes Status: Acute (5) Acute renal failure (ARF) Current Visit: No Status: Acute (6) History of cirrhosis of liver Current Visit: No Status: Acute (7) Hypoglycemia Current Visit: No Status: Acute (8) Symptomatic anemia Current Visit: No Status: Acute
[2018-01-07] MEDS ORDERED: DOPamine 400mg/250ml D5W 400 MG/250 ML BAG IV ONE (08:28)
[2018-01-07] MEDS ORDERED: [UNRECOGNIZED DRUG - OTHER] IV ONE (08:57)
[2018-01-07] MEDS ORDERED: DOPAMINE 800 MG/250 ML IV ONE (08:57)
--- NOTE | 2018-01-07 09:05 | CP.PCM.PN ---
<BishnuevaDayana - Last Filed: 01/07/18 11:01> Subjective - Date & Time of Evaluation Date of Evaluation: 01/07/18 Time of Evaluation: 08:00 - Subjective Subjective: Patient was seen,and examined in ICU unit this morning. Patient seen alert, awake, and Oriented x 3. Reporting generalized weakness sensation, but mainly in her right sided upper/lower extremities. Reports she has also had a numbness sensation in her right sided of the body for one month, tingling sensation in her hands x one month. Also states intermittent tongue numbness sensation x 1 month. Reports abdominal pain for 2 weeks, worsening for the last few days. Denies fevers, chills, chest pain, SOB. Had an episode of hematemesis 2 days ago , denies blood in urine or stools, denies melena. Having regular bowel movements , twice a day with lactulose PO twice a day. Objective - Vital Signs/Intake and Output Vital Signs (last 24 hours): Temp Pulse Resp BP Pulse Ox 97.6 F 59 L 13 82/52 L 100 01/07/18 08:46 01/07/18 08:46 01/07/18 08:46 01/07/18 08:46 01/07/18 08:00 Intake and Output: 01/07/18 01/07/18 06:59 18:59 Intake Total 1000 670 Output Total 250 Balance 750 670 - Medications Medications: Current Medications Acetaminophen (Tylenol 325mg Tab) 650 mg PO Q6 PRN PRN Reason: Pain, Mild (1-3) Albuterol/Ipratropium (Duoneb 3 Mg/0.5 Mg (3 Ml) Ud) 3 ml INH RQ6 PRN PRN Reason: Shortness of Breath Piperacillin Sod/Tazobactam (Sod 2.25 gm/ Sodium Chloride) 100 mls @ 100 mls/ hr IVPB Q8 SEDA PRN Reason: Protocol Vancomycin HCl 1 gm/ Sodium (Chloride) 250 mls @ 166.667 mls/hr IVPB Q12 SEDA PRN Reason: Protocol Lactulose (Enulose) 20 gm PO TID [facility] Last Admin: 01/07/18 08:42 Dose: 20 gm Morphine Sulfate (Morphine) 1 mg IVP Q6 PRN PRN Reason: Pain, moderate (4-7) Pantoprazole Sodium (Protonix Inj) 40 mg IVP DAILY SEDA Last Admin: 01/07/18 08:35 Dose: 40 mg - Labs Labs: 01/06/18 19:11 01/07/18 05:40 PT 21.2 Seconds (9.8-13.1) H 01/06/18 19:11 INR 1.9 01/06/18 19:11 APTT 33.7 Seconds (25.6-37.1) 01/06/18 19:11 - Skin Additional comments: Constitutional Appears: No Acute Distress, Cachectic, Other (mild jaundice ) - Eye Exam Eye Exam: EOMI, Scleral icterus - ENT Exam ENT Exam: Mucous Membranes Moist - Respiratory Exam Respiratory Exam: Clear to Auscultation Bilateral, NORMAL BREATHING PATTERN. absent: Wheezes - Cardiovascular Exam Cardiovascular Exam: REGULAR RHYTHM, +S1, +S2 - GI/Abdominal Exam GI & Abdominal Exam: Distended (mild), Hyperactive Bowel Sounds, Normal Bowel Sounds, Tenderness (generalized ). absent: Rebound - Extremities Exam Extremities exam: Positive for: normal inspection. Negative for: calf tenderness, pedal edema - Back Exam Back exam: NORMAL INSPECTION. absent: CVA tenderness (L), CVA tenderness (R) - Neurological Exam Neurological exam: Alert, Motor Sensory Deficit (decrease sensation in the R side upper and low ext), Oriented x3 Additional comments: + pronator drift Decrease strength in the R (when compared to L) - Skin Skin Exam: Pallor Additional comments: Spider Angioma in the face/chest Assessment and Plan - Assessment and Plan (Free Text) Assessment: 47 YO female with PMHx of Cirrhosis, HTN and asthma is admitted for symptomatic anemia, hyperkalemia, UTI, Hepato-Renal failure, suspected SBP, and with right sided weakness to r/o CVA. Plan: Hypotension -could 2/2 Hepato-Renal failure -s/p 2 L of NS in ER -will give Albumin 50 gm IV once -started on Dopamine IV by ICU attending -monitor BP Symptomatic Macrocytic Anemia -could be 2/2 mixed anemia -no evidence of active bleeding at this time -hgb/hct 6.7/19.6, elevated MCV on admission -s/p 2 units of PRBC -f/u repeat CBC post-transfusion -Pending Folate -Vitamin B12 WNL -FOBT negative on admission -GI consult , recommendations are appreciated Generalized/Focal weakness -generalized weakness with prominent R sided weakness, associated with paresthesias -R/O CVA -CT head w/o contrast preliminary report : no evidence of acute findings. Pending official report -Brain MRI ordered, f/u results -Neurology consult, recommendations are appreciated Abdominal pain -associated with ascitis 2/2 liver cirrhosis -suspected SBP, vs acute Cholecystitis -NPO -ON Vanco, and Zosyn day #1 -Mildly levated lipase on admission, repeat lipase WNL -CT scan reported cholelithiasis, and Pancreas -Pending abdominal US to r/o acute cholecystitis -Pain control, Avoid NSAIDs -GI consult , recommendations are appreciated Liver Cirrhosis with Ascites -CT abd and pelvis sig for large ascites on admission -suspected SBP -may benefit from paracentesis by IR, but noted elevated INR, and low platelets. Will consider once pt is more hemodinamicaly stable -fluid analysis and cultures if paracentesis -elevated ammonia level -c/w with lactulose PO seda, switch to RI if AMS -Child-burch 12pts, class C -MELD score 27; 19.6% 3 month mortality -GI consult , recommendations are appreciated UTI -UA on admission positive for leukocyte est, WBC, and many bact -F/U urine Culture -c/w abx Chronic Kidney disease -CKD stage 3 -monitor renal function Hyperkalemia -resolved, 4.6 this morning -K 5.3 on admission -EKG No acute ST and T waves changes noted, rate of 71 on admission. -s/p Katexalate 30mg Pancytopenia -likely 2/2 to cirrhosis -cont to monitor -replace as needed H/O Asthma -controlled, no on exacerbation -will cont home meds DVT prophylaxis -SCDs -low h/h with thrombocytopenia, INR 1.9 <Gina Jimenez - Last Filed: 01/07/18 13:57> Objective - Vital Signs/Intake and Output Vital Signs (last 24 hours): Temp Pulse Resp BP Pulse Ox 97.7 F 80 14 85/52 L 97 01/07/18 12:00 01/07/18 13:00 01/07/18 13:00 01/07/18 13:00 01/07/18 13:00 Intake and Output: 01/07/18 01/07/18 06:59 18:59 Intake Total 1000 1220 Output Total 250 Balance 750 1220 - Medications Medications: Current Medications Acetaminophen (Tylenol 325mg Tab) 650 mg PO Q6 PRN PRN Reason: Pain, Mild (1-3) Albuterol/Ipratropium (Duoneb 3 Mg/0.5 Mg (3 Ml) Ud) 3 ml INH RQ6 PRN PRN Reason: Shortness of Breath Piperacillin Sod/Tazobactam (Sod 2.25 gm/ Sodium Chloride) 100 mls @ 100 mls/ hr IVPB Q8 SEDA PRN Reason: Protocol Last Admin: 01/07/18 11:48 Dose: 100 mls/hr Vancomycin HCl 1 gm/ Sodium (Chloride) 250 mls @ 166.667 mls/hr IVPB Q12 SEDA PRN Reason: Protocol Last Admin: 01/07/18 12:59 Dose: 166.667 mls/hr Lactulose (Enulose) 20 gm PO TID [facility] Last Admin: 01/07/18 13:02 Dose: 20 gm Morphine Sulfate (Morphine) 1 mg IVP Q6 PRN PRN Reason: Pain, moderate (4-7) Pantoprazole Sodium (Protonix Inj) 40 mg IVP DAILY [facility] Last Admin: 01/07/18 08:35 Dose: 40 mg - Labs Labs: 01/07/18 11:21 01/07/18 05:40 PT 21.2 Seconds (9.8-13.1) H 01/06/18 19:11 INR 1.9 01/06/18 19:11 APTT 33.7 Seconds (25.6-37.1) 01/06/18 19:11 Attending/Attestation - Attestation I have personally seen and examined this patient.: Yes I have fully participated in the care of the patient.: Yes I have reviewed all pertinent clinical information, including history, physical exam and plan: Yes Notes (Text): Sepsis sec to UTI r/o SBP ( present on admission) - Pt is hypotensive, hypothermic - started on Dopamine drip -cont IV vanco and Zosyn - panculture
--- NOTE | 2018-01-07 09:36 | RAD ---
Date of service: 01/07/2018 PROCEDURE: CHEST RADIOGRAPH, 1 VIEW HISTORY: R/O [place] COMPARISON: Chest radiographs 11/03/2017. FINDINGS: LUNGS: Mildly diminished inspiratory volume noted. No acute infiltrate bilaterally. PLEURA: No pneumothorax or pleural fluid seen. CARDIOVASCULAR: Normal. OSSEOUS STRUCTURES: No significant abnormalities. VISUALIZED UPPER ABDOMEN: Normal. OTHER FINDINGS: None. IMPRESSION: Mildly diminished history volume. However, no acute infiltrate bilaterally, pleural effusion or pneumothorax. No acute cardiovascular changes.
--- NOTE | 2018-01-07 09:58 | CT ---
Date of service: 01/06/2018 PROCEDURE: CT Abdomen and Pelvis without intravenous contrast HISTORY: R/O stone COMPARISON: None. TECHNIQUE: Helical CT of the abdomen and pelvis was performed without oral or intravenous contrast as per referring physician request. Contrast dose: None Radiation dose: Total exam DLP = 194.55 mGy-cm. This CT exam was performed using one or more of the following dose reduction techniques: Automated exposure control, adjustment of the mA and/or kV according to patient size, and/or use of iterative reconstruction technique. FINDINGS: LOWER THORAX: Unremarkable. LIVER: Somewhat nodular hepatic contour is reiterated with liver stable in size. 102 hepatic granulomata are seen the right lobe liver once again. GALLBLADDER AND BILE DUCTS: Cholelithiasis identified within a mildly distended gallbladder. PANCREAS: Unremarkable. No gross lesion or ductal dilatation. SPLEEN: Unremarkable. ADRENALS: Unremarkable. No mass. KIDNEYS AND URETERS: Unremarkable. No hydronephrosis. No solid mass. VASCULATURE: Retro aortic left renal vein again identified. . No aortic aneurysm. BOWEL: Evaluation of the gastrointestinal tract is limited due the lack of oral contrast administration. No obstruction. No gross mural thickening. APPENDIX: Unremarkable. Normal appendix. PERITONEUM: Moderate ascites, increased in the interval versus recurrent. No free intraperitoneal gas. LYMPH NODES: Limited peritoneal lymphadenopathy is difficult exclude versus potential biopsies in the anterior mesentery. BLADDER: Urinary bladder appears distended. REPRODUCTIVE: Unremarkable. BONES: Old healed right 9th and 8th rib fractures reiterated. OTHER FINDINGS: None. IMPRESSION: 1. Cirrhotic liver again identified with potential varices versus mild lymphadenopathy in the anterior Mesentery. Right lobe hepatic granulomata reiterated. Cholelithiasis reiterated as well. The spleen is not appear significantly enlarged at this time however. 2. Moderate recurrent or increased ascites. Discordant preliminary report from [employer], 01/06/2018.
--- NOTE | 2018-01-07 10:32 | CT ---
Date of service: 01/07/2018 PROCEDURE: CT HEAD WITHOUT CONTRAST. HISTORY: right arm and leg numbness, weakness COMPARISON: Noncontrast head CT performed 07/02/17 TECHNIQUE: Axial computed tomography images were obtained through the head/brain without intravenous contrast. Radiation dose: Total exam DLP = 802.53 mGy-cm. This CT exam was performed using one or more of the following dose reduction techniques: Automated exposure control, adjustment of the mA and/or kV according to patient size, and/or use of iterative reconstruction technique. FINDINGS: HEMORRHAGE: No intracranial hemorrhage. BRAIN: No mass effect or edema. Scattered periventricular and subcortical white matter hypodensities, which are nonspecific, but often seen with chronic microvascular ischemic disease. Stable small calcification re-identified involving the right sided duke. Please note that MRI with diffusion imaging is more sensitive in the detection of acute ischemic event. VENTRICLES: No hydrocephalus. CALVARIUM: Unremarkable. PARANASAL SINUSES: Unremarkable as visualized. No significant inflammatory changes. MASTOID AIR CELLS: Unremarkable as visualized. No inflammatory changes. OTHER FINDINGS: None. IMPRESSION: Nonspecific white matter changes as above. Punctate calcification re-identified within the right-sided duke. Please note that MRI with diffusion imaging is more sensitive in the detection of acute ischemic event. Preliminary impression was provided by virtual radiologic. Findings discussed with MICHAELA Dey on 01/07/18 at 10:28 a.m..
[2018-01-07 11:34] LABS: BASO % 0.7 % (0.0-2.0); EOS % 0.1 % (0.0-4.0); HEMOGLOBIN 8.4 g/dL (12.0-16.0); LYMPH # 0.7 K/uL (1.0-4.3); LYMPH % 21.2 % (20.0-40.0); MEAN CELL VOLUME 97.2 fl (81.0-99.0); MEAN CORPUSCULAR HEMOGLOBIN 34.8 pg (27.0-31.0); MEAN CORPUSCULAR HGB CONC 35.8 g/dL (33.0-37.0); MEAN PLATELET VOLUME 9.1 fl (7.2-11.7); MONO # 0.6 K/uL (0.0-0.8); MONO % 17.2 % (0.0-10.0); NEUT % 60.8 % (50.0-75.0); NRBC % 0.3 % (0.0-0.0); RBC 2.4 Mil/uL (3.80-5.20); RED CELL DISTRIBUTION WIDTH 17.7 % (11.5-14.5); WHITE BLOOD COUNT 3.3 K/uL (4.8-10.8)
[2018-01-07] MEDS ORDERED: Albumin Human 25% (12.5 gm/50 ml) IV ONE (15:31)
[2018-01-07] MEDS ORDERED: Dextrose 5%/0.9% NS 1,000 ML IV SCH (15:45)
[2018-01-07 19:49] LABS: HEMOGLOBIN 7.6 g/dL (12.0-16.0); MEAN CELL VOLUME 97.9 fl (81.0-99.0); MEAN CORPUSCULAR HEMOGLOBIN 33.9 pg (27.0-31.0); MEAN CORPUSCULAR HGB CONC 34.6 g/dL (33.0-37.0); RBC 2.23 Mil/uL (3.80-5.20); RED CELL DISTRIBUTION WIDTH 18.3 % (11.5-14.5); WHITE BLOOD COUNT 3.2 K/uL (4.8-10.8)
[2018-01-07 21:49] LABS: FOLATE > 20.0 ng/mL
[2018-01-08] MEDS ORDERED: [UNRECOGNIZED DRUG - OTHER] IV ONE ×2 (01:12→08:38)
[2018-01-08] MEDS ORDERED: DOPAMINE 800 MG/250 ML IV ONE ×2 (01:12→08:38)
[2018-01-08 02:30] VITALS: BMI 16.6
[2018-01-08 05:28] LABS: BASO % 0.5 % (0.0-2.0); EOS % 0.1 % (0.0-4.0); HEMOGLOBIN 8.4 g/dL (12.0-16.0); LYMPH # 0.3 K/uL (1.0-4.3); LYMPH % 8.5 % (20.0-40.0); MEAN CELL VOLUME 98.5 fl (81.0-99.0); MEAN CORPUSCULAR HEMOGLOBIN 34.1 pg (27.0-31.0); MEAN CORPUSCULAR HGB CONC 34.6 g/dL (33.0-37.0); MONO # 0.6 K/uL (0.0-0.8); MONO % 14.7 % (0.0-10.0); NEUT # 3.1 K/uL (1.8-7.0); NEUT % 76.2 % (50.0-75.0); NRBC % 0.1 % (0.0-0.0); RBC 2.46 Mil/uL (3.80-5.20); RED CELL DISTRIBUTION WIDTH 18.5 % (11.5-14.5); WHITE BLOOD COUNT 4.1 K/uL (4.8-10.8)
[2018-01-08 05:31] LABS: CALCIUM 8.4 mg/dL (8.4-10.2)
[2018-01-08] MEDS ORDERED: Potassium Chloride 20 mEq ER Tab PO ONE (07:51)
--- NOTE | 2018-01-08 08:09 | CP.CCUPN ---
<Fariha Lion - Last Filed: 01/08/18 12:25> CCU Subjective - Physician Review Subjective (Free Text): 47 yo old female with hx alcoholic liver cirrhosis, HTN, asthma who presented to ED with abdominal pain x 2 weeks 2 days ago. Found to have sepsis, anemia and neurological changes (R sided weakness); admitted to ICU. Pt seen at bedside this morning, appears awake and alert, no acute distress. Abdominal pain improved, less pain now, still feels weak. BP remains borderline ; still on dopamine. Yesterday she received IV antibiotics (zosyn, vancomycin), and albumin. CCU Objective - Vital Signs / Intake & Output Vital Signs (Last 4 hours): Vital Signs Temp Pulse Resp BP Pulse Ox 01/08/18 07:57 68 18 95/52 L 100 01/08/18 06:54 65 18 96/59 L 100 01/08/18 06:00 67 12 96/59 L 100 01/08/18 05:00 98.5 F 63 21 98/50 L 100 Intake and Output (Last 8hrs): Intake & Output 01/07/18 01/08/18 01/08/18 22:59 06:59 14:59 Intake Total 822 736 140 Output Total 450 450 Balance 372 286 140 Weight 85 lb Intake: IV 292 633 140 Intake, Piggyback 450 103 Oral 80 0 Output: Urine 450 450 Urethral (Tang) 450 Urine, Voided 450 Other: # Bowel Movements 0 1 - Physical Exam Head: Positive for: Atraumatic, Normocephalic Pupils: Positive for: PERRL Extroacular Muscles: Positive for: EOMI Conjunctiva: Positive for: Icteric. Negative for: Injected Ears: Positive for: Normal Pharnyx: Negative for: ERYTHEMA Neck: Positive for: Normal Range of Motion. Negative for: Meningeal Signs, MIDLINE TENDERNESS Respiratory/Chest: Positive for: Good Air Exchange, Decreased Breath Sounds. Negative for: Respiratory Distress, Accessory Muscle Use, Rhonchi Cardiovascular: Positive for: Regular Rate and Rhythm, Normal S1, S2, Peripheal Pulses Present. Negative for: Murmurs Abdomen: Positive for: Distention, Normal Bowel Sounds. Negative for: Tenderness, Rebound, Guarding Upper Extremity: Positive for: Normal Inspection. Negative for: Cyanosis, Edema Lower Extremity: Positive for: Normal Inspection. Negative for: Edema, CALF TENDERNESS Neurological: Positive for: GCS=15, CN II-XII Intact, Speech Normal Psychiatric: Positive for: Alert, Oriented x 3. Negative for: Anxious, Agitated - Medications Active Medications: Active Medications Generic Name Dose Route Start Last Admin Trade Name Freq PRN Reason Stop Dose Admin Acetaminophen 650 mg 01/07/18 00:22 Tylenol 325mg Tab PO Q6 PRN Pain, Mild (1-3) Albuterol/Ipratropium 3 ml 01/07/18 00:16 Duoneb 3 Mg/0.5 Mg (3 Ml) Ud INH RQ6 PRN Shortness of Breath Piperacillin Sod/Tazobactam 100 mls @ 100 mls/hr 01/07/18 09:00 01/08/18 00: 15 Sod 2.25 gm/ Sodium Chloride IVPB 100 mls/hr Q8 BARBARA Administration Protocol Vancomycin HCl 1 gm/ Sodium 250 mls @ 166.667 mls/hr 01/07/18 09:00 01/07/18 20:35 Chloride IVPB 166.667 mls/hr Q12 BARBARA Administration Protocol Dextrose/Sodium Chloride 1,000 mls @ 70 mls/hr 01/07/18 15:45 01/07/18 19:22 Dextrose 5%/0.9% Ns 1000 Ml IV 01/08/18 15:33 70 mls/hr .[id number] BARBARA Administration Lactulose 20 gm 01/07/18 17:00 01/08/18 05:16 Enulose PO 20 gm Q4 BARBARA Administration Morphine Sulfate 1 mg 01/07/18 00:23 Morphine IVP Q6 PRN Pain, moderate (4-7) Ondansetron HCl 4 mg 01/08/18 01:11 01/08/18 01:21 Zofran Inj IVP 4 mg Q6 PRN Administration Nausea/Vomiting Pantoprazole Sodium 40 mg 01/07/18 09:00 01/07/18 08:35 Protonix Inj IVP 40 mg DAILY BARBARA Administration - Patient Studies Lab Studies: Microbiology Studies 01/06/18 23:45 Blood Culture - Preliminary Blood-Venous NO GROWTH AFTER 24 HOURS Lab Studies 01/08/18 01/08/18 01/08/18 Range/Units 04:18 04:18 04:10 WBC (4.8-10.8) K/uL RBC (3.80-5.20) Mil/uL Hgb (12.0-16.0) g/dL Hct (34.0-47.0) % MCV (81.0-99.0) fl MCH (27.0-31.0) pg MCHC (33.0-37.0) g/dL RDW (11.5-14.5) % Plt Count (130-400) K/uL MPV (7.2-11.7) fl Neut % (Auto) (50.0-75.0) % Lymph % (Auto) (20.0-40.0) % Mcminn % (Auto) (0.0-10.0) % Eos % (Auto) (0.0-4.0) % Baso % (Auto) (0.0-2.0) % Neut # (Auto) (1.8-7.0) K/uL Lymph # (Auto) (1.0-4.3) K/uL Mcminn # (Auto) (0.0-0.8) K/uL Eos # (Auto) (0.0-0.7) K/uL Baso # (Auto) (0.0-0.2) K/uL Sodium 142 (132-148) mmol/l Potassium 3.4 L (3.6-5.0) MMOL/L Chloride 108 H (98-107) mmol/L Carbon Dioxide 20 L (22-30) mmol/L Anion Gap 17 (10-20) BUN 22 H (7-17) mg/dl Creatinine 1.4 H (0.7-1.2) mg/dl Est GFR ( Amer) 48 Est GFR (Non-Af Amer) 40 Random Glucose 133 H (65-105) mg/dL Lactic Acid 1.6 (0.7-2.1) MMOL/L Calcium 8.4 (8.4-10.2) mg/dL Ammonia 96 H* (11-51) umo/L Folate ng/mL Crossmatch 01/08/18 01/07/18 01/07/18 Range/Units 04:10 19:35 14:12 WBC 4.1 L 3.2 L (4.8-10.8) K/uL RBC 2.46 L 2.23 L (3.80-5.20) Mil/uL Hgb 8.4 L 7.6 L (12.0-16.0) g/dL Hct 24.3 L 21.9 L (34.0-47.0) % MCV 98.5 97.9 (81.0-99.0) fl MCH 34.1 H 33.9 H (27.0-31.0) pg MCHC 34.6 34.6 (33.0-37.0) g/dL RDW 18.5 H 18.3 H (11.5-14.5) % Plt Count 46 L 45 L (130-400) K/uL MPV 9.0 (7.2-11.7) fl Neut % (Auto) 76.2 H (50.0-75.0) % Lymph % (Auto) 8.5 L (20.0-40.0) % Mcminn % (Auto) 14.7 H (0.0-10.0) % Eos % (Auto) 0.1 (0.0-4.0) % Baso % (Auto) 0.5 (0.0-2.0) % Neut # (Auto) 3.1 (1.8-7.0) K/uL Lymph # (Auto) 0.3 L (1.0-4.3) K/uL Mcminn # (Auto) 0.6 (0.0-0.8) K/uL Eos # (Auto) 0.0 (0.0-0.7) K/uL Baso # (Auto) 0.0 (0.0-0.2) K/uL Sodium (132-148) mmol/l Potassium (3.6-5.0) MMOL/L Chloride (98-107) mmol/L Carbon Dioxide (22-30) mmol/L Anion Gap (10-20) BUN (7-17) mg/dl Creatinine (0.7-1.2) mg/dl Est GFR ( Amer) Est GFR (Non-Af Amer) Random Glucose (65-105) mg/dL Lactic Acid (0.7-2.1) MMOL/L Calcium (8.4-10.2) mg/dL Ammonia 104 H* (11-51) umo/L Folate ng/mL Crossmatch 01/07/18 01/07/18 01/06/18 Range/Units 11:21 05:40 22:30 WBC 3.3 L (4.8-10.8) K/uL RBC 2.40 L (3.80-5.20) Mil/uL Hgb 8.4 L (12.0-16.0) g/dL Hct 23.3 L (34.0-47.0) % MCV 97.2 D (81.0-99.0) fl MCH 34.8 H (27.0-31.0) pg MCHC 35.8 (33.0-37.0) g/dL RDW 17.7 H (11.5-14.5) % Plt Count 55 L D (130-400) K/uL MPV 9.1 (7.2-11.7) fl Neut % (Auto) 60.8 (50.0-75.0) % Lymph % (Auto) 21.2 (20.0-40.0) % Mcminn % (Auto) 17.2 H (0.0-10.0) % Eos % (Auto) 0.1 (0.0-4.0) % Baso % (Auto) 0.7 (0.0-2.0) % Neut # (Auto) 2.0 (1.8-7.0) K/uL Lymph # (Auto) 0.7 L (1.0-4.3) K/uL Mcminn # (Auto) 0.6 (0.0-0.8) K/uL Eos # (Auto) 0.0 (0.0-0.7) K/uL Baso # (Auto) 0.0 (0.0-0.2) K/uL Sodium (132-148) mmol/l Potassium (3.6-5.0) MMOL/L Chloride (98-107) mmol/L Carbon Dioxide (22-30) mmol/L Anion Gap (10-20) BUN (7-17) mg/dl Creatinine (0.7-1.2) mg/dl Est GFR ( Amer) Est GFR (Non-Af Amer) Random Glucose (65-105) mg/dL Lactic Acid (0.7-2.1) MMOL/L Calcium (8.4-10.2) mg/dL Ammonia (11-51) umo/L Folate > 20.0 ng/mL Crossmatch See Detail Laboratory Results - last 24 hr 01/06/18 01/07/18 01/07/18 22:30 05:40 11:21 WBC 3.3 L RBC 2.40 L Hgb 8.4 L Hct 23.3 L MCV 97.2 D MCH 34.8 H MCHC 35.8 RDW 17.7 H Plt Count 55 L D MPV 9.1 Neut % (Auto) 60.8 Lymph % (Auto) 21.2 Mcminn % (Auto) 17.2 H Eos % (Auto) 0.1 Baso % (Auto) 0.7 Neut # (Auto) 2.0 Lymph # (Auto) 0.7 L Mcminn # (Auto) 0.6 Eos # (Auto) 0.0 Baso # (Auto) 0.0 Sodium Potassium Chloride Carbon Dioxide Anion Gap BUN Creatinine Est GFR ( Amer) Est GFR (Non-Af Amer) Random Glucose Lactic Acid Calcium Ammonia Folate > 20.0 Crossmatch See Detail 01/07/18 01/07/18 01/08/18 14:12 19:35 04:10 WBC 3.2 L 4.1 L RBC 2.23 L 2.46 L Hgb 7.6 L 8.4 L Hct 21.9 L 24.3 L MCV 97.9 98.5 MCH 33.9 H 34.1 H MCHC 34.6 34.6 RDW 18.3 H 18.5 H Plt Count 45 L 46 L MPV 9.0 Neut % (Auto) 76.2 H Lymph % (Auto) 8.5 L Mcminn % (Auto) 14.7 H Eos % (Auto) 0.1 Baso % (Auto) 0.5 Neut # (Auto) 3.1 Lymph # (Auto) 0.3 L Mcminn # (Auto) 0.6 Eos # (Auto) 0.0 Baso # (Auto) 0.0 Sodium Potassium Chloride Carbon Dioxide Anion Gap BUN Creatinine Est GFR ( Amer) Est GFR (Non-Af Amer) Random Glucose Lactic Acid Calcium Ammonia 104 H* Folate Crossmatch 01/08/18 01/08/18 01/08/18 04:10 04:18 04:18 WBC RBC Hgb Hct MCV MCH MCHC RDW Plt Count MPV Neut % (Auto) Lymph % (Auto) Mcminn % (Auto) Eos % (Auto) Baso % (Auto) Neut # (Auto) Lymph # (Auto) Mcminn # (Auto) Eos # (Auto) Baso # (Auto) Sodium 142 Potassium 3.4 L Chloride 108 H Carbon Dioxide 20 L Anion Gap 17 BUN 22 H Creatinine 1.4 H Est GFR ( Amer) 48 Est GFR (Non-Af Amer) 40 Random Glucose 133 H Lactic Acid 1.6 Calcium 8.4 Ammonia 96 H* Folate Crossmatch Critical Care Progress Note - Nutrition Nutrition: Nutrition Category Date Time Status NPO Diet [DIET] Diets 01/07/18 Breakfast Active Assessment/Plan - Assessment and Plan (Free Text) Plan: Assessment and Plan: Anemia - May be due to liver dysfunction - H/H 6.7/19.6 on admission - s/p 2U PRBC, H/H today: 8.4/24.3 - Continue to monitor H/H; consider further transfusions as needed - FOBT neg - GI consult Abdominal pain -Acute on chronic; improving -Abd u/s pending -Repeat lipase wnl Weakness -CT head w/o contrast showed no acute findings -Neuro consulted; MRI brain ordered for today Liver cirrhosis with ascites - Secondary to alcohol use disorder - May benefit from paracentesis when more HD stable - Continue with lactulose - GI consult Urinary Tract Infection -Leuk esterase, WBC, bacteria on UA - F/u urine culture - Continue with antibiotics Chronic Kidney Disease -CKD stage 3 -BUN/Cr trending down from admission Hepatic encephalopathy -Mental status improved from admission -Continue lactulose Asthma -Duonebs Q6 hrs PRN GI prophylaxis -Protonix 40 mg IVP daily DVT prophylaxis -SCDs <Brain Gonzalez M - Last Filed: 01/08/18 12:26> CCU Objective - Vital Signs / Intake & Output Vital Signs (Last 4 hours): Vital Signs Temp Pulse Resp BP Pulse Ox 01/08/18 12:00 98.5 F 77 12 100/54 L 100 Intake and Output (Last 8hrs): Intake & Output 01/07/18 01/08/18 01/08/18 22:59 06:59 14:59 Intake Total 822 736 140 Output Total 450 450 Balance 372 286 140 Weight 85 lb Intake: IV 292 633 140 Intake, Piggyback 450 103 Oral 80 0 Output: Urine 450 450 Urethral (Tang) 450 Urine, Voided 450 Other: # Bowel Movements 0 1 - Medications Active Medications: Active Medications Generic Name Dose Route Start Last Admin Trade Name Freq PRN Reason Stop Dose Admin Acetaminophen 650 mg 01/07/18 00:22 Tylenol 325mg Tab PO Q6 PRN Pain, Mild (1-3) Albuterol/Ipratropium 3 ml 01/07/18 00:16 Duoneb 3 Mg/0.5 Mg (3 Ml) Ud INH RQ6 PRN Shortness of Breath Piperacillin Sod/Tazobactam 100 mls @ 100 mls/hr 01/07/18 09:00 01/08/18 09: 13 Sod 2.25 gm/ Sodium Chloride IVPB 100 mls/hr Q8 BARBARA Administration Protocol Vancomycin HCl 1 gm/ Sodium 250 mls @ 166.667 mls/hr 01/07/18 09:00 01/08/18 09:12 Chloride IVPB 166.667 mls/hr Q12 BARBARA Administration Protocol Dextrose/Sodium Chloride 1,000 mls @ 70 mls/hr 01/07/18 15:45 01/07/18 19:22 Dextrose 5%/0.9% Ns 1000 Ml IV 01/08/18 15:33 70 mls/hr .[id number] BARBARA Administration Lactulose 20 gm 01/07/18 17:00 01/08/18 09:11 Enulose PO 20 gm Q4 BARBARA Administration Ondansetron HCl 4 mg 01/08/18 01:11 01/08/18 11:32 Zofran Inj IVP 4 mg Q6 PRN Administration Nausea/Vomiting Pantoprazole Sodium 40 mg 01/07/18 09:00 01/08/18 09:11 Protonix Inj IVP 40 mg DAILY BARBARA Administration - Patient Studies Lab Studies: Microbiology Studies 01/06/18 23:45 Blood Culture - Preliminary Blood-Venous NO GROWTH AFTER 24 HOURS Lab Studies 01/08/18 01/08/18 01/08/18 Range/Units 04:18 04:18 04:10 WBC (4.8-10.8) K/uL RBC (3.80-5.20) Mil/uL Hgb (12.0-16.0) g/dL Hct (34.0-47.0) % MCV (81.0-99.0) fl MCH (27.0-31.0) pg MCHC (33.0-37.0) g/dL RDW (11.5-14.5) % Plt Count (130-400) K/uL MPV (7.2-11.7) fl Neut % (Auto) (50.0-75.0) % Lymph % (Auto) (20.0-40.0) % Mcminn % (Auto) (0.0-10.0) % Eos % (Auto) (0.0-4.0) % Baso % (Auto) (0.0-2.0) % Neut # (Auto) (1.8-7.0) K/uL Lymph # (Auto) (1.0-4.3) K/uL Mcminn # (Auto) (0.0-0.8) K/uL Eos # (Auto) (0.0-0.7) K/uL Baso # (Auto) (0.0-0.2) K/uL Sodium 142 (132-148) mmol/l Potassium 3.4 L (3.6-5.0) MMOL/L Chloride 108 H (98-107) mmol/L Carbon Dioxide 20 L (22-30) mmol/L Anion Gap 17 (10-20) BUN 22 H (7-17) mg/dl Creatinine 1.4 H (0.7-1.2) mg/dl Est GFR ( Amer) 48 Est GFR (Non-Af Amer) 40 Random Glucose 133 H (65-105) mg/dL Lactic Acid 1.6 (0.7-2.1) MMOL/L Calcium 8.4 (8.4-10.2) mg/dL Ammonia 96 H* (11-51) umo/L Folate ng/mL 01/08/18 01/07/18 01/07/18 Range/Units 04:10 19:35 14:12 WBC 4.1 L 3.2 L (4.8-10.8) K/uL RBC 2.46 L 2.23 L (3.80-5.20) Mil/uL Hgb 8.4 L 7.6 L (12.0-16.0) g/dL Hct 24.3 L 21.9 L (34.0-47.0) % MCV 98.5 97.9 (81.0-99.0) fl MCH 34.1 H 33.9 H (27.0-31.0) pg MCHC 34.6 34.6 (33.0-37.0) g/dL RDW 18.5 H 18.3 H (11.5-14.5) % Plt Count 46 L 45 L (130-400) K/uL MPV 9.0 (7.2-11.7) fl Neut % (Auto) 76.2 H (50.0-75.0) % Lymph % (Auto) 8.5 L (20.0-40.0) % Mcminn % (Auto) 14.7 H (0.0-10.0) % Eos % (Auto) 0.1 (0.0-4.0) % Baso % (Auto) 0.5 (0.0-2.0) % Neut # (Auto) 3.1 (1.8-7.0) K/uL Lymph # (Auto) 0.3 L (1.0-4.3) K/uL Mcminn # (Auto) 0.6 (0.0-0.8) K/uL Eos # (Auto) 0.0 (0.0-0.7) K/uL Baso # (Auto) 0.0 (0.0-0.2) K/uL Sodium (132-148) mmol/l Potassium (3.6-5.0) MMOL/L Chloride (98-107) mmol/L Carbon Dioxide (22-30) mmol/L Anion Gap (10-20) BUN (7-17) mg/dl Creatinine (0.7-1.2) mg/dl Est GFR ( Amer) Est GFR (Non-Af Amer) Random Glucose (65-105) mg/dL Lactic Acid (0.7-2.1) MMOL/L Calcium (8.4-10.2) mg/dL Ammonia 104 H* (11-51) umo/L Folate ng/mL 01/07/18 Range/Units 05:40 WBC (4.8-10.8) K/uL RBC (3.80-5.20) Mil/uL Hgb (12.0-16.0) g/dL Hct (34.0-47.0) % MCV (81.0-99.0) fl MCH (27.0-31.0) pg MCHC (33.0-37.0) g/dL RDW (11.5-14.5) % Plt Count (130-400) K/uL MPV (7.2-11.7) fl Neut % (Auto) (50.0-75.0) % Lymph % (Auto) (20.0-40.0) % Mcminn % (Auto) (0.0-10.0) % Eos % (Auto) (0.0-4.0) % Baso % (Auto) (0.0-2.0) % Neut # (Auto) (1.8-7.0) K/uL Lymph # (Auto) (1.0-4.3) K/uL Mcminn # (Auto) (0.0-0.8) K/uL Eos # (Auto) (0.0-0.7) K/uL Baso # (Auto) (0.0-0.2) K/uL Sodium (132-148) mmol/l Potassium (3.6-5.0) MMOL/L Chloride (98-107) mmol/L Carbon Dioxide (22-30) mmol/L Anion Gap (10-20) BUN (7-17) mg/dl Creatinine (0.7-1.2) mg/dl Est GFR ( Amer) Est GFR (Non-Af Amer) Random Glucose (65-105) mg/dL Lactic Acid (0.7-2.1) MMOL/L Calcium (8.4-10.2) mg/dL Ammonia (11-51) umo/L Folate > 20.0 ng/mL Laboratory Results - last 24 hr 01/07/18 01/07/18 01/07/18 05:40 14:12 19:35 WBC 3.2 L RBC 2.23 L Hgb 7.6 L Hct 21.9 L MCV 97.9 MCH 33.9 H MCHC 34.6 RDW 18.3 H Plt Count 45 L MPV Neut % (Auto) Lymph % (Auto) Mcminn % (Auto) Eos % (Auto) Baso % (Auto) Neut # (Auto) Lymph # (Auto) Mcminn # (Auto) Eos # (Auto) Baso # (Auto) Sodium Potassium Chloride Carbon Dioxide Anion Gap BUN Creatinine Est GFR ( Amer) Est GFR (Non-Af Amer) Random Glucose Lactic Acid Calcium Ammonia 104 H* Folate > 20.0 01/08/18 01/08/18 01/08/18 04:10 04:10 04:18 WBC 4.1 L RBC 2.46 L Hgb 8.4 L Hct 24.3 L MCV 98.5 MCH 34.1 H MCHC 34.6 RDW 18.5 H Plt Count 46 L MPV 9.0 Neut % (Auto) 76.2 H Lymph % (Auto) 8.5 L Mcminn % (Auto) 14.7 H Eos % (Auto) 0.1 Baso % (Auto) 0.5 Neut # (Auto) 3.1 Lymph # (Auto) 0.3 L Mcminn # (Auto) 0.6 Eos # (Auto) 0.0 Baso # (Auto) 0.0 Sodium 142 Potassium 3.4 L Chloride 108 H Carbon Dioxide 20 L Anion Gap 17 BUN 22 H Creatinine 1.4 H Est GFR ( Amer) 48 Est GFR (Non-Af Amer) 40 Random Glucose 133 H Lactic Acid Calcium 8.4 Ammonia 96 H* Folate 01/08/18 04:18 WBC RBC Hgb Hct MCV MCH MCHC RDW Plt Count MPV Neut % (Auto) Lymph % (Auto) Mcminn % (Auto) Eos % (Auto) Baso % (Auto) Neut # (Auto) Lymph # (Auto) Mcminn # (Auto) Eos # (Auto) Baso # (Auto) Sodium Potassium Chloride Carbon Dioxide Anion Gap BUN Creatinine Est GFR ( Amer) Est GFR (Non-Af Amer) Random Glucose Lactic Acid 1.6 Calcium Ammonia Folate Critical Care Progress Note - Nutrition Nutrition: Nutrition Category Date Time Status NPO Diet [DIET] Diets 01/07/18 Breakfast Active Assessment/Plan (1) Severe sepsis Current Visit: Yes Status: Acute Priority: High Comment: Likely sec to UTI, R/O SBP IV Vanco, and Zosyn Follow up cultures, abdominal US to R/O acute cholecystitis (2) Hepatic encephalopathy Current Visit: No Status: Acute Comment: Improved mental Status. Continue Lactulose Consider adding Rifaximin (3) Altered mental status Current Visit: No Status: Acute Comment: Secondary to hypoglycemia, Uremenia and Hepatic encephalopathy Improved Frequent neuro check Neuro consult Head CT scan w/o contrast no evidence of acute findings (4) Abdominal pain Current Visit: Yes Status: Acute (5) Acute renal failure (ARF) Current Visit: No Status: Acute (6) History of cirrhosis of liver Current Visit: No Status: Acute (7) Hypoglycemia Current Visit: No Status: Acute (8) Symptomatic anemia Current Visit: No Status: Acute Attending/Attestation - Attestation I have personally seen and examined this patient.: Yes I have fully participated in the care of the patient.: Yes I have reviewed all pertinent clinical information: Yes Notes (Text): 01/08/18 12:26 Today: Monday, January 08, 2018 The patient was Seen/interviewed and examined by me at the bedside during ICU round, Medical records reviewed and Management issues were discussed and formulated with the house staff. Events reviewed I have reviewed all the relevant clinical, laboratory, hemodynamic, radiographic data and medications Pain issues, skin care, head of the bed elevation, glycemic control were addressed. I concur with resident's assessment and plan of care as transcribed in Dr. Lion note.
--- NOTE | 2018-01-08 09:28 | CP.PCM.PN ---
<Dayana Jack - Last Filed: 01/08/18 09:49> Subjective - Date & Time of Evaluation Date of Evaluation: 01/08/18 Time of Evaluation: 08:15 - Subjective Subjective: Patient was seen, and examined at bedside in ICU unit this morning. Patient was seen more alert, awake, and oriented. Feels a little bit better than yesterday, still weak, but improving. Denies significant weakness in her right upper/lower extremities (reported on admission, and yesterday morning). Still reports diffuse abdominal pain, but states close to her baseline (at home always has some diffuse abdominal pain). BP improving. On Dopamine drip since yesterday, gentle hydration, and IV antibiotics Vanco, and Zosyn. S/p Albumin 50 gm IV x 2 yesterday. Objective - Vital Signs/Intake and Output Vital Signs (last 24 hours): Temp Pulse Resp BP Pulse Ox 98.2 F 69 16 91/60 L 100 01/08/18 08:00 01/08/18 08:00 01/08/18 08:00 01/08/18 08:00 01/08/18 08:00 Intake and Output: 01/08/18 01/08/18 06:59 18:59 Intake Total 1266 140 Output Total 450 Balance 816 140 - Medications Medications: Current Medications Acetaminophen (Tylenol 325mg Tab) 650 mg PO Q6 PRN PRN Reason: Pain, Mild (1-3) Albuterol/Ipratropium (Duoneb 3 Mg/0.5 Mg (3 Ml) Ud) 3 ml INH RQ6 PRN PRN Reason: Shortness of Breath Piperacillin Sod/Tazobactam (Sod 2.25 gm/ Sodium Chloride) 100 mls @ 100 mls/ hr IVPB Q8 SEDA PRN Reason: Protocol Last Admin: 01/08/18 09:13 Dose: 100 mls/hr Vancomycin HCl 1 gm/ Sodium (Chloride) 250 mls @ 166.667 mls/hr IVPB Q12 SEDA PRN Reason: Protocol Last Admin: 01/08/18 09:12 Dose: 166.667 mls/hr Dextrose/Sodium Chloride (Dextrose 5%/0.9% Ns 1000 Ml) 1,000 mls @ 70 mls/hr IV .[id number] [facility] Stop: 01/08/18 15:33 Last Admin: 01/07/18 19:22 Dose: 70 mls/hr Lactulose (Enulose) 20 gm PO Q4 SEDA Last Admin: 01/08/18 09:11 Dose: 20 gm Ondansetron HCl (Zofran Inj) 4 mg IVP Q6 PRN PRN Reason: Nausea/Vomiting Last Admin: 01/08/18 01:21 Dose: 4 mg Pantoprazole Sodium (Protonix Inj) 40 mg IVP DAILY [facility] Last Admin: 01/08/18 09:11 Dose: 40 mg - Labs Labs: 01/08/18 04:10 01/08/18 04:10 PT 21.2 Seconds (9.8-13.1) H 01/06/18 19:11 INR 1.9 01/06/18 19:11 APTT 33.7 Seconds (25.6-37.1) 01/06/18 19:11 - Skin Additional comments: Constitutional Appears: No Acute Distress, Cachectic, Other (mild jaundice ) - Eye Exam Eye Exam: EOMI, Scleral icterus - ENT Exam ENT Exam: Mucous Membranes Moist - Respiratory Exam Respiratory Exam: Clear to Auscultation Bilateral, NORMAL BREATHING PATTERN. absent: Wheezes - Cardiovascular Exam Cardiovascular Exam: REGULAR RHYTHM, +S1, +S2 - GI/Abdominal Exam GI & Abdominal Exam: Distended (mild), Hyperactive Bowel Sounds, Normal Bowel Sounds, Tenderness (generalized ). absent: Rebound - Extremities Exam Extremities exam: Positive for: normal inspection. Negative for: calf tenderness, pedal edema - Back Exam Back exam: NORMAL INSPECTION. absent: CVA tenderness (L), CVA tenderness (R) - Neurological Exam Neurological exam: Alert, Motor Sensory Deficit (decrease sensation in the R side upper and low ext), Oriented x - Skin Skin Exam: jaundice: mild Additional comments: Spider Angioma in the face/chest Assessment and Plan - Assessment and Plan (Free Text) Assessment: 47 YO female with PMHx of Cirrhosis, HTN and asthma is admitted for symptomatic anemia, hyperkalemia, UTI, Hepato-Renal failure, suspected SBP, and with right sided weakness to r/o CVA. Patient s/p transfusion 2 units of PRBC on 01/07/18. H /H improved after transfusion, and still no evidence of active bleeding on admission. S/P Albumin 50 gm IV x 2 on 01/07/18. Still on dopamine drip, and gentle hydration this morning. BP stable, improving, and close to patient's baseline. Awaiting of GI, and Neurology recommendations. Plan: Sepsis -hypotension, hypothermia -associated to UTI vs suspected SBP -on dopamine drip -blood culture reported no growth x 24 hours -pending urine culture -c/w antibiotics vanco, and zosyn -check Vanco trough Hypotension -could 2/2 Hepato-Renal failure vs sepsis(associated to UTI vs suspected SBP) -improving, stable -s/p 2 L of NS in ER -s/p Albumin 50 gm IV x 2 on 01/07 -on Dopamine IV as per ICU attending -monitor BP Symptomatic Macrocytic Anemia -could be 2/2 mixed anemia -H/H post-transfusion improved after 2 units of PRBC on 01/07 -no evidence of active bleeding at this time -hgb/hct 6.7/19.6, elevated MCV on admission -Folate WNL -Vitamin B12 WNL -FOBT negative on admission -GI consult , recommendations are appreciated. Pending recs Generalized/Focal weakness -neurological symptoms improving this morning -generalized weakness with prominent R sided weakness, associated with paresthesias -R/O CVA -CT head w/o contrast preliminary report : no evidence of acute findings. Pending official report -Brain MRI ordered, f/u results -Neurology consult, recommendations are appreciated. Pending recs Abdominal pain -slowly improving -associated with ascitis 2/2 liver cirrhosis -suspected SBP, vs acute Cholecystitis -NPO, will consider to advance diet to clear liquids after GI recs are received. -ON Vanco, and Zosyn day #2 -Mildly elevated lipase on admission, repeat lipase WNL -CT scan reported cholelithiasis, and Pancreas -Pending abdominal US to r/o acute cholecystitis -Pain control, Avoid NSAIDs -GI consult , recommendations are appreciated. I called Dr. Bautista, unable to reach him at this time. Liver Cirrhosis with Ascites -CT abd and pelvis sig for large ascites on admission -suspected SBP -may benefit from paracentesis by IR, but noted elevated INR, and low platelets. Will consider once pt is more hemodinamicaly stable. May need platelets transfusion prior to paracentesis, as well as FFP transfusion. -fluid analysis and cultures if paracentesis -elevated ammonia level -c/w with lactulose PO seda, switch to [place] if AMS -s/p Vitamin K inj 10 mg once on 01/07 -MELD score 27; 19.6% 3 month mortality -GI consult , recommendations are appreciated UTI -UA on admission positive for leukocyte est, WBC, and many bact -F/U urine Culture -c/w abx Chronic Kidney disease -CKD stage 3 -monitor renal function Hyperkalemia -resolved, 4.6 this morning -K 5.3 on admission -EKG No acute ST and T waves changes noted, rate of 71 on admission. -s/p Katexalate 30mg Pancytopenia -likely 2/2 to cirrhosis -cont to monitor -replace as needed H/O Asthma -controlled, no on exacerbation -will cont home meds DVT prophylaxis -SCDs -low h/h with thrombocytopenia, INR 1.9 <Gina Jimenez - Last Filed: 01/08/18 15:30> Objective - Vital Signs/Intake and Output Vital Signs (last 24 hours): Temp Pulse Resp BP Pulse Ox 98.5 F 75 16 91/55 L 75 L 01/08/18 12:00 01/08/18 13:00 01/08/18 13:00 01/08/18 13:00 01/08/18 13:00 Intake and Output: 01/08/18 01/08/18 06:59 18:59 Intake Total 1266 470 Output Total 450 Balance 816 470 - Medications Medications: Current Medications Acetaminophen (Tylenol 325mg Tab) 650 mg PO Q6 PRN PRN Reason: Pain, Mild (1-3) Albuterol/Ipratropium (Duoneb 3 Mg/0.5 Mg (3 Ml) Ud) 3 ml INH RQ6 PRN PRN Reason: Shortness of Breath Piperacillin Sod/Tazobactam (Sod 2.25 gm/ Sodium Chloride) 100 mls @ 100 mls/ hr IVPB Q8 SEDA PRN Reason: Protocol Last Admin: 01/08/18 09:13 Dose: 100 mls/hr Vancomycin HCl 1 gm/ Sodium (Chloride) 250 mls @ 166.667 mls/hr IVPB Q12 SEDA PRN Reason: Protocol Last Admin: 01/08/18 09:12 Dose: 166.667 mls/hr Dextrose/Sodium Chloride (Dextrose 5%/0.9% Ns 1000 Ml) 1,000 mls @ 70 mls/hr IV .[id number] [facility] Stop: 01/08/18 15:33 Last Admin: 01/07/18 19:22 Dose: 70 mls/hr Lactulose (Enulose) 20 gm PO Q4 [facility] Last Admin: 01/08/18 13:38 Dose: 20 gm Ondansetron HCl (Zofran Inj) 4 mg IVP Q6 PRN PRN Reason: Nausea/Vomiting Last Admin: 01/08/18 11:32 Dose: 4 mg Pantoprazole Sodium (Protonix Inj) 40 mg IVP DAILY [facility] Last Admin: 01/08/18 09:11 Dose: 40 mg - Labs Labs: 01/08/18 04:10 01/08/18 04:10 PT 21.2 Seconds (9.8-13.1) H 01/06/18 19:11 INR 1.9 01/06/18 19:11 APTT 33.7 Seconds (25.6-37.1) 01/06/18 19:11 Attending/Attestation - Attestation I have personally seen and examined this patient.: Yes I have fully participated in the care of the patient.: Yes I have reviewed all pertinent clinical information, including history, physical exam and plan: Yes
--- NOTE | 2018-01-08 12:30 | MRI ---
Date of service: 01/08/2018 PROCEDURE: MRI BRAIN WITHOUT CONTRAST HISTORY: weakness COMPARISON: None available. TECHNIQUE: Multiplanar, multisequence MR images of the brain were obtained without intravenous contrast enhancement. FINDINGS: HEMORRHAGE: None DWI: No evidence of an acute or early subacute infarction. BRAIN PARENCHYMA: There is apparent interval increase in long TR white-matter abnormalities increased signal of the periventricular and variable subcortical white matter spaces with new foci appreciated as well in the subcortical white matter as well as the optic radiations bilaterally. There is suggestion of potential right body of the corpus callosum involvement image 19 series 6 of the long TR sequences. It may favor demyelination though other etiologies vasculitis, postinfectious myelomalacia or even migraine headaches remain possible. Consider follow-up brain MRI with contrast for added characterization. Otherwise, good corticomedullary differentiation is reiterated in the posterior fossa contents grossly remarkable only for potential developmental venous anomaly at the right brachium pontis for which follow-up contrast can also be considered. There is no mass effect throughout. Bilateral globus pallidus signal changes appear somewhat less conspicuous compared to prior brain MRI. There is no suspicious extra-axial collection identified and midline brain anatomy remains grossly unremarkable excluding the corpus callosum. VENTRICLES: Unremarkable. No hydrocephalus. CRANIUM: Unremarkable. ORBITS: Grossly unremarkable. PARANASAL SINUSES/MASTOIDS: Clear VASCULAR SYSTEM: Skull base flow voids intact. OTHER FINDINGS: None. IMPRESSION: Interval increase in multifocal white matter signal abnormalities throughout the cerebrum and may include the body corpus callosum. Therefore demyelination should be considered though other etiologies are listed above and there are additional etiologies possible with a very lengthy differential diagnosis for white matter abnormality. No acute or subacute brain infarction appreciable.
--- NOTE | 2018-01-08 17:49 | US ---
Date of service: 01/08/2018 HISTORY: gall stones COMPARISON: CT abdomen pelvis without contrast performed 01/06/18, ultrasound performed 11/02/17 TECHNIQUE: Sonographic evaluation of the right upper quadrant of the abdomen. FINDINGS: LIVER: Measures 12.0 cm in length. Echogenic liver may be seen in setting of hepatic parenchymal disease or fatty infiltration. 6 x 4 mm echogenic focus with posterior acoustic shadowing identified within the right hepatic lobe, possibly granuloma. No flow identified within the main portal vein. No intrahepatic bile duct dilatation. Ascites. GALLBLADDER: Contracted gallbladder limits evaluation. Gallstones. No gallbladder wall thickening or pericholecystic edema. Negative sonographic Muñoz's sign as assessed by the senior web analyst. COMMON BILE DUCT: Measures 5 mm. PANCREAS: Not well-visualized. RIGHT KIDNEY: Measures 9.8 x 3.5 x 5.1 cm. No obstructing calculus or hydronephrosis identified. AORTA: Limited visualization appears grossly unremarkable. IVC: Limited visualization appears grossly unremarkable. OTHER FINDINGS: Small right pleural effusion. IMPRESSION: No flow identified within the main portal vein. Echogenic liver may be seen in setting of hepatic parenchymal disease or fatty infiltration. 6 mm calcification within the right hepatic lobe. Ascites. Cholelithiasis. Small right pleural effusion.
--- NOTE | 2018-01-08 23:21 | CP.PCM.CON ---
History of Present Illness - History of Present Illness History of Present Illness: PER CHART: 47 YO female with PMHx of Cirrhosis, HTN and asthma presents to [facility] ED for abdominal pain. Pt states that her abdominal pain started about 2 wks ago, with worsening pain. Pain located all over the abdomen worse in the R side ( upper and lower), associated with nausea and vomiting. Last emesis was two days ago, normal food (previously had 1x of blood in her vomit). Emesis and nausea resolved after pt was prescribed reglan (Sunday). Last BM yesterday evening, normal BM, brownish/greenish in color, no blood noted. Additionally, pt states that she has been experiencing R sided weakness for the past two weeks, endorsing balance problems and having trouble ambulating. Pt was last seen in clinic on Sunday. Last paracentesis was , 2.4L PMD: Dr. Zarco PMHx: HTN, Asthma, Alcoholic Liver cirrhosis with Ascites, hx of Anemia (with blood transfusion in the past) PSHx: C-Sections x 3 FHx: Hypertensions in sibling and Liver failure in father Social History: Denies smoking, hx of ETOH use last use was 1+ yr ago, and denies illicit use Allergies: iodine--dyspnea Meds: namadol, carvidilol, furosemide, ursodiol, spirnalactone, rifaximin, metroproclopamide ON exam: AAOX3. Profound icterus. PERRL. EOMI. CN 2-12 normal. Motor: 5/5 ul and ll bl. Sensory: decreased ft, pin in lower limbs bilaterally, diffusely, not following dermatome. Gait: not tested as patient is in pain. +3 dtr ul and ll bl. Toes downgoing. No clonus. Past Patient History - Past Medical History & Family History Past Medical History?: Yes - Past Social History Smoking Status: Never Smoked - CARDIAC Hx Hypertension: Yes - PULMONARY Hx Asthma: Yes Hx Sleep Apnea: No - NEUROLOGICAL Hx Neurological Disorder: No - HEENT Hx HEENT Problems: No - RENAL Hx Chronic Kidney Disease: No - ENDOCRINE/METABOLIC Hx Endocrine Disorders: No - HEMATOLOGICAL/ONCOLOGICAL Hx Anemia: Yes Hx Sickle Cell Disease: No - INTEGUMENTARY Hx Dermatological Problems: No - MUSCULOSKELETAL/RHEUMATOLOGICAL Hx Musculoskeletal Disorders: No Hx Falls: Yes - GASTROINTESTINAL Hx Gastrointestinal Disorders: Yes Hx Liver Failure: Yes - GENITOURINARY/GYNECOLOGICAL Hx Genitourinary Disorders: No - PSYCHIATRIC Hx Psychophysiologic Disorder: No Hx Substance Use: Yes (marijuana) - ANESTHESIA Hx Anesthesia: Yes Hx Anesthesia Reactions: No Hx Malignant Hyperthermia: No Meds Allergies/Adverse Reactions: Allergies Allergy/AdvReac Type Severity Reaction Status Date / Time iodine Allergy SHORTNESS Verified 11/01/17 17:02 OF BREATH - Medications Medications: Current Medications Acetaminophen (Tylenol 325mg Tab) 650 mg PO Q6 PRN PRN Reason: Pain, Mild (1-3) Albuterol/Ipratropium (Duoneb 3 Mg/0.5 Mg (3 Ml) Ud) 3 ml INH RQ6 PRN PRN Reason: Shortness of Breath Piperacillin Sod/Tazobactam (Sod 2.25 gm/ Sodium Chloride) 100 mls @ 100 mls/ hr IVPB Q8 BARBARA PRN Reason: Protocol Last Admin: 01/08/18 17:38 Dose: 100 mls/hr Vancomycin HCl 1 gm/ Sodium (Chloride) 250 mls @ 166.667 mls/hr IVPB Q12 BARBARA PRN Reason: Protocol Last Admin: 01/08/18 21:04 Dose: Not Given Dextrose/Sodium Chloride (Dextrose 5%/0.9% Ns 1000 Ml) 1,000 mls @ 70 mls/hr IV .[id number] [facility] Stop: 01/09/18 20:32 Lactulose (Enulose) 20 gm PO Q4 [facility] Last Admin: 01/08/18 20:24 Dose: Not Given Ondansetron HCl (Zofran Inj) 4 mg IVP Q6 PRN PRN Reason: Nausea/Vomiting Last Admin: 01/08/18 11:32 Dose: 4 mg Pantoprazole Sodium (Protonix Inj) 40 mg IVP DAILY [facility] Last Admin: 01/08/18 09:11 Dose: 40 mg Results - Vital Signs Recent Vital Signs: Last Vital Signs Temp 98.7 F 01/08/18 20:00 Pulse 77 01/08/18 20:00 Resp 17 01/08/18 20:00 BP 97/52 L 01/08/18 20:00 Pulse Ox 99 01/08/18 20:00 - Labs Result Diagrams: 01/08/18 04:10 01/08/18 04:10 Labs: Laboratory Results - last 24 hr 01/08/18 01/08/18 01/08/18 04:10 04:10 04:10 WBC 4.1 L RBC 2.46 L Hgb 8.4 L Hct 24.3 L MCV 98.5 MCH 34.1 H MCHC 34.6 RDW 18.5 H Plt Count 46 L MPV 9.0 Neut % (Auto) 76.2 H Lymph % (Auto) 8.5 L [place] % (Auto) 14.7 H Eos % (Auto) 0.1 Baso % (Auto) 0.5 Neut # (Auto) 3.1 Lymph # (Auto) 0.3 L [place] # (Auto) 0.6 Eos # (Auto) 0.0 Baso # (Auto) 0.0 Sodium 142 Potassium 3.4 L Chloride 108 H Carbon Dioxide 20 L Anion Gap 17 BUN 22 H Creatinine 1.4 H Est GFR ( Amer) 48 Est GFR (Non-Af Amer) 40 Random Glucose 133 H Lactic Acid Calcium 8.4 Ammonia Procalcitonin 0.08 L Vancomycin Trough 01/08/18 01/08/18 01/08/18 04:18 04:18 20:20 WBC RBC Hgb Hct MCV MCH MCHC RDW Plt Count MPV Neut % (Auto) Lymph % (Auto) [place] % (Auto) Eos % (Auto) Baso % (Auto) Neut # (Auto) Lymph # (Auto) [place] # (Auto) Eos # (Auto) Baso # (Auto) Sodium Potassium Chloride Carbon Dioxide Anion Gap BUN Creatinine Est GFR ( Amer) Est GFR (Non-Af Amer) Random Glucose Lactic Acid 1.6 Calcium Ammonia 96 H* Procalcitonin Vancomycin Trough 32.4 H Assessment & Plan - Assessment and Plan (Free Text) Assessment: MRI BRain: shows multiple white matter signal abnormalities in the corpus callosum. Labs: ammonia 90-106-96. Increased lfts, liver failure A/P: Miss england is a pleasant young woman who is in liver failure, and had episode that is most likely secondary to severe hepatic encephalopathy. Her MRI brain does not show acute stroke, and, at present, she is not demonstrating any weakness or confusion. PLan: 1. Continue to monitor mental status. 2. Continue to treat hyperammonemia. No other neurological intervention at this time. Thank you Dr.Gautami Owens Neu[facility]
[2018-01-09] MEDS: Dextrose 5%/0.9% NS 1,000 ML IV SCH ×2 (00:23→16:37)
[2018-01-09 05:19] LABS: BASO % 0.7 % (0.0-2.0); HEMOGLOBIN 7.5 g/dL (12.0-16.0); LYMPH # 0.7 K/uL (1.0-4.3); LYMPH % 13.7 % (20.0-40.0); MEAN CELL VOLUME 98.2 fl (81.0-99.0); MEAN CORPUSCULAR HEMOGLOBIN 34.1 pg (27.0-31.0); MEAN CORPUSCULAR HGB CONC 34.7 g/dL (33.0-37.0); MEAN PLATELET VOLUME 9.3 fl (7.2-11.7); MONO # 0.9 K/uL (0.0-0.8); MONO % 17.4 % (0.0-10.0); NEUT # 3.4 K/uL (1.8-7.0); NEUT % 68.2 % (50.0-75.0); NRBC % 0.1 % (0.0-0.0); RBC 2.19 Mil/uL (3.80-5.20); WHITE BLOOD COUNT 4.9 K/uL (4.8-10.8)
[2018-01-09] MEDS ORDERED: [UNRECOGNIZED DRUG - OTHER] IV ONE ×4 (05:33→05:57)
[2018-01-09] MEDS ORDERED: DOPAMINE 800 MG/250 ML IV ONE ×4 (05:33→05:57)
[2018-01-09 06:17] LABS: ALB/GLOB RATIO 0.8 (1.0-2.1); ALBUMIN 2.8 g/dL (3.5-5.0); CALCIUM 8.2 mg/dL (8.4-10.2)
[2018-01-09] MEDS ORDERED: Potassium Chloride 20 mEq/15 ml LIQ UD PO ONE (07:26)
--- NOTE | 2018-01-09 07:29 | CP.PCM.PN ---
<Dayana Jack - Last Filed: 01/09/18 10:57> Subjective - Date & Time of Evaluation Date of Evaluation: 01/09/18 Time of Evaluation: 07:55 - Subjective Subjective: Patient was seen, and examined at bedside in ICU unit this morning. Patient was seen more alert, awake, and oriented x 3. Patient feel better this morning, and denies weakness, numbness, or tingling sensation. Has been on liquid diet since yesterday at dinner, and is tolerating diet without any complains. Today morning Dopamine was titrated down to 2.5mcg/kg/min as per protocol. BP has been stable, and seems to be close to her baseline. I & O reviewed. Tang catheter will be discontinued. Objective - Vital Signs/Intake and Output Vital Signs (last 24 hours): Temp Pulse Resp BP Pulse Ox 98.5 F 79 16 89/56 L 100 01/09/18 04:00 01/09/18 06:00 01/09/18 06:00 01/09/18 06:00 01/09/18 06:00 Intake and Output: 01/09/18 01/09/18 06:59 18:59 Intake Total 1250 Output Total 325 Balance 925 - Medications Medications: Current Medications Acetaminophen (Tylenol 325mg Tab) 650 mg PO Q6 PRN PRN Reason: Pain, Mild (1-3) Albuterol/Ipratropium (Duoneb 3 Mg/0.5 Mg (3 Ml) Ud) 3 ml INH RQ6 PRN PRN Reason: Shortness of Breath Piperacillin Sod/Tazobactam (Sod 2.25 gm/ Sodium Chloride) 100 mls @ 100 mls/ hr IVPB Q8 SEDA PRN Reason: Protocol Last Admin: 01/09/18 00:23 Dose: 100 mls/hr Dextrose/Sodium Chloride (Dextrose 5%/0.9% Ns 1000 Ml) 1,000 mls @ 70 mls/hr IV .[id number] [facility] Stop: 01/09/18 20:32 Last Admin: 01/09/18 00:23 Dose: 70 mls/hr Vancomycin HCl 750 mg/ Sodium (Chloride) 250 mls @ 166.667 mls/hr IVPB Q12 SEDA PRN Reason: Protocol Lactulose (Enulose) 20 gm PO Q4 SEDA Last Admin: 01/09/18 05:46 Dose: Not Given Ondansetron HCl (Zofran Inj) 4 mg IVP Q6 PRN PRN Reason: Nausea/Vomiting Last Admin: 01/08/18 11:32 Dose: 4 mg Pantoprazole Sodium (Protonix Inj) 40 mg IVP DAILY [facility] Last Admin: 01/08/18 09:11 Dose: 40 mg - Labs Labs: 01/09/18 04:17 01/09/18 04:17 PT 21.2 Seconds (9.8-13.1) H 01/06/18 19:11 INR 1.9 01/06/18 19:11 APTT 33.7 Seconds (25.6-37.1) 01/06/18 19:11 - Skin Additional comments: Constitutional Appears: No Acute Distress, Cachectic, Other (mild jaundice ) - Eye Exam Eye Exam: EOMI, Scleral icterus - ENT Exam ENT Exam: Mucous Membranes Moist - Respiratory Exam Respiratory Exam: Clear to Auscultation Bilateral, NORMAL BREATHING PATTERN. absent: Wheezes - Cardiovascular Exam Cardiovascular Exam: REGULAR RHYTHM, +S1, +S2 - GI/Abdominal Exam GI & Abdominal Exam: Distended (mild), Hyperactive Bowel Sounds, Normal Bowel Sounds, mild Tenderness (generalized ), however improving. absent: Rebound - Extremities Exam Extremities exam: Positive for: normal inspection. Negative for: calf tenderness, pedal edema - Back Exam Back exam: NORMAL INSPECTION. absent: CVA tenderness (L), CVA tenderness (R) - Neurological Exam Neurological exam: Alert, Motor Sensory Deficit (decrease sensation in the R side upper and low ext), Oriented x - Skin Skin Exam: jaundice: mild Additional comments: Spider Angioma in the face/chest Assessment and Plan - Assessment and Plan (Free Text) Assessment: 47 YO female with PMHx of Cirrhosis, HTN and asthma is admitted for symptomatic anemia, hyperkalemia, UTI, Hepato-Renal failure, suspected SBP, and with right sided weakness to r/o CVA. Patient s/p transfusion 2 units of PRBC on 01/07/18. H /H improved after transfusion, and still no evidence of active bleeding on admission. S/P Albumin 50 gm IV x 2 on 01/07/18. Still on dopamine drip, and gentle hydration this morning. BP stable, improving, and close to patient's baseline. Today morning Dopamine was titrated down to 2.5mcg/kg/min as per protocol as per ICU provider. Patient by neurology, recommended to continue with mental status monitor, and treat hyperammonemia, neurological symptoms most likely secondary to severe hepatic encephalopathy. No other neurological intervention at this time. Seen by GI, recommendations to maintain hgb above 8, will consider EGD to r/o active GI bleeding( oozing). Plan: Hypotension -improving, and stable -could 2/2 Hepato-Renal failure vs sepsis(associated to UTI vs suspected SBP) -will discontinue Dopamine drip ( discussed with ICU attending, Dr. Powell) -will start Midodrine 2.5 mg PO TID -s/p Albumin 50 gm IV x 2 on 01/07 -Dopamine was titrated down to 2.5mcg/kg/min on 01/09 AM -stable to be transfer to Telemetry unit today -monitor BP Hepatic Encephalopathy -improving -ammonia level lWNL this morning -will resume home rifaximin Sepsis -ruled out, hypotension likely 2/2 HRF -afebrile on admission -procalcitonin low -blood culture reported no growth x 48 hours -will DC Vancomycin -will continue Zosyn to treat UTI, and positive urine culture for gram neg stephanie, until sensitivity Symptomatic Macrocytic Anemia -could be 2/2 mixed anemia -H/H post-transfusion improved after 2 units of PRBC on 01/07 -no evidence of active bleeding at this time, however Hgb slightly dropped this morning from 8.4 to 7.5 -discussed with GI, Dr. Bautista, recommended to maintain Hgb above 8 -will give 1 unit of PRBC -will order post-transfusion CBC or H/H -Per GI: will consider EGD to r/o active GI bleeding( oozing). -Folate WNL -Vitamin B12 WNL -FOBT negative on admission -GI consult , recommendations are appreciated. Pending recs Generalized/Focal weakness -neurological symptoms resolved -Ammonia level WNL today -per Neurology : neurological symptoms most likely secondary to severe hepatic encephalopathy. Continue with mental status monitoring, and treat hyperammonemia. No other neurological intervention at this time. -generalized weakness with prominent R sided weakness, associated with paresthesias on admission -CT head w/o contrast preliminary report : no evidence of acute findings. Pending official report -Brain MRI ordered, f/u results -Neurology consult, recommendations are appreciated. Abdominal pain -slowly improving -associated with ascitis 2/2 liver cirrhosis -questionable SBP -positive urine culture -will DC vanco -will continue Zosyn( day #3) to treat UTI, and positive urine culture for gram neg stephanie, until sensitivity -Abdominal US reported cholelithiasis, no evidence of acute cholecystitis -Mildly elevated lipase on admission, repeat lipase WNL -CT scan reported cholelithiasis, and Pancreas -Pain control, Avoid NSAIDs -GI consult , recommendations are appreciated. Liver Cirrhosis with Ascites -CT abd and pelvis sig for large ascites on admission -suspected SBP -may benefit from paracentesis by IR, but noted elevated INR, and low platelets. Will consider once pt is more hemodinamicaly stable. May need platelets transfusion prior to paracentesis, as well as FFP transfusion. -fluid analysis and cultures if paracentesis -elevated ammonia level -c/w with lactulose PO seda, switch to OH if AMS -s/p Vitamin K inj 10 mg once on 01/07 -MELD score 27; 19.6% 3 month mortality -GI consult , recommendations are appreciated UTI -UA on admission positive for leukocyte est, WBC, and many bact -urine Culture positive for Gram negative stephanie, pending final results, and sensitivity -c/w abx Chronic Kidney disease -improving renal function -noted renal impairment since october/2017 -likely acute on chronic kidney injury -c/w gentle hydration -start midodrine 2.5 mg TID po -CKD stage 3 -monitor renal function Hypokalemia -mild -replace with potassium PO -f/u repeat BMP Pancytopenia -likely 2/2 to cirrhosis -cont to monitor -replace as needed H/O Asthma -controlled, no on exacerbation -will cont home meds DVT prophylaxis -SCDs -low h/h with thrombocytopenia <Gina Jimenez - Last Filed: 01/09/18 17:54> Objective - Vital Signs/Intake and Output Vital Signs (last 24 hours): Temp Pulse Resp BP Pulse Ox 98.6 F 74 15 90/55 L 100 01/09/18 16:21 01/09/18 16:21 01/09/18 16:21 01/09/18 16:21 01/09/18 16:00 Intake and Output: 01/09/18 01/09/18 06:59 18:59 Intake Total 1250 1535 Output Total 325 200 Balance 925 1335 - Medications Medications: Current Medications Acetaminophen (Tylenol 325mg Tab) 650 mg PO Q6 PRN PRN Reason: Pain, Mild (1-3) Albuterol/Ipratropium (Duoneb 3 Mg/0.5 Mg (3 Ml) Ud) 3 ml INH RQ6 PRN PRN Reason: Shortness of Breath Piperacillin Sod/Tazobactam (Sod 2.25 gm/ Sodium Chloride) 100 mls @ 100 mls/ hr IVPB Q8 SEDA PRN Reason: Protocol Last Admin: 01/09/18 16:35 Dose: 100 mls/hr Dextrose/Sodium Chloride (Dextrose 5%/0.9% Ns 1000 Ml) 1,000 mls @ 70 mls/hr IV .[id number] [facility] Stop: 01/09/18 20:32 Last Admin: 01/09/18 16:37 Dose: 70 mls/hr Lactulose (Enulose) 20 gm PO TID [facility] Last Admin: 01/09/18 16:34 Dose: 20 gm Midodrine (Proamatine) 2.5 mg PO TID [facility] Last Admin: 01/09/18 16:34 Dose: 2.5 mg Ondansetron HCl (Zofran Inj) 4 mg IVP Q6 PRN PRN Reason: Nausea/Vomiting Last Admin: 01/08/18 11:32 Dose: 4 mg Pantoprazole Sodium (Protonix Inj) 40 mg IVP DAILY [facility] Last Admin: 01/09/18 09:37 Dose: 40 mg Rifaximin (Xifaxan) 550 mg PO Q12 SEDA PRN Reason: Protocol Last Admin: 01/09/18 09:37 Dose: 550 mg - Labs Labs: 01/09/18 04:17 01/09/18 04:17 PT 21.2 Seconds (9.8-13.1) H 01/06/18 19:11 INR 1.9 01/06/18 19:11 APTT 33.7 Seconds (25.6-37.1) 01/06/18 19:11 Attending/Attestation - Attestation I have personally seen and examined this patient.: Yes I have fully participated in the care of the patient.: Yes I have reviewed all pertinent clinical information, including history, physical exam and plan: Yes
--- NOTE | 2018-01-09 10:23 | CP.CCUPN ---
<Fariha Lion - Last Filed: 01/09/18 14:14> CCU Subjective - Physician Review Subjective (Free Text): 47 yo old female with hx alcoholic liver cirrhosis, HTN, asthma who presented to ED with abdominal pain x 2 weeks 2 days ago. Found to have sepsis, anemia and neurological changes (R sided weakness); admitted to ICU. Pt seen at bedside this morning, appears awake and alert, no acute distress. No acute events overnight. Had MRI yesterday- no evidence of stroke. Right sided weakness present at admission resolved. Labs: Na 139 K 3.5 Cl 112 CO2 20 BUN 13 Cr 1.3 GFR 44 WBC 4.9 Hgb 7.5 Hct 21.5 Plt 43 Ammonia: 47 Urine culture: serratia marcescens. 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 Decrease and discontinue dopamine drip; pt has chronically low blood pressures from past admissions; could be due to her small stature, continue to monitor BP. Ammonia levels normalized; continue with lactulose. MRI neg for findings of stroke. Continue with antibiotics for UTI. Duonebs Q6 hrs PRN. Protonix for GI prophylaxis. SCDs for DVT prophylaxis. CCU Objective - Vital Signs / Intake & Output Vital Signs (Last 4 hours): Vital Signs Temp Pulse Resp BP Pulse Ox 01/09/18 08:00 98.9 F 80 16 93/57 L 100 Intake and Output (Last 8hrs): Intake & Output 01/08/18 01/09/18 01/09/18 22:59 06:59 14:59 Intake Total 990 590 Output Total 400 325 Balance 590 265 Intake: IV 490 490 Intake, Piggyback 100 Oral 500 Output: Urine 400 325 Urethral (Tang) 400 325 - Physical Exam Head: Positive for: Atraumatic, Normocephalic Extroacular Muscles: Positive for: EOMI Conjunctiva: Positive for: Icteric Respiratory/Chest: Positive for: Good Air Exchange, Decreased Breath Sounds. Negative for: Respiratory Distress, Accessory Muscle Use Cardiovascular: Positive for: Regular Rate and Rhythm, Normal S1, S2, Peripheal Pulses Present. Negative for: Murmurs Abdomen: Positive for: Distention, Normal Bowel Sounds. Negative for: Tenderness, Rebound, Guarding Upper Extremity: Positive for: Normal Inspection. Negative for: Cyanosis, Edema Lower Extremity: Positive for: Normal Inspection. Negative for: Edema, CALF TENDERNESS Neurological: Positive for: GCS=15, Speech Normal Psychiatric: Positive for: Alert, Oriented x 3 - Medications Active Medications: Active Medications Generic Name Dose Route Start Last Admin Trade Name Freq PRN Reason Stop Dose Admin Acetaminophen 650 mg 01/07/18 00:22 Tylenol 325mg Tab PO Q6 PRN Pain, Mild (1-3) Albuterol/Ipratropium 3 ml 01/07/18 00:16 Duoneb 3 Mg/0.5 Mg (3 Ml) Ud INH RQ6 PRN Shortness of Breath Piperacillin Sod/Tazobactam 100 mls @ 100 mls/hr 01/07/18 09:00 01/09/18 09: 36 Sod 2.25 gm/ Sodium Chloride IVPB 100 mls/hr Q8 [facility]BAR[facility] Administration Protocol Dextrose/Sodium Chloride 1,000 mls @ 70 mls/hr 01/08/18 20:45 01/09/18 00:23 Dextrose 5%/0.9% Ns 1000 Ml IV 01/09/18 20:32 70 mls/hr .[id number] [facility] Administration Lactulose 20 gm 01/07/18 17:00 01/09/18 09:35 Enulose PO 20 gm Q4 [facility]BARA Administration Midodrine 2.5 mg 01/09/18 13:00 Proamatine PO TID BARBARA Ondansetron HCl 4 mg 01/08/18 01:11 01/08/18 11:32 Zofran Inj IVP 4 mg Q6 PRN Administration Nausea/Vomiting Pantoprazole Sodium 40 mg 01/07/18 09:00 01/09/18 09:37 Protonix Inj IVP 40 mg DAILY [facility] Administration Rifaximin 550 mg 01/09/18 09:00 01/09/18 09:37 Xifaxan PO 550 mg Q12 [facility]BAR[facility] Administration Protocol - Patient Studies Lab Studies: Microbiology Studies 01/06/18 19:18 Urine Culture - Final Urine Serratia Marcescens 01/06/18 23:45 Blood Culture - Preliminary Blood-Venous NO GROWTH AFTER 48 HOURS 01/07/18 10:10 MRSA Culture (Admit) - Final Naris MRSA NOT DETECTED 01/06/18 00:15 Blood Culture - Preliminary Blood-Venous NO GROWTH AFTER 24 HOURS Lab Studies 01/09/18 01/09/18 01/09/18 Range/Units 07:34 04:17 04:17 WBC (4.8-10.8) K/uL RBC (3.80-5.20) Mil/uL Hgb (12.0-16.0) g/dL Hct (34.0-47.0) % MCV (81.0-99.0) fl MCH (27.0-31.0) pg MCHC (33.0-37.0) g/dL RDW (11.5-14.5) % Plt Count (130-400) K/uL MPV (7.2-11.7) fl Neut % (Auto) (50.0-75.0) % Lymph % (Auto) (20.0-40.0) % [place] % (Auto) (0.0-10.0) % Eos % (Auto) (0.0-4.0) % Baso % (Auto) (0.0-2.0) % Neut # (Auto) (1.8-7.0) K/uL Lymph # (Auto) (1.0-4.3) K/uL [place] # (Auto) (0.0-0.8) K/uL Eos # (Auto) (0.0-0.7) K/uL Baso # (Auto) (0.0-0.2) K/uL Sodium (132-148) mmol/l Potassium (3.6-5.0) MMOL/L Chloride (98-107) mmol/L Carbon Dioxide (22-30) mmol/L Anion Gap (10-20) BUN (7-17) mg/dl Creatinine (0.7-1.2) mg/dl Est GFR ( Amer) Est GFR (Non-Af Amer) Random Glucose (65-105) mg/dL Calcium (8.4-10.2) mg/dL Magnesium 1.7 (1.6-2.3) MG/DL Total Bilirubin (0.2-1.3) mg/dl AST (14-36) U/L ALT (9-52) U/L Alkaline Phosphatase (38-126) U/L Ammonia 47 D (11-51) umo/L Total Protein (6.3-8.2) G/DL Albumin (3.5-5.0) g/dL Globulin (2.2-3.9) gm/dL Albumin/Globulin Ratio (1.0-2.1) Procalcitonin (0.19-0.49) NG/ML Vancomycin Trough 24.3 H (5.0-10.0) ug/mL 01/09/18 01/09/18 01/08/18 Range/Units 04:17 04:17 20:20 WBC 4.9 (4.8-10.8) K/uL RBC 2.19 L (3.80-5.20) Mil/uL Hgb 7.5 L (12.0-16.0) g/dL Hct 21.5 L (34.0-47.0) % MCV 98.2 (81.0-99.0) fl MCH 34.1 H (27.0-31.0) pg MCHC 34.7 (33.0-37.0) g/dL RDW 18.0 H (11.5-14.5) % Plt Count 43 L (130-400) K/uL MPV 9.3 (7.2-11.7) fl Neut % (Auto) 68.2 (50.0-75.0) % Lymph % (Auto) 13.7 L (20.0-40.0) % [place] % (Auto) 17.4 H (0.0-10.0) % Eos % (Auto) 0.0 (0.0-4.0) % Baso % (Auto) 0.7 (0.0-2.0) % Neut # (Auto) 3.4 (1.8-7.0) K/uL Lymph # (Auto) 0.7 L (1.0-4.3) K/uL [place] # (Auto) 0.9 H (0.0-0.8) K/uL Eos # (Auto) 0.0 (0.0-0.7) K/uL Baso # (Auto) 0.0 (0.0-0.2) K/uL Sodium 139 (132-148) mmol/l Potassium 3.5 L (3.6-5.0) MMOL/L Chloride 112 H (98-107) mmol/L Carbon Dioxide 20 L (22-30) mmol/L Anion Gap 11 (10-20) BUN 13 (7-17) mg/dl Creatinine 1.3 H (0.7-1.2) mg/dl Est GFR ( Amer) 53 Est GFR (Non-Af Amer) 44 Random Glucose 83 (65-105) mg/dL Calcium 8.2 L (8.4-10.2) mg/dL Magnesium (1.6-2.3) MG/DL Total Bilirubin 5.6 H (0.2-1.3) mg/dl AST 22 (14-36) U/L ALT 23 (9-52) U/L Alkaline Phosphatase 45 (38-126) U/L Ammonia (11-51) umo/L Total Protein 6.1 L (6.3-8.2) G/DL Albumin 2.8 L D (3.5-5.0) g/dL Globulin 3.3 (2.2-3.9) gm/dL Albumin/Globulin Ratio 0.8 L (1.0-2.1) Procalcitonin (0.19-0.49) NG/ML Vancomycin Trough 32.4 H (5.0-10.0) ug/mL 01/08/18 Range/Units 04:10 WBC (4.8-10.8) K/uL RBC (3.80-5.20) Mil/uL Hgb (12.0-16.0) g/dL Hct (34.0-47.0) % MCV (81.0-99.0) fl MCH (27.0-31.0) pg MCHC (33.0-37.0) g/dL RDW (11.5-14.5) % Plt Count (130-400) K/uL MPV (7.2-11.7) fl Neut % (Auto) (50.0-75.0) % Lymph % (Auto) (20.0-40.0) % [place] % (Auto) (0.0-10.0) % Eos % (Auto) (0.0-4.0) % Baso % (Auto) (0.0-2.0) % Neut # (Auto) (1.8-7.0) K/uL Lymph # (Auto) (1.0-4.3) K/uL [place] # (Auto) (0.0-0.8) K/uL Eos # (Auto) (0.0-0.7) K/uL Baso # (Auto) (0.0-0.2) K/uL Sodium (132-148) mmol/l Potassium (3.6-5.0) MMOL/L Chloride (98-107) mmol/L Carbon Dioxide (22-30) mmol/L Anion Gap (10-20) BUN (7-17) mg/dl Creatinine (0.7-1.2) mg/dl Est GFR ( Amer) Est GFR (Non-Af Amer) Random Glucose (65-105) mg/dL Calcium (8.4-10.2) mg/dL Magnesium (1.6-2.3) MG/DL Total Bilirubin (0.2-1.3) mg/dl AST (14-36) U/L ALT (9-52) U/L Alkaline Phosphatase (38-126) U/L Ammonia (11-51) umo/L Total Protein (6.3-8.2) G/DL Albumin (3.5-5.0) g/dL Globulin (2.2-3.9) gm/dL Albumin/Globulin Ratio (1.0-2.1) Procalcitonin 0.08 L (0.19-0.49) NG/ML Vancomycin Trough (5.0-10.0) ug/mL Laboratory Results - last 24 hr 01/08/18 01/08/18 01/09/18 04:10 20:20 04:17 WBC 4.9 RBC 2.19 L Hgb 7.5 L Hct 21.5 L MCV 98.2 MCH 34.1 H MCHC 34.7 RDW 18.0 H Plt Count 43 L MPV 9.3 Neut % (Auto) 68.2 Lymph % (Auto) 13.7 L [place] % (Auto) 17.4 H Eos % (Auto) 0.0 Baso % (Auto) 0.7 Neut # (Auto) 3.4 Lymph # (Auto) 0.7 L [place] # (Auto) 0.9 H Eos # (Auto) 0.0 Baso # (Auto) 0.0 Sodium Potassium Chloride Carbon Dioxide Anion Gap BUN Creatinine Est GFR ( Amer) Est GFR (Non-Af Amer) Random Glucose Calcium Magnesium Total Bilirubin AST ALT Alkaline Phosphatase Ammonia Total Protein Albumin Globulin Albumin/Globulin Ratio Procalcitonin 0.08 L Vancomycin Trough 32.4 H 01/09/18 01/09/18 01/09/18 04:17 04:17 04:17 WBC RBC Hgb Hct MCV MCH MCHC RDW Plt Count MPV Neut % (Auto) Lymph % (Auto) [place] % (Auto) Eos % (Auto) Baso % (Auto) Neut # (Auto) Lymph # (Auto) [place] # (Auto) Eos # (Auto) Baso # (Auto) Sodium 139 Potassium 3.5 L Chloride 112 H Carbon Dioxide 20 L Anion Gap 11 BUN 13 Creatinine 1.3 H Est GFR ( Amer) 53 Est GFR (Non-Af Amer) 44 Random Glucose 83 Calcium 8.2 L Magnesium Total Bilirubin 5.6 H AST 22 ALT 23 Alkaline Phosphatase 45 Ammonia 47 D Total Protein 6.1 L Albumin 2.8 L D Globulin 3.3 Albumin/Globulin Ratio 0.8 L Procalcitonin Vancomycin Trough 24.3 H 01/09/18 07:34 WBC RBC Hgb Hct MCV MCH MCHC RDW Plt Count MPV Neut % (Auto) Lymph % (Auto) [place] % (Auto) Eos % (Auto) Baso % (Auto) Neut # (Auto) Lymph # (Auto) [place] # (Auto) Eos # (Auto) Baso # (Auto) Sodium Potassium Chloride Carbon Dioxide Anion Gap BUN Creatinine Est GFR ( Amer) Est GFR (Non-Af Amer) Random Glucose Calcium Magnesium 1.7 Total Bilirubin AST ALT Alkaline Phosphatase Ammonia Total Protein Albumin Globulin Albumin/Globulin Ratio Procalcitonin Vancomycin Trough Critical Care Progress Note - Nutrition Nutrition: Nutrition Category Date Time Status Liquid Diet [DIET] Diets 01/08/18 Dinner Active <Hugh Powell - Last Filed: 01/09/18 18:04> CCU Subjective - Physician Review Subjective (Free Text): Attestation: Patient seen and examined at the bedside with Resident Dr. Ivan Lion; and I agree with her outline of plans and management documented above as discussed on AM rounds reflecting my review of all applicable clinical data, and participation in the care of the patient throughout the day in ICU; today, 2017.
--- NOTE | 2018-01-09 15:07 | CP.PCM.CON ---
History of Present Illness - History of Present Illness History of Present Illness: 47 yo female admitted with abdominal pain and weakness . Patient has h/o alcoholic cirrhosis and stopped alcohol about one year ago. When admitted had altered mental status , high ammonia level which resolved with lactulose administration, and anemia. Had upper endoscopy 08/2017 and portal gastropathy was seen. No active bleeding since admission. Blood pressure has been running low without tachycardia. Review of Systems - Constitutional Constitutional: absent: Chills - EENT Eyes: absent: Blurred Vision Ears: absent: Decreased Hearing Nose/Mouth/Throat: absent: Epistaxis - Cardiovascular Cardiovascular: absent: Chest Pain - Respiratory Respiratory: absent: Cough - Gastrointestinal Gastrointestinal: As Per HPI - Genitourinary Genitourinary: absent: Change in Urinary Stream Past Patient History - Past Medical History & Family History Past Medical History?: Yes - Past Social History Smoking Status: Never Smoked - CARDIAC Hx Hypertension: Yes - PULMONARY Hx Asthma: Yes Hx Sleep Apnea: No - NEUROLOGICAL Hx Neurological Disorder: No - HEENT Hx HEENT Problems: No - RENAL Hx Chronic Kidney Disease: No - ENDOCRINE/METABOLIC Hx Endocrine Disorders: No - HEMATOLOGICAL/ONCOLOGICAL Hx Anemia: Yes Hx Sickle Cell Disease: No - INTEGUMENTARY Hx Dermatological Problems: No - MUSCULOSKELETAL/RHEUMATOLOGICAL Hx Musculoskeletal Disorders: No Hx Falls: Yes - GASTROINTESTINAL Hx Gastrointestinal Disorders: Yes Hx Liver Failure: Yes - GENITOURINARY/GYNECOLOGICAL Hx Genitourinary Disorders: No - PSYCHIATRIC Hx Psychophysiologic Disorder: No Hx Substance Use: Yes (marijuana) - ANESTHESIA Hx Anesthesia: Yes Hx Anesthesia Reactions: No Hx Malignant Hyperthermia: No Meds Allergies/Adverse Reactions: Allergies Allergy/AdvReac Type Severity Reaction Status Date / Time iodine Allergy SHORTNESS Verified 11/01/17 17:02 OF BREATH - Medications Medications: Current Medications Acetaminophen (Tylenol 325mg Tab) 650 mg PO Q6 PRN PRN Reason: Pain, Mild (1-3) Albuterol/Ipratropium (Duoneb 3 Mg/0.5 Mg (3 Ml) Ud) 3 ml INH RQ6 PRN PRN Reason: Shortness of Breath Piperacillin Sod/Tazobactam (Sod 2.25 gm/ Sodium Chloride) 100 mls @ 100 mls/ hr IVPB Q8 BARBARA PRN Reason: Protocol Last Admin: 01/09/18 09:36 Dose: 100 mls/hr Dextrose/Sodium Chloride (Dextrose 5%/0.9% Ns 1000 Ml) 1,000 mls @ 70 mls/hr IV .[id number] [facility] Stop: 01/09/18 20:32 Last Admin: 01/09/18 00:23 Dose: 70 mls/hr Lactulose (Enulose) 20 gm PO TID [facility] Last Admin: 01/09/18 12:15 Dose: 20 gm Midodrine (Proamatine) 2.5 mg PO TID [facility] Last Admin: 01/09/18 12:15 Dose: 2.5 mg Ondansetron HCl (Zofran Inj) 4 mg IVP Q6 PRN PRN Reason: Nausea/Vomiting Last Admin: 01/08/18 11:32 Dose: 4 mg Pantoprazole Sodium (Protonix Inj) 40 mg IVP DAILY [facility] Last Admin: 01/09/18 09:37 Dose: 40 mg Rifaximin (Xifaxan) 550 mg PO Q12 BARBARA PRN Reason: Protocol Last Admin: 01/09/18 09:37 Dose: 550 mg Physical Exam - Head Exam Head Exam: ATRAUMATIC - Eye Exam Eye Exam: Normal appearance Pupil Exam: NORMAL ACCOMODATION - ENT Exam ENT Exam: Normal Exam - Neck Exam Neck exam: Positive for: Normal Inspection - Respiratory Exam Respiratory Exam: Clear to Auscultation Bilateral - Cardiovascular Exam Cardiovascular Exam: REGULAR RHYTHM, +S1, +S2 - GI/Abdominal Exam GI & Abdominal Exam: Distended, Normal Bowel Sounds Results - Vital Signs Recent Vital Signs: Last Vital Signs Temp 98.7 F 01/09/18 13:32 Pulse 74 01/09/18 14:00 Resp 15 01/09/18 14:00 BP 81/53 L 01/09/18 14:00 Pulse Ox 100 01/09/18 14:00 - Labs Result Diagrams: 01/09/18 04:17 01/09/18 04:17 Labs: Laboratory Results - last 24 hr 01/06/18 01/08/18 01/09/18 22:30 20:20 04:17 WBC 4.9 RBC 2.19 L Hgb 7.5 L Hct 21.5 L MCV 98.2 MCH 34.1 H MCHC 34.7 RDW 18.0 H Plt Count 43 L MPV 9.3 Neut % (Auto) 68.2 Lymph % (Auto) 13.7 L [place] % (Auto) 17.4 H Eos % (Auto) 0.0 Baso % (Auto) 0.7 Neut # (Auto) 3.4 Lymph # (Auto) 0.7 L [place] # (Auto) 0.9 H Eos # (Auto) 0.0 Baso # (Auto) 0.0 Sodium Potassium Chloride Carbon Dioxide Anion Gap BUN Creatinine Est GFR ( Amer) Est GFR (Non-Af Amer) Random Glucose Calcium Magnesium Total Bilirubin AST ALT Alkaline Phosphatase Ammonia Total Protein Albumin Globulin Albumin/Globulin Ratio Vancomycin Trough 32.4 H Blood Type Antibody Screen Crossmatch See Detail BBK History Checked 01/09/18 01/09/18 01/09/18 04:17 04:17 04:17 WBC RBC Hgb Hct MCV MCH MCHC RDW Plt Count MPV Neut % (Auto) Lymph % (Auto) [place] % (Auto) Eos % (Auto) Baso % (Auto) Neut # (Auto) Lymph # (Auto) [place] # (Auto) Eos # (Auto) Baso # (Auto) Sodium 139 Potassium 3.5 L Chloride 112 H Carbon Dioxide 20 L Anion Gap 11 BUN 13 Creatinine 1.3 H Est GFR ( Amer) 53 Est GFR (Non-Af Amer) 44 Random Glucose 83 Calcium 8.2 L Magnesium Total Bilirubin 5.6 H AST 22 ALT 23 Alkaline Phosphatase 45 Ammonia 47 D Total Protein 6.1 L Albumin 2.8 L D Globulin 3.3 Albumin/Globulin Ratio 0.8 L Vancomycin Trough 24.3 H Blood Type Antibody Screen Crossmatch BBK History Checked 01/09/18 01/09/18 07:34 10:22 WBC RBC Hgb Hct MCV MCH MCHC RDW Plt Count MPV Neut % (Auto) Lymph % (Auto) [place] % (Auto) Eos % (Auto) Baso % (Auto) Neut # (Auto) Lymph # (Auto) [place] # (Auto) Eos # (Auto) Baso # (Auto) Sodium Potassium Chloride Carbon Dioxide Anion Gap BUN Creatinine Est GFR ( Amer) Est GFR (Non-Af Amer) Random Glucose Calcium Magnesium 1.7 Total Bilirubin AST ALT Alkaline Phosphatase Ammonia Total Protein Albumin Globulin Albumin/Globulin Ratio Vancomycin Trough Blood Type A POSITIVE Antibody Screen Negative Crossmatch See Detail BBK History Checked Patient has bt Assessment & Plan (1) History of cirrhosis of liver Assessment and Plan: Patient currently awake and alert. BP has been running lower than previously. Echo recommended to evaluate for possible cirrhotic cardiomyopathy. Maintain Hgb over 8. Continue lactulose. Will do upper endoscopy Sunday. Maintain pantoprazole and midodrine Status: Acute
[2018-01-09 21:11] LABS: HEMOGLOBIN 10.7 g/dL (12.0-16.0); MEAN CELL VOLUME 97.2 fl (81.0-99.0); MEAN CORPUSCULAR HEMOGLOBIN 32.8 pg (27.0-31.0); MEAN CORPUSCULAR HGB CONC 33.8 g/dL (33.0-37.0); RBC 3.25 Mil/uL (3.80-5.20); RED CELL DISTRIBUTION WIDTH 19.6 % (11.5-14.5)
[2018-01-10 05:44] LABS: BASO % 0.3 % (0.0-2.0); HEMOGLOBIN 9.5 g/dL (12.0-16.0); LYMPH # 0.6 K/uL (1.0-4.3); LYMPH % 13.6 % (20.0-40.0); MEAN CELL VOLUME 96.7 fl (81.0-99.0); MEAN CORPUSCULAR HEMOGLOBIN 32.8 pg (27.0-31.0); MEAN CORPUSCULAR HGB CONC 33.9 g/dL (33.0-37.0); MEAN PLATELET VOLUME 9.4 fl (7.2-11.7); MONO # 0.8 K/uL (0.0-0.8); NEUT # 2.8 K/uL (1.8-7.0); NEUT % 67.1 % (50.0-75.0); NRBC % 0.1 % (0.0-0.0); RBC 2.89 Mil/uL (3.80-5.20); RED CELL DISTRIBUTION WIDTH 19.3 % (11.5-14.5); WHITE BLOOD COUNT 4.2 K/uL (4.8-10.8)
[2018-01-10 05:46] LABS: CALCIUM 7.8 mg/dL (8.4-10.2)
--- NOTE | 2018-01-10 10:59 | CP.PCM.PN ---
Subjective - Date & Time of Evaluation Date of Evaluation: 01/10/18 Time of Evaluation: 08:00 - Subjective Subjective: Patient was seen, and examined at bedside this morning in telemetry unit. Patient is alert, awake, and oriented x 3. Denies any neurological symptoms at this evaluation. Tolerating liquid diet well since yesterday. Having regular, and daily bowel movements on lactulose PO. Afebrile, but BP remains low, however close to her baseline. Hgb slightly decreased this morning, however there is no evidence of active bleeding at this time. For upper endoscopy on Sunday per GI. Objective - Vital Signs/Intake and Output Vital Signs (last 24 hours): Temp Pulse Resp BP Pulse Ox 97.5 F L 56 L 20 88/41 L 100 01/10/18 10:00 01/10/18 10:00 01/10/18 10:00 01/10/18 10:00 01/10/18 10:00 - Medications Medications: Current Medications Acetaminophen (Tylenol 325mg Tab) 650 mg PO Q6 PRN PRN Reason: Pain, Mild (1-3) Last Admin: 01/09/18 22:55 Dose: 650 mg Albuterol/Ipratropium (Duoneb 3 Mg/0.5 Mg (3 Ml) Ud) 3 ml INH RQ6 PRN PRN Reason: Shortness of Breath Piperacillin Sod/Tazobactam (Sod 2.25 gm/ Sodium Chloride) 100 mls @ 100 mls/ hr IVPB Q8 SEDA PRN Reason: Protocol Last Admin: 01/10/18 08:28 Dose: 100 mls/hr Lactulose (Enulose) 20 gm PO TID [facility] Last Admin: 01/10/18 08:23 Dose: 20 gm Midodrine (Proamatine) 2.5 mg PO TID [facility] Last Admin: 01/10/18 08:23 Dose: 2.5 mg Ondansetron HCl (Zofran Inj) 4 mg IVP Q6 PRN PRN Reason: Nausea/Vomiting Last Admin: 01/08/18 11:32 Dose: 4 mg Pantoprazole Sodium (Protonix Inj) 40 mg IVP DAILY [facility] Last Admin: 01/10/18 08:28 Dose: 40 mg Rifaximin (Xifaxan) 550 mg PO Q12 SEDA PRN Reason: Protocol Last Admin: 01/10/18 08:28 Dose: 550 mg - Labs Labs: 01/10/18 05:24 01/10/18 05:24 PT 21.2 Seconds (9.8-13.1) H 01/06/18 19:11 INR 1.9 01/06/18 19:11 APTT 33.7 Seconds (25.6-37.1) 01/06/18 19:11 - Skin Additional comments: Constitutional Appears: No Acute Distress, Cachectic, Other (mild jaundice ) - Eye Exam Eye Exam: EOMI, Scleral icterus - ENT Exam ENT Exam: Mucous Membranes Moist - Respiratory Exam Respiratory Exam: Clear to Auscultation Bilateral, NORMAL BREATHING PATTERN. absent: Wheezes - Cardiovascular Exam Cardiovascular Exam: REGULAR RHYTHM, +S1, +S2 - GI/Abdominal Exam GI & Abdominal Exam: Distended (mild), Hyperactive Bowel Sounds, Normal Bowel Sounds, mild Tenderness (generalized ), however improving. absent: Rebound - Extremities Exam Extremities exam: Positive for: normal inspection. Negative for: calf tenderness, pedal edema - Back Exam Back exam: NORMAL INSPECTION. absent: CVA tenderness (L), CVA tenderness (R) - Neurological Exam Neurological exam: Alert, Motor Sensory Deficit (decrease sensation in the R side upper and low ext), Oriented x - Skin Skin Exam: jaundice: mild Additional comments: Spider Angioma in the face/chest Assessment and Plan - Assessment and Plan (Free Text) Assessment: 47 YO female with PMHx of Cirrhosis, HTN and asthma is admitted for symptomatic anemia, hyperkalemia, UTI, Hepato-Renal failure, suspected SBP, and with right sided weakness to r/o CVA. Patient s/p transfusion 2 units of PRBC on 01/07/18. H /H improved after transfusion, and still no evidence of active bleeding on admission. S/P Albumin 50 gm IV x 2 on 01/07/18. Still on dopamine drip, and gentle hydration this morning. BP stable, improving, and close to patient's baseline. Today morning Dopamine was titrated down to 2.5mcg/kg/min as per protocol as per ICU provider. Patient by neurology, recommended to continue with mental status monitor, and treat hyperammonemia, neurological symptoms most likely secondary to severe hepatic encephalopathy. No other neurological intervention at this time. Seen by GI, recommendations to maintain hgb above 8, will consider EGD to r/o active GI bleeding( oozing). On midodrine PO. Resumed home Rifaximin yesterday. Transferred to Telemetry yesterday. For upper endoscopy by GI on 01/11, by Dr. Bautista. Plan: Hypotension -still low, but stable -on Midodrine 2.5 mg PO TID -s/p Albumin 50 gm IV x 2 on 01/07 -Dopamine was titrated down to 2.5mcg/kg/min on 01/09 AM -transferred to Telemetry unit yesterday -monitor BP Hepatic Encephalopathy -resolved -ammonia level WNL remains WNL -on home rifaximin Sepsis -ruled out, hypotension likely 2/2 HRF -afebrile on admission -procalcitonin low -blood culture reported no growth x 48 hours continue Zosyn to treat UTI, noted final urine culture report, and sensitivity Symptomatic Macrocytic Anemia -could be 2/2 mixed anemia -H/H post-transfusion improved after 2 units of PRBC on 01/07 -s/p 1 unit of PRBC on 01/09/18, hgb post-transfusion was 10 -no evidence of active bleeding at this time, however Hgb slightly dropped this morning from 8.4 to 7.5 -discussed with GI, Dr. Bautista, recommended to maintain Hgb above 8 -Per GI: EGD on 01/11 to r/o active GI bleeding( oozing). -NPO after midnight for EGD -IV fluids while NPO -Folate WNL -Vitamin B12 WNL -FOBT negative on admission -GI consult , recommendations are appreciated. Pending recs Generalized/Focal weakness -neurological symptoms resolved -Ammonia level WNL today -per Neurology : neurological symptoms most likely secondary to severe hepatic encephalopathy. Continue with mental status monitoring, and treat hyperammonemia. No other neurological intervention at this time. -generalized weakness with prominent R sided weakness, associated with paresthesias on admission -CT head w/o contrast preliminary report : no evidence of acute findings. Pending official report -Brain MRI ordered, f/u results -Neurology consult, recommendations are appreciated. Abdominal pain -slowly improving -associated with ascitis 2/2 liver cirrhosis -questionable SBP -positive urine culture -will DC vanco -will continue Zosyn( day #4) to treat UTI, and positive urine culture for gram neg stephanie, until sensitivity -Abdominal US reported cholelithiasis, no evidence of acute cholecystitis -Mildly elevated lipase on admission, repeat lipase WNL -CT scan reported cholelithiasis, and Pancreas -Pain control, Avoid NSAIDs -GI consult , recommendations are appreciated. Liver Cirrhosis with Ascites -CT abd and pelvis sig for large ascites on admission -suspected SBP -may benefit from paracentesis by IR, but noted elevated INR, and low platelets. Will consider once pt is more hemodinamicaly stable. May need platelets transfusion prior to paracentesis, as well as FFP transfusion. -fluid analysis and cultures if paracentesis -elevated ammonia level -c/w with lactulose PO seda, switch to SC if AMS -s/p Vitamin K inj 10 mg once on 01/07 -MELD score 27; 19.6% 3 month mortality -GI consult , recommendations are appreciated UTI -UA on admission positive for leukocyte est, WBC, and many bact -urine Culture positive for Gram negative stephanie, final results, and sensitivity noted -c/w abx Chronic Kidney disease -improving renal function, cr 1.2 -noted renal impairment since october/2017 -likely acute on chronic kidney injury -c/w midodrine 2.5 mg TID po -CKD stage 3 -monitor renal function Hypokalemia -resolved after replacement -f/u repeat BMP Pancytopenia -likely 2/2 to cirrhosis -cont to monitor -replace as needed H/O Asthma -controlled, no on exacerbation -will cont home meds DVT prophylaxis -SCDs -low h/h with thrombocytopenia
[2018-01-10] MEDS ORDERED: Albumin Human 25% (12.5 gm/50 ml) IV ONE (13:20)
--- NOTE | 2018-01-10 15:15 | CARD ---
APPROVED REPORT Date of service: 01/10/2018 EXAM: Two-dimensional and M-mode echocardiogram with Doppler and color Doppler. Other Information Quality : GoodRhythm : NSR INDICATION Cardiomyopathy 2D DIMENSIONS IVSd0.69 (0.7-1.1cm)LVDd4.22 (3.9-5.9cm) LVOT Diameter1.81 (1.8-2.4cm)PWd0.58 (0.7-1.1cm) IVSs1.14 (0.8-1.2cm)LVDs2.23 (2.5-4.0cm) FS (%) 47.0 %PWs0.90 (0.8-1.2cm) M-Mode DIMENSIONS Left Atrium (MM)3.99 (2.5-4.0cm)IVSd0.57 (0.7-1.1cm) Aortic Root2.63 (2.2-3.7cm)LVDd5.76 (4.0-5.6cm) Aortic Cusp Exc.1.70 (1.5-2.0cm)PWd0.98 (0.7-1.1cm) IVSs1.65 cmFS (%) 58 % LVDs2.41 (2.0-3.8cm)PWs1.63 cm Aortic Valve AoV Peak Jootuqgg808.8cm/sAoV VTI31.3cmAO Peak GR.7mmHg LVOT Peak Wceoiyrz390.1cm/sLVOT VTI25.68cmAO Mean GR.4mmHg Mitral Valve MV E Czdvepnq953.5cm/sMV DECEL [id number] A Maookrug38.3cm/s MV [id number]/A ratio1.7MVA (PHT)3.81cm2 TDI Lateral E' Peak V12.22cm/sMedial E' Peak V12.87cm/sE/Lateral E'9.0 E/Medial E'8.6 Tricuspid Valve TR Peak Inxozqam363kl/sRAP [id number] Peak Gr.21mmHg [id number] LEFT VENTRICLE The left ventricle is normal size. There is normal left ventricular wall thickness. The left ventricular systolic function is normal. The estimated ejection fraction is 60-65% No regional wall motion abnormalities noted.. The left ventricular diastolic function is normal. No left ventricle thrombus noted on this study. There is no ventricular septal defect visualized. There is no mass noted in the left ventricle. RIGHT VENTRICLE The right ventricle is normal size. There is normal right ventricular wall thickness. The right ventricular systolic function is normal. ATRIA The left atrium size is normal. The right atrium size is normal. The interatrial septum is intact with no evidence for an atrial septal defect. AORTIC VALVE The aortic valve is normal in structure. No aortic regurgitation is present. There is no aortic valvular stenosis. MITRAL VALVE The mitral valve is normal in structure. There is no mitral valve stenosis. There is mild mitral valve regurgitation noted. TRICUSPID VALVE The tricuspid valve is normal in structure. There is mild tricuspid valve regurgitation noted. PASP within normal limits PULMONIC VALVE The pulmonary valve is normal in structure. There is no pulmonic valvular regurgitation. GREAT VESSELS The aortic root is normal in size. The ascending aorta is normal in size. The pulmonary artery is normal. The IVC is normal in size and collapses >50% with inspiration. PERICARDIAL EFFUSION There is no pericardial effusion. <Conclusion> Mild mitral insufficiency Mild TR with normal PASP Normal LV function The estimated ejection fraction is 60-65%
--- NOTE | 2018-01-10 23:01 | CP.PCM.PN ---
Subjective - Date & Time of Evaluation Date of Evaluation: 01/10/18 Time of Evaluation: 13:00 - Subjective Subjective: Awake and comfortable. Patient seen with Drs. Scott and Clyde. Objective - Vital Signs/Intake and Output Vital Signs (last 24 hours): Temp Pulse Resp BP Pulse Ox 98 F 61 20 100/60 100 01/10/18 19:32 01/10/18 21:00 01/10/18 19:32 01/10/18 19:32 01/10/18 19:32 Intake and Output: 01/10/18 01/11/18 18:59 06:59 Intake Total 1560 Balance 1560 - Medications Medications: Current Medications Acetaminophen (Tylenol 325mg Tab) 650 mg PO Q6 PRN PRN Reason: Pain, Mild (1-3) Last Admin: 01/09/18 22:55 Dose: 650 mg Albuterol/Ipratropium (Duoneb 3 Mg/0.5 Mg (3 Ml) Ud) 3 ml INH RQ6 PRN PRN Reason: Shortness of Breath Piperacillin Sod/Tazobactam (Sod 2.25 gm/ Sodium Chloride) 100 mls @ 100 mls/ hr IVPB Q8 BARBARA PRN Reason: Protocol Last Admin: 01/10/18 16:12 Dose: 100 mls/hr Dextrose/Sodium Chloride (Dextrose 5%-0.45% Ns 500 Ml) 500 mls @ 70 mls/hr IV .Q7H9M [facility] Stop: 01/11/18 17:57 Lactulose (Enulose) 20 gm PO TID [facility] Last Admin: 01/10/18 16:12 Dose: 20 gm Midodrine (Proamatine) 5 mg PO TID [facility] Last Admin: 01/10/18 16:11 Dose: 5 mg Ondansetron HCl (Zofran Inj) 4 mg IVP Q6 PRN PRN Reason: Nausea/Vomiting Last Admin: 01/08/18 11:32 Dose: 4 mg Pantoprazole Sodium (Protonix Ec Tab) 40 mg PO DAILY [facility] Rifaximin (Xifaxan) 550 mg PO Q12 BARBARA PRN Reason: Protocol Last Admin: 01/10/18 21:28 Dose: 550 mg Spironolactone (Aldactone) 50 mg PO BID [facility] Last Admin: 01/10/18 16:38 Dose: 50 mg - Labs Labs: 01/10/18 05:24 01/10/18 05:24 PT 21.2 Seconds (9.8-13.1) H 01/06/18 19:11 INR 1.9 01/06/18 19:11 APTT 33.7 Seconds (25.6-37.1) 01/06/18 19:11 - Head Exam Head Exam: ATRAUMATIC - Eye Exam Eye Exam: Normal appearance - ENT Exam ENT Exam: Normal Exam - Respiratory Exam Respiratory Exam: Clear to Ausculation Bilateral - Cardiovascular Exam Cardiovascular Exam: REGULAR RHYTHM, +S1, +S2 - GI/Abdominal Exam GI & Abdominal Exam: Distended Assessment and Plan (1) History of cirrhosis of liver Assessment & Plan: Generally has stabilized though BP on the low side. Most recent Hgb 9.5. Increase Midodrine to 5 mg po TID. Start aldactone 50 mg BID. Upper endoscopy in AM. Status: Acute
[2018-01-11 05:12] LABS: HEMOGLOBIN 8.4 g/dL (12.0-16.0); MEAN CELL VOLUME 96.6 fl (81.0-99.0); MEAN CORPUSCULAR HEMOGLOBIN 32.5 pg (27.0-31.0); MEAN CORPUSCULAR HGB CONC 33.7 g/dL (33.0-37.0); RBC 2.59 Mil/uL (3.80-5.20); RED CELL DISTRIBUTION WIDTH 19.4 % (11.5-14.5); WHITE BLOOD COUNT 2.7 K/uL (4.8-10.8)
[2018-01-11 05:40] LABS: BLOOD UREA NITROGEN 7 mg/dl (7-17); CALCIUM 8.3 mg/dL (8.4-10.2); GFR NON-AFRICAN AMERICAN 59
--- NOTE | 2018-01-11 08:02 | CP.PCM.DIS ---
Provider - Provider Date of Admission: 01/06/18 21:43 Attending physician: Stevie Childress MD Consults: GI : Dr. Bautista neurology: Dr. Owens Time Spent in preparation of Discharge (in minutes): 30 Diagnosis - Discharge Diagnosis (1) Cirrhosis of liver with ascites Status: Chronic (2) UTI (urinary tract infection) Status: Acute Comment: treated with 5 days of zosyn (3) Hepatic encephalopathy Status: Acute Comment: resolved on admission (4) Pancytopenia Status: Chronic Hospital Course - Lab Results Lab Results: Micro Results 01/06/18 23:45 Blood-Venous Blood Culture - Preliminary NO GROWTH AFTER 4 DAYS 01/09/18 18:31 Naris MRSA Culture (Admit) - Final MRSA NOT DETECTED 01/06/18 00:15 Blood-Venous Blood Culture - Preliminary NO GROWTH AFTER 3 DAYS 01/06/18 19:18 Urine Urine Culture - Final Serratia Marcescens 01/07/18 10:10 Naris MRSA Culture (Admit) - Final MRSA NOT DETECTED Most Recent Lab Values WBC 2.7 K/uL (4.8-10.8) L 01/11/18 04:20 RBC 2.59 Mil/uL (3.80-5.20) L 01/11/18 04:20 Hgb 8.4 g/dL (12.0-16.0) L 01/11/18 04:20 Hct 25.0 % (34.0-47.0) L 01/11/18 04:20 MCV 96.6 fl (81.0-99.0) 01/11/18 04:20 MCH 32.5 pg (27.0-31.0) H 01/11/18 04:20 MCHC 33.7 g/dL (33.0-37.0) 01/11/18 04:20 RDW 19.4 % (11.5-14.5) H 01/11/18 04:20 Plt Count 29 K/uL (130-400) L* 01/11/18 04:20 MPV 9.4 fl (7.2-11.7) 01/10/18 05:24 Neut % (Auto) 67.1 % (50.0-75.0) 01/10/18 05:24 Lymph % (Auto) 13.6 % (20.0-40.0) L 01/10/18 05:24 [place] % (Auto) 19.0 % (0.0-10.0) H 01/10/18 05:24 Eos % (Auto) 0.0 % (0.0-4.0) 01/10/18 05:24 Baso % (Auto) 0.3 % (0.0-2.0) 01/10/18 05:24 Neut # (Auto) 2.8 K/uL (1.8-7.0) 01/10/18 05:24 Lymph # (Auto) 0.6 K/uL (1.0-4.3) L 01/10/18 05:24 [place] # (Auto) 0.8 K/uL (0.0-0.8) 01/10/18 05:24 Eos # (Auto) 0.0 K/uL (0.0-0.7) 01/10/18 05:24 Baso # (Auto) 0.0 K/uL (0.0-0.2) 01/10/18 05:24 Neutrophils % (Manual) 62 % (42-75) 01/06/18 19:11 Lymphocytes % (Manual) 19 % (20-50) L 01/06/18 19:11 Monocytes % (Manual) 19 % (0-10) H 01/06/18 19:11 Platelet Estimate Decreased (NORMAL) L 01/06/18 19:11 Poikilocytosis (manual Slight 01/06/18 19:11 Anisocytosis (manual) Slight 01/06/18 19:11 Macrocytosis (manual) Moderate 01/06/18 19:11 PT 21.2 Seconds (9.8-13.1) H 01/06/18 19:11 INR 1.9 01/06/18 19:11 APTT 33.7 Seconds (25.6-37.1) 01/06/18 19:11 Sodium 142 mmol/l (132-148) 01/11/18 04:20 Potassium 4.4 MMOL/L (3.6-5.0) 01/11/18 04:20 Chloride 118 mmol/L (98-107) H 01/11/18 04:20 Carbon Dioxide 18 mmol/L (22-30) L 01/11/18 04:20 Anion Gap 10 (10-20) 01/11/18 04:20 BUN 7 mg/dl (7-17) 01/11/18 04:20 Creatinine 1.0 mg/dl (0.7-1.2) 01/11/18 04:20 Est GFR ( Amer) > 60 01/11/18 04:20 Est GFR (Non-Af Amer) 59 01/11/18 04:20 Random Glucose 91 mg/dL (65-105) 01/11/18 04:20 Lactic Acid 1.6 MMOL/L (0.7-2.1) 01/08/18 04:18 Calcium 8.3 mg/dL (8.4-10.2) L 01/11/18 04:20 Phosphorus 4.3 mg/dl (2.5-4.5) 01/07/18 05:40 Magnesium 1.7 MG/DL (1.6-2.3) 01/09/18 07:34 Total Bilirubin 5.6 mg/dl (0.2-1.3) H 01/09/18 04:17 AST 22 U/L (14-36) 01/09/18 04:17 ALT 23 U/L (9-52) 01/09/18 04:17 Alkaline Phosphatase 45 U/L (38-126) 01/09/18 04:17 Ammonia 30 umo/L (11-51) D 01/10/18 05:24 Total Protein 6.1 G/DL (6.3-8.2) L 01/09/18 04:17 Albumin 2.8 g/dL (3.5-5.0) L D 01/09/18 04:17 Globulin 3.3 gm/dL (2.2-3.9) 01/09/18 04:17 Albumin/Globulin Ratio 0.8 (1.0-2.1) L 01/09/18 04:17 Lipase 289 U/L (23-300) 01/07/18 05:40 Vitamin B12 926 pg/mL (239-931) 01/07/18 05:40 Folate > 20.0 ng/mL 01/07/18 05:40 Procalcitonin 0.08 NG/ML (0.19-0.49) L 01/08/18 04:10 Urine Color Yellow (YELLOW) 01/06/18 19:18 Urine Clarity Cloudy (Clear) 01/06/18 19:18 Urine pH 6.0 (5.0-8.0) 01/06/18 19:18 Ur Specific [place] 1.014 (1.003-1.030) 01/06/18 19:18 Urine Protein 30 mg/dL (NEGATIVE) 01/06/18 19:18 Urine Glucose (UA) Negative mg/dL (Normal) 01/06/18 19:18 Urine Ketones Negative mg/dL (NEGATIVE) 01/06/18 19:18 Urine Blood Negative (NEGATIVE) 01/06/18 19:18 Urine Nitrate Negative (NEGATIVE) 01/06/18 19:18 Urine Bilirubin Negative (NEGATIVE) 01/06/18 19:18 Urine Urobilinogen 0.2-1.0 mg/dL (0.2-1.0) 01/06/18 19:18 Ur Leukocyte Esterase Large Fredy/uL (Negative) 01/06/18 19:18 Urine RBC (Auto) 3 /hpf (0-3) 01/06/18 19:18 Urine Microscopic WBC 145 /hpf (0-5) H 01/06/18 19:18 Ur Squamous Epith Cells 1 /hpf (0-5) 01/06/18 19:18 Urine Bacteria Many (<OCC) H 01/06/18 19:18 Stool Occult Blood Negative (NEGATIVE) 01/07/18 02:23 Vancomycin Trough 24.3 ug/mL (5.0-10.0) H 01/09/18 04:17 Blood Type A POSITIVE 01/09/18 10:22 Antibody Screen Negative 01/09/18 10:22 Crossmatch See Detail 01/09/18 10:22 BBK History Checked Patient has bt 01/09/18 10:22 - Hospital Course Hospital Course: 47 YO female with PMHx of Cirrhosis, HTN and asthma is admitted for symptomatic anemia, hyperkalemia, UTI, suspected SBP, and with right sided weakness to r/o CVA. ON admission patient was managed with transfusion of 2 units of PRBC on 02/14. H/H improved after transfusion, however Hgb continued decreasing, 1 unit of PRBC was transfused without complications to keep hgb above 8 as per GI recommendations, no evidence of active bleeding was noted. GI was consulted. EGD was recommended by GI to r/o active GI bleeding( oozing). Also managed with Albumin 50 gm IV x 3. Was on dopamine drip to support BP while in ICU unit. Patient was started on midodrine PO. BP stable, and close to patient's baseline. Also noted to have Hyperammonemia, treated with lactulose scheduled, which resolved. Patient neurological symptoms resolved after hyperammonemia was corrected, neurological symptoms most likely secondary to severe hepatic encephalopathy. Head CT,and MRI were reported as no evidence of acute findings. Neuro was consulted on admission. No neurological intervention at this time. Started on antibiotics for suspected sepsis from UTI vs suspected SBP, procalcitonin on badmission was low, sepsis was r/o, and vanco DC. Continue Zosyn for UTI secondary to Serratia Marcens. Resumed home Rifaximin. Also on admission was suspected acute cholecystitis. Abd US done reported cholelithiasis , no evidence of acute findings. Transferred to Telemetry. Upper endoscopy by GI, by Dr. Bautista. Per GI no evidence of active bleeding at this time. Patient tolerated procedure well. Unable to perform abdominal parasenthesis on this admission due to low blood pressure, and low platelets. Patient was started on liquid diet as per GI recommendations, and could discharge home today if tolerating liquid diet. Patient needs to follow up with GI in 1 week. Has an appoinment with PMD on 01/14/18 AM Discharged Meds: new: Midodrine 5 mg PO TID aldactone 50 mg BID Pantoprazole 40 mg PO - Date & Time of H&P Date of H&P: 01/06/18 Time of H&P: 22:55 Discharge Exam - Head Exam Head Exam: ATRAUMATIC - Skin Additional comments: Constitutional Appears: No Acute Distress, Cachectic, Other (mild jaundice ) - Eye Exam Eye Exam: EOMI, Scleral icterus - ENT Exam ENT Exam: Mucous Membranes Moist - Respiratory Exam Respiratory Exam: Clear to Auscultation Bilateral, NORMAL BREATHING PATTERN. absent: Wheezes - Cardiovascular Exam Cardiovascular Exam: REGULAR RHYTHM, +S1, +S2 - GI/Abdominal Exam GI & Abdominal Exam: Distended (mild), Hyperactive Bowel Sounds, Normal Bowel Sounds, mild Tenderness (generalized ), however improving. absent: Rebound - Extremities Exam Extremities exam: Positive for: normal inspection. Negative for: calf tenderness, pedal edema - Back Exam Back exam: NORMAL INSPECTION. absent: CVA tenderness (L), CVA tenderness (R) - Neurological Exam Neurological exam: Alert, Motor Sensory Deficit (decrease sensation in the R side upper and low ext), Oriented x - Skin Skin Exam: jaundice: mild Additional comments: Spider Angioma in the face/chest Discharge Plan - Discharge Medications Prescriptions: Albuterol Sulfate [Proair Hfa] 2 puff IH Q6 PRN #1 inh PRN Reason: Shortness Of Breath Ferrous Sulfate [Feosol] 325 mg PO BID #60 tab Folic Acid 1 mg PO DAILY #30 tab Lactulose [Enulose] 20 gm PO BID #1 udc Midodrine [Proamatine] 5 mg PO TID 30 Days #90 tab Pantoprazole [Protonix EC Tab] 40 mg PO DAILY #30 ect rifAXIMin [Xifaxan] 550 mg PO Q12 #60 tab Spironolactone [Aldactone] 50 mg PO BID #60 tab - Follow Up Plan Condition: IMPROVED Disposition: HOME/ ROUTINE Instructions: Anemia Caused by Low Iron, Adult (DC), Cirrhosis (DC) Additional Instructions: follow up with on sunday01/14/18 at 11:20am follow up with in 1 week [facility]] Jose G Bautista MD [Staff Provider] -
[2018-01-11 08:33] VITALS: O2SAT 100
[2018-01-11] MEDS: Pantoprazole 40 mg EC Tab PO SCH ×2 (08:57→10:12)
[2018-01-11] MEDS ORDERED: Sodium Chloride 0.9% 250 ML IV ONE (15:12)
[2018-01-11] MEDS ORDERED: Etomidate 20 mg/10ml Inj IV ONE (15:13)
[2018-01-11] MEDS ORDERED: Propofol 10 mg/ml Inj (20 ML) ONE (15:13)
[2018-01-11 20:02] VITALS: BP 106/68; PULSE 70; RESP 18; TEMP 98.5
== END 2018-01-11 19:30 | disposition home or self-care (01) | DRG 808 ==
LOC: H.ER 18:25 → H.ERHOLD 21:43 → H.ICU/CCU 01-07 03:15 → H.TEL 01-09 17:07
PROVIDERS: ADMIT Internal Medicine; ATTEND Internal Medicine
PROC: 30233N1 Transfusion of Nonautologous Red Blood Cells into Peripheral Vein, Percutaneous Approach (ICD-10-PCS; 2018-01-07)
PROC: 6A551Z2 Pheresis of Platelets, Multiple (ICD-10-PCS; 2018-01-11)
PROC: 0DJ08ZZ Inspection of Upper Intestinal Tract, Via Natural or Artificial Opening Endoscopic (ICD-10-PCS; principal; 2018-01-11 08:30)
DX: D61.818 Other pancytopenia (principal); K76.7 Hepatorenal syndrome; N17.9 Acute kidney failure, unspecified; N39.0 Urinary tract infection, site not specified; E72.20 Disorder of urea cycle metabolism, unspecified; K70.31 Alcoholic cirrhosis of liver with ascites; K72.90 Hepatic failure, unspecified without coma; N18.3 Chronic kidney disease, stage 3 (moderate); J45.909 Unspecified asthma, uncomplicated; I12.9 Hypertensive chronic kidney disease with stage 1 through stage 4 chronic kidney disease, or unspecified chronic kidney disease; E87.5 Hyperkalemia; K31.89 Other diseases of stomach and duodenum; K44.9 Diaphragmatic hernia without obstruction or gangrene; Z91.041 Radiographic dye allergy status; K80.20 Calculus of gallbladder without cholecystitis without obstruction; G89.29 Other chronic pain; R53.1 Weakness; I78.1 Nevus, non-neoplastic

== ENCOUNTER 2018-01-31 22:58 | Inpatient (IN) | payer MEDICARE, MEDICAID ==
[2018-01-31 22:59] VITALS: BMI 16.6
[2018-01-31] MEDS ORDERED: Sodium Chloride 0.9% 1,000 ML IV STA (23:21)
[2018-02-01] MEDS: Pantoprazole 40 MG in Sodium Chloride 0.9% 100 ML IV SCH ×4 (00:35→15:09)
[2018-02-01 00:39] LABS: BASO % 0.1 % (0.0-2.0); HEMOGLOBIN 8.3 g/dL (12.0-16.0); LYMPH # 0.4 K/uL (1.0-4.3); LYMPH % 5.9 % (20.0-40.0); MEAN CELL VOLUME 98.2 fl (81.0-99.0); MEAN CORPUSCULAR HEMOGLOBIN 33.1 pg (27.0-31.0); MEAN CORPUSCULAR HGB CONC 33.7 g/dL (33.0-37.0); MEAN PLATELET VOLUME 11.9 fl (7.2-11.7); MONO # 1.5 K/uL (0.0-0.8); MONO % 19.2 % (0.0-10.0); NEUT # 5.7 K/uL (1.8-7.0); NEUT % 74.8 % (50.0-75.0); NRBC % 0.1 % (0.0-0.0); PLATELET COUNT 82 K/uL (130-400); RED CELL DISTRIBUTION WIDTH 21.4 % (11.5-14.5); WHITE BLOOD COUNT 7.6 K/uL (4.8-10.8)
[2018-02-01 00:44] LABS: INR 2.2; PROTHROMBIN TIME 24.2 Seconds (9.8-13.1)
[2018-02-01 00:46] LABS: PARTIAL THROMBOPLASTIN TIME 41.3 Seconds (25.6-37.1)
[2018-02-01 01:35] LABS: ALB/GLOB RATIO 0.7 (1.0-2.1); ALBUMIN 2.8 g/dL (3.5-5.0); ALT/SGPT 17 U/L (9-52); AST/SGOT 24 U/L (14-36); BLOOD UREA NITROGEN 71 mg/dl (7-17); CALCIUM 8.2 mg/dL (8.4-10.2); GFR NON-AFRICAN AMERICAN 9; LIPASE 93 U/L (23-300)
[2018-02-01] MEDS ORDERED: Sodium Chloride 0.9% 1,000 ML IV STA (01:35)
[2018-02-01] MEDS ORDERED: Dextrose 50% SYRINGE Inj (50 ml) IVP ONE (01:39)
[2018-02-01] MEDS ORDERED: Insulin Regular 100 units/ml IV ONE (01:39)
[2018-02-01] MEDS ORDERED: Sodium Bicarbonate 7.5% (0.9 MEQ/ML) 50ML INJ IV ONE ×2 (01:39→02:53)
[2018-02-01 02:01] LABS: ANISOCYTOSIS SLIGHT; LYMPHOCYTE 9 % (20-50); MONOCYTE 8 % (0-10); NEUTROPHIL 83 % (42-75); PLATELET ESTIMATE DECREASED (NORMAL); TOTAL CELLS COUNTED 100
--- NOTE | 2018-02-01 02:02 | ED PDOC ---
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 Patient reports multiple episodes of vomiting and generalized weakness. Patient states she had x1 episode of about a table spoon of bright red blood. She denies any other medical comp laints. PMD: Sandy, Jose G Zarco Past Medical History Reviewed: Historical Data, Nursing Documentation, Vital Signs Vital Signs: Last Vital Signs Temp 94.6 F L 01/31/18 23:07 Pulse 59 L 01/31/18 23:07 Resp 16 01/31/18 23:07 BP 72/35 L 01/31/18 23:07 Pulse Ox 100 01/31/18 23:07 - Medical History PMH: Anemia, Asthma, HTN Denies: Chronic Kidney Disease, Sickle Cell Disease, Sleep Apnea Other PMH: End stage liver disease - Surgical History Surgical History: Endoscopy, - Family History Family History: States: Unknown Family Hx - Social History Current smoker - smoking cessation education provided: No Alcohol: None Drugs: Denies - Home Medications Home Medications: Ambulatory Orders Medication Instructions Recorded RX: Albuterol Sulfate [Proair Hfa] 2 puff IH Q6 PRN #1 inh 01/11/18 RX: Ferrous Sulfate [Feosol] 325 mg PO BID #60 tab 01/11/18 RX: Folic Acid 1 mg PO DAILY #30 tab 01/11/18 RX: Midodrine [Proamatine] 5 mg PO TID 30 Days #90 tab 01/11/18 RX: Pantoprazole [Protonix EC Tab] 40 mg PO DAILY #30 ect 01/11/18 RX: Spironolactone [Aldactone] 50 mg PO BID #60 tab 01/11/18 RX: rifAXIMin [Xifaxan] 550 mg PO Q12 #60 tab 01/11/18 - Allergies Allergies/Adverse Reactions: Allergies Allergy/AdvReac Type Severity Reaction Status Date / Time iodine Allergy SHORTNESS Verified 01/31/18 23:12 OF BREATH Review of Systems ROS Statement: Except As Marked, All Systems Reviewed And Found Negative Gastrointestinal: Positive for: Nausea, Vomiting, Abdominal Pain Physical Exam - Reviewed Nursing Documentation Reviewed: Yes Vital Signs Reviewed: Yes - Physical Exam Appears: Positive for: Uncomfortable Head Exam: Positive for: ATRAUMATIC, NORMAL INSPECTION, NORMOCEPHALIC Skin: Positive for: Normal Color, Warm, Dry Eye Exam: Positive for: Normal appearance, EOMI, PERRL Neck: Positive for: Painless ROM Cardiovascular/Chest: Positive for: Regular Rate, Rhythm. Negative for: Murmur Respiratory: Positive for: Normal Breath Sounds. Negative for: Respiratory Distress Gastrointestinal/Abdominal: Positive for: Asicites (on palpation). Negative for: Tenderness, Guarding, Rebound Back: Positive for: Normal Inspection. Negative for: L CVA Tenderness, R CVA Tenderness, Vertebral Tenderness Extremity: Positive for: Normal ROM (upper and lower extremities). Negative for: Deformity, Swelling Neurologic/Psych: Positive for: Alert, Mood/Affect (flat), Gait (unsteady), Other ((+)asterexis noted). Negative for: Oriented - Laboratory Results Result Diagrams: 02/01/18 00:13 02/01/18 01:13 - ECG O2 Sat by Pulse Oximetry: 100 (RA) Pulse Ox Interpretation: Normal - Critical Care Total Time (In Min): 30 Documented Critical Care: Time excludes all time spent performint seperately billable procedures Medical Decision Making Medical Decision Making: Time: 23:20 Initial Impression: 47 y/o female with vomiting and ascites in setting of known end stage liver disease Initial Plan: --EKG --Ammonia --Drug screen, urine --Urine --Urine dipstick --Morphine 2 mg IVP --Sodium Chloride 1,000 ml IV 1,000 mls/hr --Sodium Chloride 1,000 ml IV 1,000 mls/hr --Zofran Inj 4 mg IV --Protonix Inj 80 mg IV --Protonix 40mg/100ml IV Drip --Reevaluation 02:00 Labs reviewed indicative of anemia with hyperammonemia as well as hyperkalemia; D50, IV Insulin, NaHCO3 ordered Patient will be admitted as d/w Dr Cifuentes (FP SARAH) -------- Scribe Attestation: Documented by Kyler Pace, acting as a scribe for Yaniv Valle MD. Provider Scribe Attestation: All medical record entries made by the Scribe were at my direction and personally dictated by me. I have reviewed the chart and agree that the record accurately reflects my personal performance of the history, physical exam, medical decision making, and the department course for this patient. I have also personally directed, reviewed, and agree with the discharge instructions and disposition. Disposition - Clinical Impression Clinical Impression: UGIB (upper gastrointestinal bleed), Altered mental status, Hyperkalemia, Anemia, Cirrhosis of liver with ascites, Hyperammonemia - Disposition Disposition Time: 02:00 Condition: STABLE
[2018-02-01] MEDS ORDERED: Insulin Regular 100 units/ml ONE (02:07)
[2018-02-01] MEDS ORDERED: Dextrose 50% SYRINGE Inj (50 ml) ONE (02:08)
--- NOTE | 2018-02-01 02:48 | CP.PCM.HP ---
"<Lloyd Greenberg - Last Filed: 02/01/18 03:06> History of Present Illness - History of Present Illness History of Present Illness: limited HPI available secondary to patients altered mental status, remainder of H&P taken from recent clinic notes and medical records 47 y/o female, well known to our service, with a history of end stage alcoholic liver cirrhosis, anemia, portal HTN, thrombocytopenia, and ascities presented to [facility] ED for evaluation of abdominal pain associated with nausea and single episode of hematemesis for the past day. No other information obtainable as pt is disoriented and no family is present at bedside. ROS: unobtainable 2/2 to mental status PMD: [facility] PMHx: HTN, Asthma, Alcoholic Liver cirrhosis with Ascites, hx of Anemia (with blood transfusion in the past) PSHx: C-Sections x 3 FHx: HTN, liver failure in father Social History: unobtainable Allergies: iodine Meds: carvidilol 3.125mg BID, aldactone 50mg QD, rifaximin 550mg BID, pantoprazole 40mg QD (as per 01/14/18 eCW note) Next of kin: Daughter: Loli: [phone] ED Course Vitals: T 94.6 F, BP 72/35, HR 59, RR 16, POX 100% RA weight 95.7lbs (prior clinic 102lbs) CBC: 7.6>8.3/24.5<82 CMP: 131/6.4|99/19|71/5.3<119 Ammonia: 273 Lipase: 93 ETOH <10 PT: 24.2, INR 2.2, APTT 41.3 EKG: sinus bradycardia at 60bpm, no acute changes Meds: NS x2L bolus, morphine 1mg, zofran 4mg IVP, sodium bicarb 133.8 admitted to tele Present on Admission - Present on Admission Any Indicators Present on Admission: No History of DVT/PE: No History of Uncontrolled Diabetes: No Urinary Catheter: No Decubitus Ulcer Present: No Review of Systems - Review of Systems Systems not reviewed;Unavailable: Altered Mental Status Past Patient History - Past Medical History & Family History Past Medical History?: Yes - Past Social History Alcohol: None Drugs: Denies - CARDIAC Hx Hypertension: Yes - PULMONARY Hx Asthma: Yes Hx Sleep Apnea: No - NEUROLOGICAL Hx Neurological Disorder: No - HEENT Hx HEENT Problems: No - RENAL Hx Chronic Kidney Disease: No - ENDOCRINE/METABOLIC Hx Endocrine Disorders: No - HEMATOLOGICAL/ONCOLOGICAL Hx Anemia: Yes Hx Sickle Cell Disease: No - INTEGUMENTARY Hx Dermatological Problems: No - MUSCULOSKELETAL/RHEUMATOLOGICAL Hx Musculoskeletal Disorders: No Hx Falls: Yes - GASTROINTESTINAL Hx Gastrointestinal Disorders: Yes Hx Liver Failure: Yes - GENITOURINARY/GYNECOLOGICAL Hx Genitourinary Disorders: No - PSYCHIATRIC Hx Psychophysiologic Disorder: No Hx Substance Use: Yes (marijuana) - ANESTHESIA Hx Anesthesia: Yes Hx Anesthesia Reactions: No Hx Malignant Hyperthermia: No Meds Allergies/Adverse Reactions: Allergies Allergy/AdvReac Type Severity Reaction Status Date / Time iodine Allergy SHORTNESS Verified 01/31/18 23:12 OF BREATH Physical Exam - Constitutional Appears: Non-toxic, No Acute Distress, Confused, Chronically Ill - Head Exam Head Exam: ATRAUMATIC - Eye Exam Eye Exam: EOMI, PERRL, Scleral icterus. absent: Normal appearance - ENT Exam ENT Exam: Mucous Membranes Moist - Neck Exam Neck exam: Negative for: Lymphadenopathy - Respiratory Exam Respiratory Exam: Clear to Auscultation Bilateral, NORMAL BREATHING PATTERN. absent: Accessory Muscle Use, Rales, Rhonchi, Wheezes - Cardiovascular Exam Cardiovascular Exam: REGULAR RHYTHM, RRR, +S1, +S2. absent: Tachycardia, Gallop, JVD, Rubs, Systolic Murmur - GI/Abdominal Exam GI & Abdominal Exam: Firm, Guarding (voluntary guarding ), Tenderness. absent: Normal Bowel Sounds, Rigid, Soft - Extremities Exam Extremities exam: Positive for: normal inspection, pedal pulses present. Negative for: pedal edema, tenderness - Neurological Exam Neurological exam: Altered - Skin Additional comments: jaundiced Results - Vital Signs Recent Vital Signs: Last Vital Signs Temp 94.6 F L 01/31/18 23:07 Pulse 81 02/01/18 02:11 Resp 16 01/31/18 23:07 BP 98/59 L 02/01/18 02:11 Pulse Ox 100 02/01/18 02:47 - Labs Result Diagrams: 02/01/18 00:13 02/01/18 01:13 Labs: Laboratory Results - last 24 hr 02/01/18 02/01/18 02/01/18 00:13 00:13 00:13 WBC 7.6 D RBC 2.50 L Hgb 8.3 L Hct 24.5 L MCV 98.2 MCH 33.1 H MCHC 33.7 RDW 21.4 H Plt Count 82 L D MPV 11.9 H Neut % (Auto) 74.8 Lymph % (Auto) 5.9 L [place] % (Auto) 19.2 H Eos % (Auto) 0.0 Baso % (Auto) 0.1 Neut # (Auto) 5.7 Lymph # (Auto) 0.4 L [place] # (Auto) 1.5 H Eos # (Auto) 0.0 Baso # (Auto) 0.0 Neutrophils % (Manual) 83 H Lymphocytes % (Manual) 9 L Monocytes % (Manual) 8 Platelet Estimate Decreased L Anisocytosis (manual) Slight PT 24.2 H INR 2.2 APTT 41.3 H Sodium Potassium Chloride Carbon Dioxide Anion Gap BUN Creatinine Est GFR ( Amer) Est GFR (Non-Af Amer) Random Glucose Calcium Total Bilirubin AST ALT Alkaline Phosphatase Total Protein Albumin Globulin Albumin/Globulin Ratio Lipase Alcohol, Quantitative Blood Type A POSITIVE Antibody Screen Negative BBK History Checked Patient has bt 02/01/18 01:13 WBC RBC Hgb Hct MCV MCH MCHC RDW Plt Count MPV Neut % (Auto) Lymph % (Auto) [place] % (Auto) Eos % (Auto) Baso % (Auto) Neut # (Auto) Lymph # (Auto) [place] # (Auto) Eos # (Auto) Baso # (Auto) Neutrophils % (Manual) Lymphocytes % (Manual) Monocytes % (Manual) Platelet Estimate Anisocytosis (manual) PT INR APTT Sodium 131 L Potassium 6.4 H* D Chloride 99 Carbon Dioxide 19 L Anion Gap 19 BUN 71 H Creatinine 5.3 H Est GFR ( Amer) 10 Est GFR (Non-Af Amer) 9 Random Glucose 119 H Calcium 8.2 L Total Bilirubin 9.5 H AST 24 ALT 17 Alkaline Phosphatase 72 Total Protein 7.1 Albumin 2.8 L Globulin 4.3 H Albumin/Globulin Ratio 0.7 L Lipase 93 Alcohol, Quantitative < 10 Blood Type Antibody Screen BBK History Checked Assessment & Plan - Assessment and Plan (Free Text) Assessment: 47 y/o female with history of ETOH induced alcoholic liver cirrhosis admitted for hepatic encephalopathy, acute renal injury, and suspected upper GI bleed. Plan: 1) Suspected Upper GI Bleed -H/H stable -BP stable (baseline for pt is low 90s/60s) -protonix IVP -Type and screen -vitamin K 10mg IVP -2 units FFP -occult blood -zofran prn nausea -NPO -GI consult pending 2) Hepatic Encephalopathy -ammonia 273 -lactulose VA, titrate to 3BMs per day -monitor -rule out GI bleed 3) Acute Renal Injury -BUN/Cr: 71/5.3 -nephrology consult pending -s/p 2L NS -f/u am labs 4) Hyperkalemia -s/p 10U insulin -no EKG changes -f/u am labs 5) Coagulopathy -10mg Vit K IVP -2 units FFP 6) Abdominal Pain -abd u/s pending -1gm rocephin QD SBP PPX 7) Prophylaxis -SCDs (thrombocytopenia) 8) Diet -NPO 9) Code Status -full code <Milad Ronquillo A - Last Filed: 02/01/18 04:56> Results - Vital Signs Recent Vital Signs: Last Vital Signs Temp 96.2 F L 02/01/18 03:05 Pulse 102 H 02/01/18 03:05 Resp 18 02/01/18 03:05 BP 94/65 L 02/01/18 03:05 Pulse Ox 100 02/01/18 03:21 - Labs Result Diagrams: 02/01/18 00:13 02/01/18 01:13 Labs: Laboratory Results - last 24 hr 02/01/18 02/01/18 02/01/18 00:13 00:13 00:13 WBC 7.6 D RBC 2.50 L Hgb 8.3 L Hct 24.5 L MCV 98.2 MCH 33.1 H MCHC 33.7 RDW 21.4 H Plt Count 82 L D MPV 11.9 H Neut % (Auto) 74.8 Lymph % (Auto) 5.9 L [place] % (Auto) 19.2 H Eos % (Auto) 0.0 Baso % (Auto) 0.1 Neut # (Auto) 5.7 Lymph # (Auto) 0.4 L [place] # (Auto) 1.5 H Eos # (Auto) 0.0 Baso # (Auto) 0.0 Neutrophils % (Manual) 83 H Lymphocytes % (Manual) 9 L Monocytes % (Manual) 8 Platelet Estimate Decreased L Anisocytosis (manual) Slight PT 24.2 H INR 2.2 APTT 41.3 H Sodium Potassium Chloride Carbon Dioxide Anion Gap BUN Creatinine Est GFR ( Amer) Est GFR (Non-Af Amer) Random Glucose Calcium Total Bilirubin AST ALT Alkaline Phosphatase Ammonia Total Protein Albumin Globulin Albumin/Globulin Ratio Lipase Alcohol, Quantitative Blood Type A POSITIVE Antibody Screen Negative BBK History Checked Patient has bt 02/01/18 02/01/18 01:13 02:28 WBC RBC Hgb Hct MCV MCH MCHC RDW Plt Count MPV Neut % (Auto) Lymph % (Auto) [place] % (Auto) Eos % (Auto) Baso % (Auto) Neut # (Auto) Lymph # (Auto) [place] # (Auto) Eos # (Auto) Baso # (Auto) Neutrophils % (Manual) Lymphocytes % (Manual) Monocytes % (Manual) Platelet Estimate Anisocytosis (manual) PT INR APTT Sodium 131 L Potassium 6.4 H* D Chloride 99 Carbon Dioxide 19 L Anion Gap 19 BUN 71 H Creatinine 5.3 H Est GFR ( Amer) 10 Est GFR (Non-Af Amer) 9 Random Glucose 119 H Calcium 8.2 L Total Bilirubin 9.5 H AST 24 ALT 17 Alkaline Phosphatase 72 Ammonia 273 H* D Total Protein 7.1 Albumin 2.8 L Globulin 4.3 H Albumin/Globulin Ratio 0.7 L Lipase 93 Alcohol, Quantitative < 10 Blood Type Antibody Screen BBK History Checked Attending/Attestation - Attestation I have personally seen and examined this patient.: Yes I have fully participated in the care of the patient.: Yes I have reviewed all pertinent clinical information: Yes Notes (Text): 02/01/18 04:23 I saw, examined and discussed this patient with Dr Greenberg. I agree with the assessment and plan outlined above which represent my direct input. This is a 47 years old female with hx of Liver cirrhosis who was brought to the ED in an altered mental state, abdominal pain, vomiting and one episode of hematemesis. Potassium was 6.4; Creatinine was 5.3 ad Ammonia 273. A&P #. Abdominal pain in patient with Liver cirrhosis and Ascites - Consult GI Dr Tabares - Abdominal Ultra Sound - Consult IR for Parenthesis - Pain management with Morphine - Ceftriaxone in Cirrhotic patient with Ascites and GI bleed #. Hepatic Encephalopathy with elevated Ammonia - GI on consult - Lactulose - Follow Ammonia #. Upper GI bleed probably secondary to Nupur Chiu - GI on Consult - Pantoprazole IV drip - NPO - Follow H7H #. Acute Kidney injury with Hyperkalemia - Consult Nephrology Dr Swann - IV Fluid - Dextrose with Insulin given in ED - Sodium Bicarbonate given in ED - Kayexalate VA - Follow renal labs - Follow ammonia Milad Ronquillo MD 02/01/18 04:53"
[2018-02-01] MEDS ORDERED: Phytonadione 10 mg/ml Inj (Adult) IVPB ONE ×2 (02:53→22:16)
[2018-02-01] MEDS ORDERED: Sod Polystyrene Sulf 15 gm/60 ml Susp PR ONE (04:03)
[2018-02-01] MEDS: Dextrose 5%/0.9% NS 1,000 ML IV SCH ×3 (04:51→23:37)
[2018-02-01 07:07] LABS: HEMOGLOBIN 6.8 g/dL (12.0-16.0); MEAN CELL VOLUME 99.2 fl (81.0-99.0); MEAN CORPUSCULAR HEMOGLOBIN 33.4 pg (27.0-31.0); MEAN CORPUSCULAR HGB CONC 33.7 g/dL (33.0-37.0); RBC 2.04 Mil/uL (3.80-5.20); RED CELL DISTRIBUTION WIDTH 21.1 % (11.5-14.5)
[2018-02-01 07:21] LABS: ALB/GLOB RATIO 0.6 (1.0-2.1); ALBUMIN 2.4 g/dL (3.5-5.0); CALCIUM 7.3 mg/dL (8.4-10.2)
[2018-02-01] MEDS ORDERED: Chlorhexidine Gluconate 1 APPL/PKT TP ONE (07:32)
--- NOTE | 2018-02-01 08:32 | CP.PCM.CON ---
History of Present Illness - History of Present Illness History of Present Illness: PGY 5 Initial GI Consult Joy Ta is a 47yo female with PMHx significant for decompensated EtOH cirrhosis c/b ascites and hepatic encephalopathy, asthma who was confusion and possible hematemesis. Upon examination, pt was obtunded due to haloperidol for agitation. All information was obtained from nursing staff and EMR. She was recently discharged due to similar complaints of hemeatemesis in 12/2017. Pt had an EGD by Dr. Bautista on 12/2017 which did not reveal any gastritis or ulcers. Pt has not had any further episodes of hematemesis or coffee-ground emesis. Nursing staff does not report any BM at this time. She was started on PPi drip and given ceftriaxone 1 gm. Vitals have been stable since admission. Pt was supp osedly discharged on aldactone as per documentation Per outpatient documentation, patient stopped drinking EtOh in September 2015 and was being evaluated for transplant at [facility] but was nonadherent with follow up due to difficulty getting to the hospital. 12 system ROS performed and negative except where stated. PMHx: See HPI PSHx: x3 FHx: Discussed with patient and no prior family history Social: Prior heavy EtOH use, no tobacco or illicit drug use Endo Hx: EGD 12/2017: neg for varices ; 09/07/2017: grade 1 varices, non bandable, portal gastropathy; 08/22/16 colonoscopy: poor prep; EGD x2 previous to that ROS: could not be conducted due to AMS Past Patient History - Past Medical History & Family History Past Medical History?: Yes - Past Social History Smoking Status: Never Smoked - CARDIAC Hx Cardiac Disorders: Yes Hx Hypertension: Yes - PULMONARY Hx Respiratory Disorders: Yes Hx Asthma: Yes Hx Sleep Apnea: No - NEUROLOGICAL Hx Neurological Disorder: No - HEENT Hx HEENT Problems: No - RENAL Hx Chronic Kidney Disease: No - ENDOCRINE/METABOLIC Hx Endocrine Disorders: No - HEMATOLOGICAL/ONCOLOGICAL Hx Blood Disorders: Yes Hx Anemia: Yes Hx Sickle Cell Disease: No - INTEGUMENTARY Hx Dermatological Problems: No - MUSCULOSKELETAL/RHEUMATOLOGICAL Hx Musculoskeletal Disorders: No Hx Falls: Yes - GASTROINTESTINAL Hx Gastrointestinal Disorders: Yes Hx Liver Failure: Yes - GENITOURINARY/GYNECOLOGICAL Hx Genitourinary Disorders: No - PSYCHIATRIC Hx Psychophysiologic Disorder: No Hx Substance Use: Yes (marijuana) - SURGICAL HISTORY Hx Surgeries: Yes - ANESTHESIA Hx Anesthesia: Yes Hx Anesthesia Reactions: No Hx Malignant Hyperthermia: No Meds Allergies/Adverse Reactions: Allergies Allergy/AdvReac Type Severity Reaction Status Date / Time iodine Allergy SHORTNESS Verified 01/31/18 23:12 OF BREATH - Medications Medications: Current Medications Pantoprazole Sodium 40 mg/ (Sodium Chloride) 100 mls @ 20 mls/hr IV .Q5H BARBARA Last Admin: 02/01/18 04:52 Dose: 20 mls/hr Dextrose/Sodium Chloride (Dextrose 5%/0.9% Ns 1000 Ml) 1,000 mls @ 100 mls/hr IV .Q10H BARBARA Stop: 02/02/18 04:22 Last Admin: 02/01/18 04:51 Dose: 100 mls/hr Lactulose (Generlac) 200 gm ID Q3 BARBARA Morphine Sulfate (Morphine) 1 mg IVP Q4 PRN PRN Reason: Pain, moderate (4-7) Morphine Sulfate (Morphine) 2 mg IVP Q4 PRN PRN Reason: Pain, severe (8-10) Ondansetron HCl (Zofran Inj) 4 mg IVP Q6 PRN PRN Reason: Nausea/Vomiting Physical Exam - Constitutional Appears: No Acute Distress - Head Exam Head Exam: NORMAL INSPECTION, NORMOCEPHALIC - Eye Exam Eye Exam: Scleral icterus - ENT Exam ENT Exam: Mucous Membranes Moist, Normal Exam - Neck Exam Neck exam: Positive for: Normal Inspection - Respiratory Exam Respiratory Exam: Clear to Auscultation Bilateral, NORMAL BREATHING PATTERN. absent: Rales, Rhonchi, Wheezes, Respiratory Distress - Cardiovascular Exam Cardiovascular Exam: REGULAR RHYTHM, +S1, +S2 - GI/Abdominal Exam GI & Abdominal Exam: Distended, Normal Bowel Sounds, Soft. absent: Firm, Guarding, Hernia, Organomegaly, Rebound, Rigid, Tenderness - Rectal Exam Rectal Exam: absent: Black Stool, Bloody Stool, Hemorrhoids - Extremities Exam Extremities exam: Negative for: joint swelling, pedal edema - Neurological Exam Neurological exam: Altered - Psychiatric Exam Additional comments: could not assess due to AMS Results - Vital Signs Recent Vital Signs: Last Vital Signs Temp 96.2 F L 02/01/18 03:45 Pulse 102 H 02/01/18 03:45 Resp 18 02/01/18 05:39 BP 94/65 L 02/01/18 03:45 Pulse Ox 100 02/01/18 03:21 - Labs Result Diagrams: 02/01/18 06:25 02/01/18 06:25 Labs: Laboratory Results - last 24 hr 02/01/18 02/01/18 02/01/18 00:13 00:13 00:13 WBC 7.6 D RBC 2.50 L Hgb 8.3 L Hct 24.5 L MCV 98.2 MCH 33.1 H MCHC 33.7 RDW 21.4 H Plt Count 82 L D MPV 11.9 H Neut % (Auto) 74.8 Lymph % (Auto) 5.9 L [place] % (Auto) 19.2 H Eos % (Auto) 0.0 Baso % (Auto) 0.1 Neut # (Auto) 5.7 Lymph # (Auto) 0.4 L [place] # (Auto) 1.5 H Eos # (Auto) 0.0 Baso # (Auto) 0.0 Neutrophils % (Manual) 83 H Lymphocytes % (Manual) 9 L Monocytes % (Manual) 8 Platelet Estimate Decreased L Anisocytosis (manual) Slight PT 24.2 H INR 2.2 APTT 41.3 H Sodium Potassium Chloride Carbon Dioxide Anion Gap BUN Creatinine Est GFR ( Amer) Est GFR (Non-Af Amer) Random Glucose Calcium Total Bilirubin AST ALT Alkaline Phosphatase Ammonia Total Protein Albumin Globulin Albumin/Globulin Ratio Lipase Alcohol, Quantitative Blood Type A POSITIVE Antibody Screen Negative Crossmatch See Detail BBK History Checked Patient has bt 02/01/18 02/01/18 02/01/18 01:13 02:28 06:25 WBC 7.0 RBC 2.04 L Hgb 6.8 L Hct 20.2 L MCV 99.2 H MCH 33.4 H MCHC 33.7 RDW 21.1 H Plt Count 59 L D MPV Neut % (Auto) Lymph % (Auto) [place] % (Auto) Eos % (Auto) Baso % (Auto) Neut # (Auto) Lymph # (Auto) [place] # (Auto) Eos # (Auto) Baso # (Auto) Neutrophils % (Manual) Lymphocytes % (Manual) Monocytes % (Manual) Platelet Estimate Anisocytosis (manual) PT INR APTT Sodium 131 L Potassium 6.4 H* D Chloride 99 Carbon Dioxide 19 L Anion Gap 19 BUN 71 H Creatinine 5.3 H Est GFR ( Amer) 10 Est GFR (Non-Af Amer) 9 Random Glucose 119 H Calcium 8.2 L Total Bilirubin 9.5 H AST 24 ALT 17 Alkaline Phosphatase 72 Ammonia 273 H* D Total Protein 7.1 Albumin 2.8 L Globulin 4.3 H Albumin/Globulin Ratio 0.7 L Lipase 93 Alcohol, Quantitative < 10 Blood Type Antibody Screen Crossmatch BBK History Checked 02/01/18 06:25 WBC RBC Hgb Hct MCV MCH MCHC RDW Plt Count MPV Neut % (Auto) Lymph % (Auto) [place] % (Auto) Eos % (Auto) Baso % (Auto) Neut # (Auto) Lymph # (Auto) [place] # (Auto) Eos # (Auto) Baso # (Auto) Neutrophils % (Manual) Lymphocytes % (Manual) Monocytes % (Manual) Platelet Estimate Anisocytosis (manual) PT INR APTT Sodium 136 Potassium 5.4 H Chloride 102 Carbon Dioxide 16 L Anion Gap 23 H BUN 70 H Creatinine 4.9 H Est GFR ( Amer) 11 Est GFR (Non-Af Amer) 9 Random Glucose 135 H Calcium 7.3 L Total Bilirubin 8.3 H AST 19 ALT 19 Alkaline Phosphatase 52 Ammonia Total Protein 6.2 L Albumin 2.4 L Globulin 3.9 Albumin/Globulin Ratio 0.6 L Lipase Alcohol, Quantitative Blood Type Antibody Screen Crossmatch BBK History Checked Assessment & Plan - Assessment and Plan (Free Text) Assessment: Joy Ta is a 47F w/ hx of decompensated liver cirrhosis 2/2 ETOH who presents to the ER for abd pain, AMS, and hematemesis Macrocytic anemia, etiology unknown, likely 2/2 bone marrow suppression from ETOH, INNA; rectal was neg and recent EGD did not reveal varices; b12 def? HE grade 3 Decompensated alcoholic liver cirrhosis, MELD 38 on admission Ascites 2/2 above INNA, prerenal vs hepatorenal syndrome Plan: -hgb now 6.8, can give 1 unit PRBC -as per Dr. Humphreys, can hold FFP, if pt parted to have additional episodes of bleeding, recommend then giving FFP -continue ceftriaxone 1 gm daily -abd u/s pending, if sig ascites can consider paracentesis prior to discharge -start albumin 12.5g q 8hrs for 2 days to volume expand, if renal function does not improve consider starting midodrine and ocretotide -lactulose q 3 hours rectal, once pt is able to PO, can switch to PO lactulose and start xifaxan -avoid sedatives if possible -spoke with daughter over the phone to give update and get consent for blood products -repeat cbc and ammonia at 6pm -daily meld labs seen and d/w Dr. Bautista
[2018-02-01] MEDS ORDERED: Lactulose 10 gm/15 ml (Rectal Use) PR SCH (09:00)
[2018-02-01] MEDS: Albumin Human 25% (12.5 gm/50 ml) IV SCH ×2 (10:37→16:36)
[2018-02-01] MEDS: Lactulose 10 gm/15 ml (Rectal Use) PR SCH ×5 (10:41→23:37)
--- NOTE | 2018-02-01 12:34 | CP.PCM.PN ---
Addendum entered and electronically signed by Aminta Hummel MD 02/02/18 08:11: Abdomen was tender to touch on 02/01 expressed by facial grimacing, and not with verbalization of pain. Original Note: <Aminta Hummel - Last Filed: 02/01/18 16:40> Subjective - Date & Time of Evaluation Date of Evaluation: 02/01/18 Time of Evaluation: 09:58 - Subjective Subjective: Patient was seen and examined this AM, awake, and grimacing after just receiving rectal lactulose. When asked how she was feeling, and if she was in any pain, patient would not verbalize a response. Objective - Vital Signs/Intake and Output Vital Signs (last 24 hours): Temp Pulse Resp BP Pulse Ox 94.0 F L 80 18 90/53 L 98 02/01/18 11:54 02/01/18 11:54 02/01/18 11:54 02/01/18 11:54 02/01/18 08:44 Intake and Output: 02/01/18 02/01/18 06:59 18:59 Intake Total 50 Balance 50 - Medications Medications: Current Medications Albumin Human (Albumin Human 25% (12.5 Gm/50 Ml)) 12.5 gm IV Q8 BARBARA Stop: 02/03/18 09:16 Last Admin: 02/01/18 10:37 Dose: 12.5 gm Pantoprazole Sodium 40 mg/ (Sodium Chloride) 100 mls @ 20 mls/hr IV .Q5H BARBARA Last Admin: 02/01/18 10:40 Dose: 20 mls/hr Dextrose/Sodium Chloride (Dextrose 5%/0.9% Ns 1000 Ml) 1,000 mls @ 100 mls/hr IV .Q10H BARBARA Stop: 02/02/18 04:22 Last Admin: 02/01/18 04:51 Dose: 100 mls/hr Ceftriaxone Sodium 1 gm/ (Sodium Chloride) 100 mls @ 100 mls/hr IVPB DAILY BARBARA; Protocol Lactulose (Generlac) 200 gm NH Q3 BARBARA Last Admin: 02/01/18 10:41 Dose: 200 gm Morphine Sulfate (Morphine) 1 mg IVP Q4 PRN PRN Reason: Pain, moderate (4-7) Morphine Sulfate (Morphine) 2 mg IVP Q4 PRN PRN Reason: Pain, severe (8-10) Ondansetron HCl (Zofran Inj) 4 mg IVP Q6 PRN PRN Reason: Nausea/Vomiting - Labs Labs: 02/01/18 06:25 02/01/18 06:25 PT 24.2 Seconds (9.8-13.1) H 02/01/18 00:13 INR 2.2 02/01/18 00:13 APTT 41.3 Seconds (25.6-37.1) H 02/01/18 00:13 - Constitutional Appears: Toxic, Cachectic - Eye Exam Eye Exam: Scleral icterus - ENT Exam ENT Exam: Mucous Membranes Dry - Respiratory Exam Respiratory Exam: Clear to Ausculation Bilateral - Cardiovascular Exam Cardiovascular Exam: REGULAR RHYTHM, +S1, +S2 - GI/Abdominal Exam GI & Abdominal Exam: Distended, Firm, Tenderness Additional comments: nontender - Rectal Exam Additional comments: no melena present in stool - Extremities Exam Additional comments: calves nontender Assessment and Plan - Assessment and Plan (Free Text) Assessment: 47 y/o F with alcoholic liver cirrhosis admitted for hepatic encephalopathy, acute renal injury, and hematemesis. 1. Hepatic Encephalopathy (Acute, symptomatic) with elevated Ammonia -Ammonia on admission: 273; fu repeat ammonia. -GI recommendations appreciated: Lactulose Q3 rectal until PO can be tolerated; Will start xifaxin PO when it can be tolerated. 2. Acute Abdominal pain in patient with Chronic Liver cirrhosis - GI recommendations appreciated. - Abdominal ultrasound ordered, but patient was uncooperative and it was not performed. Will reattempt to obtain imaging. - Will consult IR for possible parenthesis prior to discharge as per GI. - Continue pain management with Morphine. - Continue ceftriaxone for prophylaxis against SBP. 3. Coagulopathy (Acute on chronic likely due to liver cirhosis) -GI recommendations appreciated. -Hgb on admission: 8.3; on Patient give 1 PRBC. FU repeat CBC. -Platelets 82 on admission; on repeat platelets were 59. -FFP held as per Dr. Humphreys. With dispense is bleeding reoccurs. 4. Hematemesis (Acute) -GI recommendations appreciated. - Continue NPO. -Continue vital signs Q4. 5. Acute Kidney injury with Hyperkalemia - Nephrology consulted. Will fu recommendations. - BUN/creatinine on admission: 71/5.3; on repeat 70/4.9. Potassium 6.4 on admission; on repeat 5.4. Will continue to monitor. - Ammonia on admission: 273; fu repeat ammonia. Will fu am labs. <Gina Jimenez - Last Filed: 02/01/18 17:12> Objective - Vital Signs/Intake and Output Vital Signs (last 24 hours): Temp Pulse Resp BP Pulse Ox 97.4 F L 78 16 102/56 L 97 02/01/18 16:19 02/01/18 16:19 02/01/18 16:19 02/01/18 16:19 02/01/18 16:19 Intake and Output: 02/01/18 02/01/18 06:59 18:59 Intake Total 425 Balance 425 - Medications Medications: Current Medications Albumin Human (Albumin Human 25% (12.5 Gm/50 Ml)) 12.5 gm IV Q8 BARBARA Stop: 02/03/18 09:16 Last Admin: 02/01/18 16:36 Dose: 12.5 gm Pantoprazole Sodium 40 mg/ (Sodium Chloride) 100 mls @ 20 mls/hr IV .Q5H BARBARA Last Admin: 02/01/18 15:09 Dose: 20 mls/hr Dextrose/Sodium Chloride (Dextrose 5%/0.9% Ns 1000 Ml) 1,000 mls @ 100 mls/hr IV .Q10H BARBARA Stop: 02/02/18 04:22 Last Admin: 02/01/18 14:53 Dose: 100 mls/hr Ceftriaxone Sodium 1 gm/ (Sodium Chloride) 100 mls @ 100 mls/hr IVPB DAILY BARBARA; Protocol Lactulose (Generlac) 200 gm NH Q3 BARBARA Last Admin: 02/01/18 16:34 Dose: 200 gm Morphine Sulfate (Morphine) 1 mg IVP Q4 PRN PRN Reason: Pain, moderate (4-7) Morphine Sulfate (Morphine) 2 mg IVP Q4 PRN PRN Reason: Pain, severe (8-10) Ondansetron HCl (Zofran Inj) 4 mg IVP Q6 PRN PRN Reason: Nausea/Vomiting - Labs Labs: 02/01/18 06:25 02/01/18 06:25 PT 24.2 Seconds (9.8-13.1) H 02/01/18 00:13 INR 2.2 02/01/18 00:13 APTT 41.3 Seconds (25.6-37.1) H 02/01/18 00:13 Attending/Attestation - Attestation I have personally seen and examined this patient.: Yes I have fully participated in the care of the patient.: Yes I have reviewed all pertinent clinical information, including history, physical exam and plan: Yes Notes (Text): Additional: 1. Acute Blood Loss Anemia on Chronic Anemia - transfuse 2 units PRBC - GI consult to r/o bleed - no obvious melena nor hematemesis 2. r/o SBP - Pt empirically started on IV ceftriaxone - would need Paracentesis , will consult IR however Platelet low and INR prolonged at 2.2
[2018-02-01] MEDS ORDERED: Influenza Vaccine 60 MCG/0.5 ML SYR (3 yr & up) IM ONE (13:43)
--- NOTE | 2018-02-01 14:02 | CARD ---
APPROVED REPORT Date of service: 02/01/2018 EKG Measurement Heart [id number] <Conclusion> Sinus bradycardia Otherwise normal ECG
--- NOTE | 2018-02-01 17:58 | CP.PCM.CON ---
History of Present Illness - History of Present Illness History of Present Illness: limited HPI available secondary to patients altered mental status, remainder of H&P taken from recent clinic notes and medical records 47 y/o female, well known to our service, with a history of end stage alcoholic liver cirrhosis, anemia, portal HTN, thrombocytopenia, and ascities presented to [facility] ED for evaluation of abdominal pain associated with nausea and single episode of hematemesis for the past day. No other information obtainable as pt is disoriented and no family is present at bedside. pt is awake, c/o diffuse abdominal distention and pain, NH3>240 earlier, pt is not in acute distress Review of Systems - Constitutional Constitutional: As Per HPI - EENT Eyes: As Per HPI Ears: As Per HPI Nose/Mouth/Throat: As Per HPI - Breasts Breasts: As Per HPI - Cardiovascular Cardiovascular: As Per HPI - Respiratory Respiratory: As Per HPI - Gastrointestinal Gastrointestinal: As Per HPI - Genitourinary Genitourinary: As Per HPI - Reproductive: Female Reproductive:Female: As Per HPI - Menstruation Menstruation: As Per HPI - Musculoskeletal Musculoskeletal: As Per HPI - Integumentary Integumentary: As Per HPI - Neurological Neurological: As Per HPI - Psychiatric Psychiatric: As Per HPI - Endocrine Endocrine: As Per HPI - Hematologic/Lymphatic Hematologic: As Per HPI Past Patient History - Past Medical History & Family History Past Medical History?: Yes - Past Social History Smoking Status: Never Smoked - CARDIAC Hx Cardiac Disorders: Yes Hx Hypertension: Yes - PULMONARY Hx Respiratory Disorders: Yes Hx Asthma: Yes Hx Sleep Apnea: No - NEUROLOGICAL Hx Neurological Disorder: No - HEENT Hx HEENT Problems: No - RENAL Hx Chronic Kidney Disease: No - ENDOCRINE/METABOLIC Hx Endocrine Disorders: No - HEMATOLOGICAL/ONCOLOGICAL Hx Blood Disorders: Yes Hx Anemia: Yes Hx Sickle Cell Disease: No - INTEGUMENTARY Hx Dermatological Problems: No - MUSCULOSKELETAL/RHEUMATOLOGICAL Hx Musculoskeletal Disorders: No Hx Falls: Yes - GASTROINTESTINAL Hx Gastrointestinal Disorders: Yes Hx Liver Failure: Yes - GENITOURINARY/GYNECOLOGICAL Hx Genitourinary Disorders: No - PSYCHIATRIC Hx Psychophysiologic Disorder: No Hx Substance Use: Yes (marijuana) - SURGICAL HISTORY Hx Surgeries: Yes - ANESTHESIA Hx Anesthesia: Yes Hx Anesthesia Reactions: No Hx Malignant Hyperthermia: No Meds Allergies/Adverse Reactions: Allergies Allergy/AdvReac Type Severity Reaction Status Date / Time iodine Allergy SHORTNESS Verified 01/31/18 23:12 OF BREATH - Medications Medications: Current Medications Albumin Human (Albumin Human 25% (12.5 Gm/50 Ml)) 12.5 gm IV Q8 BARBARA Stop: 02/03/18 09:16 Last Admin: 02/01/18 16:36 Dose: 12.5 gm Pantoprazole Sodium 40 mg/ (Sodium Chloride) 100 mls @ 20 mls/hr IV .Q5H BARBARA Last Admin: 02/01/18 15:09 Dose: 20 mls/hr Dextrose/Sodium Chloride (Dextrose 5%/0.9% Ns 1000 Ml) 1,000 mls @ 100 mls/hr IV .Q10H BARBARA Stop: 02/02/18 04:22 Last Admin: 02/01/18 14:53 Dose: 100 mls/hr Ceftriaxone Sodium 1 gm/ (Sodium Chloride) 100 mls @ 100 mls/hr IVPB DAILY BRABARA; Protocol Lactulose (Generlac) 200 gm DC Q3 BARBARA Last Admin: 02/01/18 16:34 Dose: 200 gm Ondansetron HCl (Zofran Inj) 4 mg IVP Q6 PRN PRN Reason: Nausea/Vomiting Physical Exam - Constitutional Appears: Non-toxic, No Acute Distress - Head Exam Head Exam: ATRAUMATIC, NORMAL INSPECTION, NORMOCEPHALIC - Eye Exam Eye Exam: EOMI, Scleral icterus Pupil Exam: NORMAL ACCOMODATION, PERRL - ENT Exam ENT Exam: Mucous Membranes Moist - Neck Exam Neck exam: Positive for: Full Rom - Respiratory Exam Respiratory Exam: Clear to Auscultation Bilateral, NORMAL BREATHING PATTERN - Cardiovascular Exam Cardiovascular Exam: REGULAR RHYTHM, +S1, +S2 - GI/Abdominal Exam GI & Abdominal Exam: Distended, Normal Bowel Sounds, Soft, Tenderness - Rectal Exam Rectal Exam: Deferred - Extremities Exam Extremities exam: Positive for: normal inspection - Neurological Exam Additional comments: awake, following simple commands - Psychiatric Exam Psychiatric exam: Flat Affect - Skin Skin Exam: Normal Color Additional comments: yellow Results - Vital Signs Recent Vital Signs: Last Vital Signs Temp 97.4 F L 02/01/18 16:19 Pulse 78 02/01/18 16:19 Resp 16 02/01/18 16:19 BP 102/56 L 02/01/18 16:19 Pulse Ox 97 02/01/18 16:19 - Labs Result Diagrams: 02/02/18 09:30 02/02/18 09:30 Labs: Laboratory Results - last 24 hr 02/01/18 02/01/18 02/01/18 00:13 00:13 00:13 WBC 7.6 D RBC 2.50 L Hgb 8.3 L Hct 24.5 L MCV 98.2 MCH 33.1 H MCHC 33.7 RDW 21.4 H Plt Count 82 L D MPV 11.9 H Neut % (Auto) 74.8 Lymph % (Auto) 5.9 L [place] % (Auto) 19.2 H Eos % (Auto) 0.0 Baso % (Auto) 0.1 Neut # (Auto) 5.7 Lymph # (Auto) 0.4 L [place] # (Auto) 1.5 H Eos # (Auto) 0.0 Baso # (Auto) 0.0 Neutrophils % (Manual) 83 H Lymphocytes % (Manual) 9 L Monocytes % (Manual) 8 Platelet Estimate Decreased L Anisocytosis (manual) Slight PT 24.2 H INR 2.2 APTT 41.3 H Sodium Potassium Chloride Carbon Dioxide Anion Gap BUN Creatinine Est GFR ( Amer) Est GFR (Non-Af Amer) Random Glucose Calcium Total Bilirubin AST ALT Alkaline Phosphatase Ammonia Total Protein Albumin Globulin Albumin/Globulin Ratio Lipase Alcohol, Quantitative Blood Type A POSITIVE Antibody Screen Negative Crossmatch See Detail BBK History Checked Patient has bt 02/01/18 02/01/18 02/01/18 01:13 02:28 06:25 WBC 7.0 RBC 2.04 L Hgb 6.8 L Hct 20.2 L MCV 99.2 H MCH 33.4 H MCHC 33.7 RDW 21.1 H Plt Count 59 L D MPV Neut % (Auto) Lymph % (Auto) [place] % (Auto) Eos % (Auto) Baso % (Auto) Neut # (Auto) Lymph # (Auto) [place] # (Auto) Eos # (Auto) Baso # (Auto) Neutrophils % (Manual) Lymphocytes % (Manual) Monocytes % (Manual) Platelet Estimate Anisocytosis (manual) PT INR APTT Sodium 131 L Potassium 6.4 H* D Chloride 99 Carbon Dioxide 19 L Anion Gap 19 BUN 71 H Creatinine 5.3 H Est GFR ( Amer) 10 Est GFR (Non-Af Amer) 9 Random Glucose 119 H Calcium 8.2 L Total Bilirubin 9.5 H AST 24 ALT 17 Alkaline Phosphatase 72 Ammonia 273 H* D Total Protein 7.1 Albumin 2.8 L Globulin 4.3 H Albumin/Globulin Ratio 0.7 L Lipase 93 Alcohol, Quantitative < 10 Blood Type Antibody Screen Crossmatch BBK History Checked 02/01/18 06:25 WBC RBC Hgb Hct MCV MCH MCHC RDW Plt Count MPV Neut % (Auto) Lymph % (Auto) [place] % (Auto) Eos % (Auto) Baso % (Auto) Neut # (Auto) Lymph # (Auto) [place] # (Auto) Eos # (Auto) Baso # (Auto) Neutrophils % (Manual) Lymphocytes % (Manual) Monocytes % (Manual) Platelet Estimate Anisocytosis (manual) PT INR APTT Sodium 136 Potassium 5.4 H Chloride 102 Carbon Dioxide 16 L Anion Gap 23 H BUN 70 H Creatinine 4.9 H Est GFR ( Amer) 11 Est GFR (Non-Af Amer) 9 Random Glucose 135 H Calcium 7.3 L Total Bilirubin 8.3 H AST 19 ALT 19 Alkaline Phosphatase 52 Ammonia Total Protein 6.2 L Albumin 2.4 L Globulin 3.9 Albumin/Globulin Ratio 0.6 L Lipase Alcohol, Quantitative Blood Type Antibody Screen Crossmatch BBK History Checked - Imaging and Cardiology US - abdomen Status: Pending (report is pending) Assessment & Plan - Assessment and Plan (Free Text) Assessment: 47 yo Female with pmh/o Etoh abuse, end stage liver disease, multiple admissions to hosp with base line s.cr about 1 was admitted with abdominal distention, nausea, vomitings x1,hematemesis, very high ammonia 273, low h/h, increased bun/cr 1.INNA most likely sec to HRS, can't r/o ATN 2.Hepatic encephalopathy 3.r/o SBP 4.Coagulopathy 5. end stage liver disease check urine lytes, osm, cr c/w iv abx consider diagnostic parcentesis f/u with GI agree with iv albunin over all prognosis is very poor
[2018-02-01 19:21] LABS: INR 2.2; PROTHROMBIN TIME 24.6 Seconds (9.8-13.1)
[2018-02-01 19:23] LABS: BASO % 0.1 % (0.0-2.0); EOS % 0.5 % (0.0-4.0); HEMOGLOBIN 7.9 g/dL (12.0-16.0); LYMPH # 0.4 K/uL (1.0-4.3); LYMPH % 7.4 % (20.0-40.0); MEAN CELL VOLUME 101.5 fl (81.0-99.0); MEAN CORPUSCULAR HEMOGLOBIN 34.6 pg (27.0-31.0); MEAN PLATELET VOLUME 11.6 fl (7.2-11.7); MONO % 17.2 % (0.0-10.0); NEUT # 4.2 K/uL (1.8-7.0); NEUT % 74.8 % (50.0-75.0); PARTIAL THROMBOPLASTIN TIME 48.1 Seconds (25.6-37.1); RBC 2.3 Mil/uL (3.80-5.20); WHITE BLOOD COUNT 5.7 K/uL (4.8-10.8)
[2018-02-01 19:25] LABS: ALB/GLOB RATIO 0.7 (1.0-2.1); ALBUMIN 2.8 g/dL (3.5-5.0); CALCIUM 7.5 mg/dL (8.4-10.2)
[2018-02-02] MEDS: Pantoprazole 40 MG in Sodium Chloride 0.9% 100 ML IV SCH ×5 (00:09→22:26)
[2018-02-02] MEDS: Albumin Human 25% (12.5 gm/50 ml) IV SCH ×3 (01:34→17:31)
[2018-02-02] MEDS: Lactulose 10 gm/15 ml (Rectal Use) PR SCH ×2 (03:10→05:15)
--- NOTE | 2018-02-02 06:28 | CP.PCM.PN ---
Subjective - Date & Time of Evaluation Date of Evaluation: 02/02/18 Time of Evaluation: 06:25 - Subjective Subjective: GI progress note for Dr. Rajinder Miller, PGY-2 Pt S & E at bedside at 0605 Pt AOx1 (self), currently on a 1:1. Pt c/o abdominal pain, unable to express where. As per 1:1, pt was resting comfortably overnight except when receiving enemas Q3H- has been having liquid and pieces of formed brown stool, no visible blood. Per nursing, pt with hypotension after recieving morphine for pain, currently receiving 1 unit pRBCs as per primary team. Vitals reviewed- hypotensive overnight with some low temperatures (97.4-97.5)- was placed under [facility]. Objective - Vital Signs/Intake and Output Vital Signs (last 24 hours): Temp Pulse Resp BP Pulse Ox 98.6 F 84 17 97/54 L 99 02/02/18 05:52 02/02/18 05:52 02/02/18 05:52 02/02/18 05:52 02/02/18 04:25 Intake and Output: 02/01/18 02/02/18 18:59 06:59 Intake Total 425 0 Balance 425 0 - Medications Medications: Current Medications Albumin Human (Albumin Human 25% (12.5 Gm/50 Ml)) 12.5 gm IV Q8 [facility] Stop: 02/03/18 09:16 Last Admin: 02/02/18 01:34 Dose: 12.5 gm Pantoprazole Sodium 40 mg/ (Sodium Chloride) 100 mls @ 20 mls/hr IV .Q5H [facility] Last Admin: 02/02/18 05:30 Dose: 20 mls/hr Ceftriaxone Sodium 1 gm/ (Sodium Chloride) 100 mls @ 100 mls/hr IVPB HS [facility]; Protocol Last Admin: 02/02/18 00:10 Dose: 100 mls/hr Lactulose (Generlac) 200 gm [place] Q3H [facility] Last Admin: 02/02/18 05:15 Dose: 200 gm Morphine Sulfate (Morphine) 2 mg IVP Q6 PRN PRN Reason: Pain, severe (8-10) Last Admin: 02/02/18 02:07 Dose: 2 mg Morphine Sulfate (Morphine) 1 mg IVP Q6 PRN PRN Reason: Pain, moderate (4-7) Ondansetron HCl (Zofran Inj) 4 mg IVP Q6 PRN PRN Reason: Nausea/Vomiting - Labs Labs: 02/01/18 18:45 02/01/18 18:45 PT 24.6 Seconds (9.8-13.1) H 02/01/18 18:45 INR 2.2 02/01/18 18:45 APTT 48.1 Seconds (25.6-37.1) H 02/01/18 18:45 - Constitutional Appears: Non-toxic, No Acute Distress - Head Exam Head Exam: ATRAUMATIC, NORMAL INSPECTION, NORMOCEPHALIC - Eye Exam Eye Exam: EOMI, Scleral icterus. absent: Normal appearance - ENT Exam ENT Exam: Mucous Membranes Moist, Normal Exam - Respiratory Exam Respiratory Exam: NORMAL BREATHING PATTERN - Cardiovascular Exam Cardiovascular Exam: REGULAR RHYTHM - GI/Abdominal Exam GI & Abdominal Exam: Distended, Tenderness (diffuse). absent: Guarding, Rigid - Back Exam Back Exam: NORMAL INSPECTION - Neurological Exam Neurological Exam: Awake, CN II-XII Intact. absent: Alert, Oriented x3 - Psychiatric Exam Psychiatric exam: Normal Affect, Normal Mood - Skin Skin Exam: Dry, Intact, Warm. absent: Normal Color (telangiectas of cheeks ) Assessment and Plan - Assessment and Plan (Free Text) Assessment: 47F w/macrocytic anemia, INNA, decompensated liver cirrhosis 2/2 ETOH abuse w/abdominal pain, AMS, hematemesis Plan: Hgb 7.9 from 6.8, currently being transfused 2nd unit pRBC Cont Rocephin 1gm daily FU AM labs Ammonia 164 from 273 FU Ab U/S Consider paracentesis if sig ascites Continue Albumin Q8hrs COnsider midodrine & Ocretotide if renal function does not improve Will change lactulose to PO from [place] Will start rifaxamin LR@100 I/O's Place rockwell catheter if retaining Bladder scan PRN Avoid sedatives DW Dr. Michele Miller, PGY-2
[2018-02-02] MEDS: Lactated Ringer's 1,000 ML IV SCH ×2 (08:19→18:20)
[2018-02-02 09:58] LABS: BASO % 0.1 % (0.0-2.0); EOS # 0.1 K/uL (0.0-0.7); EOS % 1.1 % (0.0-4.0); HEMOGLOBIN 9.6 g/dL (12.0-16.0); LYMPH # 0.3 K/uL (1.0-4.3); MEAN CELL VOLUME 97.8 fl (81.0-99.0); MEAN CORPUSCULAR HGB CONC 34.8 g/dL (33.0-37.0); MEAN PLATELET VOLUME 11.1 fl (7.2-11.7); MONO % 18.5 % (0.0-10.0); NEUT # 3.9 K/uL (1.8-7.0); NEUT % 75.3 % (50.0-75.0); RBC 2.82 Mil/uL (3.80-5.20); RED CELL DISTRIBUTION WIDTH 20.1 % (11.5-14.5); WHITE BLOOD COUNT 5.2 K/uL (4.8-10.8)
[2018-02-02 10:14] LABS: ALB/GLOB RATIO 0.8 (1.0-2.1); ALBUMIN 3.1 g/dL (3.5-5.0); CALCIUM 7.9 mg/dL (8.4-10.2)
[2018-02-02 10:28] LABS: INR 2.2; PROTHROMBIN TIME 24.8 Seconds (9.8-13.1)
[2018-02-02 10:33] LABS: PARTIAL THROMBOPLASTIN TIME 47.6 Seconds (25.6-37.1)
--- NOTE | 2018-02-02 11:05 | CP.PCM.PN ---
Subjective - Date & Time of Evaluation Date of Evaluation: 02/02/18 Time of Evaluation: 10:00 - Subjective Subjective: Pt is more awake today - Ammonia level better Anxious + abd discomfort denies CP no SOB Per RN - pt did not urinate this am , Tang cath inserted obtained about 400 ml No fever, had low temp yesterday Objective - Vital Signs/Intake and Output Vital Signs (last 24 hours): Temp Pulse Resp BP Pulse Ox 98 F 95 H 20 120/80 99 02/02/18 10:33 02/02/18 10:33 02/02/18 10:33 02/02/18 10:33 02/02/18 06:50 Intake and Output: 02/02/18 02/02/18 06:59 18:59 Intake Total 325 Balance 325 - Medications Medications: Current Medications Albumin Human (Albumin Human 25% (12.5 Gm/50 Ml)) 12.5 gm IV Q8 [facility] Stop: 02/03/18 09:16 Last Admin: 02/02/18 01:34 Dose: 12.5 gm Pantoprazole Sodium 40 mg/ (Sodium Chloride) 100 mls @ 20 mls/hr IV .Q5H [facility] Last Admin: 02/02/18 05:30 Dose: 20 mls/hr Ceftriaxone Sodium 1 gm/ (Sodium Chloride) 100 mls @ 100 mls/hr IVPB HS [facility]; Protocol Last Admin: 02/02/18 00:10 Dose: 100 mls/hr Lactated Ringer's (Lactated Ringer's) 1,000 mls @ 100 mls/hr IV .Q10H [facility] Lactulose (Enulose) 10 gm PO TID [facility] Midodrine (Proamatine) 5 mg PO TID [facility] Morphine Sulfate (Morphine) 2 mg IVP Q6 PRN PRN Reason: Pain, severe (8-10) Last Admin: 02/02/18 02:07 Dose: 2 mg Morphine Sulfate (Morphine) 1 mg IVP Q6 PRN PRN Reason: Pain, moderate (4-7) Ondansetron HCl (Zofran Inj) 4 mg IVP Q6 PRN PRN Reason: Nausea/Vomiting Rifaximin (Xifaxan) 550 mg PO Q12 [facility]; Protocol - Labs Labs: 02/02/18 09:30 02/02/18 09:30 PT 24.8 Seconds (9.8-13.1) H 02/02/18 09:30 INR 2.2 02/02/18 09:30 APTT 47.6 Seconds (25.6-37.1) H 02/02/18 09:30 - Constitutional Appears: Older Than Stated Age, Chronically Ill - Head Exam Head Exam: NORMAL INSPECTION, NORMOCEPHALIC - Eye Exam Eye Exam: EOMI, PERRL, Scleral icterus Pupil Exam: NORMAL ACCOMODATION - ENT Exam ENT Exam: Mucous Membranes Dry, Normal External Ear Exam - Neck Exam Neck Exam: Full ROM. absent: Meningismus - Respiratory Exam Respiratory Exam: NORMAL BREATHING PATTERN. absent: Respiratory Distress - Cardiovascular Exam Cardiovascular Exam: REGULAR RHYTHM, +S1, +S2 - GI/Abdominal Exam GI & Abdominal Exam: Distended, Normal Bowel Sounds. absent: Tenderness Additional comments: ascites - Extremities Exam Extremities Exam: Full ROM, Normal Capillary Refill. absent: Calf Tenderness, Pedal Edema - Back Exam Back Exam: Full ROM. absent: CVA tenderness (L), CVA tenderness (R) - Neurological Exam Neurological Exam: Alert, Awake Additional comments: oriented to person and place - Psychiatric Exam Psychiatric exam: Agitated - Skin Skin Exam: Dry, Pallor, Warm Assessment and Plan - Assessment and Plan (Free Text) Assessment: 47 y/o F with Hx of alcoholic liver cirrhosis brought in because of AMS. 1. Hepatic Encephalopathy (Acute, symptomatic) with elevated Ammonia -Ammonia on admission: 273 -GI recommendations appreciated: cont Lactulose and Rifaximin - 2. Acute Abdominal pain in patient with Chronic Liver cirrhosis r/o SBP - empirically started on IV ceftriaxone for prophylaxis against SBP. - Abd Paracentesis 3. Liver Cirrhosis with Ascites, Coagulopathy , Thrombocytopenia - Paracentesis when possible - IR consulted - no active signs of bleeding at present - Phytonadione PO daily 4. Acute Blood Loss Anemia on Chronic Anemia due to GI bleed Hgb 6.9 -GI consulted for EGD - transfused 2 units PRBC - cont PPI 5. Acute Kidney injury with Hyperkalemia ? HRS - Nephrology consulted - BUN/creatinine on admission: 71/5.3 - today Crea=4.0 -Potassium 6.4 on admission -will cont to monitor - gentle IVF hydration
--- NOTE | 2018-02-02 15:15 | CP.PCM.PN ---
Subjective - Date & Time of Evaluation Date of Evaluation: 02/02/18 Time of Evaluation: 15:14 - Subjective Subjective: 47 yo female with pmh/o ETOH abuse, cirrhosis of liver was admitted with abdominal distention, nausea, vomitings, hematemesis and increased bun/cr pt still c/o abd. pain, uop is improving Objective - Vital Signs/Intake and Output Vital Signs (last 24 hours): Temp Pulse Resp BP Pulse Ox 97.9 F 91 H 18 109/65 97 02/02/18 13:29 02/02/18 13:29 02/02/18 13:29 02/02/18 13:29 02/02/18 13:29 Intake and Output: 02/02/18 02/02/18 06:59 18:59 Intake Total 325 Balance 325 - Medications Medications: Current Medications Albumin Human (Albumin Human 25% (12.5 Gm/50 Ml)) 12.5 gm IV Q8 [facility] Stop: 02/03/18 09:16 Last Admin: 02/02/18 11:59 Dose: 12.5 gm Ceftriaxone Sodium 1 gm/ (Sodium Chloride) 100 mls @ 100 mls/hr IVPB HS [facility]; Protocol Last Admin: 02/02/18 00:10 Dose: 100 mls/hr Lactated Ringer's (Lactated Ringer's) 1,000 mls @ 100 mls/hr IV .Q10H [facility] Pantoprazole Sodium 40 mg/ (Sodium Chloride) 100 mls @ 20 mls/hr IV 5XD [facility] Last Admin: 02/02/18 14:39 Dose: 20 mls/hr Lactulose (Enulose) 10 gm PO TID [facility] Midodrine (Proamatine) 5 mg PO TID [facility] Last Admin: 02/02/18 09:00 Dose: 5 mg Morphine Sulfate (Morphine) 2 mg IVP Q6 PRN PRN Reason: Pain, severe (8-10) Last Admin: 02/02/18 02:07 Dose: 2 mg Morphine Sulfate (Morphine) 1 mg IVP Q6 PRN PRN Reason: Pain, moderate (4-7) Ondansetron HCl (Zofran Inj) 4 mg IVP Q6 PRN PRN Reason: Nausea/Vomiting Phytonadione (Vitamin K Tab) 10 mg PO DAILY [facility] Stop: 02/04/18 09:01 Last Admin: 02/02/18 12:03 Dose: 10 mg Rifaximin (Xifaxan) 550 mg PO Q12 [facility]; Protocol Last Admin: 02/02/18 12:02 Dose: 550 mg - Labs Labs: 02/02/18 09:30 02/02/18 09:30 PT 24.8 Seconds (9.8-13.1) H 02/02/18 09:30 INR 2.2 02/02/18 09:30 APTT 47.6 Seconds (25.6-37.1) H 02/02/18 09:30 - Constitutional Appears: No Acute Distress - Head Exam Head Exam: ATRAUMATIC, NORMOCEPHALIC - Eye Exam Eye Exam: EOMI, Normal appearance, PERRL, Scleral icterus Pupil Exam: NORMAL ACCOMODATION, PERRL - ENT Exam ENT Exam: Mucous Membranes Moist, Normal Exam - Neck Exam Neck Exam: Full ROM, Normal Inspection - Respiratory Exam Respiratory Exam: Clear to Ausculation Bilateral, NORMAL BREATHING PATTERN - Cardiovascular Exam Cardiovascular Exam: REGULAR RHYTHM, +S1, +S2 - GI/Abdominal Exam GI & Abdominal Exam: Soft, Normal Bowel Sounds - Neurological Exam Neurological Exam: Awake Additional comments: following simple commands - Skin Skin Exam: Intact, Normal Color Additional comments: skin is yellow Assessment and Plan - Assessment and Plan (Free Text) Assessment: 47 yo female with abd.distention, abdominal pain, increased bun/cr, abnormal lf t's 1. INNA, most likely sec to ATN, r/o HRS 2. Cirrhosis of liver 3. coagulopathy 4. Liver failure 5. Hepatic encephalopathy c/w iv abx as per ID c/w iv albumin, midodrine consider gentle iv hydration
[2018-02-02] MEDS ORDERED: Albuterol-Ipratrop 3 mg / 0.5 (3 ml) UD INH STA (16:37)
[2018-02-02] MEDS: Lactulose 10 gm/15 ml Syrup PO SCH (17:32)
[2018-02-03] MEDS: Pantoprazole 40 MG in Sodium Chloride 0.9% 100 ML IV SCH ×5 (05:38→21:25)
[2018-02-03] MEDS: Lactated Ringer's 1,000 ML IV SCH ×2 (05:39→15:24)
[2018-02-03 08:04] LABS: PARTIAL THROMBOPLASTIN TIME 47.7 Seconds (25.6-37.1)
[2018-02-03 08:05] LABS: ALB/GLOB RATIO 0.9 (1.0-2.1)
[2018-02-03 08:13] LABS: ALBUMIN 3.2 g/dL (3.5-5.0); CALCIUM 8.3 mg/dL (8.4-10.2)
[2018-02-03 08:16] LABS: BASO % 0.2 % (0.0-2.0); HEMOGLOBIN 8.5 g/dL (12.0-16.0); LYMPH # 0.4 K/uL (1.0-4.3); MEAN CELL VOLUME 99.4 fl (81.0-99.0); MEAN CORPUSCULAR HEMOGLOBIN 34.4 pg (27.0-31.0); MEAN CORPUSCULAR HGB CONC 34.6 g/dL (33.0-37.0); MONO # 1.3 K/uL (0.0-0.8); MONO % 19.5 % (0.0-10.0); NEUT % 74.3 % (50.0-75.0); NRBC % 0.2 % (0.0-0.0); RBC 2.48 Mil/uL (3.80-5.20); RED CELL DISTRIBUTION WIDTH 21.5 % (11.5-14.5); WHITE BLOOD COUNT 6.8 K/uL (4.8-10.8)
[2018-02-03 08:36] LABS: INR 2.3; PROTHROMBIN TIME 25.6 Seconds (9.8-13.1)
--- NOTE | 2018-02-03 09:25 | CP.PCM.PN ---
Subjective - Date & Time of Evaluation Date of Evaluation: 02/03/18 Time of Evaluation: 09:23 - Subjective Subjective: GI progress note for Dr. Rajinder Miller, PGY-2 Pt S & E at bedside at 0905 Pt resting comfortable in bed. Arousable to verbal stimuli, reports abdominal pain. AOx 2 (self, place). As per 1:1, pt sleping overnight, no problems. Had BM x 4 yesterday, nothing overnight. Tolerating PO medications. Asking for water. Objective - Vital Signs/Intake and Output Vital Signs (last 24 hours): Temp Pulse Resp BP Pulse Ox 98 F 98 H 16 123/74 96 02/03/18 08:21 02/03/18 08:21 02/03/18 08:21 02/03/18 08:21 02/03/18 08:21 Intake and Output: 02/03/18 02/03/18 06:59 18:59 Output Total 1000 Balance -1000 - Medications Medications: Current Medications Ceftriaxone Sodium 1 gm/ (Sodium Chloride) 100 mls @ 100 mls/hr IVPB HS [facility]; Protocol Last Admin: 02/02/18 22:25 Dose: 100 mls/hr Lactated Ringer's (Lactated Ringer's) 1,000 mls @ 100 mls/hr IV .Q10H [facility] Last Admin: 02/03/18 05:39 Dose: 100 mls/hr Pantoprazole Sodium 40 mg/ (Sodium Chloride) 100 mls @ 20 mls/hr IV 5XD [facility] Last Admin: 02/03/18 05:38 Dose: 20 mls/hr Lactulose (Enulose) 10 gm PO TID [facility] Last Admin: 02/02/18 17:32 Dose: 10 gm Midodrine (Proamatine) 5 mg PO TID [facility] Last Admin: 02/02/18 17:34 Dose: 5 mg Morphine Sulfate (Morphine) 2 mg IVP Q6 PRN PRN Reason: Pain, severe (8-10) Last Admin: 02/03/18 01:15 Dose: 2 mg Morphine Sulfate (Morphine) 1 mg IVP Q6 PRN PRN Reason: Pain, moderate (4-7) Ondansetron HCl (Zofran Inj) 4 mg IVP Q6 PRN PRN Reason: Nausea/Vomiting Phytonadione (Vitamin K Tab) 10 mg PO DAILY [facility] Stop: 02/04/18 09:01 Last Admin: 02/02/18 12:03 Dose: 10 mg Rifaximin (Xifaxan) 550 mg PO Q12 [facility]; Protocol Last Admin: 02/02/18 22:28 Dose: 550 mg - Labs Labs: 02/03/18 05:34 02/03/18 05:34 PT 25.6 Seconds (9.8-13.1) H 02/03/18 05:34 INR 2.3 02/03/18 05:34 APTT 47.7 Seconds (25.6-37.1) H 02/03/18 05:34 - Constitutional Appears: Non-toxic, No Acute Distress - Head Exam Head Exam: ATRAUMATIC, NORMAL INSPECTION, NORMOCEPHALIC - Eye Exam Eye Exam: EOMI, Scleral icterus - ENT Exam ENT Exam: Mucous Membranes Moist, Normal Exam - Neck Exam Neck Exam: Full ROM, Normal Inspection - Respiratory Exam Respiratory Exam: NORMAL BREATHING PATTERN - Cardiovascular Exam Cardiovascular Exam: REGULAR RHYTHM, +S1, +S2 - GI/Abdominal Exam GI & Abdominal Exam: Distended, Soft, Tenderness (diffuse). absent: Guarding, Rigid - Extremities Exam Extremities Exam: Normal Inspection - Neurological Exam Neurological Exam: absent: Awake (arousable to verbal stimuli), Oriented x3 (aox2) - Psychiatric Exam Psychiatric exam: Normal Affect, Normal Mood - Skin Skin Exam: Dry, Intact, Warm. absent: Normal Color (cheeks with telangiectasias) Assessment and Plan - Assessment and Plan (Free Text) Assessment: 47F w/macrocytic anemia, INNA, decompensated liver cirrhosis 2/2 ETOH abuse w/abdominal pain, AMS, hematemesis- improving Plan: Monitor labs Ok for Full liquid diet Ammonia 154 from 176 Ok to d/c rockwell Void trial FU Ab U/S- report pending Consider paracentesis if sig ascites Continue Albumin Q8hrs Renal function improving Cont PO lactulose Cont rifaxamin LR@100 I/O's Avoid sedatives DW Dr. Michele Miller, PGY-2
[2018-02-03] MEDS: Lactulose 10 gm/15 ml Syrup PO SCH ×3 (09:44→18:06)
--- NOTE | 2018-02-03 14:03 | CP.PCM.PN ---
<Aminta Hummel - Last Filed: 02/03/18 16:11> Subjective - Date & Time of Evaluation Date of Evaluation: 02/03/18 Time of Evaluation: 11:07 - Subjective Subjective: Patient seen and examined this AM. Patient continues to be on 1:1 observation. She was laying in position in bed, sleeping, but arousable to touch and name. Patient was able to verbalize that she was still currently having abdominal pain, but did not respond when asked whether if she was having fever, chills, chest pain or shortness of breath. Objective - Vital Signs/Intake and Output Vital Signs (last 24 hours): Temp Pulse Resp BP Pulse Ox 97.8 F 97 H 18 120/72 100 02/03/18 12:37 02/03/18 12:37 02/03/18 12:37 02/03/18 12:37 02/03/18 12:37 Intake and Output: 02/03/18 02/03/18 06:59 18:59 Output Total 1000 Balance -1000 - Medications Medications: Current Medications Ceftriaxone Sodium 1 gm/ (Sodium Chloride) 100 mls @ 100 mls/hr IVPB HS [facility]; Protocol Last Admin: 02/02/18 22:25 Dose: 100 mls/hr Lactated Ringer's (Lactated Ringer's) 1,000 mls @ 100 mls/hr IV .Q10H [facility] Last Admin: 02/03/18 05:39 Dose: 100 mls/hr Pantoprazole Sodium 40 mg/ (Sodium Chloride) 100 mls @ 20 mls/hr IV 5XD [facility] Last Admin: 02/03/18 05:38 Dose: 20 mls/hr Lactulose (Enulose) 10 gm PO TID [facility] Last Admin: 02/03/18 09:44 Dose: 10 gm Midodrine (Proamatine) 5 mg PO TID [facility] Last Admin: 02/03/18 09:45 Dose: 5 mg Morphine Sulfate (Morphine) 2 mg IVP Q6 PRN PRN Reason: Pain, severe (8-10) Last Admin: 02/03/18 01:15 Dose: 2 mg Morphine Sulfate (Morphine) 1 mg IVP Q6 PRN PRN Reason: Pain, moderate (4-7) Ondansetron HCl (Zofran Inj) 4 mg IVP Q6 PRN PRN Reason: Nausea/Vomiting Rifaximin (Xifaxan) 550 mg PO Q12 [facility]; Protocol Last Admin: 02/03/18 09:45 Dose: 550 mg - Labs Labs: 02/03/18 05:34 02/03/18 05:34 PT 25.6 Seconds (9.8-13.1) H 02/03/18 05:34 INR 2.3 02/03/18 05:34 APTT 47.7 Seconds (25.6-37.1) H 02/03/18 05:34 - Constitutional Appears: Toxic, Cachectic - Head Exam Head Exam: ATRAUMATIC - Eye Exam Eye Exam: Scleral icterus - ENT Exam ENT Exam: Mucous Membranes Dry - Respiratory Exam Respiratory Exam: Clear to Ausculation Bilateral - Cardiovascular Exam Cardiovascular Exam: REGULAR RHYTHM, +S1, +S2 - GI/Abdominal Exam GI & Abdominal Exam: Distended, Firm, Tenderness - Extremities Exam Extremities Exam: absent: Calf Tenderness - Neurological Exam Neurological Exam: Awake Additional comments: Arousable to name and touch Assessment and Plan - Assessment and Plan (Free Text) Assessment: 47 y/o F with alcoholic liver cirrhosis admitted for hepatic encephalopathy, acute renal injury, and hematemesis. 1. Hepatic Encephalopathy (Acute, symptomatic) with elevated Ammonia -Ammonia on admission: 273, dropped to 164, went back up to 174, and last level 154. FU tomorrow's level. - Continue Lactulose and Rifaxin as per GI recommendations. -Continue Midodrine. -Avoid sedatives. 2. Acute Abdominal pain in patient with Chronic Liver cirrhosis - GI recommendations appreciated. -Surgery recommendations appreciated: Liquid diet started today. - Continue empiric IV ceftriaxone for prophylaxis against SBP. - IR consulted for possible parenthesis. - Continue pain management with Morphine. 3. Liver Cirrhosis with Ascites, Coagulopathy, and thrombocytopenia -IR consulted for possible paracentesis. -Hgb on admission: 8.3, then dropped to 6.8 with last level 9.6 after 1 PRBC given. FU repeat CBC & continue PPI. -Platelets 82 on admission, dropped to 59, then 52, and most recent levels were 49. FU repeat CBC. 4. Hematemesis (Acute, resolved) -GI recommendations appreciated. -Liquid diet started today. -Continue vital signs Q4. 5. Acute Kidney injury with Hyperkalemia -Nephrology recommendations appreciated: INNA likely secondary to ATN. -BUN/creatinine on admission: 71/5.3;last level 62/2.8. -Potassium 6.4 on admission; last level 4.9. Will continue to monitor. -Ammonia on admission: 273, dropped to 164, went back up to 174, and last level 154. FU tomorrow's level. <Gina Jimenez Joann - Last Filed: 02/03/18 17:38> Objective - Vital Signs/Intake and Output Vital Signs (last 24 hours): Temp Pulse Resp BP Pulse Ox 97.6 F 87 18 105/63 100 02/03/18 15:57 02/03/18 15:57 02/03/18 15:57 02/03/18 15:57 02/03/18 15:57 Intake and Output: 02/03/18 02/03/18 06:59 18:59 Output Total 1000 Balance -1000 - Medications Medications: Current Medications Ceftriaxone Sodium 1 gm/ (Sodium Chloride) 100 mls @ 100 mls/hr IVPB HS [facility]; Protocol Last Admin: 02/02/18 22:25 Dose: 100 mls/hr Lactated Ringer's (Lactated Ringer's) 1,000 mls @ 100 mls/hr IV .Q10H [facility] Last Admin: 02/03/18 15:24 Dose: 100 mls/hr Pantoprazole Sodium 40 mg/ (Sodium Chloride) 100 mls @ 20 mls/hr IV 5XD [facility] Last Admin: 02/03/18 05:38 Dose: 20 mls/hr Lactulose (Enulose) 10 gm PO TID [facility] Last Admin: 02/03/18 13:19 Dose: 10 gm Midodrine (Proamatine) 5 mg PO TID [facility] Last Admin: 02/03/18 13:20 Dose: 5 mg Morphine Sulfate (Morphine) 2 mg IVP Q6 PRN PRN Reason: Pain, severe (8-10) Last Admin: 02/03/18 15:13 Dose: 2 mg Morphine Sulfate (Morphine) 1 mg IVP Q6 PRN PRN Reason: Pain, moderate (4-7) Ondansetron HCl (Zofran Inj) 4 mg IVP Q6 PRN PRN Reason: Nausea/Vomiting Rifaximin (Xifaxan) 550 mg PO Q12 [facility]; Protocol Last Admin: 02/03/18 09:45 Dose: 550 mg - Labs Labs: 02/03/18 05:34 02/03/18 05:34 PT 25.6 Seconds (9.8-13.1) H 02/03/18 05:34 INR 2.3 02/03/18 05:34 APTT 47.7 Seconds (25.6-37.1) H 02/03/18 05:34 Attending/Attestation - Attestation I have personally seen and examined this patient.: Yes I have fully participated in the care of the patient.: Yes I have reviewed all pertinent clinical information, including history, physical exam and plan: Yes
--- NOTE | 2018-02-03 19:31 | CP.PCM.PN ---
Subjective - Date & Time of Evaluation Date of Evaluation: 02/03/18 Time of Evaluation: 19:30 - Subjective Subjective: 47 yo female with etoh abuse, cirrhosis of liver, coagulopathy , abd. distention, and pain , with creased bun/cr still c/o abdominal pain, renal function is slowly improving Objective - Vital Signs/Intake and Output Vital Signs (last 24 hours): Temp Pulse Resp BP Pulse Ox 97.6 F 87 18 105/63 100 02/03/18 15:57 02/03/18 15:57 02/03/18 15:57 02/03/18 15:57 02/03/18 15:57 Intake and Output: 02/03/18 02/04/18 18:59 06:59 Intake Total 2750 Output Total 700 Balance 0 - Medications Medications: Current Medications Ceftriaxone Sodium 1 gm/ (Sodium Chloride) 100 mls @ 100 mls/hr IVPB HS [facility]; Protocol Last Admin: 02/02/18 22:25 Dose: 100 mls/hr Lactated Ringer's (Lactated Ringer's) 1,000 mls @ 100 mls/hr IV .Q10H [facility] Last Admin: 02/03/18 15:24 Dose: 100 mls/hr Pantoprazole Sodium 40 mg/ (Sodium Chloride) 100 mls @ 20 mls/hr IV 5XD [facility] Last Admin: 02/03/18 18:13 Dose: 20 mls/hr Lactulose (Enulose) 10 gm PO TID [facility] Last Admin: 02/03/18 18:06 Dose: 10 gm Midodrine (Proamatine) 5 mg PO TID [facility] Last Admin: 02/03/18 18:07 Dose: 5 mg Morphine Sulfate (Morphine) 2 mg IVP Q6 PRN PRN Reason: Pain, severe (8-10) Last Admin: 02/03/18 15:13 Dose: 2 mg Morphine Sulfate (Morphine) 1 mg IVP Q6 PRN PRN Reason: Pain, moderate (4-7) Ondansetron HCl (Zofran Inj) 4 mg IVP Q6 PRN PRN Reason: Nausea/Vomiting Rifaximin (Xifaxan) 550 mg PO Q12 [facility]; Protocol Last Admin: 02/03/18 09:45 Dose: 550 mg - Labs Labs: 02/03/18 05:34 02/03/18 05:34 PT 25.6 Seconds (9.8-13.1) H 02/03/18 05:34 INR 2.3 02/03/18 05:34 APTT 47.7 Seconds (25.6-37.1) H 02/03/18 05:34 - Constitutional Appears: Well, Non-toxic, No Acute Distress - Head Exam Head Exam: ATRAUMATIC, NORMAL INSPECTION, NORMOCEPHALIC - Eye Exam Eye Exam: EOMI, Normal appearance, PERRL, Scleral icterus Pupil Exam: NORMAL ACCOMODATION, PERRL - ENT Exam ENT Exam: Mucous Membranes Moist, Normal Exam - Neck Exam Neck Exam: Full ROM, Normal Inspection - Respiratory Exam Respiratory Exam: Clear to Ausculation Bilateral, NORMAL BREATHING PATTERN - Cardiovascular Exam Cardiovascular Exam: REGULAR RHYTHM, +S1, +S2 - GI/Abdominal Exam GI & Abdominal Exam: Soft, Normal Bowel Sounds - Rectal Exam Rectal Exam: Deferred - Extremities Exam Extremities Exam: Full ROM, Normal Inspection - Neurological Exam Neurological Exam: Alert, Awake Additional comments: oriented x 2-3 - Skin Skin Exam: Intact, Normal Color Assessment and Plan - Assessment and Plan (Free Text) Assessment: 47 yo Female with pmh/o etoh abuse, cirrhosis of liver ascites, abd. pain, increased bun/cr 1. Non oliguric INNA , most likely sec to ATn 2. hepatic encephalopathy 3. cirrhosis of liver 4. liver failure c/w midodrine c/w iv abx continue gentle iv hydration
[2018-02-04] MEDS: Lactated Ringer's 1,000 ML IV SCH ×3 (01:58→11:35)
[2018-02-04] MEDS: Pantoprazole 40 MG in Sodium Chloride 0.9% 100 ML IV SCH ×5 (02:30→21:41)
[2018-02-04 06:01] LABS: BASO % 0.1 % (0.0-2.0); EOS % 0.6 % (0.0-4.0); HEMOGLOBIN 8.2 g/dL (12.0-16.0); LYMPH # 0.6 K/uL (1.0-4.3); LYMPH % 9.7 % (20.0-40.0); MEAN CELL VOLUME 100.5 fl (81.0-99.0); MEAN CORPUSCULAR HEMOGLOBIN 34.6 pg (27.0-31.0); MEAN CORPUSCULAR HGB CONC 34.4 g/dL (33.0-37.0); MEAN PLATELET VOLUME 10.2 fl (7.2-11.7); MONO % 14.7 % (0.0-10.0); NEUT # 4.9 K/uL (1.8-7.0); NEUT % 74.9 % (50.0-75.0); NRBC % 0.4 % (0.0-0.0); PLATELET COUNT 34 K/uL (130-400); RBC 2.38 Mil/uL (3.80-5.20); RED CELL DISTRIBUTION WIDTH 21.5 % (11.5-14.5); WHITE BLOOD COUNT 6.6 K/uL (4.8-10.8)
[2018-02-04 06:21] LABS: ALB/GLOB RATIO 0.7 (1.0-2.1); ALBUMIN 2.5 g/dL (3.5-5.0); CALCIUM 8.4 mg/dL (8.4-10.2)
[2018-02-04 06:22] LABS: INR 2.3; PROTHROMBIN TIME 26.2 Seconds (9.8-13.1)
[2018-02-04 06:24] LABS: PARTIAL THROMBOPLASTIN TIME 49.1 Seconds (25.6-37.1)
[2018-02-04] MEDS: Lactulose 10 gm/15 ml Syrup PO SCH ×3 (10:08→18:28)
--- NOTE | 2018-02-04 10:33 | CP.PCM.PN ---
<Aminta Hummel - Last Filed: 02/04/18 12:41> Subjective - Date & Time of Evaluation Date of Evaluation: 02/04/18 Time of Evaluation: 09:42 - Subjective Subjective: Patient seen and examined this AM, still on continued 1:1 observation. Patient is awake, more alert, and responding to questions appropriately. She continues to complain of abdominal pain. She co but denies any fever, chills, chest pain or shortness of breath. Objective - Vital Signs/Intake and Output Vital Signs (last 24 hours): Temp Pulse Resp BP Pulse Ox 97.8 F 70 18 104/69 100 02/04/18 09:24 02/04/18 09:24 02/04/18 09:24 02/04/18 09:24 02/04/18 09:24 - Medications Medications: Current Medications Ceftriaxone Sodium 1 gm/ (Sodium Chloride) 100 mls @ 100 mls/hr IVPB HS [facility]; Protocol Last Admin: 02/03/18 22:30 Dose: 100 mls/hr Lactated Ringer's (Lactated Ringer's) 1,000 mls @ 100 mls/hr IV .Q10H [facility] Last Admin: 02/04/18 01:58 Dose: 100 mls/hr Pantoprazole Sodium 40 mg/ (Sodium Chloride) 100 mls @ 20 mls/hr IV 5XD [facility] Last Admin: 02/04/18 02:30 Dose: 20 mls/hr Lactulose (Enulose) 10 gm PO TID [facility] Last Admin: 02/04/18 10:08 Dose: 10 gm Midodrine (Proamatine) 5 mg PO TID [facility] Last Admin: 02/04/18 10:08 Dose: 5 mg Morphine Sulfate (Morphine) 2 mg IVP Q6 PRN PRN Reason: Pain, severe (8-10) Last Admin: 02/03/18 15:13 Dose: 2 mg Morphine Sulfate (Morphine) 1 mg IVP Q6 PRN PRN Reason: Pain, moderate (4-7) Ondansetron HCl (Zofran Inj) 4 mg IVP Q6 PRN PRN Reason: Nausea/Vomiting Rifaximin (Xifaxan) 550 mg PO Q12 [facility]; Protocol Last Admin: 02/04/18 10:08 Dose: 550 mg - Labs Labs: 02/04/18 04:20 10/08/18 04:20 PT 26.2 Seconds (9.8-13.1) H 02/04/18 04:20 INR 2.3 02/04/18 04:20 APTT 49.1 Seconds (25.6-37.1) H 02/04/18 04:20 - Constitutional Appears: Toxic, Cachectic - Head Exam Head Exam: ATRAUMATIC - Eye Exam Eye Exam: Scleral icterus - Neck Exam Neck Exam: Full ROM - Respiratory Exam Respiratory Exam: Clear to Ausculation Bilateral - Cardiovascular Exam Cardiovascular Exam: +S1, +S2 - GI/Abdominal Exam GI & Abdominal Exam: Distended, Firm, Guarding, Tenderness - Extremities Exam Extremities Exam: absent: Calf Tenderness - Neurological Exam Neurological Exam: Alert, Awake - Skin Additional comments: telangiectasias on face Assessment and Plan - Assessment and Plan (Free Text) Assessment: 47 y/o F with alcoholic liver cirrhosis & ascites admitted for hepatic encepha lopathy, acute renal injury, and hematemesis. 1. Hepatic Encephalopathy (Acute, symptomatic) with elevated Ammonia -Ammonia on admission: 273, dropped to 164, went back up to 178, dropped to 154, and today is 88. FU tomorrow's level. - Continue Lactulose and Rifaxin as per GI recommendations. -Continue Midodrine. -Avoid sedatives. 2. Acute Abdominal pain in patient with Chronic Liver cirrhosis -IR will possibly perform paracentesis tomorrow. Will transfuse 2 bags of platelets & 1 FFP overnight, and follow up repeat AM INR. - GI recommendations appreciated. -Continue liquid diet. - Continue empiric IV ceftriaxone for prophylaxis against SBP. - Continue pain management with IV Morphine. 3. Liver Cirrhosis with Ascites, Coagulopathy, and thrombocytopenia -IR will possibly perform paracentesis tomorrow. Will transfuse 2 bags of platelets & 1 FFP overnight, and follow up repeat AM INR. -Hgb on admission: 8.3, dropped to 6.8, went to 9.6 after 1 PRBC given, last level 8.2. FU repeat CBC & continue PPI. -Platelets 82 on admission, dropped to 59, 52, 49, and last level today 34. FU repeat levels in AM. 4. Hematemesis (Acute, resolved) -GI recommendations appreciated. -Continue liquid diet. -Continue PPI. -Continue vital signs Q4. 5. Acute Kidney injury with Hyperkalemia -Nephrology recommendations appreciated: INNA likely secondary to ATN. -BUN/creatinine on admission: 71/5.3, dropped to 62/2.8 yesterday, and today level was 44/2.1. -Potassium 6.4 on admission, and continues to trend down with last level 3.8. -Ammonia on admission: 273, dropped to 164, went back up to 176, it dropped to 154, and last level was 88 today. -Continue to monitor. <Gina Jimenez - Last Filed: 02/04/18 15:28> Objective - Vital Signs/Intake and Output Vital Signs (last 24 hours): Temp Pulse Resp BP Pulse Ox 97.8 F 70 18 104/69 100 02/04/18 09:24 02/04/18 09:24 02/04/18 09:24 02/04/18 09:24 02/04/18 09:24 - Medications Medications: Current Medications Ceftriaxone Sodium 1 gm/ (Sodium Chloride) 100 mls @ 100 mls/hr IVPB HS [facility]; Protocol Last Admin: 02/03/18 22:30 Dose: 100 mls/hr Lactated Ringer's (Lactated Ringer's) 1,000 mls @ 100 mls/hr IV .Q10H [facility] Last Admin: 02/04/18 11:35 Dose: 100 mls/hr Pantoprazole Sodium 40 mg/ (Sodium Chloride) 100 mls @ 20 mls/hr IV 5XD [facility] Last Admin: 02/04/18 13:58 Dose: 20 mls/hr Lactulose (Enulose) 10 gm PO TID [facility] Last Admin: 02/04/18 14:04 Dose: 10 gm Midodrine (Proamatine) 5 mg PO TID [facility] Last Admin: 02/04/18 14:04 Dose: 5 mg Morphine Sulfate (Morphine) 2 mg IVP Q6 PRN PRN Reason: Pain, severe (8-10) Last Admin: 02/03/18 15:13 Dose: 2 mg Morphine Sulfate (Morphine) 1 mg IVP Q6 PRN PRN Reason: Pain, moderate (4-7) Last Admin: 02/04/18 11:23 Dose: 1 mg Ondansetron HCl (Zofran Inj) 4 mg IVP Q6 PRN PRN Reason: Nausea/Vomiting Last Admin: 02/04/18 15:11 Dose: 4 mg Rifaximin (Xifaxan) 550 mg PO Q12 [facility]; Protocol Last Admin: 02/04/18 10:08 Dose: 550 mg - Labs Labs: 02/04/18 04:20 02/04/18 04:20 PT 26.2 Seconds (9.8-13.1) H 02/04/18 04:20 INR 2.3 02/04/18 04:20 APTT 49.1 Seconds (25.6-37.1) H 02/04/18 04:20 Attending/Attestation - Attestation I have personally seen and examined this patient.: Yes I have fully participated in the care of the patient.: Yes I have reviewed all pertinent clinical information, including history, physical exam and plan: Yes Notes (Text): Discussed case with Dr Jarocho melvin to tranfuse to keep Platelet over 75 and INR below 2 Will transfuse pt tomight and rpt labs in am Plan for Paracentesis in am
[2018-02-04 11:22] LABS: LYMPHOCYTE 13 % (20-50); MONOCYTE 15 % (0-10); NEUTROPHIL 72 % (42-75); NUCLEATED RED BLOOD CELL 1 % (0-0); TOTAL CELLS COUNTED 100
[2018-02-04 11:23] LABS: PLATELET ESTIMATE DECREASED (NORMAL)
[2018-02-04 11:24] LABS: ANISOCYTOSIS MODERATE; HYPOCHROMIC MODERATE
[2018-02-04 11:25] LABS: ACANTHOCYTES SLIGHT
--- NOTE | 2018-02-04 14:19 | CP.PCM.PN ---
Subjective - Date & Time of Evaluation Date of Evaluation: 02/04/18 Time of Evaluation: 14:19 - Subjective Subjective: 47 yo female with etoh abuse, cirrhosis of liver, coagulopathy , abd. distention, and pain , with creased bun/cr still c/o abdominal pain, renal function is slowly improving still c/o abdominal pain, scheduled for platelet transfusion today and plaracentesis in am Objective - Vital Signs/Intake and Output Vital Signs (last 24 hours): Temp Pulse Resp BP Pulse Ox 97.8 F 70 18 104/69 100 02/04/18 09:24 02/04/18 09:24 02/04/18 09:24 02/04/18 09:24 02/04/18 09:24 - Medications Medications: Current Medications Ceftriaxone Sodium 1 gm/ (Sodium Chloride) 100 mls @ 100 mls/hr IVPB HS [facility]; Protocol Last Admin: 02/03/18 22:30 Dose: 100 mls/hr Lactated Ringer's (Lactated Ringer's) 1,000 mls @ 100 mls/hr IV .Q10H [facility] Last Admin: 02/04/18 11:35 Dose: 100 mls/hr Pantoprazole Sodium 40 mg/ (Sodium Chloride) 100 mls @ 20 mls/hr IV 5XD [facility] Last Admin: 02/04/18 13:58 Dose: 20 mls/hr Lactulose (Enulose) 10 gm PO TID [facility] Last Admin: 02/04/18 14:04 Dose: 10 gm Midodrine (Proamatine) 5 mg PO TID [facility] Last Admin: 02/04/18 14:04 Dose: 5 mg Morphine Sulfate (Morphine) 2 mg IVP Q6 PRN PRN Reason: Pain, severe (8-10) Last Admin: 02/03/18 15:13 Dose: 2 mg Morphine Sulfate (Morphine) 1 mg IVP Q6 PRN PRN Reason: Pain, moderate (4-7) Last Admin: 02/04/18 11:23 Dose: 1 mg Ondansetron HCl (Zofran Inj) 4 mg IVP Q6 PRN PRN Reason: Nausea/Vomiting Rifaximin (Xifaxan) 550 mg PO Q12 [facility]; Protocol Last Admin: 02/04/18 10:08 Dose: 550 mg - Labs Labs: 02/04/18 04:20 02/04/18 04:20 PT 26.2 Seconds (9.8-13.1) H 02/04/18 04:20 INR 2.3 02/04/18 04:20 APTT 49.1 Seconds (25.6-37.1) H 02/04/18 04:20 - Constitutional Appears: Well, No Acute Distress - Head Exam Head Exam: ATRAUMATIC, NORMAL INSPECTION, NORMOCEPHALIC - Eye Exam Eye Exam: EOMI, Normal appearance, Scleral icterus Pupil Exam: NORMAL ACCOMODATION, PERRL - ENT Exam ENT Exam: Mucous Membranes Moist - Neck Exam Neck Exam: Full ROM, Normal Inspection - Respiratory Exam Respiratory Exam: Clear to Ausculation Bilateral, NORMAL BREATHING PATTERN - Cardiovascular Exam Cardiovascular Exam: REGULAR RHYTHM, +S1, +S2 - GI/Abdominal Exam GI & Abdominal Exam: Distended, Soft, Tenderness, Normal Bowel Sounds Additional comments: diffuse abd. tenderness+ - Rectal Exam Rectal Exam: Deferred - Neurological Exam Neurological Exam: Alert, Awake, CN II-XII Intact, Oriented x3 - Psychiatric Exam Psychiatric exam: Normal Affect - Skin Skin Exam: Warm Additional comments: skin-yellow Assessment and Plan - Assessment and Plan (Free Text) Assessment: 47 yo Female with pmh/o etoh abuse, cirrhosis of liver ascites, abd. pain, increased bun/cr 1. Non oliguric INNA , most likely sec to ATN renal function is improving 2. hepatic encephalopathy 3. cirrhosis of liver 4. liver failure c/w midodrine c/w iv abx continue gentle iv hydration for platelt transfusion a today, and parcentesis in am
--- NOTE | 2018-02-04 19:50 | CP.PCM.PN ---
Subjective - Date & Time of Evaluation Date of Evaluation: 02/04/18 Time of Evaluation: 13:00 - Subjective Subjective: Appears more awake and alert today.. Blood pressure stabilizing. Objective - Vital Signs/Intake and Output Vital Signs (last 24 hours): Temp Pulse Resp BP Pulse Ox 98.2 F 78 16 130/83 100 02/04/18 16:10 02/04/18 16:10 02/04/18 16:10 02/04/18 16:10 02/04/18 16:10 - Medications Medications: Current Medications Albumin Human (Albumin Human 25% (12.5 Gm/50 Ml)) 12.5 gm IV TID [facility] Stop: 02/07/18 13:01 Ceftriaxone Sodium 1 gm/ (Sodium Chloride) 100 mls @ 100 mls/hr IVPB HS [facility]; Protocol Last Admin: 02/03/18 22:30 Dose: 100 mls/hr Lactated Ringer's (Lactated Ringer's) 1,000 mls @ 100 mls/hr IV .Q10H [facility] Last Admin: 02/04/18 11:35 Dose: 100 mls/hr Pantoprazole Sodium 40 mg/ (Sodium Chloride) 100 mls @ 20 mls/hr IV 5XD [facility] Last Admin: 02/04/18 18:29 Dose: 20 mls/hr Lactulose (Enulose) 10 gm PO TID [facility] Last Admin: 02/04/18 18:28 Dose: 10 gm Midodrine (Proamatine) 5 mg PO TID [facility] Last Admin: 02/04/18 18:29 Dose: 5 mg Morphine Sulfate (Morphine) 2 mg IVP Q6 PRN PRN Reason: Pain, severe (8-10) Last Admin: 02/04/18 15:50 Dose: 2 mg Morphine Sulfate (Morphine) 1 mg IVP Q6 PRN PRN Reason: Pain, moderate (4-7) Last Admin: 02/04/18 11:23 Dose: 1 mg Ondansetron HCl (Zofran Inj) 4 mg IVP Q6 PRN PRN Reason: Nausea/Vomiting Last Admin: 02/04/18 15:11 Dose: 4 mg Rifaximin (Xifaxan) 550 mg PO Q12 [facility]; Protocol Last Admin: 02/04/18 10:08 Dose: 550 mg - Labs Labs: 02/04/18 04:20 02/04/18 04:20 PT 26.2 Seconds (9.8-13.1) H 02/04/18 04:20 INR 2.3 02/04/18 04:20 APTT 49.1 Seconds (25.6-37.1) H 02/04/18 04:20 - Head Exam Head Exam: ATRAUMATIC - Eye Exam Eye Exam: Normal appearance Pupil Exam: PERRL - Neck Exam Neck Exam: Full ROM - Respiratory Exam Respiratory Exam: Clear to Ausculation Bilateral - Cardiovascular Exam Cardiovascular Exam: REGULAR RHYTHM, +S1, +S2 - GI/Abdominal Exam GI & Abdominal Exam: Soft, Normal Bowel Sounds Assessment and Plan (1) Cirrhosis of liver with ascites Assessment & Plan: Ammonia level has come down and mentation is better. Diet advanced to solids. Renal functioning has also improved considerably. Will restart IV albumin. Continue current treatment. Status: Chronic
[2018-02-04] MEDS: Albumin Human 25% (12.5 gm/50 ml) IV SCH (22:13)
[2018-02-05] MEDS: Pantoprazole 40 MG in Sodium Chloride 0.9% 100 ML IV SCH ×4 (03:00→21:33)
[2018-02-05 05:35] LABS: BASO % 0.1 % (0.0-2.0); EOS % 0.7 % (0.0-4.0); HEMOGLOBIN 7.9 g/dL (12.0-16.0); LYMPH # 0.5 K/uL (1.0-4.3); LYMPH % 7.7 % (20.0-40.0); MEAN CELL VOLUME 100.1 fl (81.0-99.0); MEAN CORPUSCULAR HEMOGLOBIN 34.6 pg (27.0-31.0); MEAN CORPUSCULAR HGB CONC 34.6 g/dL (33.0-37.0); MEAN PLATELET VOLUME 10.4 fl (7.2-11.7); MONO # 0.9 K/uL (0.0-0.8); NEUT # 5.3 K/uL (1.8-7.0); NEUT % 78.5 % (50.0-75.0); NRBC % 0.2 % (0.0-0.0); RBC 2.28 Mil/uL (3.80-5.20); RED CELL DISTRIBUTION WIDTH 22.1 % (11.5-14.5); WHITE BLOOD COUNT 6.7 K/uL (4.8-10.8)
[2018-02-05 05:38] LABS: ALB/GLOB RATIO 0.8 (1.0-2.1); ALBUMIN 2.7 g/dL (3.5-5.0); CALCIUM 8.2 mg/dL (8.4-10.2)
[2018-02-05 05:42] LABS: PROTHROMBIN TIME 22.4 Seconds (9.8-13.1)
[2018-02-05 05:45] LABS: PARTIAL THROMBOPLASTIN TIME 43.4 Seconds (25.6-37.1)
--- NOTE | 2018-02-05 06:59 | CP.PCM.PN ---
Addendum entered and electronically signed by Gabo Scott MD 02/05/18 17:47: Patient seen and examined bedside . All chart and clinical data reviewed . Care resumed . Case discussed with resident .Agree with assessment and plan. 47 y/o female with PMH ETOH abuse and liver cirrhosis, not compliant with medications admitted for AMS / hepatic encephalopathy , abdominal pain , hematemesis and acute kidney injury . At present more alert ,awake , oriented. Ammonia levels 73.Will d/c 1:1 Will increase Lactulose to 20 gm TID and continue Rifaximin S/p abdominal parasenthesis today with 2.5 l fluid removal. Will follow up results. Continue Rocephin empirically for SBP s/p 2 unit FFP transfusion today before parasenthesis( total 4 FFP ) .Will transfuse 1 more unit platelet today after parasenthesis ( patient is coagulopathic and thrombocytopenic Plt 48 K and anemic Hgb 7.9 ) Continue albumin IV Will transfuse 1 unit PRBC after platelet transfusion in AM. Repeat CBC in AM Renal function improving . Continue hold diuretics for now No active bleeding . On PPI . Recent EGD did not show varices on Midodrine Po for borderline Low BP Continue current management. Original Note: Subjective - Date & Time of Evaluation Date of Evaluation: 02/05/18 Time of Evaluation: 06:49 - Subjective Subjective: Patient seen and evaluated this AM with continued 1:1 observation. Patient was sitting upright in bed, awake, and alert still complaining of abdominal pain. She denied any fever, chills or chest pain. Objective - Vital Signs/Intake and Output Vital Signs (last 24 hours): Temp Pulse Resp BP Pulse Ox 98.1 F 73 18 112/65 98 02/05/18 05:56 02/05/18 05:56 02/05/18 05:56 02/05/18 05:56 02/05/18 04:58 Intake and Output: 02/04/18 02/05/18 18:59 06:59 Intake Total 314 Balance 314 - Medications Medications: Current Medications Albumin Human (Albumin Human 25% (12.5 Gm/50 Ml)) 12.5 gm IV TID [facility] Stop: 02/07/18 13:01 Last Admin: 02/04/18 22:13 Dose: 12.5 gm Ceftriaxone Sodium 1 gm/ (Sodium Chloride) 100 mls @ 100 mls/hr IVPB HS [facility]; Protocol Last Admin: 02/04/18 21:44 Dose: 100 mls/hr Lactated Ringer's (Lactated Ringer's) 1,000 mls @ 100 mls/hr IV .Q10H [facility] Last Admin: 02/04/18 11:35 Dose: 100 mls/hr Pantoprazole Sodium 40 mg/ (Sodium Chloride) 100 mls @ 20 mls/hr IV 5XD [facility] Last Admin: 02/05/18 03:00 Dose: 20 mls/hr Lactulose (Enulose) 10 gm PO TID [facility] Last Admin: 02/04/18 18:28 Dose: 10 gm Midodrine (Proamatine) 5 mg PO TID [facility] Last Admin: 02/04/18 18:29 Dose: 5 mg Morphine Sulfate (Morphine) 2 mg IVP Q6 PRN PRN Reason: Pain, severe (8-10) Last Admin: 02/04/18 21:51 Dose: 2 mg Morphine Sulfate (Morphine) 1 mg IVP Q6 PRN PRN Reason: Pain, moderate (4-7) Last Admin: 02/04/18 11:23 Dose: 1 mg Ondansetron HCl (Zofran Inj) 4 mg IVP Q6 PRN PRN Reason: Nausea/Vomiting Last Admin: 02/04/18 21:55 Dose: 4 mg Rifaximin (Xifaxan) 550 mg PO Q12 [facility]; Protocol Last Admin: 02/04/18 22:12 Dose: 550 mg - Labs Labs: 02/05/18 04:15 02/05/18 04:15 PT 22.4 Seconds (9.8-13.1) H 02/05/18 04:15 INR 2.0 02/05/18 04:15 APTT 43.4 Seconds (25.6-37.1) H 02/05/18 04:15 - Constitutional Appears: Toxic, Cachectic - Head Exam Head Exam: ATRAUMATIC Additional comments: talengectasias noted on face - Respiratory Exam Respiratory Exam: Clear to Ausculation Bilateral - Cardiovascular Exam Cardiovascular Exam: +S1, +S2 - GI/Abdominal Exam GI & Abdominal Exam: Distended, Firm, Guarding, Tenderness - Extremities Exam Extremities Exam: absent: Calf Tenderness - Neurological Exam Neurological Exam: Alert, Awake, Oriented x3 Assessment and Plan - Assessment and Plan (Free Text) Assessment: 47 y/o F with alcohol-induced liver cirrhosis & ascites admitted for hepatic encephalopathy, acute renal injury, and hematemesis. 1. Hepatic Encephalopathy (Acute, symptomatic, resolving) with elevated Ammonia -Ammonia on admission: 273, dropped to 164, went back up to 178, dropped to 154, 88, and was 73 today. FU tomorrow's level. - Continue Lactulose and Rifaximin as per GI recommendations. -Continue Midodrine. -Avoid sedatives. 2. Acute Abdominal pain in patient with Chronic Liver cirrhosis on SBP prophylaxis -2 units of platelets & 1 unit of FFP was given last night. Platelets today were 34L, which is unchanged from yesterday. Manual platelet counts were 48. -Paracentesis performed today. FU results. - GI recommendations appreciated: diet was advanced from liquid to bland, and IV albumin was restarted. - Continue empiric IV ceftriaxone for prophylaxis against SBP. - Continue pain management with IV Morphine. 3. Liver Cirrhosis with Ascites, Coagulopathy, and thrombocytopenia -Hgb on admission: 8.3, dropped to 6.8, went to 9.6 02/02/2018 after 1 PRBC was given with last level 7.9 this AM. FU repeat CBC & continue PPI. -Platelets 82 on admission, and trending down to 59, 52, 49, and last level today 34. FU repeat levels in AM. 4. Hematemesis (Acute, resolved) -GI recommendations appreciated. -Diet was advanced from liquid to bland. -Continue PPI. -Continue vital signs Q4. 5. Acute Kidney injury with Hyperkalemia -Nephrology recommendations appreciated: INNA likely secondary to ATN. -BUN/creatinine on admission: 71/5.3, and has been trending down; 62/2.8, 44/2.1, and 31/1.5 today. -Potassium 6.4 on admission, and continues to trend down with last level 3.3 today. -Ammonia on admission: 273, went to 164, went back up to 176, and has been trending recently with values of 154, 88, and 73 today. -Continue to monitor.
[2018-02-05] MEDS: Lactulose 10 gm/15 ml Syrup PO SCH (08:29)
[2018-02-05] MEDS: Albumin Human 25% (12.5 gm/50 ml) IV SCH ×3 (08:30→19:08)
[2018-02-05] MEDS ORDERED: Potassium Chloride 20 mEq/15 ml LIQ UD PO ONE ×2 (09:31→10:49)
[2018-02-05] MEDS ORDERED: Lactated Ringer's 1,000 ML IV SCH (14:45)
[2018-02-05] MEDS ORDERED: Lidocaine 1% 5ml Abboject ONE (15:38)
--- NOTE | 2018-02-05 16:19 | PCM.SURG1 ---
Surgeon's Initial Post Op Note - Surgeon's Notes Surgeon: Christine Channel Rebuilder: None Type of Anesthesia: Local Pre-Operative Diagnosis: Ascites Operative Findings: Ascites Post-Operative Diagnosis: Ascites Operation Performed: paracentesis Specimen/Specimens Removed: 2.5L of clear yellow fluid aspirated. Estimated Blood Loss: EBL {In ML}: 1 Date of Surgery/Procedure: 02/05/18 Time of Surgery/Procedure: 16:00
[2018-02-05 16:49] LABS: BODY FLUID TYPE PERITONEAL/ASCITES
[2018-02-05 17:38] LABS: TOTAL PROTEIN,BODY FLUID < 2.0 g/dL (NONE ESTABLISHED)
--- NOTE | 2018-02-05 18:31 | CP.PCM.PN ---
Subjective - Date & Time of Evaluation Date of Evaluation: 02/05/18 Time of Evaluation: 18:31 - Subjective Subjective: 47 yo female with etoh abuse, cirrhosis of liver, coagulopathy , abd. distention, and pain , with creased bun/cr still c/o abdominal pain, renal function is slowly improving still c/o abdominal pain, s/p plaracentesis today, drained about 2.5 lit Objective - Vital Signs/Intake and Output Vital Signs (last 24 hours): Temp Pulse Resp BP Pulse Ox 98.1 F 80 18 97/51 L 96 02/05/18 16:28 02/05/18 16:28 02/05/18 16:28 02/05/18 16:28 02/05/18 16:28 Intake and Output: 02/05/18 02/05/18 06:59 18:59 Intake Total 314 Balance 314 - Medications Medications: Current Medications Albumin Human (Albumin Human 25% (12.5 Gm/50 Ml)) 12.5 gm IV TID [facility] Stop: 02/07/18 13:01 Last Admin: 02/05/18 15:19 Dose: Not Given Ceftriaxone Sodium 1 gm/ (Sodium Chloride) 100 mls @ 100 mls/hr IVPB HS [facility]; Protocol Last Admin: 02/04/18 21:44 Dose: 100 mls/hr Pantoprazole Sodium 40 mg/ (Sodium Chloride) 100 mls @ 20 mls/hr IV 5XD [facility] Last Admin: 02/05/18 18:27 Dose: 20 mls/hr Lactated Ringer's (Lactated Ringer's) 1,000 mls @ 50 mls/hr IV .Q20H [facility] Last Admin: 02/05/18 18:26 Dose: 50 mls/hr Lactulose (Enulose) 20 gm PO TID [facility] Last Admin: 02/05/18 18:26 Dose: 20 gm Midodrine (Proamatine) 5 mg PO TID [facility] Last Admin: 02/05/18 18:27 Dose: 5 mg Morphine Sulfate (Morphine) 2 mg IVP Q6 PRN PRN Reason: Pain, severe (8-10) Last Admin: 02/05/18 18:25 Dose: 2 mg Morphine Sulfate (Morphine) 1 mg IVP Q6 PRN PRN Reason: Pain, moderate (4-7) Last Admin: 02/04/18 11:23 Dose: 1 mg Ondansetron HCl (Zofran Inj) 4 mg IVP Q6 PRN PRN Reason: Nausea/Vomiting Last Admin: 02/04/18 21:55 Dose: 4 mg Potassium Chloride (K-Dur 20 Meq Er Tab) 20 meq PO DAILY [facility] Rifaximin (Xifaxan) 550 mg PO Q12 [facility]; Protocol Last Admin: 02/05/18 08:29 Dose: 550 mg - Labs Labs: 02/05/18 04:15 02/05/18 04:15 PT 22.4 Seconds (9.8-13.1) H 02/05/18 04:15 INR 2.0 02/05/18 04:15 APTT 43.4 Seconds (25.6-37.1) H 02/05/18 04:15 - Constitutional Appears: Non-toxic, No Acute Distress, Chronically Ill - Head Exam Head Exam: ATRAUMATIC, NORMOCEPHALIC - Eye Exam Eye Exam: EOMI, Normal appearance, Scleral icterus Pupil Exam: NORMAL ACCOMODATION, PERRL - ENT Exam ENT Exam: Mucous Membranes Moist - Respiratory Exam Respiratory Exam: Clear to Ausculation Bilateral, NORMAL BREATHING PATTERN - Cardiovascular Exam Cardiovascular Exam: REGULAR RHYTHM, +S1, +S2 - GI/Abdominal Exam GI & Abdominal Exam: Distended, Soft, Normal Bowel Sounds - Rectal Exam Rectal Exam: Deferred - Extremities Exam Extremities Exam: Normal Inspection - Back Exam Back Exam: NORMAL INSPECTION - Neurological Exam Neurological Exam: Alert, Awake, CN II-XII Intact, Oriented x3 - Skin Skin Exam: Dry Additional comments: skin is yellow Assessment and Plan - Assessment and Plan (Free Text) Assessment: 47 yo Female with pmh/o etoh abuse, cirrhosis of liver ascites, abd. pain increased bun/cr 1. Non oliguric INNA, most likely sec to ATN renal function is improving, s.cr is 1.5 2. hepatic encephalopathy 3. cirrhosis of liver 4. liver failure s/p paracentesis today c/w midodrine c/w iv abx
[2018-02-05 18:40] LABS: BF GROSS APPEARANCE SL CLOUDY (CLEAR)
[2018-02-05 18:48] LABS: BODY FLUID MONO/MACROPHAGE 10 % (0-0)
[2018-02-05 18:49] LABS: BODY FLUID TOTAL COUNT 100 (0-0)
[2018-02-06] MEDS: Pantoprazole 40 MG in Sodium Chloride 0.9% 100 ML IV SCH ×2 (05:06→08:42)
[2018-02-06 05:40] LABS: BASO % 0.1 % (0.0-2.0); EOS % 0.5 % (0.0-4.0); HEMOGLOBIN 7.4 g/dL (12.0-16.0); LYMPH # 0.5 K/uL (1.0-4.3); LYMPH % 6.5 % (20.0-40.0); MEAN CELL VOLUME 101.1 fl (81.0-99.0); MEAN CORPUSCULAR HEMOGLOBIN 34.4 pg (27.0-31.0); MEAN CORPUSCULAR HGB CONC 34.1 g/dL (33.0-37.0); MEAN PLATELET VOLUME 10.4 fl (7.2-11.7); MONO # 1.1 K/uL (0.0-0.8); MONO % 14.6 % (0.0-10.0); NEUT # 5.8 K/uL (1.8-7.0); NEUT % 78.3 % (50.0-75.0); NRBC % 0.3 % (0.0-0.0); RBC 2.16 Mil/uL (3.80-5.20); RED CELL DISTRIBUTION WIDTH 21.9 % (11.5-14.5); WHITE BLOOD COUNT 7.5 K/uL (4.8-10.8)
[2018-02-06 05:42] LABS: INR 1.9; PROTHROMBIN TIME 21.5 Seconds (9.8-13.1)
[2018-02-06 05:44] VITALS: O2SAT 100
[2018-02-06 05:45] LABS: PARTIAL THROMBOPLASTIN TIME 37.8 Seconds (25.6-37.1)
[2018-02-06 05:49] LABS: ALB/GLOB RATIO 0.8 (1.0-2.1); ALBUMIN 2.7 g/dL (3.5-5.0); CALCIUM 8.2 mg/dL (8.4-10.2)
--- NOTE | 2018-02-06 08:47 | CP.PCM.PN ---
Subjective - Date & Time of Evaluation Date of Evaluation: 02/06/18 Time of Evaluation: 08:45 - Subjective Subjective: Patient more alert today. Had paracentesis yesterday. C/o abdominal pain Objective - Vital Signs/Intake and Output Vital Signs (last 24 hours): Temp Pulse Resp BP Pulse Ox 98.2 F 75 17 93/58 L 100 02/06/18 05:00 02/06/18 05:00 02/06/18 05:00 02/06/18 05:00 02/06/18 05:00 - Medications Medications: Current Medications Furosemide (Lasix) 40 mg PO DAILY [facility] Ceftriaxone Sodium 1 gm/ (Sodium Chloride) 100 mls @ 100 mls/hr IVPB HS [facility]; Protocol Last Admin: 02/05/18 21:41 Dose: 100 mls/hr Lactated Ringer's (Lactated Ringer's) 1,000 mls @ 50 mls/hr IV .Q20H [facility] Last Admin: 02/05/18 18:26 Dose: 50 mls/hr Lactulose (Enulose) 20 gm PO TID [facility] Last Admin: 02/06/18 08:40 Dose: 20 gm Midodrine (Proamatine) 5 mg PO TID [facility] Last Admin: 02/06/18 08:40 Dose: 5 mg Morphine Sulfate (Morphine) 2 mg IVP Q6 PRN PRN Reason: Pain, severe (8-10) Last Admin: 02/06/18 00:17 Dose: 2 mg Morphine Sulfate (Morphine) 1 mg IVP Q6 PRN PRN Reason: Pain, moderate (4-7) Last Admin: 02/04/18 11:23 Dose: 1 mg Ondansetron HCl (Zofran Inj) 4 mg IVP Q6 PRN PRN Reason: Nausea/Vomiting Last Admin: 02/04/18 21:55 Dose: 4 mg Pantoprazole Sodium (Protonix Ec Tab) 40 mg PO DAILY [facility] Rifaximin (Xifaxan) 550 mg PO Q12 [facility]; Protocol Last Admin: 02/06/18 08:43 Dose: 550 mg - Labs Labs: 02/06/18 05:16 02/06/18 05:16 PT 21.5 Seconds (9.8-13.1) H 02/06/18 05:16 INR 1.9 10/10/18 05:16 APTT 37.8 Seconds (25.6-37.1) H 02/06/18 05:16 - Head Exam Head Exam: ATRAUMATIC - Eye Exam Eye Exam: Normal appearance - Respiratory Exam Respiratory Exam: Clear to Ausculation Bilateral - Cardiovascular Exam Cardiovascular Exam: REGULAR RHYTHM - GI/Abdominal Exam GI & Abdominal Exam: Distended, Firm Assessment and Plan (1) Cirrhosis of liver with ascites Assessment & Plan: Appears more alert and diet advanced yesterday.Still with marked ascites despite low volume paracentesis yesterday. Will reduce IV fluids and start furosemide. Kidney functions have normalized. Hgb has fallen though no overt bleeding seen. Serum albumin likely helped by IV albumin. Will follow labs. Status: Chronic
[2018-02-06] MEDS ORDERED: Potassium Chloride 20 mEq ER Tab PO SCH (09:00)
[2018-02-06] MEDS: Pantoprazole 40 mg EC Tab PO SCH (09:15)
--- NOTE | 2018-02-06 10:15 | CP.PCM.PN ---
Addendum entered and electronically signed by Gabo Scott MD 02/06/18 18:26: Thrombocytopenia-- no signs of bleeding Plt 27 K today . s/o 2 unit platelet transfusion Anemia -- chronic and slow GI blood loss ( occult positive ) . No gross GI bleed . Will transfuse 1 unit PRBC today and repeat CBC in Am Continue PPI Addendum entered and electronically signed by Gabo Scott MD 02/06/18 18:20: Patient seen and examined bedside. All chart and clinical data reviewed. case discussed with resident.Agree with assessment and plan 47 y/o female with PMH alcoholic liver cirrhosis admitted with AMS / hepatic encephalopathy with elevated Ammonia levels, large ascites and INNA. At present mental status has improved AAOx3 , off 1:1 , ammonia trending down on Lactulose 20 gram TID and Rifaximine s/op abdominal parasenthesis yesterday with 2.5 L ascitic flid remnoval. Follow up fluid analysis. on rocephin IV empirically for SBP. Still with abdominal pain but =better GI on board Kidney function improving with Creatinine trending down from 5.3--1.3.Will start gentle diuresis with lasix today . Repeat BMP in AM Patient has guarded prognosis. Will need to be referred to liver transplant [facility] Continue Midodrine pO for Low BP Original Note: Subjective - Date & Time of Evaluation Date of Evaluation: 02/06/18 Time of Evaluation: 09:19 - Subjective Subjective: Patient seen and examined this AM. Paracentesis was perfomed yesterday. She is still complained of abdominal pain, but denies any fever, chills or chest pain. Objective - Vital Signs/Intake and Output Vital Signs (last 24 hours): Temp Pulse Resp BP Pulse Ox 97.6 F 76 18 106/66 100 02/06/18 09:33 02/06/18 09:33 02/06/18 09:33 02/06/18 09:33 02/06/18 09:33 - Medications Medications: Current Medications Furosemide (Lasix) 40 mg PO DAILY [facility] Last Admin: 02/06/18 09:15 Dose: 40 mg Ceftriaxone Sodium 1 gm/ (Sodium Chloride) 100 mls @ 100 mls/hr IVPB HS [facility]; Protocol Last Admin: 02/05/18 21:41 Dose: 100 mls/hr Lactated Ringer's (Lactated Ringer's) 1,000 mls @ 50 mls/hr IV .Q20H [facility] Last Admin: 02/05/18 18:26 Dose: 50 mls/hr Lactulose (Enulose) 20 gm PO TID [facility] Last Admin: 02/06/18 08:40 Dose: 20 gm Midodrine (Proamatine) 5 mg PO TID [facility] Last Admin: 02/06/18 08:40 Dose: 5 mg Morphine Sulfate (Morphine) 2 mg IVP Q6 PRN PRN Reason: Pain, severe (8-10) Last Admin: 02/06/18 09:12 Dose: 2 mg Morphine Sulfate (Morphine) 1 mg IVP Q6 PRN PRN Reason: Pain, moderate (4-7) Last Admin: 02/04/18 11:23 Dose: 1 mg Ondansetron HCl (Zofran Inj) 4 mg IVP Q6 PRN PRN Reason: Nausea/Vomiting Last Admin: 02/04/18 21:55 Dose: 4 mg Pantoprazole Sodium (Protonix Ec Tab) 40 mg PO DAILY [facility] Last Admin: 02/06/18 09:15 Dose: 40 mg Rifaximin (Xifaxan) 550 mg PO Q12 [facility]; Protocol Last Admin: 02/06/18 08:43 Dose: 550 mg - Labs Labs: 02/06/18 05:16 02/06/18 05:16 PT 21.5 Seconds (9.8-13.1) H 02/06/18 05:16 INR 1.9 02/06/18 05:16 APTT 37.8 Seconds (25.6-37.1) H 02/06/18 05:16 - Constitutional Appears: Toxic, No Acute Distress, Cachectic - Head Exam Head Exam: ATRAUMATIC - Neck Exam Neck Exam: Full ROM - Respiratory Exam Respiratory Exam: Clear to Ausculation Bilateral - Cardiovascular Exam Cardiovascular Exam: +S1, +S2 - GI/Abdominal Exam GI & Abdominal Exam: Distended, Tenderness - Extremities Exam Extremities Exam: Pedal Edema - Neurological Exam Neurological Exam: Alert, Awake, Oriented x3 - Skin Additional comments: telangiectasias noted Assessment and Plan - Assessment and Plan (Free Text) Assessment: 47 y/o F with alcohol-induced liver cirrhosis & ascites admitted for hepatic encephalopathy, acute renal injury, and hematemesis. 1. Hepatic Encephalopathy (Acute, symptomatic, resolving) with elevated Ammonia -Ammonia on admission: 273, and has been trending down. It was 73 yesterday. - Lactulose was increased to 20gm TID and continue Rifaximin as per GI recommendations. -Continue Midodrine. -Avoid sedatives. 2. Acute Abdominal pain in patient with Chronic Liver cirrhosis on SBP prophylaxis -Paracentesis performed yesterday with total of 4 unit of FFP given, 2 of which were given prior to procedure. 2.5 L of fluid was removed. Fluid neutrophils showed 75, mono/mac- 10, total protein <2. - Continue bland diet, and IV albumin. -Continue Lasix 40mg QD as recommended by GI. - Continue empiric IV ceftriaxone for prophylaxis against SBP. - Continue pain management with IV Morphine. 3. Liver Cirrhosis with Ascites, Coagulopathy, and thrombocytopenia -Hgb on admission: 8.3, and level 7.4 this AM. Patient received 1 unit of PRBC today. FU repeat in AM. -Platelets 82 on admission, and trending down. Manual count was 48. 4. Hematemesis (Acute, resolved) -GI recommendations appreciated. -Diet was advanced from liquid to bland. -Continue PPI. -Continue vital signs Q4. 5. Acute Kidney injury with Hyperkalemia -Nephrology recommendations appreciated: INNA likely secondary to ATN & has been improving. -BUN/creatinine on admission: 71/5.3, and has been trending down; levels today were 23/1.3 -Potassium 6.4 on admission, and continues to trend down with last level 3.9 today. -Ammonia on admission: 273, went to 164, went back up to 176, and has been trending recently with values of 154, 88, and 73 yesterday. -Continue to monitor.
--- NOTE | 2018-02-06 11:26 | CP.PCM.PN ---
<Aminta Hummel - Last Filed: 02/06/18 16:28> Objective - Vital Signs/Intake and Output Vital Signs (last 24 hours): Temp Pulse Resp BP Pulse Ox 98.1 F 82 20 106/68 100 02/06/18 16:25 02/06/18 16:25 02/06/18 16:25 02/06/18 16:25 02/06/18 16:25 Intake and Output: 02/06/18 02/06/18 06:59 18:59 Intake Total 20 Balance 20 - Medications Medications: Current Medications Furosemide (Lasix) 40 mg PO DAILY [facility] Last Admin: 02/06/18 09:15 Dose: 40 mg Ceftriaxone Sodium 1 gm/ (Sodium Chloride) 100 mls @ 100 mls/hr IVPB HS [facility]; Protocol Last Admin: 02/05/18 21:41 Dose: 100 mls/hr Lactated Ringer's (Lactated Ringer's) 1,000 mls @ 20 mls/hr IV .Q24H [facility] Last Admin: 02/06/18 12:52 Dose: 20 mls/hr Lactulose (Enulose) 20 gm PO TID [facility] Last Admin: 02/06/18 12:52 Dose: 20 gm Midodrine (Proamatine) 5 mg PO TID [facility] Last Admin: 02/06/18 12:52 Dose: 5 mg Morphine Sulfate (Morphine) 2 mg IVP Q6 PRN PRN Reason: Pain, severe (8-10) Last Admin: 02/06/18 09:12 Dose: 2 mg Morphine Sulfate (Morphine) 1 mg IVP Q6 PRN PRN Reason: Pain, moderate (4-7) Last Admin: 02/04/18 11:23 Dose: 1 mg Ondansetron HCl (Zofran Inj) 4 mg IVP Q6 PRN PRN Reason: Nausea/Vomiting Last Admin: 02/04/18 21:55 Dose: 4 mg Pantoprazole Sodium (Protonix Ec Tab) 40 mg PO DAILY [facility] Last Admin: 02/06/18 09:15 Dose: 40 mg Rifaximin (Xifaxan) 550 mg PO Q12 [facility]; Protocol Last Admin: 02/06/18 08:43 Dose: 550 mg - Labs Labs: 02/06/18 05:16 02/06/18 05:16 PT 21.5 Seconds (9.8-13.1) H 02/06/18 05:16 INR 1.9 02/06/18 05:16 APTT 37.8 Seconds (25.6-37.1) H 02/06/18 05:16 Assessment and Plan - Assessment and Plan (Free Text) Assessment: 47 y/o F with alcohol-induced liver cirrhosis & ascites admitted for hepatic encephalopathy, acute renal injury, and hematemesis. 1. Hepatic Encephalopathy (Acute, symptomatic, resolving) with elevated Ammonia -Ammonia on admission: 273, and has been trending down. It was 73 yesterday. - Lactulose was increased to 20gm TID and Rifaximin will be continued. -Continue Midodrine. -Avoid sedatives. 2. Acute Abdominal pain in patient with Chronic Liver cirrhosis on SBP prophylaxis -Paracentesis performed yesterday with total of 4 unit of FFP given, 2 of which were given prior to procedure. 2.5 L of fluid was removed. Fluid neutrophils showed 75, mono/mac- 10, total protein <2. - Started patient on lasix. - Continue bland diet, and IV albumin. - Continue empiric IV ceftriaxone for prophylaxis against SBP. - Continue pain management with IV Morphine. 3. Liver Cirrhosis with Ascites, Coagulopathy, and thrombocytopenia -Hgb on admission: 8.3, and level 7.4 this AM. Patient received 1 unit of PRBC today. -Platelets 82 on admission, and trending down. Manual count was 48. 4. Hematemesis (Acute, resolved) -GI recommendations appreciated. -Diet was advanced from liquid to bland. -Continue PPI. -Continue vital signs Q4. 5. Acute Kidney injury with Hyperkalemia -Nephrology recommendations appreciated: INNA likely secondary to ATN & has been improving. -BUN/creatinine on admission: 71/5.3, and has been trending down; levels today were 23/1.3 -Potassium 6.4 on admission, and continues to trend down with last level 3.9 today. -Ammonia on admission: 273, went to 164, went back up to 176, and has been trending recently with values of 154, 88, and 73 yesterday. -Continue to monitor. <Johana Swann - Last Filed: 02/06/18 22:11> Subjective - Date & Time of Evaluation Date of Evaluation: 02/06/18 Time of Evaluation: 11:25 - Subjective Subjective: 47 yo female with etoh abuse, cirrhosis of liver, coagulopathy , abd. distention, and pain , with creased bun/cr still c/o abdominal pain, renal function is slowly improving s/p paracentesis, Objective - Vital Signs/Intake and Output Vital Signs (last 24 hours): Temp Pulse Resp BP Pulse Ox 97.6 F 76 18 106/66 100 02/06/18 09:33 02/06/18 09:33 02/06/18 09:33 02/06/18 09:33 02/06/18 09:33 - Medications Medications: Current Medications Furosemide (Lasix) 40 mg PO DAILY [facility] Last Admin: 02/06/18 09:15 Dose: 40 mg Ceftriaxone Sodium 1 gm/ (Sodium Chloride) 100 mls @ 100 mls/hr IVPB HS [facility]; Protocol Last Admin: 02/05/18 21:41 Dose: 100 mls/hr Lactated Ringer's (Lactated Ringer's) 1,000 mls @ 50 mls/hr IV .Q20H [facility] Last Admin: 02/05/18 18:26 Dose: 50 mls/hr Lactulose (Enulose) 20 gm PO TID [facility] Last Admin: 02/06/18 08:40 Dose: 20 gm Midodrine (Proamatine) 5 mg PO TID [facility] Last Admin: 02/06/18 08:40 Dose: 5 mg Morphine Sulfate (Morphine) 2 mg IVP Q6 PRN PRN Reason: Pain, severe (8-10) Last Admin: 02/06/18 09:12 Dose: 2 mg Morphine Sulfate (Morphine) 1 mg IVP Q6 PRN PRN Reason: Pain, moderate (4-7) Last Admin: 02/04/18 11:23 Dose: 1 mg Ondansetron HCl (Zofran Inj) 4 mg IVP Q6 PRN PRN Reason: Nausea/Vomiting Last Admin: 02/04/18 21:55 Dose: 4 mg Pantoprazole Sodium (Protonix Ec Tab) 40 mg PO DAILY [facility] Last Admin: 02/06/18 09:15 Dose: 40 mg Rifaximin (Xifaxan) 550 mg PO Q12 [facility]; Protocol Last Admin: 02/06/18 08:43 Dose: 550 mg - Labs Labs: 10/10/18 05:16 02/06/18 05:16 PT 21.5 Seconds (9.8-13.1) H 02/06/18 05:16 INR 1.9 02/06/18 05:16 APTT 37.8 Seconds (25.6-37.1) H 02/06/18 05:16 - Head Exam Head Exam: ATRAUMATIC, NORMAL INSPECTION, NORMOCEPHALIC - Eye Exam Eye Exam: EOMI, Normal appearance, PERRL, Scleral icterus Pupil Exam: NORMAL ACCOMODATION - ENT Exam ENT Exam: Mucous Membranes Moist - Neck Exam Neck Exam: Full ROM, Normal Inspection - Respiratory Exam Respiratory Exam: Clear to Ausculation Bilateral, NORMAL BREATHING PATTERN - Cardiovascular Exam Cardiovascular Exam: REGULAR RHYTHM, +S1, +S2 - GI/Abdominal Exam GI & Abdominal Exam: Distended, Soft, Normal Bowel Sounds - Rectal Exam Rectal Exam: Deferred - Extremities Exam Extremities Exam: Full ROM, Normal Inspection - Neurological Exam Neurological Exam: Alert, Awake, CN II-XII Intact, Normal Gait, Oriented x3 Assessment and Plan - Assessment and Plan (Free Text) Plan: 47 yo Female with pmh/o etoh abuse, cirrhosis of liver ascites, abd. pain increased bun/cr 1. Non oliguric INNA, most likely sec to ATN renal function is improving, s.cr is 1.5 2. hepatic encephalopathy 3. cirrhosis of liver 4. liver failure s/p paracentesis c/w midodrine c/w iv abx
[2018-02-06] MEDS ORDERED: Lactated Ringer's 1,000 ML IV SCH (11:57)
[2018-02-07 05:40] LABS: BASO % 0.1 % (0.0-2.0); EOS # 0.1 K/uL (0.0-0.7); EOS % 0.6 % (0.0-4.0); HEMOGLOBIN 9.4 g/dL (12.0-16.0); LYMPH # 0.6 K/uL (1.0-4.3); LYMPH % 6.1 % (20.0-40.0); MEAN CELL VOLUME 97.5 fl (81.0-99.0); MEAN CORPUSCULAR HEMOGLOBIN 33.8 pg (27.0-31.0); MEAN CORPUSCULAR HGB CONC 34.6 g/dL (33.0-37.0); MONO # 1.4 K/uL (0.0-0.8); MONO % 14.5 % (0.0-10.0); NEUT # 7.6 K/uL (1.8-7.0); NEUT % 78.7 % (50.0-75.0); NRBC % 0.1 % (0.0-0.0); RBC 2.78 Mil/uL (3.80-5.20); RED CELL DISTRIBUTION WIDTH 23.1 % (11.5-14.5); WHITE BLOOD COUNT 9.6 K/uL (4.8-10.8)
[2018-02-07 05:50] LABS: BLOOD UREA NITROGEN 21 mg/dl (7-17); CALCIUM 8.4 mg/dL (8.4-10.2); GFR NON-AFRICAN AMERICAN 53
[2018-02-07 05:52] LABS: PLATELET COUNT 21 K/uL (130-400)
[2018-02-07 06:51] LABS: ANISOCYTOSIS SLIGHT; LYMPHOCYTE 7 % (20-50); MONOCYTE 13 % (0-10); NEUTROPHIL 80 % (42-75); PLATELET ESTIMATE MARKEDLY DECREASED (NORMAL); POIKILOCYTOSIS SLIGHT; TOTAL CELLS COUNTED 100
[2018-02-07] MEDS: Pantoprazole 40 mg EC Tab PO SCH (09:28)
--- NOTE | 2018-02-07 10:32 | CP.PCM.DIS ---
<Aminta Hummel - Last Filed: 02/07/18 13:26> Provider - Provider Date of Admission: 02/01/18 01:49 Attending physician: Milad Ronquillo Time Spent in preparation of Discharge (in minutes): 60 Hospital Course - Lab Results Lab Results: Most Recent Lab Values WBC 9.6 K/uL (4.8-10.8) 02/07/18 04:40 RBC 2.78 Mil/uL (3.80-5.20) L 02/07/18 04:40 Hgb 9.4 g/dL (12.0-16.0) L D 02/07/18 04:40 Hct 27.1 % (34.0-47.0) L 02/07/18 04:40 MCV 97.5 fl (81.0-99.0) D 02/07/18 04:40 MCH 33.8 pg (27.0-31.0) H 02/07/18 04:40 MCHC 34.6 g/dL (33.0-37.0) 02/07/18 04:40 RDW 23.1 % (11.5-14.5) H 02/07/18 04:40 Plt Count 21 K/uL (130-400) L* 02/07/18 04:40 Manual Plt Count 20 K/uL (130-400) L* 02/07/18 07:59 MPV 10.0 fl (7.2-11.7) 02/07/18 04:40 Neut % (Auto) 78.7 % (50.0-75.0) H 02/07/18 04:40 Lymph % (Auto) 6.1 % (20.0-40.0) L 02/07/18 04:40 [place] % (Auto) 14.5 % (0.0-10.0) H 02/07/18 04:40 Eos % (Auto) 0.6 % (0.0-4.0) 02/07/18 04:40 Baso % (Auto) 0.1 % (0.0-2.0) 02/07/18 04:40 Neut # (Auto) 7.6 K/uL (1.8-7.0) H 02/07/18 04:40 Lymph # (Auto) 0.6 K/uL (1.0-4.3) L 02/07/18 04:40 [place] # (Auto) 1.4 K/uL (0.0-0.8) H 02/07/18 04:40 Eos # (Auto) 0.1 K/uL (0.0-0.7) 02/07/18 04:40 Baso # (Auto) 0.0 K/uL (0.0-0.2) 02/07/18 04:40 Neutrophils % (Manual) 80 % (42-75) H 02/07/18 04:40 Lymphocytes % (Manual) 7 % (20-50) L 02/07/18 04:40 Monocytes % (Manual) 13 % (0-10) H 02/07/18 04:40 Nucleated RBC % 1 % (0-0) H 02/04/18 04:20 Platelet Estimate Markedly decreased (NORMAL) L 02/07/18 04:40 Hypochromasia (manual) Moderate 02/04/18 04:20 Poikilocytosis (manual Slight 02/07/18 04:40 Anisocytosis (manual) Slight 02/07/18 04:40 Macrocytosis (manual) Slight 02/04/18 04:20 Acanthocytes (Spur) Slight 02/04/18 04:20 PT 21.5 Seconds (9.8-13.1) H 02/06/18 05:16 INR 1.9 02/06/18 05:16 APTT 37.8 Seconds (25.6-37.1) H 02/06/18 05:16 Sodium 138 mmol/l (132-148) 02/07/18 04:40 Potassium 4.0 MMOL/L (3.6-5.0) 02/07/18 04:40 Chloride 108 mmol/L (98-107) H 02/07/18 04:40 Carbon Dioxide 21 mmol/L (22-30) L 02/07/18 04:40 Anion Gap 13 (10-20) 02/07/18 04:40 BUN 21 mg/dl (7-17) H 02/07/18 04:40 Creatinine 1.1 mg/dl (0.7-1.2) 02/07/18 04:40 Est GFR ( Amer) > 60 02/07/18 04:40 Est GFR (Non-Af Amer) 53 02/07/18 04:40 Random Glucose 90 mg/dL (65-105) 02/07/18 04:40 Calcium 8.4 mg/dL (8.4-10.2) 02/07/18 04:40 Total Bilirubin 6.4 mg/dl (0.2-1.3) H 02/06/18 05:16 AST 19 U/L (14-36) 02/06/18 05:16 ALT 14 U/L (9-52) 02/06/18 05:16 Alkaline Phosphatase 52 U/L (38-126) 02/06/18 05:16 Ammonia 36 umo/L (11-51) D 02/07/18 04:40 Total Protein 6.2 G/DL (6.3-8.2) L 02/06/18 05:16 Albumin 2.7 g/dL (3.5-5.0) L 02/06/18 05:16 Globulin 3.5 gm/dL (2.2-3.9) 02/06/18 05:16 Albumin/Globulin Ratio 0.8 (1.0-2.1) L 02/06/18 05:16 Lipase 93 U/L (23-300) 02/01/18 01:13 Procalcitonin 2.75 NG/ML (0.19-0.49) H 02/01/18 06:25 Urine Osmolality 338 mosm/kg (300-1000) 02/01/18 18:29 Ur Random Creatinine 110.9 mg/dL 02/01/18 18:29 Ur Random Sodium 30 meq/L 02/01/18 18:29 Ur Random Potassium 35.8 mmol/L 02/01/18 18:29 Fluid Source Peritoneal/ascites 02/05/18 16:40 Fluid Appearance Sl cloudy (CLEAR) 02/05/18 16:40 Fluid WBC 261.0 /mm3 (0.0-300.0) 02/05/18 16:40 Fluid RBC 247.0 /mm3 (0.0-0.0) H 02/05/18 16:40 Fluid Tot Cell Count 100 (0-0) H 02/05/18 16:40 Fluid Neutrophils 75.0 % (0-0) H 02/05/18 16:40 Fluid Lymphocytes 15.0 % (0-0) H 02/05/18 16:40 Fld Monocyte/Macrophag 10 % (0-0) H 02/05/18 16:40 Fluid Total Protein < 2.0 g/dL (NONE ESTABLISHED) 02/05/18 16:40 Fluid Comment Yellowish 02/05/18 16:40 Stool Occult Blood Positive (NEGATIVE) H 02/04/18 23:45 Alcohol, Quantitative < 10 mg/dl (0-10) 02/01/18 01:13 Blood Type A POSITIVE 02/04/18 14:45 Antibody Screen Negative 02/04/18 14:45 Crossmatch See Detail 02/04/18 14:45 BBK History Checked Patient has bt 02/04/18 14:45 - Hospital Course Hospital Course: 47 y/o F with alcohol-induced end-stage liver disease was admitted for hepatic encephalopathy, abdominal pain, acute renal injury, hematemesis & MELD score of 35. Patient was initially lethargic. Ammonia on admission: 273. Patient was given lactulose, and rifaximin to help reduce levels. She was also started on ceftriaxone to SBP prophylaxis, and given medication for pain management. Coagulopathy was present along with thrombocytopenia. and patient received total of 4 units of FFP, 2 units of platelets & 1 unit of PRBC. Paracentesis was performed with removal of 2.5L of fluid. Fluid neutrophils showed 75, mono/mac- 10, total protein <2. Patient did not have any recurrent episodes of hematemesis. Acute kidney injury with hyperkalemia was likely secondary to ATN & continues to show improvement. Ammonia on admission: 273 and today levels are 36. BUN/creatinine on admission: 71/5.3. Today levels are 21/1.1 with MELD score of 22. Patient will follow up with Dr. Hummle in [facility] 02/15/2018 at 1pm. 1. Hepatic Encephalopathy with elevated Ammonia (Acute, currently asymptomtic) -Continue lactulose 20mg PO BID -Continue Rifaximin 550mg PO BID 2. Acute Abdominal pain in patient with Chronic Liver cirrhosis on SBP prophylaxis -Received 6 doses of ceftriaxone. 3. Liver Cirrhosis with Ascites, Coagulopathy, and thrombocytopenia -Continue Midodrine 5mg PO TID. -Patient will follow up with Dr. Bautista. 4. Hematemesis (Acute, resolved) -Continue Protonix 40mg QD. 5. Acute Kidney injury with Hyperkalemia -Likely secondary to ATN & continues to show improvement. Discharge Exam - Head Exam Head Exam: ATRAUMATIC, NORMAL INSPECTION, NORMOCEPHALIC - Eye Exam Eye Exam: Scleral icterus Additional comments: scleral icterus - Neck Exam Neck exam: Full Rom - Respiratory Exam Respiratory Exam: Clear to PA & Lateral - Cardiovascular Exam Cardiovascular Exam: +S1, +S2 - GI/Abdominal Exam GI & Abdominal Exam: Distended, Firm, Guarding - Extremities Exam Extremities exam: pedal edema - Neurological Exam Neurological exam: Alert, Oriented x3 - Skin Additional comments: telengiectasias with jaundice present Discharge Plan - Discharge Medications Prescriptions: Furosemide [Lasix] 40 mg PO DAILY #30 tab Lactulose [Enulose] 20 gm PO BID 30 Days #60 udc rifAXIMin [Xifaxan] 550 mg PO Q12 #60 tab - Follow Up Plan Condition: STABLE Disposition: HOME/ ROUTINE Instructions: Hyperkalemia (DC), Gastrointestinal Bleeding (DC), Anemia of Chronic Disease (DC) Additional Instructions: FU with Dr. Shaheed Rivas in [facility] on 02/15/2018 @ 1pm & Dr Bautista 02/14/2018 @2pm. Appt with [facility] - We spoke with the Liver specialist and gave Hx and details [phone] Referrals: [facility] [place] [Outside] <Gina Jimenez - Last Filed: 02/07/18 15:52> Provider - Provider Date of Admission: 02/01/18 01:49 Attending physician: Milad Ronquillo [place] Hospital Course - Lab Results Lab Results: Most Recent Lab Values WBC 9.6 K/uL (4.8-10.8) 02/07/18 04:40 RBC 2.78 Mil/uL (3.80-5.20) L 02/07/18 04:40 Hgb 9.4 g/dL (12.0-16.0) L D 02/07/18 04:40 Hct 27.1 % (34.0-47.0) L 02/07/18 04:40 MCV 97.5 fl (81.0-99.0) D 02/07/18 04:40 MCH 33.8 pg (27.0-31.0) H 02/07/18 04:40 MCHC 34.6 g/dL (33.0-37.0) 02/07/18 04:40 RDW 23.1 % (11.5-14.5) H 02/07/18 04:40 Plt Count 21 K/uL (130-400) L* 02/07/18 04:40 Manual Plt Count 20 K/uL (130-400) L* 02/07/18 07:59 MPV 10.0 fl (7.2-11.7) 02/07/18 04:40 Neut % (Auto) 78.7 % (50.0-75.0) H 02/07/18 04:40 Lymph % (Auto) 6.1 % (20.0-40.0) L 02/07/18 04:40 [place] % (Auto) 14.5 % (0.0-10.0) H 02/07/18 04:40 Eos % (Auto) 0.6 % (0.0-4.0) 02/07/18 04:40 Baso % (Auto) 0.1 % (0.0-2.0) 02/07/18 04:40 Neut # (Auto) 7.6 K/uL (1.8-7.0) H 02/07/18 04:40 Lymph # (Auto) 0.6 K/uL (1.0-4.3) L 02/07/18 04:40 [place] # (Auto) 1.4 K/uL (0.0-0.8) H 02/07/18 04:40 Eos # (Auto) 0.1 K/uL (0.0-0.7) 02/07/18 04:40 Baso # (Auto) 0.0 K/uL (0.0-0.2) 02/07/18 04:40 Neutrophils % (Manual) 80 % (42-75) H 02/07/18 04:40 Lymphocytes % (Manual) 7 % (20-50) L 02/07/18 04:40 Monocytes % (Manual) 13 % (0-10) H 02/07/18 04:40 Nucleated RBC % 1 % (0-0) H 02/04/18 04:20 Platelet Estimate Markedly decreased (NORMAL) L 02/07/18 04:40 Hypochromasia (manual) Moderate 02/04/18 04:20 Poikilocytosis (manual Slight 02/07/18 04:40 Anisocytosis (manual) Slight 02/07/18 04:40 Macrocytosis (manual) Slight 02/04/18 04:20 Acanthocytes (Spur) Slight 02/04/18 04:20 PT 21.5 Seconds (9.8-13.1) H 02/06/18 05:16 INR 1.9 02/06/18 05:16 APTT 37.8 Seconds (25.6-37.1) H 02/06/18 05:16 Sodium 138 mmol/l (132-148) 02/07/18 04:40 Potassium 4.0 MMOL/L (3.6-5.0) 02/07/18 04:40 Chloride 108 mmol/L (98-107) H 02/07/18 04:40 Carbon Dioxide 21 mmol/L (22-30) L 02/07/18 04:40 Anion Gap 13 (10-20) 02/07/18 04:40 BUN 21 mg/dl (7-17) H 02/07/18 04:40 Creatinine 1.1 mg/dl (0.7-1.2) 02/07/18 04:40 Est GFR ( Amer) > 60 02/07/18 04:40 Est GFR (Non-Af Amer) 53 02/07/18 04:40 Random Glucose 90 mg/dL (65-105) 02/07/18 04:40 Calcium 8.4 mg/dL (8.4-10.2) 02/07/18 04:40 Total Bilirubin 6.4 mg/dl (0.2-1.3) H 02/06/18 05:16 AST 19 U/L (14-36) 02/06/18 05:16 ALT 14 U/L (9-52) 02/06/18 05:16 Alkaline Phosphatase 52 U/L (38-126) 02/06/18 05:16 Ammonia 36 umo/L (11-51) D 02/07/18 04:40 Total Protein 6.2 G/DL (6.3-8.2) L 02/06/18 05:16 Albumin 2.7 g/dL (3.5-5.0) L 02/06/18 05:16 Globulin 3.5 gm/dL (2.2-3.9) 02/06/18 05:16 Albumin/Globulin Ratio 0.8 (1.0-2.1) L 02/06/18 05:16 Lipase 93 U/L (23-300) 02/01/18 01:13 Procalcitonin 2.75 NG/ML (0.19-0.49) H 02/01/18 06:25 Urine Osmolality 338 mosm/kg (300-1000) 02/01/18 18:29 Ur Random Creatinine 110.9 mg/dL 02/01/18 18:29 Ur Random Sodium 30 meq/L 02/01/18 18:29 Ur Random Potassium 35.8 mmol/L 02/01/18 18:29 Fluid Source Peritoneal/ascites 02/05/18 16:40 Fluid Appearance Sl cloudy (CLEAR) 02/05/18 16:40 Fluid WBC 261.0 /mm3 (0.0-300.0) 02/05/18 16:40 Fluid RBC 247.0 /mm3 (0.0-0.0) H 02/05/18 16:40 Fluid Tot Cell Count 100 (0-0) H 02/05/18 16:40 Fluid Neutrophils 75.0 % (0-0) H 02/05/18 16:40 Fluid Lymphocytes 15.0 % (0-0) H 02/05/18 16:40 Fld Monocyte/Macrophag 10 % (0-0) H 02/05/18 16:40 Fluid Total Protein < 2.0 g/dL (NONE ESTABLISHED) 02/05/18 16:40 Fluid Albumin 1.1 g/dL 02/05/18 16:40 Fluid Comment Yellowish 02/05/18 16:40 Stool Occult Blood Positive (NEGATIVE) H 02/04/18 23:45 Alcohol, Quantitative < 10 mg/dl (0-10) 02/01/18 01:13 Blood Type A POSITIVE 02/04/18 14:45 Antibody Screen Negative 02/04/18 14:45 Crossmatch See Detail 02/04/18 14:45 BBK History Checked Patient has bt 02/04/18 14:45 Attending/Attestation - Attestation I have personally seen and examined this patient.: Yes I have fully participated in the care of the patient.: Yes I have reviewed all pertinent clinical information, including history, physical exam and plan: Yes Notes (Text): 1. Altered Mental Status due to Metabolic and Hepatic Encephalopathy with elevated Ammonia improved 2. Acute Abdominal pain in patient with Chronic Liver cirrhosis on SBP prophylaxis resolved 3. Liver Cirrhosis with Ascites, Coagulopathy, and thrombocytopenia and Alcohol Hepatitis ff up [facility] Liver clinic/transplant 4. Acute Blood Loss Anemia due to Hematemesis (Acute, resolved) -Continue Protonix 40mg QD. 5. Acute Kidney injury with Hyperkalemia , resolved -Likely secondary to ATN
--- NOTE | 2018-02-07 12:58 | CP.PCM.PN ---
<Raquel Miller - Last Filed: 02/07/18 12:57> Subjective - Date & Time of Evaluation Date of Evaluation: 02/07/18 Time of Evaluation: 12:57 - Subjective Subjective: GI progress note for Dr. Bautista-Raquel Miller, PGY-2 Pt S & E at bedside at 1230 Pt reports she is being discharged today with instructions to follow up at [place] for abdominal fluid removal. Pt continues to report abdominal pain/distention. Denies N & V, F & C, CP, SOB, other complaints. Objective - Vital Signs/Intake and Output Vital Signs (last 24 hours): Temp Pulse Resp BP Pulse Ox 98 F 78 18 104/62 100 02/07/18 08:01 02/07/18 09:00 02/07/18 08:01 02/07/18 09:27 02/07/18 08:01 - Medications Medications: Current Medications Furosemide (Lasix) [address] [facility] Last Admin: 02/07/18 09:27 Dose: 40 mg Ceftriaxone Sodium 1 gm/ (Sodium Chloride) 100 mls @ 100 mls/hr IVPB HS [facility]; Protocol Last Admin: 02/06/18 22:42 Dose: 100 mls/hr Lactated Ringer's (Lactated Ringer's) 1,000 mls @ 20 mls/hr IV .Q24H [facility] Last Admin: 02/06/18 12:52 Dose: 20 mls/hr Lactulose (Enulose) [address] [facility] Last Admin: 02/07/18 09:27 Dose: 20 gm Midodrine (Proamatine) [address] [facility] Last Admin: 02/07/18 09:27 Dose: 5 mg Morphine Sulfate (Morphine) 2 mg IVP Q6 PRN PRN Reason: Pain, severe (8-10) Last Admin: 02/06/18 20:29 Dose: 2 mg Morphine Sulfate (Morphine) 1 mg IVP Q6 PRN PRN Reason: Pain, moderate (4-7) Last Admin: 02/07/18 09:51 Dose: 1 mg Ondansetron HCl (Zofran Inj) 4 mg IVP Q6 PRN PRN Reason: Nausea/Vomiting Last Admin: 02/04/18 21:55 Dose: 4 mg Pantoprazole Sodium (Protonix Ec Tab) [address] [facility] Last Admin: 02/07/18 09:28 Dose: 40 mg Rifaximin (Xifaxan) 550 mg PO Q12 [facility]; Protocol Last Admin: 02/07/18 09:29 Dose: 550 mg - Labs Labs: 02/07/18 04:40 02/07/18 04:40 PT 21.5 Seconds (9.8-13.1) H 02/06/18 05:16 INR 1.9 02/06/18 05:16 APTT 37.8 Seconds (25.6-37.1) H 02/06/18 05:16 - Constitutional Appears: Non-toxic, No Acute Distress - Head Exam Head Exam: ATRAUMATIC, NORMAL INSPECTION, NORMOCEPHALIC - Eye Exam Eye Exam: EOMI, Scleral icterus - ENT Exam ENT Exam: Mucous Membranes Moist, Normal Exam - Neck Exam Neck Exam: Full ROM, Normal Inspection - Respiratory Exam Respiratory Exam: NORMAL BREATHING PATTERN - Cardiovascular Exam Cardiovascular Exam: REGULAR RHYTHM, +S1, +S2 - GI/Abdominal Exam GI & Abdominal Exam: Distended, Soft, Tenderness (diffuse). absent: Firm, Guarding - Neurological Exam Neurological Exam: Alert, Awake, CN II-XII Intact, Oriented x3 - Psychiatric Exam Psychiatric exam: Normal Affect, Normal Mood - Skin Skin Exam: Dry, Intact, Warm. absent: Normal Color (jaundiced) Assessment and Plan - Assessment and Plan (Free Text) Assessment: 47F w/hepatic encephalopathy- resolved Plan: Ammonia WNL- 36, from 73 Continues with severe thrombocytopenia For d/c home today To follow up in [facility] Dr. Michele Miller, PGY-2 <Jose G Bautista - Last Filed: 02/07/18 19:44> Objective - Vital Signs/Intake and Output Vital Signs (last 24 hours): Temp Pulse Resp BP Pulse Ox 98.2 F 84 20 117/72 100 02/07/18 13:04 02/07/18 13:04 02/07/18 13:04 02/07/18 13:04 02/07/18 13:04 - Labs Labs: 02/07/18 04:40 02/07/18 04:40 PT 21.5 Seconds (9.8-13.1) H 02/06/18 05:16 INR 1.9 02/06/18 05:16 APTT 37.8 Seconds (25.6-37.1) H 02/06/18 05:16 Assessment and Plan (1) Cirrhosis of liver with ascites Assessment & Plan: Much more alert though abdomen remains tense and platelets are very low. Patient to f/u [facility] liver clinic for further management. Status: Chronic
--- NOTE | 2018-02-07 13:03 | CP.PCM.PN ---
Subjective - Date & Time of Evaluation Date of Evaluation: 02/07/18 Time of Evaluation: 13:03 Objective - Vital Signs/Intake and Output Vital Signs (last 24 hours): Temp Pulse Resp BP Pulse Ox 98 F 78 18 104/62 100 02/07/18 08:01 02/07/18 09:00 02/07/18 08:01 02/07/18 09:27 02/07/18 08:01 - Medications Medications: Current Medications Furosemide (Lasix) 40 mg PO DAILY [facility] Last Admin: 02/07/18 09:27 Dose: 40 mg Ceftriaxone Sodium 1 gm/ (Sodium Chloride) 100 mls @ 100 mls/hr IVPB HS [facility]; Protocol Last Admin: 02/06/18 22:42 Dose: 100 mls/hr Lactated Ringer's (Lactated Ringer's) 1,000 mls @ 20 mls/hr IV .Q24H [facility] Last Admin: 02/06/18 12:52 Dose: 20 mls/hr Lactulose (Enulose) 20 gm PO TID [facility] Last Admin: 02/07/18 09:27 Dose: 20 gm Midodrine (Proamatine) 5 mg PO TID [facility] Last Admin: 02/07/18 09:27 Dose: 5 mg Morphine Sulfate (Morphine) 2 mg IVP Q6 PRN PRN Reason: Pain, severe (8-10) Last Admin: 02/06/18 20:29 Dose: 2 mg Morphine Sulfate (Morphine) 1 mg IVP Q6 PRN PRN Reason: Pain, moderate (4-7) Last Admin: 02/07/18 09:51 Dose: 1 mg Ondansetron HCl (Zofran Inj) 4 mg IVP Q6 PRN PRN Reason: Nausea/Vomiting Last Admin: 02/04/18 21:55 Dose: 4 mg Pantoprazole Sodium (Protonix Ec Tab) 40 mg PO DAILY [facility] Last Admin: 02/07/18 09:28 Dose: 40 mg Rifaximin (Xifaxan) 550 mg PO Q12 [facility]; Protocol Last Admin: 02/07/18 09:29 Dose: 550 mg - Labs Labs: 02/07/18 04:40 02/07/18 04:40 PT 21.5 Seconds (9.8-13.1) H 02/06/18 05:16 INR 1.9 02/06/18 05:16 APTT 37.8 Seconds (25.6-37.1) H 02/06/18 05:16
[2018-02-07 13:05] VITALS: BP 117/72; PULSE 84; RESP 20; TEMP 98.2
--- NOTE | 2018-02-07 13:58 | CP.PCM.PN ---
Subjective - Date & Time of Evaluation Date of Evaluation: 02/07/18 Time of Evaluation: 11:49 Objective - Vital Signs/Intake and Output Vital Signs (last 24 hours): Temp Pulse Resp BP Pulse Ox 98.2 F 84 20 117/72 100 02/07/18 13:04 02/07/18 13:04 02/07/18 13:04 02/07/18 13:04 02/07/18 13:04 - Medications Medications: Current Medications Furosemide (Lasix) 40 mg PO DAILY [facility] Last Admin: 02/07/18 09:27 Dose: 40 mg Ceftriaxone Sodium 1 gm/ (Sodium Chloride) 100 mls @ 100 mls/hr IVPB HS [facility]; Protocol Last Admin: 02/06/18 22:42 Dose: 100 mls/hr Lactated Ringer's (Lactated Ringer's) 1,000 mls @ 20 mls/hr IV .Q24H [facility] Last Admin: 02/06/18 12:52 Dose: 20 mls/hr Lactulose (Enulose) 20 gm PO TID [facility] Last Admin: 02/07/18 13:16 Dose: 20 gm Midodrine (Proamatine) 5 mg PO TID [facility] Last Admin: 02/07/18 13:16 Dose: 5 mg Morphine Sulfate (Morphine) 2 mg IVP Q6 PRN PRN Reason: Pain, severe (8-10) Last Admin: 02/06/18 20:29 Dose: 2 mg Morphine Sulfate (Morphine) 1 mg IVP Q6 PRN PRN Reason: Pain, moderate (4-7) Last Admin: 02/07/18 09:51 Dose: 1 mg Ondansetron HCl (Zofran Inj) 4 mg IVP Q6 PRN PRN Reason: Nausea/Vomiting Last Admin: 02/04/18 21:55 Dose: 4 mg Pantoprazole Sodium (Protonix Ec Tab) 40 mg PO DAILY [facility] Last Admin: 02/07/18 09:28 Dose: 40 mg Rifaximin (Xifaxan) 550 mg PO Q12 [facility]; Protocol Last Admin: 02/07/18 09:29 Dose: 550 mg - Labs Labs: 02/07/18 04:40 02/07/18 04:40 PT 21.5 Seconds (9.8-13.1) H 02/06/18 05:16 INR 1.9 02/06/18 05:16 APTT 37.8 Seconds (25.6-37.1) H 02/06/18 05:16
== END 2018-02-07 15:00 | disposition home or self-care (01) | DRG 441 ==
LOC: H.ER 22:58 → H.ERHOLD 02-01 01:49 → H.TEL 02-01 03:27
PROVIDERS: ADMIT Internal Medicine; ATTEND Internal Medicine
PROC: 30233K1 Transfusion of Nonautologous Frozen Plasma into Peripheral Vein, Percutaneous Approach (ICD-10-PCS; principal; 2018-02-01)
PROC: 30233N1 Transfusion of Nonautologous Red Blood Cells into Peripheral Vein, Percutaneous Approach (ICD-10-PCS; 2018-02-01)
PROC: 6A550Z2 Pheresis of Platelets, Single (ICD-10-PCS; 2018-02-05)
PROC: 0W9G3ZZ Drainage of Peritoneal Cavity, Percutaneous Approach (ICD-10-PCS; 2018-02-05)
DX: K72.00 Acute and subacute hepatic failure without coma (principal); N17.0 Acute kidney failure with tubular necrosis; G93.41 Metabolic encephalopathy; K76.7 Hepatorenal syndrome; K76.6 Portal hypertension; D68.4 Acquired coagulation factor deficiency; K92.0 Hematemesis; D62 Acute posthemorrhagic anemia; K70.31 Alcoholic cirrhosis of liver with ascites; J45.909 Unspecified asthma, uncomplicated; I10 Essential (primary) hypertension; E87.5 Hyperkalemia; K70.11 Alcoholic hepatitis with ascites; D69.6 Thrombocytopenia, unspecified; Z91.14 Patient's other noncompliance with medication regimen; Z91.041 Radiographic dye allergy status

== ENCOUNTER 2018-02-17 17:11 | Inpatient (IN) | payer MEDICARE, MEDICAID ==
[2018-02-17 17:11] VITALS: BMI 16.6
[2018-02-17] MEDS ORDERED: Sodium Chloride 0.9% 1,000 ML IV STA (17:53)
[2018-02-17 18:05] LABS: VENOUS BLOOD GAS PCO2 23 mmHg (40-60); VENOUS BLOOD GAS PO2 90 mm/Hg (30-55); VENOUS BLOOD PH 7.41 (7.32-7.43)
[2018-02-17 18:13] LABS: BASO % 0.2 % (0.0-2.0); EOS % 0.4 % (0.0-4.0); LYMPH # 0.5 K/uL (1.0-4.3); LYMPH % 7.2 % (20.0-40.0); MEAN CELL VOLUME 101.1 fl (81.0-99.0); MEAN CORPUSCULAR HEMOGLOBIN 34.5 pg (27.0-31.0); MEAN CORPUSCULAR HGB CONC 34.1 g/dL (33.0-37.0); MEAN PLATELET VOLUME 11.2 fl (7.2-11.7); MONO # 1.8 K/uL (0.0-0.8); MONO % 25.3 % (0.0-10.0); NEUT # 4.7 K/uL (1.8-7.0); NEUT % 66.9 % (50.0-75.0); NRBC % 0.3 % (0.0-0.0); PLATELET COUNT 46 K/uL (130-400); RBC 1.77 Mil/uL (3.80-5.20); RED CELL DISTRIBUTION WIDTH 23.8 % (11.5-14.5)
[2018-02-17 18:14] LABS: INR 2.1; PROTHROMBIN TIME 24.2 Seconds (9.8-13.1)
[2018-02-17 18:16] LABS: PARTIAL THROMBOPLASTIN TIME 41.4 Seconds (25.6-37.1)
[2018-02-17 18:23] LABS: HEMOGLOBIN 6.1 g/dL (12.0-16.0)
[2018-02-17] MEDS ORDERED: Lactulose 10 gm/15 ml (Rectal Use) PR ONE (18:28)
[2018-02-17] MEDS ORDERED: Insulin Regular 100 units/ml IV STA (18:41)
[2018-02-17 18:42] LABS: ALB/GLOB RATIO 0.5 (1.0-2.1); ALBUMIN 2.4 g/dL (3.5-5.0); ALT/SGPT 13 U/L (9-52); AST/SGOT 27 U/L (14-36); BLOOD UREA NITROGEN 79 mg/dl (7-17); CALCIUM 8.7 mg/dL (8.4-10.2); GFR NON-AFRICAN AMERICAN 10
[2018-02-17] MEDS ORDERED: Albuterol 0.083% Inhal Sol (2.5 mg/3 mL) UD INH STA (18:42)
[2018-02-17] MEDS ORDERED: Dextrose 50% SYRINGE Inj (50 ml) IVP ONE (18:42)
[2018-02-17] MEDS ORDERED: Sod Polystyrene Sulf 15 gm/60 ml Susp PO ONE (18:45)
[2018-02-17] MEDS ORDERED: Albuterol-Ipratrop 3 mg / 0.5 (3 ml) UD ONE (18:58)
--- NOTE | 2018-02-17 19:14 | ED PDOC ---
HPI: Altered Mental Status Time Seen by Provider: 02/17/18 17:20 Chief Complaint (Nursing): Weakness/Neurological Deficit Chief Complaint (Provider): Altered Mental Status History Per: Family (nephew) History/Exam Limitations: Clinical Condition Onset/Duration Of Symptoms: Days (x1) Current Symptoms Are (Timing): Still Present Description Of Symptoms: Confused Exacerbating Factor(s): Liver Disease Associated Symptoms: denies: Fever, Vomiting, Diarrhea Additional Complaint(s): 47 year old female with a history of chronic liver disease, end stage renal disease, and cirrhosis presents to the ED via EMS for altered mental status. Patient is accompanied by nephew, who states he is her commercial sales representative but not her legal power of senior trial attorney. Patient is not a good historian because of clinical status, but history was obtained from nephew, charts and EMS. She has been confused since yesterday and is getting worse. Patient often gets confused, but this time she is unable to recognize anyone. She denies fever, vomiting, or diarrhea. PMD: [facility] Past Medical History Reviewed: Historical Data, Nursing Documentation, Vital Signs Vital Signs: Last Vital Signs Temp 95.7 F L 02/17/18 17:14 Pulse 71 02/17/18 18:31 Resp 19 02/17/18 18:31 BP 114/69 02/17/18 18:31 Pulse Ox 98 02/17/18 18:31 - Medical History PMH: Anemia, Asthma, HTN, End Stage Renal Disease, Chronic Kidney Disease Denies: Sickle Cell Disease, Sleep Apnea Other PMH: cirrhosis - Surgical History Surgical History: Endoscopy, - Family History Family History: States: No Known Family Hx - Living Arrangements Living Arrangements: With Family - Social History Current smoker - smoking cessation education provided: No Ex-Smoker (has not smoked in the last 12 months): No Alcohol: Other Drugs: Denies - Home Medications Home Medications: Ambulatory Orders Medication Instructions Recorded RX: Albuterol Sulfate [Proair Hfa] 2 puff IH Q6 PRN #1 inh 01/11/18 RX: Ferrous Sulfate [Feosol] 325 mg PO BID #60 tab 01/11/18 RX: Folic Acid 1 mg PO DAILY #30 tab 01/11/18 RX: Midodrine [Proamatine] 5 mg PO TID 30 Days #90 tab 09/14/18 RX: Pantoprazole [Protonix EC Tab] 40 mg PO DAILY #30 ect 01/11/18 RX: Furosemide [Lasix] 40 mg PO DAILY #30 tab 02/07/18 RX: Lactulose [Enulose] 20 gm PO BID 30 Days #60 udc 02/07/18 RX: rifAXIMin [Xifaxan] 550 mg PO Q12 #60 tab 02/07/18 - Allergies Allergies/Adverse Reactions: Allergies Allergy/AdvReac Type Severity Reaction Status Date / Time iodine Allergy SHORTNESS Verified 01/31/18 23:12 OF BREATH Review of Systems Review Of Systems: ROS cannot be obtained secondary to pt's inabilty to answer questions. Neurological: Positive for: Confusion, Other (agitated) Physical Exam - Reviewed Nursing Documentation Reviewed: Yes Vital Signs Reviewed: Yes - Physical Exam Appears: Positive for: Uncomfortable (Agitated) Head Exam: Positive for: ATRAUMATIC, NORMOCEPHALIC Skin: Positive for: Warm, Dry, Jaundice Eye Exam: Positive for: EOMI, PERRL, Scleral icterus ENT: Positive for: Normal ENT Inspection, Pharynx Is (clear). Negative for: Pharyngeal Erythema, Tonsillar Exudate, Tonsillar Swelling Neck: Positive for: Normal, Painless ROM, Supple Cardiovascular/Chest: Positive for: Regular Rate, Rhythm, Tachycardia, Other (r egular rhythm) Respiratory: Positive for: Normal Breath Sounds. Negative for: Respiratory Distress Pulses-Carotid (L): 3+/4+ Pulses-Carotid (R): 3+/4+ Pulses-Dorsalis Pedis (L): 3+/4+ Pulses-Dorsalis Pedis (R): 3+/4+ Gastrointestinal/Abdominal: Positive for: Soft, Distended, Asicites Back: Positive for: Normal Inspection Extremity: Positive for: Normal ROM (upper and lower). Negative for: Pedal Edema, Deformity Neurologic/Psych: Positive for: high school french teacher II-XII (grossly intact), Oriented (x0), Mood/Affect (Confused, agitated), Other (Awake, no gross motor deficits ). Negative for: Alert - Laboratory Results Result Diagrams: 02/18/18 14:34 02/18/18 20:14 - ECG O2 Sat by Pulse Oximetry: 98 (RA) Pulse Ox Interpretation: Normal - Critical Care Total Time (In Min): 120 Medical Decision Making Medical Decision Making: Time: 1734 Initial Impression: Altered mental status and agitation Differential diagnoses include but are not limited to: hepatic encephalopathy. Acute and chronic kidney failure, electrolyte abnormalities, uremia. Rule out infection. Initial Plan: --Cross match --Packed cells --Type and screen --VBG --EKG --Alcohol serum --CMP --Drug screen --Urine dip --Urine preg --CBC with differentials --PTT --Prothrombin time --Albuterol 2.5 mg INH --Dextrose 50 mg IVP --Insulin 5 units --Protonix Inj 40 mg IVP --Kyexalate 30 mg PO Additionally, provider spoke with the commercial sales representative about code status but was unable to make a decision. He asked for the legal guardian to be present before anything was decided. Code will be undecided. On reassessment, labs reviewed to show elevated ammonia and hyperkalemia with uremia, as well as anemia. Consistent with hepatorenal syndrome and acute on chronic anemia, r/o GI bleed. Time: 1836 --Consulted Dr. Bautista, data keyer, who agrees with management. Time: 1845 --Case discussed with Dr. Rosa for admission. Time: 1855 --Consult requested with Dr. Keith, lighthouse keeper emissions repair technician. Time: 1899 --Case discussed with Dr. Ronquillo, hospitalist, for ICU admission. Scribe Attestation: Documented by Darby Green, acting as a scribe for Jacinda Reese MD Provider Scribe Attestation: All medical record entries made by the Scribe were at my direction and personally dictated by me. I have reviewed the chart and agree that the record accurately reflects my personal performance of the history, physical exam, medical decision making, and the department course for this patient. I have also personally directed, reviewed, and agree with the discharge instructions and disposition. Disposition - Clinical Impression Clinical Impression: Altered mental status, Cirrhosis of liver, Hepatic encephalopathy, Acute renal failure (ARF), Anemia, Hyperkalemia, Pancytopenia, Hyperammonemia - Patient ED Disposition Is Patient to be Admitted: Yes Discussed With DrJeremiah: Ryan Rosa Doctor Will See Patient In The: ED Counseled Patient/Family Regarding: Studies Performed, Diagnosis - Disposition Disposition Time: 18:30 Condition: CRITICAL - Pt Status Changed To: Hospital Disposition Of: Inpatient - Admit Certification Admit to Inpatient:: After my assessment, the patient will require hospit alization for at least two midnights. This is because of the severity of symptoms shown, intensity of services needed, and/or the medical risk in this patient being treated as an outpatient. - POA Present On Arrival: Poor Glycemic Control
--- NOTE | 2018-02-17 19:35 | CP.PCM.HP ---
History of Present Illness - History of Present Illness History of Present Illness: History obtained from patients family and from medical chart. 47 year old female brought in by family for altered mental status that began around 3:00 PM today. She has been taking her medications as directed as per family, eating normally and acting normal until around 3:00PM today. Abdominal distention has been present since discharge as per family. Patient unable to provide history. Family insists they were told to go to [place] for follow up care after discharge. Family reports she did not go to any appointments. Son is present, he is decision maker. Code Status: Full code. Present on Admission - Present on Admission Any Indicators Present on Admission: No Review of Systems - Review of Systems Systems not reviewed;Unavailable: Altered Mental Status Past Patient History - Infectious Disease Hx of Infectious Diseases: None - Past Medical History & Family History Past Medical History?: Yes - Past Social History Smoking Status: Never Smoked - CARDIAC Hx Hypertension: Yes - PULMONARY Hx Asthma: Yes Hx Sleep Apnea: No - NEUROLOGICAL Hx Neurological Disorder: No - HEENT Hx HEENT Problems: No - RENAL Hx Chronic Kidney Disease: No - ENDOCRINE/METABOLIC Hx Endocrine Disorders: No - HEMATOLOGICAL/ONCOLOGICAL Hx Anemia: Yes Hx Sickle Cell Disease: No - INTEGUMENTARY Hx Dermatological Problems: No - MUSCULOSKELETAL/RHEUMATOLOGICAL Hx Musculoskeletal Disorders: No Hx Falls: Yes - GASTROINTESTINAL Hx Gastrointestinal Disorders: Yes Hx Liver Failure: Yes - GENITOURINARY/GYNECOLOGICAL Hx Genitourinary Disorders: No - PSYCHIATRIC Hx Psychophysiologic Disorder: No Hx Substance Use: Yes (marijuana) - ANESTHESIA Hx Anesthesia: Yes Hx Anesthesia Reactions: No Hx Malignant Hyperthermia: No Meds Allergies/Adverse Reactions: Allergies Allergy/AdvReac Type Severity Reaction Status Date / Time iodine Allergy SHORTNESS Verified 01/31/18 23:12 OF BREATH Physical Exam - Constitutional Appears: In Acute Distress - Head Exam Head Exam: ATRAUMATIC, NORMAL INSPECTION, NORMOCEPHALIC - ENT Exam ENT Exam: Mucous Membranes Moist - Neck Exam Neck exam: Positive for: Normal Inspection - Respiratory Exam Respiratory Exam: Clear to Auscultation Bilateral, NORMAL BREATHING PATTERN. absent: Accessory Muscle Use, Rales, Rhonchi, Wheezes - Cardiovascular Exam Cardiovascular Exam: REGULAR RHYTHM, +S1, +S2. absent: Diastolic murmur, Systolic Murmur - GI/Abdominal Exam GI & Abdominal Exam: Distended, Firm. absent: Soft - Extremities Exam Extremities exam: Positive for: normal inspection, pedal edema (+1) - Neurological Exam Neurological exam: Altered - Skin Additional comments: cheeks flushed Results - Vital Signs Recent Vital Signs: Last Vital Signs Temp 95.7 F L 02/17/18 17:14 Pulse 71 02/17/18 18:31 Resp 19 02/17/18 18:31 BP 114/69 02/17/18 18:31 Pulse Ox 98 02/17/18 19:17 - Labs Result Diagrams: 02/18/18 05:00 02/18/18 05:00 Labs: Laboratory Results - last 24 hr 02/17/18 02/17/18 02/17/18 17:59 18:00 18:00 WBC RBC Hgb Hct MCV MCH MCHC RDW Plt Count MPV Neut % (Auto) Lymph % (Auto) [place] % (Auto) Eos % (Auto) Baso % (Auto) Neut # (Auto) Lymph # (Auto) [place] # (Auto) Eos # (Auto) Baso # (Auto) PT INR APTT pO2 90 H VBG pH 7.41 VBG pCO2 23 L VBG HCO3 18.7 VBG Total CO2 15.3 L VBG Base Excess -8.0 L VBG Potassium 6.6 H* Sodium 132.0 135 Chloride 109.0 H 109 H Glucose 118 H Lactate 4.3 H* FiO2 21.0 Blood Gas Comments Lac=4.3 Crit Value Called To santo Reese Crit Value Called By 22 Crit Value Read Back Y Blood Gas Notified Time 1805 Potassium 6.7 H* D Carbon Dioxide 14 L Anion Gap 19 BUN 79 H Creatinine 4.7 H Est GFR ( Amer) 12 Est GFR (Non-Af Amer) 10 Random Glucose 115 H Calcium 8.7 Total Bilirubin 4.4 H AST 27 ALT 13 Alkaline Phosphatase 75 Ammonia 254 H* D Total Protein 6.9 Albumin 2.4 L Globulin 4.4 H Albumin/Globulin Ratio 0.5 L Venous Blood Potassium 6.6 H* Alcohol, Quantitative < 10 02/17/18 02/17/18 18:00 18:00 WBC 7.0 RBC 1.77 L Hgb 6.1 L* D Hct 17.9 L MCV 101.1 H D MCH 34.5 H MCHC 34.1 RDW 23.8 H Plt Count 46 L D MPV 11.2 Neut % (Auto) 66.9 Lymph % (Auto) 7.2 L [place] % (Auto) 25.3 H Eos % (Auto) 0.4 Baso % (Auto) 0.2 Neut # (Auto) 4.7 Lymph # (Auto) 0.5 L [place] # (Auto) 1.8 H Eos # (Auto) 0.0 Baso # (Auto) 0.0 PT 24.2 H INR 2.1 APTT 41.4 H pO2 VBG pH VBG pCO2 VBG HCO3 VBG Total CO2 VBG Base Excess VBG Potassium Sodium Chloride Glucose Lactate FiO2 Blood Gas Comments Crit Value Called To Crit Value Called By Crit Value Read Back Blood Gas Notified Time Potassium Carbon Dioxide Anion Gap BUN Creatinine Est GFR ( Amer) Est GFR (Non-Af Amer) Random Glucose Calcium Total Bilirubin AST ALT Alkaline Phosphatase Ammonia Total Protein Albumin Globulin Albumin/Globulin Ratio Venous Blood Potassium Alcohol, Quantitative Assessment & Plan - Assessment and Plan (Free Text) Assessment: 47 year old female with altered mental status secondary to hepatic encephalopathy, with severe anemia and thrombocytopenia. Patient likely has pancytopenia, absence of leukocytosis could be secondary to this given that bands are present on CBC. Patients presentation concerning for spontaneous bacterial peritonitis. Hyperkalemia treated with insulin and albuterol in ED. Lactulose per rectum given in ED. qSOFA score: 2. #Hepatic Encephalopathy #Liver Cirrhosis #Hyperammonemia #Macrocytic Anemia #Thrombocytopenia #Bandemia #Hyperkalemia #Acute Kidney Injury #DVT Prophylaxis -Lactulose IA q 6hrs -Transfuse 2 units PRBCs -Monitor H/H and K+, and renal function -Rocephin -SCDs due to thrombocytopenia -GI consult -Nephro consult patient seen and examined with attending.
[2018-02-17 19:45] LABS: ANISOCYTOSIS SLIGHT; BANDS 3 % (0-2); EOSINOPHIL 1 % (0-7); LYMPHOCYTE 11 % (20-50); MONOCYTE 14 % (0-10); MYELOCYTE 1 % (0-0); NEUTROPHIL 70 % (42-75); PLATELET ESTIMATE MARKEDLY DECREASED (NORMAL); TOTAL CELLS COUNTED 100
[2018-02-17 19:46] LABS: LARGE PLATELETS PRESENT; SCHISTOCYTES SLIGHT
[2018-02-17 19:53] LABS: ACANTHOCYTES MODERATE
[2018-02-17] MEDS ORDERED: Lactulose 10 gm/15 ml (Rectal Use) PR SCH (22:00)
--- NOTE | 2018-02-17 22:44 | CARD ---
APPROVED REPORT Date of service: 02/17/2018 EKG Measurement Heart [id number] <Conclusion> Normal sinus rhythm Low voltage QRS Nonspecific ST abnormality Abnormal ECG
[2018-02-18] MEDS: Albumin Human 25% (12.5 gm/50 ml) IV SCH ×3 (00:30→17:41)
[2018-02-18] MEDS ORDERED: Albumin Human 25% (12.5 gm/50 ml) IV SCH (01:00)
[2018-02-18] MEDS ORDERED: Sodium Chloride 0.9% 500 ML IV ONE (01:11)
[2018-02-18] MEDS ORDERED: Phytonadione 1 mg/0.5 ml Inj (Neonatal) SC STA (01:12)
[2018-02-18] MEDS ORDERED: DiphenhydrAMINE 50 mg/ml Inj IVP STA (01:30)
[2018-02-18] MEDS ORDERED: Phytonadione 10 mg/ml Inj (Adult) IVPB ONE (01:37)
[2018-02-18] MEDS ORDERED: Phytonadione 10 MG in Sodium Chloride 0.9% 50 ML IVPB ONE (02:00)
[2018-02-18] MEDS ORDERED: Midazolam 50 MG in Sodium Chloride 0.9% 50 ML IV ONE (02:40)
[2018-02-18] MEDS: Lactulose 10 gm/15 ml (Rectal Use) PR SCH ×3 (04:07→13:12)
[2018-02-18 05:48] LABS: BASO % 0.2 % (0.0-2.0); LYMPH # 0.4 K/uL (1.0-4.3); LYMPH % 5.2 % (20.0-40.0); MEAN CELL VOLUME 100.8 fl (81.0-99.0); MEAN CORPUSCULAR HEMOGLOBIN 34.2 pg (27.0-31.0); MEAN CORPUSCULAR HGB CONC 33.9 g/dL (33.0-37.0); MEAN PLATELET VOLUME 11.4 fl (7.2-11.7); MONO # 1.5 K/uL (0.0-0.8); MONO % 17.8 % (0.0-10.0); NEUT # 6.3 K/uL (1.8-7.0); NEUT % 76.8 % (50.0-75.0); NRBC % 0.3 % (0.0-0.0); RBC 1.75 Mil/uL (3.80-5.20); RED CELL DISTRIBUTION WIDTH 23.3 % (11.5-14.5); WHITE BLOOD COUNT 8.2 K/uL (4.8-10.8)
[2018-02-18 06:04] LABS: OPIATES, UR NEGATIVE (NEGATIVE)
[2018-02-18 06:09] LABS: SQUAMOUS EPITHIAL 4 /hpf (0-5); URINE AMORPHOUS SEDIMENT RARE /ul (<OCC); URINE BILIRUBIN NEGATIVE (NEGATIVE); URINE BLOOD NEGATIVE (NEGATIVE); URINE CLARITY SLIGHTY-CLOUDY (Clear); URINE COLOR YELLOW (YELLOW); URINE GLUCOSE (UA) NEG (Normal); URINE HYALINE CAST >20 /hpf (0-2); URINE LEUKOCYTE ESTERASE NEG Leu/uL (Negative); URINE PROTEIN NEGATIVE (NEGATIVE); URINE UROBILINOGEN 0.2-1.0 mg/dL (0.2-1.0)
[2018-02-18 06:10] LABS: BARBITURATES, UR NEGATIVE (NEGATIVE); BENZODIAZEPINES, UR NEGATIVE (NEGATIVE); PHENCYCLIDINE, UR NEGATIVE (NEGATIVE)
[2018-02-18 06:14] LABS: ALB/GLOB RATIO 0.6 (1.0-2.1); ALBUMIN 2.2 g/dL (3.5-5.0); CALCIUM 8.2 mg/dL (8.4-10.2)
[2018-02-18] MEDS ORDERED: Calcium Gluconate 4.65 mEq/10 ml Inj IV ONE (08:23)
[2018-02-18] MEDS ORDERED: Sod Polystyrene Sulf 15 gm/60 ml Susp PR ONE (08:30)
[2018-02-18] MEDS ORDERED: Calcium Gluconate 4.6 MEQ in Sodium Chloride 0.9% 100 ML IV ONE (09:30)
--- NOTE | 2018-02-18 09:47 | CP.PCM.PN ---
Addendum entered by Gina Jimenez MD 02/18/18 18:18: Alcoholic Cirrhosis with Hepatic Encephalopathy, Hepatorenal Syndrome , Ascites , Coagulopathy and Thrombocytopenia, MELD Score 37. Transfer to [facility] for Liver Transplant in process, they have no ICU bed - rec to continue medical mgt and stabilize pt Discussed case with Dr Keith who rec Dialysis - family still undecided regarding HD and could like to come in and see pt first Pt would need to be transfused with Platelet and FFP prior to placement of HD catheter if family agrees. Calcium Gluconate and Kayexalate given for Hyperkalemia Addendum entered and electronically signed by Isabel Villanueva MD 02/18/18 12:06: MELD on repeat chemistry 37 Original Note: <Isabel Villanueva - Last Filed: 02/18/18 11:52> Subjective - Date & Time of Evaluation Date of Evaluation: 02/18/18 Time of Evaluation: 09:46 - Subjective Subjective: Pt seen and examined this AM in ICU. Pt is awake but not alert or oriented. Does not respond to voice, not following any commands. Moving low ext randomly, intermittent agitation. Objective - Vital Signs/Intake and Output Vital Signs (last 24 hours): Temp Pulse Resp BP Pulse Ox 97.4 F L 102 H 17 113/73 100 02/18/18 08:00 02/18/18 08:00 02/18/18 08:00 02/18/18 08:00 02/18/18 08:00 Intake and Output: 02/18/18 02/18/18 06:59 18:59 Intake Total 1025 150 Output Total 500 Balance 525 150 - Medications Medications: Current Medications Albumin Human (Albumin Human 25% (12.5 Gm/50 Ml)) 12.5 gm IV Q8 [facility] Stop: 02/21/18 01:01 Last Admin: 02/18/18 08:20 Dose: 12.5 gm Ceftriaxone Sodium 1 gm/ (Sodium Chloride) 100 mls @ 100 mls/hr IVPB DAILY [facility]; Protocol Last Admin: 02/18/18 08:21 Dose: 100 mls/hr Calcium Gluconate 4.6 meq/ (Sodium Chloride) 109.8924 mls @ 109.892 mls/hr IV ONCE ONE Stop: 02/18/18 10:29 Lactulose (Generlac) 200 gm [place] QID [facility] Last Admin: 02/18/18 04:07 Dose: 200 gm Midodrine (Proamatine) 7.5 mg PO Q8H [facility] Octreotide Acetate (Sandostatin) 100 mcg SC Q8 [facility] Rifaximin (Xifaxan) 550 mg PO BID [facility]; Protocol - Labs Labs: 02/18/18 05:00 02/18/18 05:00 PT 24.2 Seconds (9.8-13.1) H 02/17/18 18:00 INR 2.1 02/17/18 18:00 APTT 41.4 Seconds (25.6-37.1) H 02/17/18 18:00 - Constitutional Appears: Agitated, Confused, Other (pale, dry chapped lips. NC on 2 L, dry blood noted on nose ) - Eye Exam Eye Exam: EOMI, Scleral icterus - ENT Exam ENT Exam: Mucous Membranes Dry - Respiratory Exam Respiratory Exam: Clear to Ausculation Bilateral. absent: Wheezes - Cardiovascular Exam Cardiovascular Exam: REGULAR RHYTHM, +S1, +S2 - GI/Abdominal Exam GI & Abdominal Exam: Distended, Rigid, Hypoactive Bowel Sounds. absent: Tenderness Additional comments: +Ascites, +fluid wave, tense abdomen - Extremities Exam Extremities Exam: Pedal Edema Additional comments: generalized edema noted in upper and lower ext - Neurological Exam Neurological Exam: Awake - Skin Skin Exam: Pallor Additional comments: jaundice, mild Assessment and Plan - Assessment and Plan (Free Text) Assessment: Assessment/Plan: 47 YO female with PMHx of Cirrhosis, HTN and asthma is admitted for altered mental status, severe anemia and hyperkalemia. Due to pts condition will attempt to transfer patient to a liver center, [facility]. [facility] transfer center [phone], in process Hepatic Encephalopathy, Cirrhosis -marked encephalopathy -MELD 35, 52.6% estimated 3 month mortality -Child-b[place] 14, class C -likely 2/2 to liver cirrhosis, concerning for SBP (bandemia, lactic acidosis) -Hyperammonia: ammonia remains elevated but improving -c/w with lactulose and rocephin (SBO) -start rifaximin when tolerating PO -GI on board: albumin IV, pending recs Hyperkalemia -Severe -s/p tx with insulin and albuterol, Lactulose NE in ED -EKG; no acute T wave changes noted -stat EKG -c/w lactulose -s/w calcium gluconate and Kayexalate -Nephro on board; pending recs Symptomatic Macrocytic Anemia -acute on chronic -2 units of PRBC ordered -follow up post transfusion blood work Ascites -acute on chronic -CT abd and pelvis sig for large ascites -2/2 to cirrhosis -cont SBP prophylaxis -IR consulted; due to pts status and INR paracentesis deferred until patient improves -GI on board; Dr. Bautista Thrombocytopenia -chronic -likely 2/2 to cirrhosis -cont to monitor -replace as needed Hepatorenal syndrome/CKD/INNA -acute on chronic -questionable hepatorenal syndrome -IV fluids -nephrology on board, pending recs HTN -hx of HTN -BP low -will hold home meds for now -s/w midodrine DVT pphx -SCDs for now <Gina Jimenez - Last Filed: 02/18/18 18:16> Objective - Vital Signs/Intake and Output Vital Signs (last 24 hours): Temp Pulse Resp BP Pulse Ox 97.7 F 97 H 20 95/70 L 100 02/18/18 16:00 02/18/18 17:50 02/18/18 17:50 02/18/18 17:50 02/18/18 17:50 Intake and Output: 02/18/18 02/18/18 06:59 18:59 Intake Total 1025 925 Output Total 500 800 Balance 525 125 - Medications Medications: Current Medications Albumin Human (Albumin Human 25% (12.5 Gm/50 Ml)) 12.5 gm IV Q8 [facility] Stop: 02/21/18 01:01 Last Admin: 02/18/18 17:41 Dose: 12.5 gm Ceftriaxone Sodium 1 gm/ (Sodium Chloride) 100 mls @ 100 mls/hr IVPB DAILY [facility]; Protocol Last Admin: 02/18/18 08:21 Dose: 100 mls/hr Sodium Bicarbonate 75 meq/ (Sodium Chloride) 1,075 mls @ 75 mls/hr IV .[id number] [facility] Stop: 02/19/18 17:48 Lactulose (Enulose) 20 gm PO QID [facility] Last Admin: 02/18/18 16:10 Dose: 20 gm Midodrine (Proamatine) 7.5 mg PO Q8H [facility] Last Admin: 02/18/18 17:28 Dose: 7.5 mg Octreotide Acetate (Sandostatin) 100 mcg SC Q8 [facility] Last Admin: 02/18/18 16:10 Dose: 100 mcg Rifaximin (Xifaxan) 550 mg PO BID [facility]; Protocol Last Admin: 02/18/18 16:11 Dose: 550 mg Sodium Polystyrene Sulfonate (Kayexalate Susp) 15 gm PO Q6H [facility] Last Admin: 02/18/18 16:19 Dose: 15 gm - Labs Labs: 02/18/18 14:34 02/18/18 14:34 PT 26.6 Seconds (9.8-13.1) H 02/18/18 10:24 INR 2.3 02/18/18 10:24 APTT 41.4 Seconds (25.6-37.1) H 02/17/18 18:00 Attending/Attestation - Attestation I have personally seen and examined this patient.: Yes I have fully participated in the care of the patient.: Yes I have reviewed all pertinent clinical information, including history, physical exam and plan: Yes
[2018-02-18 10:38] LABS: INR 2.3; PROTHROMBIN TIME 26.6 Seconds (9.8-13.1)
[2018-02-18 10:44] LABS: ALB/GLOB RATIO 0.6 (1.0-2.1); ALBUMIN 2.6 g/dL (3.5-5.0); CALCIUM 8.9 mg/dL (8.4-10.2)
[2018-02-18] MEDS ORDERED: Phytonadione 10 mg/ml Inj (Adult) IV ONE (10:56)
[2018-02-18] MEDS ORDERED: Phytonadione 10 mg/ml Inj (Adult) ONE (11:00)
[2018-02-18] MEDS ORDERED: Phytonadione 10 MG in Sodium Chloride 0.9% 50 ML IV ONE (11:00)
[2018-02-18] MEDS ORDERED: Chlorhexidine Gluconate 1 APPL/PKT TP ONE (11:01)
--- NOTE | 2018-02-18 11:07 | CP.PCM.CON ---
History of Present Illness - History of Present Illness History of Present Illness: 47 y/o female with end stage liver disease & cirrhosis secondary to heavy alcohol abuse in the past was admitted for altered mental status & unresponsiveness Renal consult is requested because very high BUN/Creat with hyperkalemia of 6.9. Previously Pts creat was in 1.0- 1.3. Pt was not on Spironolactone at home, Pt also moted to have very high ammomia level Past Patient History - Infectious Disease Hx of Infectious Diseases: None - Past Medical History & Family History Past Medical History?: Yes - Past Social History Smoking Status: Never Smoked - CARDIAC Hx Hypertension: Yes - PULMONARY Hx Asthma: Yes Hx Sleep Apnea: No - NEUROLOGICAL Hx Neurological Disorder: No - HEENT Hx HEENT Problems: No - RENAL Hx Chronic Kidney Disease: No - ENDOCRINE/METABOLIC Hx Endocrine Disorders: No - HEMATOLOGICAL/ONCOLOGICAL Hx Anemia: Yes Hx Sickle Cell Disease: No - INTEGUMENTARY Hx Dermatological Problems: No - MUSCULOSKELETAL/RHEUMATOLOGICAL Hx Musculoskeletal Disorders: No Hx Falls: Yes - GASTROINTESTINAL Hx Gastrointestinal Disorders: Yes Hx Liver Failure: Yes - GENITOURINARY/GYNECOLOGICAL Hx Genitourinary Disorders: No - PSYCHIATRIC Hx Psychophysiologic Disorder: No Hx Substance Use: Yes (marijuana) - ANESTHESIA Hx Anesthesia: Yes Hx Anesthesia Reactions: No Hx Malignant Hyperthermia: No Meds Allergies/Adverse Reactions: Allergies Allergy/AdvReac Type Severity Reaction Status Date / Time iodine Allergy SHORTNESS Verified 01/31/18 23:12 OF BREATH - Medications Medications: Current Medications Albumin Human (Albumin Human 25% (12.5 Gm/50 Ml)) 12.5 gm IV Q8 [facility] Stop: 02/21/18 01:01 Last Admin: 02/18/18 08:20 Dose: 12.5 gm Ceftriaxone Sodium 1 gm/ (Sodium Chloride) 100 mls @ 100 mls/hr IVPB DAILY [facility]; Protocol Last Admin: 02/18/18 08:21 Dose: 100 mls/hr Phytonadione 10 mg/ Sodium (Chloride) 51 mls @ 102 mls/hr IV ONCE ONE Stop: 02/18/18 11:29 Lactulose (Generlac) 200 gm [place] QID [facility] Last Admin: 02/18/18 10:28 Dose: 200 gm Midodrine (Proamatine) 7.5 mg PO Q8H [facility] Last Admin: 02/18/18 10:29 Dose: 7.5 mg Octreotide Acetate (Sandostatin) 100 mcg SC Q8 [facility] Last Admin: 02/18/18 10:30 Dose: 100 mcg Rifaximin (Xifaxan) 550 mg PO BID [facility]; Protocol Last Admin: 02/18/18 10:29 Dose: 550 mg Sodium Polystyrene Sulfonate (Kayexalate Susp) 15 gm PO Q6H [facility] Physical Exam - Constitutional Appears: Confused Additional comments: Pt is unresponsive Open eyes in response to ohysical stimuli but does not communicate. - Head Exam Head Exam: NORMOCEPHALIC - Eye Exam Eye Exam: Conjunctival injection, Scleral icterus - ENT Exam ENT Exam: Mucous Membranes Moist - Neck Exam Additional comments: Neck is supple - Respiratory Exam Respiratory Exam: NORMAL BREATHING PATTERN Additional comments: Lungs clear. No wheezes. - Cardiovascular Exam Cardiovascular Exam: REGULAR RHYTHM, +S1, +S2 Additional comments: Slightly peaked T waves noted on rythm strip - GI/Abdominal Exam GI & Abdominal Exam: Distended Additional comments: Tense ascitis No grimacing noted og palpation - Rectal Exam Rectal Exam: Deferred - Extremities Exam Additional comments: 2+ Pitting edema of both lower extremities - Neurological Exam Additional comments: Unable to examind Results - Vital Signs Recent Vital Signs: Last Vital Signs Temp 97.3 F L 02/18/18 10:21 Pulse 99 H 02/18/18 10:21 Resp 12 02/18/18 10:21 BP 108/65 02/18/18 10:21 Pulse Ox 95 02/18/18 10:00 - Labs Result Diagrams: 02/18/18 05:00 02/18/18 10:24 Labs: Laboratory Results - last 24 hr 02/17/18 02/17/18 02/17/18 17:59 17:59 18:00 WBC RBC Hgb Hct MCV MCH MCHC RDW Plt Count MPV Neut % (Auto) Lymph % (Auto) [place] % (Auto) Eos % (Auto) Baso % (Auto) Neut # (Auto) Lymph # (Auto) [place] # (Auto) Eos # (Auto) Baso # (Auto) Neutrophils % (Manual) Band Neutrophils % Lymphocytes % (Manual) Monocytes % (Manual) Eosinophils % (Manual) Myelocytes % Platelet Estimate Large Platelets Anisocytosis (manual) Acanthocytes (Spur) Schistocytes PT INR APTT pO2 90 H VBG pH 7.41 VBG pCO2 23 L VBG HCO3 18.7 VBG Total CO2 15.3 L VBG Base Excess -8.0 L VBG Potassium 6.6 H* Sodium 132.0 135 Chloride 109.0 H 109 H Glucose 118 H Lactate 4.3 H* FiO2 21.0 Blood Gas Comments Lac=4.3 Crit Value Called To santo Reese Crit Value Called By 22 Crit Value Read Back Y Blood Gas Notified Time 1805 Potassium 6.7 H* D Carbon Dioxide 14 L Anion Gap 19 BUN 79 H Creatinine 4.7 H Est GFR ( Amer) 12 Est GFR (Non-Af Amer) 10 POC Glucose (mg/dL) 112 H Random Glucose 115 H Calcium 8.7 Phosphorus Magnesium Total Bilirubin 4.4 H AST 27 ALT 13 Alkaline Phosphatase 75 Ammonia Total Protein 6.9 Albumin 2.4 L Globulin 4.4 H Albumin/Globulin Ratio 0.5 L Venous Blood Potassium 6.6 H* Urine Color Urine Clarity Urine pH Ur Specific [place] Urine Protein Urine Glucose (UA) Urine Ketones Urine Blood Urine Nitrate Urine Bilirubin Urine Urobilinogen Ur Leukocyte Esterase Urine RBC (Auto) Urine Microscopic WBC Ur Squamous Epith Cells Amorphous Sediment Hyaline Casts Urine Opiates Screen Urine Methadone Screen Ur Barbiturates Screen Ur Phencyclidine Scrn Ur Amphetamines Screen U Benzodiazepines Scrn U Oth Cocaine Metabols U Cannabinoids Screen Alcohol, Quantitative < 10 Blood Type Antibody Screen Crossmatch BBK History Checked 02/17/18 02/17/18 02/17/18 18:00 18:00 18:00 WBC 7.0 RBC 1.77 L Hgb 6.1 L* D Hct 17.9 L MCV 101.1 H D MCH 34.5 H MCHC 34.1 RDW 23.8 H Plt Count 46 L D MPV 11.2 Neut % (Auto) 66.9 Lymph % (Auto) 7.2 L [place] % (Auto) 25.3 H Eos % (Auto) 0.4 Baso % (Auto) 0.2 Neut # (Auto) 4.7 Lymph # (Auto) 0.5 L [place] # (Auto) 1.8 H Eos # (Auto) 0.0 Baso # (Auto) 0.0 Neutrophils % (Manual) 70 Band Neutrophils % 3 H Lymphocytes % (Manual) 11 L Monocytes % (Manual) 14 H Eosinophils % (Manual) 1 Myelocytes % 1 H Platelet Estimate Markedly decreased L Large Platelets Present Anisocytosis (manual) Slight Acanthocytes (Spur) Moderate Schistocytes Slight PT 24.2 H INR 2.1 APTT 41.4 H pO2 VBG pH VBG pCO2 VBG HCO3 VBG Total CO2 VBG Base Excess VBG Potassium Sodium Chloride Glucose Lactate FiO2 Blood Gas Comments Crit Value Called To Crit Value Called By Crit Value Read Back Blood Gas Notified Time Potassium Carbon Dioxide Anion Gap BUN Creatinine Est GFR ( Amer) Est GFR (Non-Af Amer) POC Glucose (mg/dL) Random Glucose Calcium Phosphorus Magnesium Total Bilirubin AST ALT Alkaline Phosphatase Ammonia 254 H* D Total Protein Albumin Globulin Albumin/Globulin Ratio Venous Blood Potassium Urine Color Urine Clarity Urine pH Ur Specific [place] Urine Protein Urine Glucose (UA) Urine Ketones Urine Blood Urine Nitrate Urine Bilirubin Urine Urobilinogen Ur Leukocyte Esterase Urine RBC (Auto) Urine Microscopic WBC Ur Squamous Epith Cells Amorphous Sediment Hyaline Casts Urine Opiates Screen Urine Methadone Screen Ur Barbiturates Screen Ur Phencyclidine Scrn Ur Amphetamines Screen U Benzodiazepines Scrn U Oth Cocaine Metabols U Cannabinoids Screen Alcohol, Quantitative Blood Type Antibody Screen Crossmatch BBK History Checked 02/17/18 02/18/18 02/18/18 18:31 05:00 05:00 WBC 8.2 RBC 1.75 L Hgb 6.0 L* Hct 17.7 L MCV 100.8 H MCH 34.2 H MCHC 33.9 RDW 23.3 H Plt Count 44 L MPV 11.4 Neut % (Auto) 76.8 H Lymph % (Auto) 5.2 L [place] % (Auto) 17.8 H Eos % (Auto) 0.0 Baso % (Auto) 0.2 Neut # (Auto) 6.3 Lymph # (Auto) 0.4 L [place] # (Auto) 1.5 H Eos # (Auto) 0.0 Baso # (Auto) 0.0 Neutrophils % (Manual) Band Neutrophils % Lymphocytes % (Manual) Monocytes % (Manual) Eosinophils % (Manual) Myelocytes % Platelet Estimate Large Platelets Anisocytosis (manual) Acanthocytes (Spur) Schistocytes PT INR APTT pO2 VBG pH VBG pCO2 VBG HCO3 VBG Total CO2 VBG Base Excess VBG Potassium Sodium Chloride Glucose Lactate FiO2 Blood Gas Comments Crit Value Called To Crit Value Called By Crit Value Read Back Blood Gas Notified Time Potassium Carbon Dioxide Anion Gap BUN Creatinine Est GFR ( Amer) Est GFR (Non-Af Amer) POC Glucose (mg/dL) Random Glucose Calcium Phosphorus Magnesium Total Bilirubin AST ALT Alkaline Phosphatase Ammonia Total Protein Albumin Globulin Albumin/Globulin Ratio Venous Blood Potassium Urine Color Urine Clarity Urine pH Ur Specific [place] Urine Protein Urine Glucose (UA) Urine Ketones Urine Blood Urine Nitrate Urine Bilirubin Urine Urobilinogen Ur Leukocyte Esterase Urine RBC (Auto) Urine Microscopic WBC Ur Squamous Epith Cells Amorphous Sediment Hyaline Casts Urine Opiates Screen Negative Urine Methadone Screen Negative Ur Barbiturates Screen Negative Ur Phencyclidine Scrn Negative Ur Amphetamines Screen Negative U Benzodiazepines Scrn Negative U Oth Cocaine Metabols Negative U Cannabinoids Screen Positive H Alcohol, Quantitative Blood Type A POSITIVE Antibody Screen Negative Crossmatch See Detail BBK History Checked Patient has bt 02/18/18 02/18/18 02/18/18 05:00 05:00 05:00 WBC RBC Hgb Hct MCV MCH MCHC RDW Plt Count MPV Neut % (Auto) Lymph % (Auto) [place] % (Auto) Eos % (Auto) Baso % (Auto) Neut # (Auto) Lymph # (Auto) [place] # (Auto) Eos # (Auto) Baso # (Auto) Neutrophils % (Manual) Band Neutrophils % Lymphocytes % (Manual) Monocytes % (Manual) Eosinophils % (Manual) Myelocytes % Platelet Estimate Large Platelets Anisocytosis (manual) Acanthocytes (Spur) Schistocytes PT INR APTT pO2 VBG pH VBG pCO2 VBG HCO3 VBG Total CO2 VBG Base Excess VBG Potassium Sodium 136 Chloride 114 H Glucose Lactate FiO2 Blood Gas Comments Crit Value Called To Crit Value Called By Crit Value Read Back Blood Gas Notified Time Potassium 6.6 H* Carbon Dioxide 12 L Anion Gap 17 BUN 81 H Creatinine 4.5 H Est GFR ( Amer) 13 Est GFR (Non-Af Amer) 10 POC Glucose (mg/dL) Random Glucose 99 Calcium 8.2 L Phosphorus Magnesium Total Bilirubin 4.3 H AST 26 ALT 15 Alkaline Phosphatase 49 Ammonia 126 H* D Total Protein 6.2 L Albumin 2.2 L Globulin 4.0 H Albumin/Globulin Ratio 0.6 L Venous Blood Potassium Urine Color Yellow Urine Clarity Slighty-cloudy Urine pH 5.0 Ur Specific [place] 1.010 Urine Protein Negative Urine Glucose (UA) Neg Urine Ketones Negative Urine Blood Negative Urine Nitrate Negative Urine Bilirubin Negative Urine Urobilinogen 0.2-1.0 Ur Leukocyte Esterase Neg Urine RBC (Auto) < 1 Urine Microscopic WBC 3 Ur Squamous Epith Cells 4 Amorphous Sediment Rare H Hyaline Casts >20 H Urine Opiates Screen Urine Methadone Screen Ur Barbiturates Screen Ur Phencyclidine Scrn Ur Amphetamines Screen U Benzodiazepines Scrn U Oth Cocaine Metabols U Cannabinoids Screen Alcohol, Quantitative Blood Type Antibody Screen Crossmatch BBK History Checked 02/18/18 02/18/18 10:24 10:24 WBC RBC Hgb Hct MCV MCH MCHC RDW Plt Count MPV Neut % (Auto) Lymph % (Auto) [place] % (Auto) Eos % (Auto) Baso % (Auto) Neut # (Auto) Lymph # (Auto) [place] # (Auto) Eos # (Auto) Baso # (Auto) Neutrophils % (Manual) Band Neutrophils % Lymphocytes % (Manual) Monocytes % (Manual) Eosinophils % (Manual) Myelocytes % Platelet Estimate Large Platelets Anisocytosis (manual) Acanthocytes (Spur) Schistocytes PT 26.6 H INR 2.3 APTT pO2 VBG pH VBG pCO2 VBG HCO3 VBG Total CO2 VBG Base Excess VBG Potassium Sodium 140 Chloride 113 H Glucose Lactate FiO2 Blood Gas Comments Crit Value Called To Crit Value Called By Crit Value Read Back Blood Gas Notified Time Potassium 7.0 H* Carbon Dioxide 15 L Anion Gap 19 BUN 79 H Creatinine 4.5 H Est GFR ( Amer) 13 Est GFR (Non-Af Amer) 10 POC Glucose (mg/dL) Random Glucose 103 Calcium 8.9 Phosphorus 7.9 H Magnesium 1.9 Total Bilirubin 8.1 H AST 34 ALT 19 Alkaline Phosphatase 55 Ammonia Total Protein 6.9 Albumin 2.6 L Globulin 4.2 H Albumin/Globulin Ratio 0.6 L Venous Blood Potassium Urine Color Urine Clarity Urine pH Ur Specific [place] Urine Protein Urine Glucose (UA) Urine Ketones Urine Blood Urine Nitrate Urine Bilirubin Urine Urobilinogen Ur Leukocyte Esterase Urine RBC (Auto) Urine Microscopic WBC Ur Squamous Epith Cells Amorphous Sediment Hyaline Casts Urine Opiates Screen Urine Methadone Screen Ur Barbiturates Screen Ur Phencyclidine Scrn Ur Amphetamines Screen U Benzodiazepines Scrn U Oth Cocaine Metabols U Cannabinoids Screen Alcohol, Quantitative Blood Type Antibody Screen Crossmatch BBK History Checked Assessment & Plan - Assessment and Plan (Free Text) Assessment: Acute kidney injury with hyperkalemia Pt has developed hepatorenal syndrome. Urine out put is improving Currently treated for SBP End stage liver cirrhosis with hepatic Encephalopathy Plan: K= level remaims high. She is given Kayexalate & Lasix . Recommend repeating Inulin ( 5 U)& dextrose UO is improving. If K+ remains high with repeat BMP, Pt will need dialysis & dialysis access
[2018-02-18] MEDS: Sod Polystyrene Sulf 15 gm/60 ml Susp PO SCH ×3 (11:09→22:50)
--- NOTE | 2018-02-18 12:21 | CP.CCUPN ---
CCU Subjective - Physician Review Events Since Last Encounter (Free Text): 02/18/18 12:21 delirious secondary to hepatic encephalopathy. CCU Objective - Vital Signs / Intake & Output Vital Signs (Last 4 hours): Vital Signs Temp Pulse Resp BP Pulse Ox 02/18/18 11:59 97.9 F 79 15 95/66 L 99 02/18/18 11:03 95/58 L 02/18/18 10:21 97.3 F L 99 H 12 108/65 02/18/18 10:00 99 H 16 108/65 95 Intake and Output (Last 8hrs): Intake & Output 02/17/18 02/18/18 02/18/18 22:59 06:59 14:59 Intake Total 0 1025 550 Output Total 500 Balance 0 525 550 Weight 125 lb 11.2 oz 125 lb Intake: IV 0 0 Intake, Piggyback 600 200 Oral 0 0 Blood Product 325 325 Red Blood Cells Cpd As1 0 325 Lr Unit [id number] Red Blood Cells Cpd As1 0 Lr Unit [id number] Albumin 50 Other 50 25 Red Blood Cells Cpd As1 0 25 Lr Unit [id number] Red Blood Cells Cpd As1 50 Lr Unit [id number] Output: Urine 500 Urethral ([place]) 500 Other: # Bowel Movements 2 1 - Physical Exam Physical Exam Limitations: Positive for: Altered Mental Status Head: Positive for: Atraumatic, Normocephalic Pupils: Positive for: PERRL Extroacular Muscles: Positive for: EOMI Conjunctiva: Positive for: Icteric Ears: Positive for: Normal Mouth: Positive for: Dry Nose (External): Positive for: Atraumatic Nose (Internal): Positive for: Normal Inspection Neck: Positive for: Normal Range of Motion Respiratory/Chest: Positive for: Clear to Auscultation Cardiovascular: Positive for: Normal S1, S2, Tachycardic Abdomen: Positive for: Distention. Negative for: Tenderness, Normal Bowel Sounds Rectal: Positive for: Fissures (ascites) Skin: Positive for: Other (jaundiced) Psychiatric: Positive for: Alert. Negative for: Oriented x 3 - Medications Active Medications: Active Medications Generic Name Dose Route Start Last Admin Trade Name Freq PRN Reason Stop Dose Admin Albumin Human 12.5 gm 02/18/18 01:00 02/18/18 08:20 Albumin Human 25% (12.5 Gm/50 Ml) IV 02/21/18 01:01 12.5 gm Q8 BARBARA Administration Ceftriaxone Sodium 1 gm/ 100 mls @ 100 mls/hr 02/18/18 09:00 02/18/18 08:21 Sodium Chloride IVPB 100 mls/hr DAILY BARBARA Administration Protocol Lactulose 200 gm 02/18/18 05:00 02/18/18 10:28 Generlac HI 200 gm QID BARBARA Administration Midodrine 7.5 mg 02/18/18 09:45 02/18/18 10:29 Proamatine PO 7.5 mg Q8H BARBARA Administration Octreotide Acetate 100 mcg 02/18/18 09:45 02/18/18 10:30 Sandostatin SC 100 mcg Q8 BARBARA Administration Rifaximin 550 mg 02/18/18 09:45 02/18/18 10:29 Xifaxan PO 550 mg BID BARBARA Administration Protocol Sodium Polystyrene Sulfonate 15 gm 02/18/18 11:00 02/18/18 11:09 Kayexalate Susp PO 15 gm Q6H BARBARA Administration - Patient Studies Lab Studies: Lab Studies 02/18/18 02/18/18 02/18/18 Range/Units 10:24 10:24 05:00 WBC (4.8-10.8) K/uL RBC (3.80-5.20) Mil/uL Hgb (12.0-16.0) g/dL Hct (34.0-47.0) % MCV (81.0-99.0) fl MCH (27.0-31.0) pg MCHC (33.0-37.0) g/dL RDW (11.5-14.5) % Plt Count (130-400) K/uL MPV (7.2-11.7) fl Neut % (Auto) (50.0-75.0) % Lymph % (Auto) (20.0-40.0) % Luce % (Auto) (0.0-10.0) % Eos % (Auto) (0.0-4.0) % Baso % (Auto) (0.0-2.0) % Neut # (Auto) (1.8-7.0) K/uL Lymph # (Auto) (1.0-4.3) K/uL Luce # (Auto) (0.0-0.8) K/uL Eos # (Auto) (0.0-0.7) K/uL Baso # (Auto) (0.0-0.2) K/uL Neutrophils % (Manual) (42-75) % Band Neutrophils % (0-2) % Lymphocytes % (Manual) (20-50) % Monocytes % (Manual) (0-10) % Eosinophils % (Manual) (0-7) % Myelocytes % (0-0) % Platelet Estimate (NORMAL) Large Platelets Anisocytosis (manual) Acanthocytes (Spur) Schistocytes PT 26.6 H (9.8-13.1) Seconds INR 2.3 APTT (25.6-37.1) Seconds pO2 (30-55) mm/Hg VBG pH (7.32-7.43) VBG pCO2 (40-60) mmHg VBG HCO3 mmol/L VBG Total CO2 (22-28) mmol/L VBG Base Excess (0.0-2.0) mmol/L VBG Potassium (3.6-5.2) mmol/L Sodium 140 (132-148) mmol/L Chloride 113 H (98-107) mmol/L Glucose (65-105) mg/dL Lactate (0.7-2.1) mmol/L FiO2 % Blood Gas Comments Crit Value Called To Crit Value Called By Crit Value Read Back Blood Gas Notified Time Potassium 7.0 H* (3.6-5.0) MMOL/L Carbon Dioxide 15 L (22-30) mmol/L Anion Gap 19 (10-20) BUN 79 H (7-17) mg/dl Creatinine 4.5 H (0.7-1.2) mg/dl Est GFR ( Amer) 13 Est GFR (Non-Af Amer) 10 POC Glucose (mg/dL) (65-110) mg/dL Random Glucose 103 (65-105) mg/dL Calcium 8.9 (8.4-10.2) mg/dL Phosphorus 7.9 H (2.5-4.5) mg/dl Magnesium 1.9 (1.6-2.3) MG/DL Total Bilirubin 8.1 H (0.2-1.3) mg/dl AST 34 (14-36) U/L ALT 19 (9-52) U/L Alkaline Phosphatase 55 (38-126) U/L Ammonia (11-51) umo/L Total Protein 6.9 (6.3-8.2) G/DL Albumin 2.6 L (3.5-5.0) g/dL Globulin 4.2 H (2.2-3.9) gm/dL Albumin/Globulin Ratio 0.6 L (1.0-2.1) Venous Blood Potassium (3.6-5.2) mmol/L Urine Color Yellow (YELLOW) Urine Clarity Slighty-cloudy (Clear) Urine pH 5.0 (5.0-8.0) Ur Specific [place] 1.010 (1.003-1.030) Urine Protein Negative (NEGATIVE) mg/dL Urine Glucose (UA) Neg (Normal) mg/dL Urine Ketones Negative (NEGATIVE) mg/dL Urine Blood Negative (NEGATIVE) Urine Nitrate Negative (NEGATIVE) Urine Bilirubin Negative (NEGATIVE) Urine Urobilinogen 0.2-1.0 (0.2-1.0) mg/dL Ur Leukocyte Esterase Neg (Negative) Fredy/uL Urine RBC (Auto) < 1 (0-3) /hpf Urine Microscopic WBC 3 (0-5) /hpf Ur Squamous Epith Cells 4 (0-5) /hpf Amorphous Sediment Rare H (<OCC) /ul Hyaline Casts >20 H (0-2) /hpf Urine Opiates Screen (NEGATIVE) Urine Methadone Screen (NEGATIVE) Ur Barbiturates Screen (NEGATIVE) Ur Phencyclidine Scrn (NEGATIVE) Ur Amphetamines Screen (NEGATIVE) U Benzodiazepines Scrn (NEGATIVE) U Oth Cocaine Metabols (NEGATIVE) U Cannabinoids Screen (NEGATIVE) Alcohol, Quantitative (0-10) mg/dl Blood Type Antibody Screen Crossmatch BBK History Checked 02/18/18 02/18/18 02/18/18 Range/Units 05:00 05:00 05:00 WBC 8.2 (4.8-10.8) K/uL RBC 1.75 L (3.80-5.20) Mil/uL Hgb 6.0 L* (12.0-16.0) g/dL Hct 17.7 L (34.0-47.0) % MCV 100.8 H (81.0-99.0) fl MCH 34.2 H (27.0-31.0) pg MCHC 33.9 (33.0-37.0) g/dL RDW 23.3 H (11.5-14.5) % Plt Count 44 L (130-400) K/uL MPV 11.4 (7.2-11.7) fl Neut % (Auto) 76.8 H (50.0-75.0) % Lymph % (Auto) 5.2 L (20.0-40.0) % Luce % (Auto) 17.8 H (0.0-10.0) % Eos % (Auto) 0.0 (0.0-4.0) % Baso % (Auto) 0.2 (0.0-2.0) % Neut # (Auto) 6.3 (1.8-7.0) K/uL Lymph # (Auto) 0.4 L (1.0-4.3) K/uL Luce # (Auto) 1.5 H (0.0-0.8) K/uL Eos # (Auto) 0.0 (0.0-0.7) K/uL Baso # (Auto) 0.0 (0.0-0.2) K/uL Neutrophils % (Manual) (42-75) % Band Neutrophils % (0-2) % Lymphocytes % (Manual) (20-50) % Monocytes % (Manual) (0-10) % Eosinophils % (Manual) (0-7) % Myelocytes % (0-0) % Platelet Estimate (NORMAL) Large Platelets Anisocytosis (manual) Acanthocytes (Spur) Schistocytes PT (9.8-13.1) Seconds INR APTT (25.6-37.1) Seconds pO2 (30-55) mm/Hg VBG pH (7.32-7.43) VBG pCO2 (40-60) mmHg VBG HCO3 mmol/L VBG Total CO2 (22-28) mmol/L VBG Base Excess (0.0-2.0) mmol/L VBG Potassium (3.6-5.2) mmol/L Sodium 136 (132-148) mmol/L Chloride 114 H (98-107) mmol/L Glucose (65-105) mg/dL Lactate (0.7-2.1) mmol/L FiO2 % Blood Gas Comments Crit Value Called To Crit Value Called By Crit Value Read Back Blood Gas Notified Time Potassium 6.6 H* (3.6-5.0) MMOL/L Carbon Dioxide 12 L (22-30) mmol/L Anion Gap 17 (10-20) BUN 81 H (7-17) mg/dl Creatinine 4.5 H (0.7-1.2) mg/dl Est GFR ( Amer) 13 Est GFR (Non-Af Amer) 10 POC Glucose (mg/dL) (65-110) mg/dL Random Glucose 99 (65-105) mg/dL Calcium 8.2 L (8.4-10.2) mg/dL Phosphorus (2.5-4.5) mg/dl Magnesium (1.6-2.3) MG/DL Total Bilirubin 4.3 H (0.2-1.3) mg/dl AST 26 (14-36) U/L ALT 15 (9-52) U/L Alkaline Phosphatase 49 (38-126) U/L Ammonia 126 H* D (11-51) umo/L Total Protein 6.2 L (6.3-8.2) G/DL Albumin 2.2 L (3.5-5.0) g/dL Globulin 4.0 H (2.2-3.9) gm/dL Albumin/Globulin Ratio 0.6 L (1.0-2.1) Venous Blood Potassium (3.6-5.2) mmol/L Urine Color (YELLOW) Urine Clarity (Clear) Urine pH (5.0-8.0) Ur Specific [place] (1.003-1.030) Urine Protein (NEGATIVE) mg/dL Urine Glucose (UA) (Normal) mg/dL Urine Ketones (NEGATIVE) mg/dL Urine Blood (NEGATIVE) Urine Nitrate (NEGATIVE) Urine Bilirubin (NEGATIVE) Urine Urobilinogen (0.2-1.0) mg/dL Ur Leukocyte Esterase (Negative) Fredy/uL Urine RBC (Auto) (0-3) /hpf Urine Microscopic WBC (0-5) /hpf Ur Squamous Epith Cells (0-5) /hpf Amorphous Sediment (<OCC) /ul Hyaline Casts (0-2) /hpf Urine Opiates Screen (NEGATIVE) Urine Methadone Screen (NEGATIVE) Ur Barbiturates Screen (NEGATIVE) Ur Phencyclidine Scrn (NEGATIVE) Ur Amphetamines Screen (NEGATIVE) U Benzodiazepines Scrn (NEGATIVE) U Oth Cocaine Metabols (NEGATIVE) U Cannabinoids Screen (NEGATIVE) Alcohol, Quantitative (0-10) mg/dl Blood Type Antibody Screen Crossmatch BBK History Checked 02/18/18 02/17/18 02/17/18 Range/Units 05:00 18:31 18:00 WBC (4.8-10.8) K/uL RBC (3.80-5.20) Mil/uL Hgb (12.0-16.0) g/dL Hct (34.0-47.0) % MCV (81.0-99.0) fl MCH (27.0-31.0) pg MCHC (33.0-37.0) g/dL RDW (11.5-14.5) % Plt Count (130-400) K/uL MPV (7.2-11.7) fl Neut % (Auto) (50.0-75.0) % Lymph % (Auto) (20.0-40.0) % Luce % (Auto) (0.0-10.0) % Eos % (Auto) (0.0-4.0) % Baso % (Auto) (0.0-2.0) % Neut # (Auto) (1.8-7.0) K/uL Lymph # (Auto) (1.0-4.3) K/uL Luce # (Auto) (0.0-0.8) K/uL Eos # (Auto) (0.0-0.7) K/uL Baso # (Auto) (0.0-0.2) K/uL Neutrophils % (Manual) (42-75) % Band Neutrophils % (0-2) % Lymphocytes % (Manual) (20-50) % Monocytes % (Manual) (0-10) % Eosinophils % (Manual) (0-7) % Myelocytes % (0-0) % Platelet Estimate (NORMAL) Large Platelets Anisocytosis (manual) Acanthocytes (Spur) Schistocytes PT 24.2 H (9.8-13.1) Seconds INR 2.1 APTT 41.4 H (25.6-37.1) Seconds pO2 (30-55) mm/Hg VBG pH (7.32-7.43) VBG pCO2 (40-60) mmHg VBG HCO3 mmol/L VBG Total CO2 (22-28) mmol/L VBG Base Excess (0.0-2.0) mmol/L VBG Potassium (3.6-5.2) mmol/L Sodium (132-148) mmol/L Chloride (98-107) mmol/L Glucose (65-105) mg/dL Lactate (0.7-2.1) mmol/L FiO2 % Blood Gas Comments Crit Value Called To Crit Value Called By Crit Value Read Back Blood Gas Notified Time Potassium (3.6-5.0) MMOL/L Carbon Dioxide (22-30) mmol/L Anion Gap (10-20) BUN (7-17) mg/dl Creatinine (0.7-1.2) mg/dl Est GFR ( Amer) Est GFR (Non-Af Amer) POC Glucose (mg/dL) (65-110) mg/dL Random Glucose (65-105) mg/dL Calcium (8.4-10.2) mg/dL Phosphorus (2.5-4.5) mg/dl Magnesium (1.6-2.3) MG/DL Total Bilirubin (0.2-1.3) mg/dl AST (14-36) U/L ALT (9-52) U/L Alkaline Phosphatase (38-126) U/L Ammonia (11-51) umo/L Total Protein (6.3-8.2) G/DL Albumin (3.5-5.0) g/dL Globulin (2.2-3.9) gm/dL Albumin/Globulin Ratio (1.0-2.1) Venous Blood Potassium (3.6-5.2) mmol/L Urine Color (YELLOW) Urine Clarity (Clear) Urine pH (5.0-8.0) Ur Specific [place] (1.003-1.030) Urine Protein (NEGATIVE) mg/dL Urine Glucose (UA) (Normal) mg/dL Urine Ketones (NEGATIVE) mg/dL Urine Blood (NEGATIVE) Urine Nitrate (NEGATIVE) Urine Bilirubin (NEGATIVE) Urine Urobilinogen (0.2-1.0) mg/dL Ur Leukocyte Esterase (Negative) Fredy/uL Urine RBC (Auto) (0-3) /hpf Urine Microscopic WBC (0-5) /hpf Ur Squamous Epith Cells (0-5) /hpf Amorphous Sediment (<OCC) /ul Hyaline Casts (0-2) /hpf Urine Opiates Screen Negative (NEGATIVE) Urine Methadone Screen Negative (NEGATIVE) Ur Barbiturates Screen Negative (NEGATIVE) Ur Phencyclidine Scrn Negative (NEGATIVE) Ur Amphetamines Screen Negative (NEGATIVE) U Benzodiazepines Scrn Negative (NEGATIVE) U Oth Cocaine Metabols Negative (NEGATIVE) U Cannabinoids Screen Positive H (NEGATIVE) Alcohol, Quantitative (0-10) mg/dl Blood Type A POSITIVE Antibody Screen Negative Crossmatch See Detail BBK History Checked Patient has bt 02/17/18 02/17/18 02/17/18 Range/Units 18:00 18:00 18:00 WBC 7.0 (4.8-10.8) K/uL RBC 1.77 L (3.80-5.20) Mil/uL Hgb 6.1 L* D (12.0-16.0) g/dL Hct 17.9 L (34.0-47.0) % MCV 101.1 H D (81.0-99.0) fl MCH 34.5 H (27.0-31.0) pg MCHC 34.1 (33.0-37.0) g/dL RDW 23.8 H (11.5-14.5) % Plt Count 46 L D (130-400) K/uL MPV 11.2 (7.2-11.7) fl Neut % (Auto) 66.9 (50.0-75.0) % Lymph % (Auto) 7.2 L (20.0-40.0) % Luce % (Auto) 25.3 H (0.0-10.0) % Eos % (Auto) 0.4 (0.0-4.0) % Baso % (Auto) 0.2 (0.0-2.0) % Neut # (Auto) 4.7 (1.8-7.0) K/uL Lymph # (Auto) 0.5 L (1.0-4.3) K/uL Luce # (Auto) 1.8 H (0.0-0.8) K/uL Eos # (Auto) 0.0 (0.0-0.7) K/uL Baso # (Auto) 0.0 (0.0-0.2) K/uL Neutrophils % (Manual) 70 (42-75) % Band Neutrophils % 3 H (0-2) % Lymphocytes % (Manual) 11 L (20-50) % Monocytes % (Manual) 14 H (0-10) % Eosinophils % (Manual) 1 (0-7) % Myelocytes % 1 H (0-0) % Platelet Estimate Markedly decreased L (NORMAL) Large Platelets Present Anisocytosis (manual) Slight Acanthocytes (Spur) Moderate Schistocytes Slight PT (9.8-13.1) Seconds INR APTT (25.6-37.1) Seconds pO2 (30-55) mm/Hg VBG pH (7.32-7.43) VBG pCO2 (40-60) mmHg VBG HCO3 mmol/L VBG Total CO2 (22-28) mmol/L VBG Base Excess (0.0-2.0) mmol/L VBG Potassium (3.6-5.2) mmol/L Sodium 135 (132-148) mmol/L Chloride 109 H (98-107) mmol/L Glucose (65-105) mg/dL Lactate (0.7-2.1) mmol/L FiO2 % Blood Gas Comments Crit Value Called To Crit Value Called By Crit Value Read Back Blood Gas Notified Time Potassium 6.7 H* D (3.6-5.0) MMOL/L Carbon Dioxide 14 L (22-30) mmol/L Anion Gap 19 (10-20) BUN 79 H (7-17) mg/dl Creatinine 4.7 H (0.7-1.2) mg/dl Est GFR ( Amer) 12 Est GFR (Non-Af Amer) 10 POC Glucose (mg/dL) (65-110) mg/dL Random Glucose 115 H (65-105) mg/dL Calcium 8.7 (8.4-10.2) mg/dL Phosphorus (2.5-4.5) mg/dl Magnesium (1.6-2.3) MG/DL Total Bilirubin 4.4 H (0.2-1.3) mg/dl AST 27 (14-36) U/L ALT 13 (9-52) U/L Alkaline Phosphatase 75 (38-126) U/L Ammonia 254 H* D (11-51) umo/L Total Protein 6.9 (6.3-8.2) G/DL Albumin 2.4 L (3.5-5.0) g/dL Globulin 4.4 H (2.2-3.9) gm/dL Albumin/Globulin Ratio 0.5 L (1.0-2.1) Venous Blood Potassium (3.6-5.2) mmol/L Urine Color (YELLOW) Urine Clarity (Clear) Urine pH (5.0-8.0) Ur Specific [place] (1.003-1.030) Urine Protein (NEGATIVE) mg/dL Urine Glucose (UA) (Normal) mg/dL Urine Ketones (NEGATIVE) mg/dL Urine Blood (NEGATIVE) Urine Nitrate (NEGATIVE) Urine Bilirubin (NEGATIVE) Urine Urobilinogen (0.2-1.0) mg/dL Ur Leukocyte Esterase (Negative) Fredy/uL Urine RBC (Auto) (0-3) /hpf Urine Microscopic WBC (0-5) /hpf Ur Squamous Epith Cells (0-5) /hpf Amorphous Sediment (<OCC) /ul Hyaline Casts (0-2) /hpf Urine Opiates Screen (NEGATIVE) Urine Methadone Screen (NEGATIVE) Ur Barbiturates Screen (NEGATIVE) Ur Phencyclidine Scrn (NEGATIVE) Ur Amphetamines Screen (NEGATIVE) U Benzodiazepines Scrn (NEGATIVE) U Oth Cocaine Metabols (NEGATIVE) U Cannabinoids Screen (NEGATIVE) Alcohol, Quantitative < 10 (0-10) mg/dl Blood Type Antibody Screen Crossmatch BBK History Checked 02/17/18 02/17/18 Range/Units 17:59 17:59 WBC (4.8-10.8) K/uL RBC (3.80-5.20) Mil/uL Hgb (12.0-16.0) g/dL Hct (34.0-47.0) % MCV (81.0-99.0) fl MCH (27.0-31.0) pg MCHC (33.0-37.0) g/dL RDW (11.5-14.5) % Plt Count (130-400) K/uL MPV (7.2-11.7) fl Neut % (Auto) (50.0-75.0) % Lymph % (Auto) (20.0-40.0) % Luce % (Auto) (0.0-10.0) % Eos % (Auto) (0.0-4.0) % Baso % (Auto) (0.0-2.0) % Neut # (Auto) (1.8-7.0) K/uL Lymph # (Auto) (1.0-4.3) K/uL Luce # (Auto) (0.0-0.8) K/uL Eos # (Auto) (0.0-0.7) K/uL Baso # (Auto) (0.0-0.2) K/uL Neutrophils % (Manual) (42-75) % Band Neutrophils % (0-2) % Lymphocytes % (Manual) (20-50) % Monocytes % (Manual) (0-10) % Eosinophils % (Manual) (0-7) % Myelocytes % (0-0) % Platelet Estimate (NORMAL) Large Platelets Anisocytosis (manual) Acanthocytes (Spur) Schistocytes PT (9.8-13.1) Seconds INR APTT (25.6-37.1) Seconds pO2 90 H (30-55) mm/Hg VBG pH 7.41 (7.32-7.43) VBG pCO2 23 L (40-60) mmHg VBG HCO3 18.7 mmol/L VBG Total CO2 15.3 L (22-28) mmol/L VBG Base Excess -8.0 L (0.0-2.0) mmol/L VBG Potassium 6.6 H* (3.6-5.2) mmol/L Sodium 132.0 (132-148) mmol/L Chloride 109.0 H (98-107) mmol/L Glucose 118 H (65-105) mg/dL Lactate 4.3 H* (0.7-2.1) mmol/L FiO2 21.0 % Blood Gas Comments Lac=4.3 Crit Value Called To santo Reese Crit Value Called By 22 Crit Value Read Back Y Blood Gas Notified Time 1805 Potassium (3.6-5.0) MMOL/L Carbon Dioxide (22-30) mmol/L Anion Gap (10-20) BUN (7-17) mg/dl Creatinine (0.7-1.2) mg/dl Est GFR ( Amer) Est GFR (Non-Af Amer) POC Glucose (mg/dL) 112 H (65-110) mg/dL Random Glucose (65-105) mg/dL Calcium (8.4-10.2) mg/dL Phosphorus (2.5-4.5) mg/dl Magnesium (1.6-2.3) MG/DL Total Bilirubin (0.2-1.3) mg/dl AST (14-36) U/L ALT (9-52) U/L Alkaline Phosphatase (38-126) U/L Ammonia (11-51) umo/L Total Protein (6.3-8.2) G/DL Albumin (3.5-5.0) g/dL Globulin (2.2-3.9) gm/dL Albumin/Globulin Ratio (1.0-2.1) Venous Blood Potassium 6.6 H* (3.6-5.2) mmol/L Urine Color (YELLOW) Urine Clarity (Clear) Urine pH (5.0-8.0) Ur Specific [place] (1.003-1.030) Urine Protein (NEGATIVE) mg/dL Urine Glucose (UA) (Normal) mg/dL Urine Ketones (NEGATIVE) mg/dL Urine Blood (NEGATIVE) Urine Nitrate (NEGATIVE) Urine Bilirubin (NEGATIVE) Urine Urobilinogen (0.2-1.0) mg/dL Ur Leukocyte Esterase (Negative) Fredy/uL Urine RBC (Auto) (0-3) /hpf Urine Microscopic WBC (0-5) /hpf Ur Squamous Epith Cells (0-5) /hpf Amorphous Sediment (<OCC) /ul Hyaline Casts (0-2) /hpf Urine Opiates Screen (NEGATIVE) Urine Methadone Screen (NEGATIVE) Ur Barbiturates Screen (NEGATIVE) Ur Phencyclidine Scrn (NEGATIVE) Ur Amphetamines Screen (NEGATIVE) U Benzodiazepines Scrn (NEGATIVE) U Oth Cocaine Metabols (NEGATIVE) U Cannabinoids Screen (NEGATIVE) Alcohol, Quantitative (0-10) mg/dl Blood Type Antibody Screen Crossmatch BBK History Checked Laboratory Results - last 24 hr 02/17/18 02/17/18 02/17/18 17:59 17:59 18:00 WBC RBC Hgb Hct MCV MCH MCHC RDW Plt Count MPV Neut % (Auto) Lymph % (Auto) Luce % (Auto) Eos % (Auto) Baso % (Auto) Neut # (Auto) Lymph # (Auto) Luce # (Auto) Eos # (Auto) Baso # (Auto) Neutrophils % (Manual) Band Neutrophils % Lymphocytes % (Manual) Monocytes % (Manual) Eosinophils % (Manual) Myelocytes % Platelet Estimate Large Platelets Anisocytosis (manual) Acanthocytes (Spur) Schistocytes PT INR APTT pO2 90 H VBG pH 7.41 VBG pCO2 23 L VBG HCO3 18.7 VBG Total CO2 15.3 L VBG Base Excess -8.0 L VBG Potassium 6.6 H* Sodium 132.0 135 Chloride 109.0 H 109 H Glucose 118 H Lactate 4.3 H* FiO2 21.0 Blood Gas Comments Lac=4.3 Crit Value Called To santo Reese Crit Value Called By Matt Crit Value Read Back Y Blood Gas Notified Time 1805 Potassium 6.7 H* D Carbon Dioxide 14 L Anion Gap 19 BUN 79 H Creatinine 4.7 H Est GFR ( Amer) 12 Est GFR (Non-Af Amer) 10 POC Glucose (mg/dL) 112 H Random Glucose 115 H Calcium 8.7 Phosphorus Magnesium Total Bilirubin 4.4 H AST 27 ALT 13 Alkaline Phosphatase 75 Ammonia Total Protein 6.9 Albumin 2.4 L Globulin 4.4 H Albumin/Globulin Ratio 0.5 L Venous Blood Potassium 6.6 H* Urine Color Urine Clarity Urine pH Ur Specific [place] Urine Protein Urine Glucose (UA) Urine Ketones Urine Blood Urine Nitrate Urine Bilirubin Urine Urobilinogen Ur Leukocyte Esterase Urine RBC (Auto) Urine Microscopic WBC Ur Squamous Epith Cells Amorphous Sediment Hyaline Casts Urine Opiates Screen Urine Methadone Screen Ur Barbiturates Screen Ur Phencyclidine Scrn Ur Amphetamines Screen U Benzodiazepines Scrn U Oth Cocaine Metabols U Cannabinoids Screen Alcohol, Quantitative < 10 Blood Type Antibody Screen Crossmatch BBK History Checked 02/17/18 02/17/18 02/17/18 18:00 18:00 18:00 WBC 7.0 RBC 1.77 L Hgb 6.1 L* D Hct 17.9 L MCV 101.1 H D MCH 34.5 H MCHC 34.1 RDW 23.8 H Plt Count 46 L D MPV 11.2 Neut % (Auto) 66.9 Lymph % (Auto) 7.2 L Luce % (Auto) 25.3 H Eos % (Auto) 0.4 Baso % (Auto) 0.2 Neut # (Auto) 4.7 Lymph # (Auto) 0.5 L Luce # (Auto) 1.8 H Eos # (Auto) 0.0 Baso # (Auto) 0.0 Neutrophils % (Manual) 70 Band Neutrophils % 3 H Lymphocytes % (Manual) 11 L Monocytes % (Manual) 14 H Eosinophils % (Manual) 1 Myelocytes % 1 H Platelet Estimate Markedly decreased L Large Platelets Present Anisocytosis (manual) Slight Acanthocytes (Spur) Moderate Schistocytes Slight PT 24.2 H INR 2.1 APTT 41.4 H pO2 VBG pH VBG pCO2 VBG HCO3 VBG Total CO2 VBG Base Excess VBG Potassium Sodium Chloride Glucose Lactate FiO2 Blood Gas Comments Crit Value Called To Crit Value Called By Crit Value Read Back Blood Gas Notified Time Potassium Carbon Dioxide Anion Gap BUN Creatinine Est GFR ( Amer) Est GFR (Non-Af Amer) POC Glucose (mg/dL) Random Glucose Calcium Phosphorus Magnesium Total Bilirubin AST ALT Alkaline Phosphatase Ammonia 254 H* D Total Protein Albumin Globulin Albumin/Globulin Ratio Venous Blood Potassium Urine Color Urine Clarity Urine pH Ur Specific [place] Urine Protein Urine Glucose (UA) Urine Ketones Urine Blood Urine Nitrate Urine Bilirubin Urine Urobilinogen Ur Leukocyte Esterase Urine RBC (Auto) Urine Microscopic WBC Ur Squamous Epith Cells Amorphous Sediment Hyaline Casts Urine Opiates Screen Urine Methadone Screen Ur Barbiturates Screen Ur Phencyclidine Scrn Ur Amphetamines Screen U Benzodiazepines Scrn U Oth Cocaine Metabols U Cannabinoids Screen Alcohol, Quantitative Blood Type Antibody Screen Crossmatch BBK History Checked 02/17/18 02/18/18 02/18/18 18:31 05:00 05:00 WBC 8.2 RBC 1.75 L Hgb 6.0 L* Hct 17.7 L MCV 100.8 H MCH 34.2 H MCHC 33.9 RDW 23.3 H Plt Count 44 L MPV 11.4 Neut % (Auto) 76.8 H Lymph % (Auto) 5.2 L Luce % (Auto) 17.8 H Eos % (Auto) 0.0 Baso % (Auto) 0.2 Neut # (Auto) 6.3 Lymph # (Auto) 0.4 L Luce # (Auto) 1.5 H Eos # (Auto) 0.0 Baso # (Auto) 0.0 Neutrophils % (Manual) Band Neutrophils % Lymphocytes % (Manual) Monocytes % (Manual) Eosinophils % (Manual) Myelocytes % Platelet Estimate Large Platelets Anisocytosis (manual) Acanthocytes (Spur) Schistocytes PT INR APTT pO2 VBG pH VBG pCO2 VBG HCO3 VBG Total CO2 VBG Base Excess VBG Potassium Sodium Chloride Glucose Lactate FiO2 Blood Gas Comments Crit Value Called To Crit Value Called By Crit Value Read Back Blood Gas Notified Time Potassium Carbon Dioxide Anion Gap BUN Creatinine Est GFR ( Amer) Est GFR (Non-Af Amer) POC Glucose (mg/dL) Random Glucose Calcium Phosphorus Magnesium Total Bilirubin AST ALT Alkaline Phosphatase Ammonia Total Protein Albumin Globulin Albumin/Globulin Ratio Venous Blood Potassium Urine Color Urine Clarity Urine pH Ur Specific [place] Urine Protein Urine Glucose (UA) Urine Ketones Urine Blood Urine Nitrate Urine Bilirubin Urine Urobilinogen Ur Leukocyte Esterase Urine RBC (Auto) Urine Microscopic WBC Ur Squamous Epith Cells Amorphous Sediment Hyaline Casts Urine Opiates Screen Negative Urine Methadone Screen Negative Ur Barbiturates Screen Negative Ur Phencyclidine Scrn Negative Ur Amphetamines Screen Negative U Benzodiazepines Scrn Negative U Oth Cocaine Metabols Negative U Cannabinoids Screen Positive H Alcohol, Quantitative Blood Type A POSITIVE Antibody Screen Negative Crossmatch See Detail BBK History Checked Patient has bt 02/18/18 02/18/18 02/18/18 05:00 05:00 05:00 WBC RBC Hgb Hct MCV MCH MCHC RDW Plt Count MPV Neut % (Auto) Lymph % (Auto) Luce % (Auto) Eos % (Auto) Baso % (Auto) Neut # (Auto) Lymph # (Auto) Luce # (Auto) Eos # (Auto) Baso # (Auto) Neutrophils % (Manual) Band Neutrophils % Lymphocytes % (Manual) Monocytes % (Manual) Eosinophils % (Manual) Myelocytes % Platelet Estimate Large Platelets Anisocytosis (manual) Acanthocytes (Spur) Schistocytes PT INR APTT pO2 VBG pH VBG pCO2 VBG HCO3 VBG Total CO2 VBG Base Excess VBG Potassium Sodium 136 Chloride 114 H Glucose Lactate FiO2 Blood Gas Comments Crit Value Called To Crit Value Called By Crit Value Read Back Blood Gas Notified Time Potassium 6.6 H* Carbon Dioxide 12 L Anion Gap 17 BUN 81 H Creatinine 4.5 H Est GFR ( Amer) 13 Est GFR (Non-Af Amer) 10 POC Glucose (mg/dL) Random Glucose 99 Calcium 8.2 L Phosphorus Magnesium Total Bilirubin 4.3 H AST 26 ALT 15 Alkaline Phosphatase 49 Ammonia 126 H* D Total Protein 6.2 L Albumin 2.2 L Globulin 4.0 H Albumin/Globulin Ratio 0.6 L Venous Blood Potassium Urine Color Yellow Urine Clarity Slighty-cloudy Urine pH 5.0 Ur Specific [place] 1.010 Urine Protein Negative Urine Glucose (UA) Neg Urine Ketones Negative Urine Blood Negative Urine Nitrate Negative Urine Bilirubin Negative Urine Urobilinogen 0.2-1.0 Ur Leukocyte Esterase Neg Urine RBC (Auto) < 1 Urine Microscopic WBC 3 Ur Squamous Epith Cells 4 Amorphous Sediment Rare H Hyaline Casts >20 H Urine Opiates Screen Urine Methadone Screen Ur Barbiturates Screen Ur Phencyclidine Scrn Ur Amphetamines Screen U Benzodiazepines Scrn U Oth Cocaine Metabols U Cannabinoids Screen Alcohol, Quantitative Blood Type Antibody Screen Crossmatch BBK History Checked 02/18/18 02/18/18 10:24 10:24 WBC RBC Hgb Hct MCV MCH MCHC RDW Plt Count MPV Neut % (Auto) Lymph % (Auto) Luce % (Auto) Eos % (Auto) Baso % (Auto) Neut # (Auto) Lymph # (Auto) [place] # (Auto) Eos # (Auto) Baso # (Auto) Neutrophils % (Manual) Band Neutrophils % Lymphocytes % (Manual) Monocytes % (Manual) Eosinophils % (Manual) Myelocytes % Platelet Estimate Large Platelets Anisocytosis (manual) Acanthocytes (Spur) Schistocytes PT 26.6 H INR 2.3 APTT pO2 VBG pH VBG pCO2 VBG HCO3 VBG Total CO2 VBG Base Excess VBG Potassium Sodium 140 Chloride 113 H Glucose Lactate FiO2 Blood Gas Comments Crit Value Called To Crit Value Called By Crit Value Read Back Blood Gas Notified Time Potassium 7.0 H* Carbon Dioxide 15 L Anion Gap 19 BUN 79 H Creatinine 4.5 H Est GFR ( Amer) 13 Est GFR (Non-Af Amer) 10 POC Glucose (mg/dL) Random Glucose 103 Calcium 8.9 Phosphorus 7.9 H Magnesium 1.9 Total Bilirubin 8.1 H AST 34 ALT 19 Alkaline Phosphatase 55 Ammonia Total Protein 6.9 Albumin 2.6 L Globulin 4.2 H Albumin/Globulin Ratio 0.6 L Venous Blood Potassium Urine Color Urine Clarity Urine pH Ur Specific [place] Urine Protein Urine Glucose (UA) Urine Ketones Urine Blood Urine Nitrate Urine Bilirubin Urine Urobilinogen Ur Leukocyte Esterase Urine RBC (Auto) Urine Microscopic WBC Ur Squamous Epith Cells Amorphous Sediment Hyaline Casts Urine Opiates Screen Urine Methadone Screen Ur Barbiturates Screen Ur Phencyclidine Scrn Ur Amphetamines Screen U Benzodiazepines Scrn U Oth Cocaine Metabols U Cannabinoids Screen Alcohol, Quantitative Blood Type Antibody Screen Crossmatch BBK History Checked EKG/Cardiology Studies: Cardiology / EKG Studies 02/18/18 EKG [ELECTROCARDIOGRAM] Stat Comment: Mode Of Transportation: Reason For Exam: Hyperkalemia Fingerstick Blood Sugar Results: 112 Review of Systems - Review of Systems Systems not reviewed;Unavailable: Altered Mental Status Critical Care Progress Note - Nutrition Nutrition: Nutrition Category Date Time Status NPO Diet [DIET] Diets 02/17/18 Breakfast Active Assessment/Plan (1) Hepatic encephalopathy Assessment and plan: 47yo F. PMHx of Cirrhosis, HTN and asthma. Neuro: Delirium secondary to hepatic encephalopathy Pulm: Mild hypoxia, saturating well on 3 L nasal cannula. CV: Hemodynamically stable. Started on Midodrine. Hem: Severe thrombocytopenia, transfusing platelets. Elevated INR secondary to end-stage liver disease, transfusing FFP 2 units, already received vitamin K IV 2. Renal: Acute renal failure. Most likely hepatorenal syndrome. Started on IV albumin, Midodrine, octreotide. Patient may need dialysis, once platelets and FFP transfused in will try to place dialysis catheter. Her bleeding risk is currently high. Endo: No acute issues GI: Nothing by mouth. Ascites, will need paracentesis once coagulopathy reversed. ceftriaxone for spontaneous bacterial peritonitis prophylaxis. ID: SBP prophylaxis with ceftriaxone. DVT proph - SCDs GI proph - Protonix rockwell for strict I/O's during acute illness Code status - full code called [facility] hepatology team for possible transfer, awaiting ICU bed. Critical Care Time spent 60 minutes Multi-disciplinary rounds were performed with house staff, nursing, speech therapy, respiratory therapy, pharmacy and nutrition with integrated input from the primary team/attending and other consulting services. The documented time is cumulative and includes review of patient data/exams/labs/chart review and examination of the patient on rounds and throughout the day; time is exclusive of any procedures or teaching time. Current Visit: No Status: Acute Comment: Improved mental Status. Continue Lactulose Consider adding Rifaximin
--- NOTE | 2018-02-18 13:05 | CP.PCM.CON ---
History of Present Illness - History of Present Illness History of Present Illness: 47 yo female with end stage liver cirrhosis and multiple past admissions brought to the ER for altered mental status. Patient was found to have severe anemia and renal failure. No overt bleeding seen. Review of Systems - Review of Systems Systems not reviewed;Unavailable: Altered Mental Status Past Patient History - Infectious Disease Hx of Infectious Diseases: None - Past Medical History & Family History Past Medical History?: Yes - Past Social History Smoking Status: Never Smoked - CARDIAC Hx Hypertension: Yes - PULMONARY Hx Asthma: Yes Hx Sleep Apnea: No - NEUROLOGICAL Hx Neurological Disorder: No - HEENT Hx HEENT Problems: No - RENAL Hx Chronic Kidney Disease: No - ENDOCRINE/METABOLIC Hx Endocrine Disorders: No - HEMATOLOGICAL/ONCOLOGICAL Hx Anemia: Yes Hx Sickle Cell Disease: No - INTEGUMENTARY Hx Dermatological Problems: No - MUSCULOSKELETAL/RHEUMATOLOGICAL Hx Musculoskeletal Disorders: No Hx Falls: Yes - GASTROINTESTINAL Hx Gastrointestinal Disorders: Yes Hx Liver Failure: Yes - GENITOURINARY/GYNECOLOGICAL Hx Genitourinary Disorders: No - PSYCHIATRIC Hx Psychophysiologic Disorder: No Hx Substance Use: Yes (marijuana) - ANESTHESIA Hx Anesthesia: Yes Hx Anesthesia Reactions: No Hx Malignant Hyperthermia: No Meds Allergies/Adverse Reactions: Allergies Allergy/AdvReac Type Severity Reaction Status Date / Time iodine Allergy SHORTNESS Verified 01/31/18 23:12 OF BREATH - Medications Medications: Current Medications Albumin Human (Albumin Human 25% (12.5 Gm/50 Ml)) 12.5 gm IV Q8 BARBARA Stop: 02/21/18 01:01 Last Admin: 02/18/18 08:20 Dose: 12.5 gm Ceftriaxone Sodium 1 gm/ (Sodium Chloride) 100 mls @ 100 mls/hr IVPB DAILY BARBARA; Protocol Last Admin: 02/18/18 08:21 Dose: 100 mls/hr Lactulose (Generlac) 200 gm MN QID BARBARA Last Admin: 02/18/18 10:28 Dose: 200 gm Midodrine (Proamatine) 7.5 mg PO Q8H BARBARA Last Admin: 02/18/18 10:29 Dose: 7.5 mg Octreotide Acetate (Sandostatin) 100 mcg SC Q8 BARBARA Last Admin: 02/18/18 10:30 Dose: 100 mcg Rifaximin (Xifaxan) 550 mg PO BID BARBARA; Protocol Last Admin: 02/18/18 10:29 Dose: 550 mg Sodium Polystyrene Sulfonate (Kayexalate Susp) 15 gm PO Q6H BARBARA Last Admin: 02/18/18 11:09 Dose: 15 gm Physical Exam - Constitutional Appears: Cachectic - Head Exam Head Exam: ATRAUMATIC - Eye Exam Eye Exam: Scleral icterus - ENT Exam ENT Exam: Normal Exam - Respiratory Exam Respiratory Exam: NORMAL BREATHING PATTERN - Cardiovascular Exam Cardiovascular Exam: REGULAR RHYTHM - GI/Abdominal Exam GI & Abdominal Exam: Firm, Normal Bowel Sounds Results - Vital Signs Recent Vital Signs: Last Vital Signs Temp 97.9 F 02/18/18 11:59 Pulse 79 02/18/18 11:59 Resp 15 02/18/18 11:59 BP 95/66 L 02/18/18 11:59 Pulse Ox 99 02/18/18 11:59 - Labs Result Diagrams: 02/18/18 05:00 02/18/18 10:24 Labs: Laboratory Results - last 24 hr 02/17/18 02/17/18 02/17/18 17:59 17:59 18:00 WBC RBC Hgb Hct MCV MCH MCHC RDW Plt Count MPV Neut % (Auto) Lymph % (Auto) [place] % (Auto) Eos % (Auto) Baso % (Auto) Neut # (Auto) Lymph # (Auto) [place] # (Auto) Eos # (Auto) Baso # (Auto) Neutrophils % (Manual) Band Neutrophils % Lymphocytes % (Manual) Monocytes % (Manual) Eosinophils % (Manual) Myelocytes % Platelet Estimate Large Platelets Anisocytosis (manual) Acanthocytes (Spur) Schistocytes PT INR APTT pO2 90 H VBG pH 7.41 VBG pCO2 23 L VBG HCO3 18.7 VBG Total CO2 15.3 L VBG Base Excess -8.0 L VBG Potassium 6.6 H* Sodium 132.0 135 Chloride 109.0 H 109 H Glucose 118 H Lactate 4.3 H* FiO2 21.0 Blood Gas Comments Lac=4.3 Crit Value Called To santo Reese Crit Value Called By 22 Crit Value Read Back Y Blood Gas Notified Time 1805 Potassium 6.7 H* D Carbon Dioxide 14 L Anion Gap 19 BUN 79 H Creatinine 4.7 H Est GFR ( Amer) 12 Est GFR (Non-Af Amer) 10 POC Glucose (mg/dL) 112 H Random Glucose 115 H Calcium 8.7 Phosphorus Magnesium Total Bilirubin 4.4 H AST 27 ALT 13 Alkaline Phosphatase 75 Ammonia Total Protein 6.9 Albumin 2.4 L Globulin 4.4 H Albumin/Globulin Ratio 0.5 L Venous Blood Potassium 6.6 H* Urine Color Urine Clarity Urine pH Ur Specific [place] Urine Protein Urine Glucose (UA) Urine Ketones Urine Blood Urine Nitrate Urine Bilirubin Urine Urobilinogen Ur Leukocyte Esterase Urine RBC (Auto) Urine Microscopic WBC Ur Squamous Epith Cells Amorphous Sediment Hyaline Casts Urine Opiates Screen Urine Methadone Screen Ur Barbiturates Screen Ur Phencyclidine Scrn Ur Amphetamines Screen U Benzodiazepines Scrn U Oth Cocaine Metabols U Cannabinoids Screen Alcohol, Quantitative < 10 Blood Type Antibody Screen Crossmatch BBK History Checked 02/17/18 02/17/18 02/17/18 18:00 18:00 18:00 WBC 7.0 RBC 1.77 L Hgb 6.1 L* D Hct 17.9 L MCV 101.1 H D MCH 34.5 H MCHC 34.1 RDW 23.8 H Plt Count 46 L D MPV 11.2 Neut % (Auto) 66.9 Lymph % (Auto) 7.2 L [place] % (Auto) 25.3 H Eos % (Auto) 0.4 Baso % (Auto) 0.2 Neut # (Auto) 4.7 Lymph # (Auto) 0.5 L [place] # (Auto) 1.8 H Eos # (Auto) 0.0 Baso # (Auto) 0.0 Neutrophils % (Manual) 70 Band Neutrophils % 3 H Lymphocytes % (Manual) 11 L Monocytes % (Manual) 14 H Eosinophils % (Manual) 1 Myelocytes % 1 H Platelet Estimate Markedly decreased L Large Platelets Present Anisocytosis (manual) Slight Acanthocytes (Spur) Moderate Schistocytes Slight PT 24.2 H INR 2.1 APTT 41.4 H pO2 VBG pH VBG pCO2 VBG HCO3 VBG Total CO2 VBG Base Excess VBG Potassium Sodium Chloride Glucose Lactate FiO2 Blood Gas Comments Crit Value Called To Crit Value Called By Crit Value Read Back Blood Gas Notified Time Potassium Carbon Dioxide Anion Gap BUN Creatinine Est GFR ( Amer) Est GFR (Non-Af Amer) POC Glucose (mg/dL) Random Glucose Calcium Phosphorus Magnesium Total Bilirubin AST ALT Alkaline Phosphatase Ammonia 254 H* D Total Protein Albumin Globulin Albumin/Globulin Ratio Venous Blood Potassium Urine Color Urine Clarity Urine pH Ur Specific [place] Urine Protein Urine Glucose (UA) Urine Ketones Urine Blood Urine Nitrate Urine Bilirubin Urine Urobilinogen Ur Leukocyte Esterase Urine RBC (Auto) Urine Microscopic WBC Ur Squamous Epith Cells Amorphous Sediment Hyaline Casts Urine Opiates Screen Urine Methadone Screen Ur Barbiturates Screen Ur Phencyclidine Scrn Ur Amphetamines Screen U Benzodiazepines Scrn U Oth Cocaine Metabols U Cannabinoids Screen Alcohol, Quantitative Blood Type Antibody Screen Crossmatch BBK History Checked 02/17/18 02/18/18 02/18/18 18:31 05:00 05:00 WBC 8.2 RBC 1.75 L Hgb 6.0 L* Hct 17.7 L MCV 100.8 H MCH 34.2 H MCHC 33.9 RDW 23.3 H Plt Count 44 L MPV 11.4 Neut % (Auto) 76.8 H Lymph % (Auto) 5.2 L [place] % (Auto) 17.8 H Eos % (Auto) 0.0 Baso % (Auto) 0.2 Neut # (Auto) 6.3 Lymph # (Auto) 0.4 L [place] # (Auto) 1.5 H Eos # (Auto) 0.0 Baso # (Auto) 0.0 Neutrophils % (Manual) Band Neutrophils % Lymphocytes % (Manual) Monocytes % (Manual) Eosinophils % (Manual) Myelocytes % Platelet Estimate Large Platelets Anisocytosis (manual) Acanthocytes (Spur) Schistocytes PT INR APTT pO2 VBG pH VBG pCO2 VBG HCO3 VBG Total CO2 VBG Base Excess VBG Potassium Sodium Chloride Glucose Lactate FiO2 Blood Gas Comments Crit Value Called To Crit Value Called By Crit Value Read Back Blood Gas Notified Time Potassium Carbon Dioxide Anion Gap BUN Creatinine Est GFR ( Amer) Est GFR (Non-Af Amer) POC Glucose (mg/dL) Random Glucose Calcium Phosphorus Magnesium Total Bilirubin AST ALT Alkaline Phosphatase Ammonia Total Protein Albumin Globulin Albumin/Globulin Ratio Venous Blood Potassium Urine Color Urine Clarity Urine pH Ur Specific [place] Urine Protein Urine Glucose (UA) Urine Ketones Urine Blood Urine Nitrate Urine Bilirubin Urine Urobilinogen Ur Leukocyte Esterase Urine RBC (Auto) Urine Microscopic WBC Ur Squamous Epith Cells Amorphous Sediment Hyaline Casts Urine Opiates Screen Negative Urine Methadone Screen Negative Ur Barbiturates Screen Negative Ur Phencyclidine Scrn Negative Ur Amphetamines Screen Negative U Benzodiazepines Scrn Negative U Oth Cocaine Metabols Negative U Cannabinoids Screen Positive H Alcohol, Quantitative Blood Type A POSITIVE Antibody Screen Negative Crossmatch See Detail BBK History Checked Patient has bt 02/18/18 02/18/18 02/18/18 05:00 05:00 05:00 WBC RBC Hgb Hct MCV MCH MCHC RDW Plt Count MPV Neut % (Auto) Lymph % (Auto) [place] % (Auto) Eos % (Auto) Baso % (Auto) Neut # (Auto) Lymph # (Auto) [place] # (Auto) Eos # (Auto) Baso # (Auto) Neutrophils % (Manual) Band Neutrophils % Lymphocytes % (Manual) Monocytes % (Manual) Eosinophils % (Manual) Myelocytes % Platelet Estimate Large Platelets Anisocytosis (manual) Acanthocytes (Spur) Schistocytes PT INR APTT pO2 VBG pH VBG pCO2 VBG HCO3 VBG Total CO2 VBG Base Excess VBG Potassium Sodium 136 Chloride 114 H Glucose Lactate FiO2 Blood Gas Comments Crit Value Called To Crit Value Called By Crit Value Read Back Blood Gas Notified Time Potassium 6.6 H* Carbon Dioxide 12 L Anion Gap 17 BUN 81 H Creatinine 4.5 H Est GFR ( Amer) 13 Est GFR (Non-Af Amer) 10 POC Glucose (mg/dL) Random Glucose 99 Calcium 8.2 L Phosphorus Magnesium Total Bilirubin 4.3 H AST 26 ALT 15 Alkaline Phosphatase 49 Ammonia 126 H* D Total Protein 6.2 L Albumin 2.2 L Globulin 4.0 H Albumin/Globulin Ratio 0.6 L Venous Blood Potassium Urine Color Yellow Urine Clarity Slighty-cloudy Urine pH 5.0 Ur Specific [place] 1.010 Urine Protein Negative Urine Glucose (UA) Neg Urine Ketones Negative Urine Blood Negative Urine Nitrate Negative Urine Bilirubin Negative Urine Urobilinogen 0.2-1.0 Ur Leukocyte Esterase Neg Urine RBC (Auto) < 1 Urine Microscopic WBC 3 Ur Squamous Epith Cells 4 Amorphous Sediment Rare H Hyaline Casts >20 H Urine Opiates Screen Urine Methadone Screen Ur Barbiturates Screen Ur Phencyclidine Scrn Ur Amphetamines Screen U Benzodiazepines Scrn U Oth Cocaine Metabols U Cannabinoids Screen Alcohol, Quantitative Blood Type Antibody Screen Crossmatch BBK History Checked 02/18/18 02/18/18 10:24 10:24 WBC RBC Hgb Hct MCV MCH MCHC RDW Plt Count MPV Neut % (Auto) Lymph % (Auto) [place] % (Auto) Eos % (Auto) Baso % (Auto) Neut # (Auto) Lymph # (Auto) [place] # (Auto) Eos # (Auto) Baso # (Auto) Neutrophils % (Manual) Band Neutrophils % Lymphocytes % (Manual) Monocytes % (Manual) Eosinophils % (Manual) Myelocytes % Platelet Estimate Large Platelets Anisocytosis (manual) Acanthocytes (Spur) Schistocytes PT 26.6 H INR 2.3 APTT pO2 VBG pH VBG pCO2 VBG HCO3 VBG Total CO2 VBG Base Excess VBG Potassium Sodium 140 Chloride 113 H Glucose Lactate FiO2 Blood Gas Comments Crit Value Called To Crit Value Called By Crit Value Read Back Blood Gas Notified Time Potassium 7.0 H* Carbon Dioxide 15 L Anion Gap 19 BUN 79 H Creatinine 4.5 H Est GFR ( Amer) 13 Est GFR (Non-Af Amer) 10 POC Glucose (mg/dL) Random Glucose 103 Calcium 8.9 Phosphorus 7.9 H Magnesium 1.9 Total Bilirubin 8.1 H AST 34 ALT 19 Alkaline Phosphatase 55 Ammonia Total Protein 6.9 Albumin 2.6 L Globulin 4.2 H Albumin/Globulin Ratio 0.6 L Venous Blood Potassium Urine Color Urine Clarity Urine pH Ur Specific [place] Urine Protein Urine Glucose (UA) Urine Ketones Urine Blood Urine Nitrate Urine Bilirubin Urine Urobilinogen Ur Leukocyte Esterase Urine RBC (Auto) Urine Microscopic WBC Ur Squamous Epith Cells Amorphous Sediment Hyaline Casts Urine Opiates Screen Urine Methadone Screen Ur Barbiturates Screen Ur Phencyclidine Scrn Ur Amphetamines Screen U Benzodiazepines Scrn U Oth Cocaine Metabols U Cannabinoids Screen Alcohol, Quantitative Blood Type Antibody Screen Crossmatch BBK History Checked Assessment & Plan (1) History of cirrhosis of liver Assessment and Plan: Patient presenting now with worst renal numbers than previously present and renal has recommended dialysis. Ammonia level is improving. No overt GI bleeding present and past EGD in December did not show varices. Liver transplant center has been contacted and that offers her the best chance for survival. Transfuse to Hgb 8. Maintain lasctulse. Status: Acute
[2018-02-18] MEDS ORDERED: Absorbable Gelatin Sponge Size 12-7 TP ONE (14:20)
[2018-02-18 14:55] LABS: HEMOGLOBIN 7.7 g/dL (12.0-16.0); MEAN CELL VOLUME 97.7 fl (81.0-99.0); MEAN CORPUSCULAR HEMOGLOBIN 34.7 pg (27.0-31.0); MEAN CORPUSCULAR HGB CONC 35.6 g/dL (33.0-37.0); RBC 2.21 Mil/uL (3.80-5.20); RED CELL DISTRIBUTION WIDTH 21.4 % (11.5-14.5); WHITE BLOOD COUNT 10.1 K/uL (4.8-10.8)
[2018-02-18 15:50] LABS: ALB/GLOB RATIO 0.6 (1.0-2.1); ALBUMIN 2.6 g/dL (3.5-5.0)
--- NOTE | 2018-02-18 16:31 | CARD ---
APPROVED REPORT Date of service: 02/18/2018 EKG Measurement Heart [id number] <Conclusion> Sinus tachycardia Low voltage QRS Borderline ECG
[2018-02-18 18:20] LABS: ABG ALLEN TEST YES; ARTERIAL BLOOD GAS HCO3 16.5 mmol/L (21-28); ARTERIAL BLOOD GAS O2 SAT 99.9 % (95-98); ARTERIAL BLOOD GAS PCO2 23 mm/Hg (35-45); ARTERIAL BLOOD GAS PH 7.35 (7.35-7.45); ARTERIAL BLOOD GAS PO2 156 mm/Hg (80-100); ARTERIAL BLOOD GAS TCO2 13.4 mmol/L (22-28)
[2018-02-18 20:38] LABS: CALCIUM 9.4 mg/dL (8.4-10.2)
[2018-02-18 23:48] VITALS: PULSE 75; RESP 15; TEMP 97.1
[2018-02-19 00:02] VITALS: BP 99/52
--- NOTE | 2018-02-19 07:25 | CP.PCM.DIS ---
<Isabel Villanueva - Last Filed: 02/19/18 07:26> Provider - Provider Date of Admission: 02/17/18 18:46 Attending physician: Ryan Rosa MD Time Spent in preparation of Discharge (in minutes): 35 Diagnosis - Discharge Diagnosis (1) Acute renal failure (ARF) Status: Acute (2) Hepatic encephalopathy Status: Acute (3) Hyperammonemia Status: Acute (4) Hyperkalemia Status: Acute (5) Symptomatic anemia Status: Acute (6) Cirrhosis of liver with ascites Status: Chronic Hospital Course - Lab Results Lab Results: Most Recent Lab Values WBC 10.1 K/uL (4.8-10.8) 02/18/18 14:34 RBC 2.21 Mil/uL (3.80-5.20) L 02/18/18 14:34 Hgb 7.7 g/dL (12.0-16.0) L 02/18/18 14:34 Hct 21.6 % (34.0-47.0) L 02/18/18 14:34 MCV 97.7 fl (81.0-99.0) D 02/18/18 14:34 MCH 34.7 pg (27.0-31.0) H 02/18/18 14:34 MCHC 35.6 g/dL (33.0-37.0) 02/18/18 14:34 RDW 21.4 % (11.5-14.5) H 02/18/18 14:34 Plt Count 51 K/uL (130-400) L 02/18/18 14:34 MPV 11.4 fl (7.2-11.7) 02/18/18 05:00 Neut % (Auto) 76.8 % (50.0-75.0) H 02/18/18 05:00 Lymph % (Auto) 5.2 % (20.0-40.0) L 02/18/18 05:00 [place] % (Auto) 17.8 % (0.0-10.0) H 02/18/18 05:00 Eos % (Auto) 0.0 % (0.0-4.0) 02/18/18 05:00 Baso % (Auto) 0.2 % (0.0-2.0) 02/18/18 05:00 Neut # (Auto) 6.3 K/uL (1.8-7.0) 02/18/18 05:00 Lymph # (Auto) 0.4 K/uL (1.0-4.3) L 02/18/18 05:00 [place] # (Auto) 1.5 K/uL (0.0-0.8) H 02/18/18 05:00 Eos # (Auto) 0.0 K/uL (0.0-0.7) 02/18/18 05:00 Baso # (Auto) 0.0 K/uL (0.0-0.2) 02/18/18 05:00 Neutrophils % (Manual) 70 % (42-75) 02/17/18 18:00 Band Neutrophils % 3 % (0-2) H 02/17/18 18:00 Lymphocytes % (Manual) 11 % (20-50) L 02/17/18 18:00 Monocytes % (Manual) 14 % (0-10) H 02/17/18 18:00 Eosinophils % (Manual) 1 % (0-7) 02/17/18 18:00 Myelocytes % 1 % (0-0) H 02/17/18 18:00 Platelet Estimate Markedly decreased (NORMAL) L 02/17/18 18:00 Large Platelets Present 02/17/18 18:00 Anisocytosis (manual) Slight 02/17/18 18:00 Acanthocytes (Spur) Moderate 02/17/18 18:00 Schistocytes Slight 02/17/18 18:00 PT 26.6 Seconds (9.8-13.1) H 02/18/18 10:24 INR 2.3 02/18/18 10:24 APTT 41.4 Seconds (25.6-37.1) H 02/17/18 18:00 pCO2 23 mm/Hg (35-45) L 02/18/18 18:11 pO2 156 mm/Hg (80-100) H 02/18/18 18:11 HCO3 16.5 mmol/L (21-28) L 02/18/18 18:11 ABG pH 7.35 (7.35-7.45) 02/18/18 18:11 ABG Total CO2 13.4 mmol/L (22-28) L 02/18/18 18:11 ABG O2 Saturation 99.9 % (95-98) H 02/18/18 18:11 ABG Base Excess -10.9 mmol/L (-2.0-3.0) L 02/18/18 18:11 Evan Test Yes 02/18/18 18:11 ABG Potassium 6.1 mmol/L (3.6-5.2) H 02/18/18 18:11 VBG pH 7.41 (7.32-7.43) 02/17/18 17:59 VBG pCO2 23 mmHg (40-60) L 02/17/18 17:59 VBG HCO3 18.7 mmol/L 02/17/18 17:59 VBG Total CO2 15.3 mmol/L (22-28) L 02/17/18 17:59 VBG Base Excess -8.0 mmol/L (0.0-2.0) L 02/17/18 17:59 VBG Potassium 6.6 mmol/L (3.6-5.2) H* 02/17/18 17:59 A-a O2 Difference 43.0 mm/Hg 02/18/18 18:11 Sodium 138.0 mmol/L (132-148) 02/18/18 18:11 Chloride 113.0 mmol/L (98-107) H 02/18/18 18:11 Glucose 119 mg/dL (65-105) H 02/18/18 18:11 Lactate 5.0 mmol/L (0.7-2.1) H* 02/18/18 18:11 Vent Mode 3lnc 02/18/18 18:11 FiO2 32.0 % 02/18/18 18:11 Blood Gas Comments Lac=4.3 02/17/18 17:59 Crit Value Called To giorgi Perkins do 02/18/18 18:11 Crit Value Called By Christine mcelroy 02/18/18 18:11 Crit Value Read Back Y 02/18/18 18:11 Blood Gas Notified Time 18202/18/18 18:11 Sodium 142 mmol/l (132-148) 02/18/18 20:14 Potassium 6.1 MMOL/L (3.6-5.0) H 02/18/18 20:14 Chloride 113 mmol/L (98-107) H 02/18/18 20:14 Carbon Dioxide 13 mmol/L (22-30) L 02/18/18 20:14 Anion Gap 22 (10-20) H 02/18/18 20:14 BUN 78 mg/dl (7-17) H 02/18/18 20:14 Creatinine 4.3 mg/dl (0.7-1.2) H 02/18/18 20:14 Est GFR ( Amer) 13 02/18/18 20:14 Est GFR (Non-Af Amer) 11 02/18/18 20:14 POC Glucose (mg/dL) 112 mg/dL (65-110) H 02/17/18 17:59 Random Glucose 118 mg/dL (65-105) H 02/18/18 20:14 Calcium 9.4 mg/dL (8.4-10.2) 02/18/18 20:14 Phosphorus 7.9 mg/dl (2.5-4.5) H 02/18/18 10:24 Magnesium 1.9 MG/DL (1.6-2.3) 02/18/18 10:24 Total Bilirubin 9.6 mg/dl (0.2-1.3) H 02/18/18 14:34 AST 33 U/L (14-36) 02/18/18 14:34 ALT 17 U/L (9-52) 02/18/18 14:34 Alkaline Phosphatase 53 U/L (38-126) 02/18/18 14:34 Ammonia 108 umo/L (11-51) H* 02/18/18 14:34 Total Protein 6.8 G/DL (6.3-8.2) 02/18/18 14:34 Albumin 2.6 g/dL (3.5-5.0) L 02/18/18 14:34 Globulin 4.2 gm/dL (2.2-3.9) H 02/18/18 14:34 Albumin/Globulin Ratio 0.6 (1.0-2.1) L 02/18/18 14:34 Arterial Blood Potassium 6.1 mmol/L (3.6-5.2) H 02/18/18 18:11 Venous Blood Potassium 6.6 mmol/L (3.6-5.2) H* 02/17/18 17:59 Urine Color Yellow (YELLOW) 02/18/18 05:00 Urine Clarity Slighty-cloudy (Clear) 02/18/18 05:00 Urine pH 5.0 (5.0-8.0) 02/18/18 05:00 Ur Specific [place] 1.010 (1.003-1.030) 02/18/18 05:00 Urine Protein Negative mg/dL (NEGATIVE) 02/18/18 05:00 Urine Glucose (UA) Neg mg/dL (Normal) 02/18/18 05:00 Urine Ketones Negative mg/dL (NEGATIVE) 02/18/18 05:00 Urine Blood Negative (NEGATIVE) 02/18/18 05:00 Urine Nitrate Negative (NEGATIVE) 02/18/18 05:00 Urine Bilirubin Negative (NEGATIVE) 02/18/18 05:00 Urine Urobilinogen 0.2-1.0 mg/dL (0.2-1.0) 02/18/18 05:00 Ur Leukocyte Esterase Neg Fredy/uL (Negative) 02/18/18 05:00 Urine RBC (Auto) < 1 /hpf (0-3) 02/18/18 05:00 Urine Microscopic WBC 3 /hpf (0-5) 02/18/18 05:00 Ur Squamous Epith Cells 4 /hpf (0-5) 02/18/18 05:00 Amorphous Sediment Rare /ul (<OCC) H 02/18/18 05:00 Hyaline Casts >20 /hpf (0-2) H 02/18/18 05:00 Urine Opiates Screen Negative (NEGATIVE) 02/18/18 05:00 Urine Methadone Screen Negative (NEGATIVE) 02/18/18 05:00 Ur Barbiturates Screen Negative (NEGATIVE) 02/18/18 05:00 Ur Phencyclidine Scrn Negative (NEGATIVE) 02/18/18 05:00 Ur Amphetamines Screen Negative (NEGATIVE) 02/18/18 05:00 U Benzodiazepines Scrn Negative (NEGATIVE) 02/18/18 05:00 U Oth Cocaine Metabols Negative (NEGATIVE) 02/18/18 05:00 U Cannabinoids Screen Positive (NEGATIVE) H 02/18/18 05:00 Alcohol, Quantitative < 10 mg/dl (0-10) 02/17/18 18:00 Blood Type A POSITIVE 02/17/18 18:31 Antibody Screen Negative 02/17/18 18:31 Crossmatch See Detail 02/17/18 18:31 BBK History Checked Patient has bt 02/17/18 18:31 - Hospital Course Hospital Course: 47 YO female with PMHx of Cirrhosis, HTN and asthma is admitted for altered mental status, severe anemia and hyperkalemia. Patient was found to have hepatic encephalopathy, with hepatorenal syndrome and renal failure. Pt was given 2 units of PRBC, PLTs and FFP. Due to the acuity of the patients condition and prognosis, [facility] liver center [phone], was called for transfer. Dr. George, Infusion Therapy Nurse was called and case reviewed with him, pt was accepted and ICU was contacted and transfer process was started. In the interim, Nephrology was consulted, recs was dialysis due to worsening potassium and renal failure; in preparation for dialysis pt was given PLTs and FFP. Overnight, pt was transferred to [facility] for higher level of are in liver center. Discharge Exam - Head Exam Head Exam: ATRAUMATIC Additional comments: EXAM was done in the late afternoon of 02/18/18 - Eye Exam Eye Exam: EOMI, Scleral icterus - ENT Exam ENT Exam: Mucous Membranes Moist - Respiratory Exam Respiratory Exam: Clear to PA & Lateral, NORMAL BREATHING PATTERN. absent: Wheezes - Cardiovascular Exam Cardiovascular Exam: REGULAR RHYTHM, +S1 - GI/Abdominal Exam GI & Abdominal Exam: Diminished Bowel Sounds, Distended, Firm. absent: Tenderness - Extremities Exam Extremities exam: pedal edema Additional comments: edema of the upper and lower ext - Neurological Exam Additional comments: awake, not alert or oriented. Not following commands - Skin Additional comments: jaundice, mild Discharge Plan - Follow Up Plan Condition: CRITICAL Disposition: Trans to Other Acute Care Hosp Additional Instructions: d/c to [facility] for higher level of care , Transplant Program <Gina Jimenez - Last Filed: 02/19/18 17:21> Provider - Provider Date of Admission: 02/17/18 18:46 Attending physician: Ryan Rosa MD Hospital Course - Lab Results Lab Results: Micro Results 02/18/18 14:34 Blood Blood Culture - Preliminary NO GROWTH AFTER 24 HOURS 02/18/18 14:24 Blood Blood Culture - Preliminary NO GROWTH AFTER 24 HOURS Most Recent Lab Values WBC 10.1 K/uL (4.8-10.8) 02/18/18 14:34 RBC 2.21 Mil/uL (3.80-5.20) L 02/18/18 14:34 Hgb 7.7 g/dL (12.0-16.0) L 02/18/18 14:34 Hct 21.6 % (34.0-47.0) L 02/18/18 14:34 MCV 97.7 fl (81.0-99.0) D 02/18/18 14:34 MCH 34.7 pg (27.0-31.0) H 02/18/18 14:34 MCHC 35.6 g/dL (33.0-37.0) 02/18/18 14:34 RDW 21.4 % (11.5-14.5) H 02/18/18 14:34 Plt Count 51 K/uL (130-400) L 02/18/18 14:34 MPV 11.4 fl (7.2-11.7) 02/18/18 05:00 Neut % (Auto) 76.8 % (50.0-75.0) H 02/18/18 05:00 Lymph % (Auto) 5.2 % (20.0-40.0) L 02/18/18 05:00 [place] % (Auto) 17.8 % (0.0-10.0) H 02/18/18 05:00 Eos % (Auto) 0.0 % (0.0-4.0) 02/18/18 05:00 Baso % (Auto) 0.2 % (0.0-2.0) 02/18/18 05:00 Neut # (Auto) 6.3 K/uL (1.8-7.0) 02/18/18 05:00 Lymph # (Auto) 0.4 K/uL (1.0-4.3) L 02/18/18 05:00 [place] # (Auto) 1.5 K/uL (0.0-0.8) H 02/18/18 05:00 Eos # (Auto) 0.0 K/uL (0.0-0.7) 02/18/18 05:00 Baso # (Auto) 0.0 K/uL (0.0-0.2) 02/18/18 05:00 Neutrophils % (Manual) 70 % (42-75) 02/17/18 18:00 Band Neutrophils % 3 % (0-2) H 02/17/18 18:00 Lymphocytes % (Manual) 11 % (20-50) L 02/17/18 18:00 Monocytes % (Manual) 14 % (0-10) H 02/17/18 18:00 Eosinophils % (Manual) 1 % (0-7) 02/17/18 18:00 Myelocytes % 1 % (0-0) H 02/17/18 18:00 Platelet Estimate Markedly decreased (NORMAL) L 02/17/18 18:00 Large Platelets Present 02/17/18 18:00 Anisocytosis (manual) Slight 02/17/18 18:00 Acanthocytes (Spur) Moderate 02/17/18 18:00 Schistocytes Slight 02/17/18 18:00 PT 26.6 Seconds (9.8-13.1) H 02/18/18 10:24 INR 2.3 02/18/18 10:24 APTT 41.4 Seconds (25.6-37.1) H 02/17/18 18:00 pCO2 23 mm/Hg (35-45) L 02/18/18 18:11 pO2 156 mm/Hg (80-100) H 02/18/18 18:11 HCO3 16.5 mmol/L (21-28) L 02/18/18 18:11 ABG pH 7.35 (7.35-7.45) 02/18/18 18:11 ABG Total CO2 13.4 mmol/L (22-28) L 02/18/18 18:11 ABG O2 Saturation 99.9 % (95-98) H 02/18/18 18:11 ABG Base Excess -10.9 mmol/L (-2.0-3.0) L 02/18/18 18:11 Evan Test Yes 02/18/18 18:11 ABG Potassium 6.1 mmol/L (3.6-5.2) H 02/18/18 18:11 VBG pH 7.41 (7.32-7.43) 02/17/18 17:59 VBG pCO2 23 mmHg (40-60) L 02/17/18 17:59 VBG HCO3 18.7 mmol/L 02/17/18 17:59 VBG Total CO2 15.3 mmol/L (22-28) L 02/17/18 17:59 VBG Base Excess -8.0 mmol/L (0.0-2.0) L 02/17/18 17:59 VBG Potassium 6.6 mmol/L (3.6-5.2) H* 02/17/18 17:59 A-a O2 Difference 43.0 mm/Hg 02/18/18 18:11 Sodium 138.0 mmol/L (132-148) 02/18/18 18:11 Chloride 113.0 mmol/L (98-107) H 02/18/18 18:11 Glucose 119 mg/dL (65-105) H 02/18/18 18:11 Lactate 5.0 mmol/L (0.7-2.1) H* 02/18/18 18:11 Vent Mode 3lnc 02/18/18 18:11 FiO2 32.0 % 02/18/18 18:11 Blood Gas Comments [place]=4.3 02/17/18 17:59 Crit Value Called To giorgi Perkins do 02/18/18 18:11 Crit Value Called By Christine mcelroy 02/18/18 18:11 Crit Value Read Back Y 02/18/18 18:11 Blood Gas Notified Time 1820 02/18/18 18:11 Sodium 142 mmol/l (132-148) 02/18/18 20:14 Potassium 6.1 MMOL/L (3.6-5.0) H 02/18/18 20:14 Chloride 113 mmol/L (98-107) H 02/18/18 20:14 Carbon Dioxide 13 mmol/L (22-30) L 02/18/18 20:14 Anion Gap 22 (10-20) H 02/18/18 20:14 BUN 78 mg/dl (7-17) H 02/18/18 20:14 Creatinine 4.3 mg/dl (0.7-1.2) H 02/18/18 20:14 Est GFR ( Amer) 13 02/18/18 20:14 Est GFR (Non-Af Amer) 11 02/18/18 20:14 POC Glucose (mg/dL) 112 mg/dL (65-110) H 02/17/18 17:59 Random Glucose 118 mg/dL (65-105) H 02/18/18 20:14 Calcium 9.4 mg/dL (8.4-10.2) 02/18/18 20:14 Phosphorus 7.9 mg/dl (2.5-4.5) H 02/18/18 10:24 Magnesium 1.9 MG/DL (1.6-2.3) 02/18/18 10:24 Total Bilirubin 9.6 mg/dl (0.2-1.3) H 02/18/18 14:34 AST 33 U/L (14-36) 02/18/18 14:34 ALT 17 U/L (9-52) 02/18/18 14:34 Alkaline Phosphatase 53 U/L (38-126) 02/18/18 14:34 Ammonia 108 umo/L (11-51) H* 02/18/18 14:34 Total Protein 6.8 G/DL (6.3-8.2) 02/18/18 14:34 Albumin 2.6 g/dL (3.5-5.0) L 02/18/18 14:34 Globulin 4.2 gm/dL (2.2-3.9) H 02/18/18 14:34 Albumin/Globulin Ratio 0.6 (1.0-2.1) L 02/18/18 14:34 Arterial Blood Potassium 6.1 mmol/L (3.6-5.2) H 02/18/18 18:11 Venous Blood Potassium 6.6 mmol/L (3.6-5.2) H* 02/17/18 17:59 Urine Color Yellow (YELLOW) 02/18/18 05:00 Urine Clarity Slighty-cloudy (Clear) 02/18/18 05:00 Urine pH 5.0 (5.0-8.0) 02/18/18 05:00 Ur Specific [place] 1.010 (1.003-1.030) 02/18/18 05:00 Urine Protein Negative mg/dL (NEGATIVE) 02/18/18 05:00 Urine Glucose (UA) Neg mg/dL (Normal) 02/18/18 05:00 Urine Ketones Negative mg/dL (NEGATIVE) 02/18/18 05:00 Urine Blood Negative (NEGATIVE) 02/18/18 05:00 Urine Nitrate Negative (NEGATIVE) 02/18/18 05:00 Urine Bilirubin Negative (NEGATIVE) 02/18/18 05:00 Urine Urobilinogen 0.2-1.0 mg/dL (0.2-1.0) 02/18/18 05:00 Ur Leukocyte Esterase Neg Fredy/uL (Negative) 02/18/18 05:00 Urine RBC (Auto) < 1 /hpf (0-3) 02/18/18 05:00 Urine Microscopic WBC 3 /hpf (0-5) 02/18/18 05:00 Ur Squamous Epith Cells 4 /hpf (0-5) 02/18/18 05:00 Amorphous Sediment Rare /ul (<OCC) H 02/18/18 05:00 Hyaline Casts >20 /hpf (0-2) H 02/18/18 05:00 Urine Opiates Screen Negative (NEGATIVE) 02/18/18 05:00 Urine Methadone Screen Negative (NEGATIVE) 02/18/18 05:00 Ur Barbiturates Screen Negative (NEGATIVE) 02/18/18 05:00 Ur Phencyclidine Scrn Negative (NEGATIVE) 02/18/18 05:00 Ur Amphetamines Screen Negative (NEGATIVE) 02/18/18 05:00 U Benzodiazepines Scrn Negative (NEGATIVE) 02/18/18 05:00 U Oth Cocaine Metabols Negative (NEGATIVE) 02/18/18 05:00 U Cannabinoids Screen Positive (NEGATIVE) H 02/18/18 05:00 Alcohol, Quantitative < 10 mg/dl (0-10) 02/17/18 18:00 Blood Type A POSITIVE 02/17/18 18:31 Antibody Screen Negative 02/17/18 18:31 Crossmatch See Detail 02/17/18 18:31 BBK History Checked Patient has bt 02/17/18 18:31 Attending/Attestation - Attestation I have personally seen and examined this patient.: Yes I have fully participated in the care of the patient.: Yes I have reviewed all pertinent clinical information, including history, physical exam and plan: Yes
[2018-02-19 15:15] VITALS: O2SAT 98
== END 2018-02-19 | disposition short-term general hospital (02) | DRG 441 ==
LOC: H.ER 17:11 → H.ERHOLD 18:46 → H.ICU/CCU 20:44
PROC: 30233K1 Transfusion of Nonautologous Frozen Plasma into Peripheral Vein, Percutaneous Approach (ICD-10-PCS; principal; 2018-02-18)
PROC: 30233N1 Transfusion of Nonautologous Red Blood Cells into Peripheral Vein, Percutaneous Approach (ICD-10-PCS; 2018-02-18)
PROC: 6A550Z2 Pheresis of Platelets, Single (ICD-10-PCS; 2018-02-18)
DX: K72.90 Hepatic failure, unspecified without coma (principal); K76.7 Hepatorenal syndrome; N17.9 Acute kidney failure, unspecified; E72.20 Disorder of urea cycle metabolism, unspecified; D68.4 Acquired coagulation factor deficiency; E87.2 Acidosis; E87.5 Hyperkalemia; I10 Essential (primary) hypertension; J45.909 Unspecified asthma, uncomplicated; K70.31 Alcoholic cirrhosis of liver with ascites; D72.825 Bandemia; D69.59 Other secondary thrombocytopenia; D53.9 Nutritional anemia, unspecified; Z91.041 Radiographic dye allergy status; R09.02 Hypoxemia; F10.11 Alcohol abuse, in remission; Y90.0 Blood alcohol level of less than 20 mg/100 ml